=== PATIENT | male | born 1935 | race Caucasian/White ===

== ENCOUNTER 2016-06-29 19:23 | Inpatient (IN) | payer MEDICARE, OTHER ==
[~2016-06-29] VITALS: Ht 185.4 cm; Wt 67.9 kg
[~2016-06-29 19:23] MED LIST: ACYC400T2 PEG; ALBU2.5V4 IH; ALBU8.5H2 INHALATION; BUDE10.2 IH; DIAZ5TAB PEG; DILT120C55 PEG; HYDR-4003 PO; LEVO137T2 PEG; METO10TA3 PO; MIRT15TA6 PEG; ONDA-54 PEG; PANT20TA2 PO; POLY17PO2 PEG; TIOT18CA3 IH; WARF6TAB6 PO
[2016-06-29 19:32] VITALS: BP 160/102; PULSE 92; RESP 34; O2SAT 95
[2016-06-29] MEDS ORDERED: MethylprednisoLONE Sodium Succinate 62.5 mg/mL 2 mL Inj IVPUSH ONE (19:35)
[2016-06-29] MEDS ORDERED: Epinephrine Racemic 2.25% 0.5 mL Inhalation Solution NEB ONE (19:35)
[2016-06-29] MEDS ORDERED: Albuterol-Ipratropium 3 mL Inhalation Solution NEB ONE (19:35)
[2016-06-29] MEDS ORDERED: HYDR-4003 PO (19:45)
[2016-06-29] MEDS ORDERED: TAM75UDCAP PO (19:45)
[2016-06-29] MEDS ORDERED: WARF5TAB7 PEG (19:45)
[2016-06-29] MEDS ORDERED: WARF5TAB7 PO (19:45)
[2016-06-29 19:48] LABS: BASOPHILS % (AUTO) 0.6 % (0-3); EOSINOPHILS % (AUTO) 6.8 % (0-5); MONOCYTES % (AUTO) 12.3 % (4-12); Mean Corpuscular Volume 95.9 fL (81-100); NEUTROPHILS % (AUTO) 63.9 % (40-74); Platelet Count 265 bil/L (150-400)
[2016-06-29 19:55] VITALS: PULSE 99; RESP 27; O2SAT 100
--- NOTE | 2016-06-29 20:08 | DRSVH ---
PROCEDURE: X-RAY CHEST ONE VIEW ([id number]) INDICATIONS: respiratory distress TECHNIQUE: One view of the chest was acquired. COMPARISON: [facility], CR, XR CHEST 1VW (PORTABLE), 10/07/2015, 16:46. FINDINGS: Surgical changes and devices: alarm security or surveillance monitor leads are seen over the chest. Lungs and pleura: There is patchy streaky disease at the left base consistent with pneumonia. There i s indistinctness of the right hemidiaphragm and streaky disease suggesting early infiltrate at the ri ght base as well. Upper lungs and pulmonary vasculature are considered clear and normal. Mediastinum: Mediastinal contours appear normal. Heart size is normal. Bones and chest wall: No suspicious bony lesions. Overlying soft tissues appear unremarkable. IMPRESSION: Bibasilar patchy areas of pneumonia. Dictated by: Aki Reyes M.D. on 06/29/2016 at 20:06 Approved by: Aki Reyes M.D. on 06/29/2016 at 20:06
--- NOTE | 2016-06-29 20:08 | ED.REPORT ---
HPI-Dyspnea / Wheezing Date of Service Jun 29, 2016 ED Provider: Kiet Gutierres DO Pt is a 80 year old male with a hx of lung cancer and a tracheotomy on Warfarin for afib presenting to the ED via EMS complaining of intermittent SOB for a month. Associated symptoms include a bad cough for 6 weeks and increased sputum production. He has been on cephalexin 2 times a day for a month and is now on doxycycline. The pt is on precautionary Tamiflu because his 6 year old granddaughter has influenza. Has lung cancer treatment every 3 weeks. The pt's last INR was last week. Nursing Notes Stated Complaint: SOB Chief Complaint: Respiratory Distress Nursing Notes Reviewed: Yes Allergies: Coded Allergies: meperidine HCl (Verified Allergy, Severe, 'PASSED OUT PER PT', 10/07/15) PT STATES OK WITH DILAUDID AND MORPHINE AND OXYCODONE codeine (Verified Adverse Reaction, Severe, SEVERE N/V, 10/07/15) PT STATES OK WITH DILAUDID AND MORPHINE AND OXYCODONE oxycodone (Verified Adverse Reaction, Severe, Hallucinations, 10/07/15) Scheduled Acyclovir (Acyclovir) 400 Mg Tablet 400 MG PO BID Budesonide/Formoterol 80-4.5 mcg Inh (Symbicort 80-4.5 mcg Inh) 120 Puff/10.2 Gm Inhaler 2 PUFF IH BID Diltiazem ER (Taztia XT) 120 Mg Capsule.er 120 MG PO DAILY Levothyroxine (Levothyroxine) 137 Mcg Tablet 137 MCG PO DAILY Mirtazapine (Mirtazapine) 15 Mg Tablet 15 MG PO HS Oseltamivir Phosphate (Tamiflu) 75 Mg Capsule 75 MG PO DAILY Pantoprazole DR (Pantoprazole DR) 20 Mg Tablet.dr 20 MG PO DAILY Tiotropium [place] (Spiriva) 18 Mcg Cap.w.dev 1 PUFF IH DAILY Warfarin Sodium (Warfarin Sodium) 5 Mg Tablet 5 MG PO cvd-fdd-ggee-thur Warfarin Sodium (Warfarin Sodium) 5 Mg Tablet 2.5 MG PO sat-sat-dri Scheduled PRN Albuterol HFA (Proair HFA) 8.5 Gm Hfa.aer.ad 2 PUFFS INHALATION QID PRN PRN For Shortness of Breath Albuterol Neb Soln (Albuterol Neb Soln) 2.5 Mg/3 Ml Vial.neb 2.5 MG IH QID PRN PRN For Wheezing Diazepam (Valium) 5 Mg Tablet 5 MG PO HS PRN PRN For Restlessness Hydrocodone-Acetaminophen 5-325 mg (Hydrocodone-Acetaminophen 5-325 mg) 1 Each Tablet 1 TABLET PO bid PRN PRN For Pain Polyethylene Glycol 3350 (Polyethylene Glycol 3350) 17 Gm Powd.pack 17 GM PO prn PRN PRN For Constipation Miscellaneous Medications Ondansetron (Ondansetron) 8 Mg Tablet 8 MG PO crush, given through g-tube General Time Seen by MD: 19:30 Chief Complaint Shortness of breath Hx Obtained From: Spouse Arrived By: Walk-in Sudden in Onset?: No Onset Occurred: More than a week ago... (1 month) Symptom Duration: Intermittent Quality: Painful Severity: Current: Mild Severity: Maximum: Moderate Recent Healthcare: No recent hospitalization, Recent doctor visit Similar Sx Previous: Yes Risk Factors CAD Risk Stratification Hypertension Risk factors reviewed Past Medical History Past Medical History Notes: PCP: Dr. Kilpatrick Past Medical History Post-biopsy PTX on 10/18/14 (bx of right upper lung nodule) Afib on Coumadin s/p total laryngectomy and trach Feeding tube Recent aspiration PNA SCC of base of tongue Prostate cancer COPD HTN Chronic pain Past Surgical History Total laryngectomy and tracheostomy PET feeding tube insertion Radiation for tongue cancer Smoking History Former Smoker Social History Alcohol Use: Denies alcohol use Drug Use: Denies drug use Other Social History: Ambulatory Status Independent Review of Systems Unable to Obtain ROS Patient condition Constitutional: Denies: Fever Respiratory: Reports: Prod cough, clear, Shortness of breath, Wheezing Cardiovascular: Denies: Chest pain GI: Denies: Nausea, Vomiting Physical Exam Initial Vital Signs Vital Signs (First) Date Time Temp Pulse Resp B/P Pulse Ox O2 Delivery O2 Flow Rate FiO2 06/29/16 19:32 37.2 92 34 160/102 95 Room Air 06/29/16 19:55 11 100 Initial VS: Reviewed Head / Eyes: Atraumatic, Normocephalic ENT: No scleral icterus Abdomen / GI: Soft, Non-tender, No guarding, No rebound, No distention Lymphatic: No lymphadenopathy Extremities: Vascular intact, Neuro intact, No swelling Skin: Warm, Dry Neurologic: Alert, Oriented, Nonfocal Psychiatric: Mood/affect normal, Behavior normal, Normal thought content Respiratory / Chest: Atraumatic Resp Distress / Stridor: Positive: Resp distress moderate High pitched stridor. Extreme resistance to inhalation. Increased sputum production. Skin: Warm, Dry, Intact Color / Condition: Positive: Cyanosis central Tracheostomy Interpretation & Diagnostics Lab Results Interpretation Result Diagram: 06/29/16192906/29/161929 Test 06/29/16 19:30 White Blood Count 11.7th/mm3 (3.8-10.1) Red Blood Count 4.65mil/mm3 (4.40-5.80) Hemoglobin 14.9g/dL (13.8-17.2) Hematocrit 44.6% (41.0-50.0) Mean Corpuscular Volume 95.9fL (81-100) Mean Corpuscular Hemoglobin 32.0pg (27.0-35.0) Mean Corpuscular Hemoglobin Concent 33.4% (32.0-37.0) Red Cell Distribution Width 12.5% (12.3-15.4) Platelet Count 265bil/L (150-400) Neutrophils (%) (Auto) 63.9% (40-74) Lymphocytes (%) (Auto) 16.1% (14-46) Monocytes (%) (Auto) 12.3% (4-12) Eosinophils (%) (Auto) 6.8% (0-5) Basophils (%) (Auto) 0.6% (0-3) Prothrombin Time 16.8sec (8.1-12.5) Prothromb Time International Ratio 1.56ratio Sodium Level 142mEq/L (134-144) Potassium Level 4.5mEq/L (3.5-5.2) Chloride Level 103mEq/L (97-108) Carbon Dioxide Level 25mmol/L (18-29) Blood Urea Nitrogen 18mg/dL (8-27) Creatinine 0.81mg/dL (0.76-1.27) Estimat Glomerular Filtration Rate 98mL/min (>59) Glucose Level 105mg/dL (60-99) Lactic Acid Level 1.5mmol/L (0.4-2.0) Calcium Level 9.4mg/dL (8.5-10.1) Total Bilirubin 0.4mg/dL (0.0-1.2) Aspartate Amino Transf (AST/SGOT) 20U/L (0-50) Alanine Aminotransferase (ALT/SGPT) 14U/L (0-44) Alkaline Phosphatase 105U/L (25-160) Total Protein 7.5g/dL (6.4-8.4) Albumin 3.8g/dL (3.4-5.0) Hold Demarco Top Tube Received (Received) ECG Interpretation ECG Interpretation: Neuro complex tachycardia. Suspicious for atrial flutter. Rate 150. Time: 20:13 Interpreted by: ED physician X-Ray Chest Interpretation Chest Xray Interpretation: IMPRESSION: Bibasilar patchy areas of pneumonia. Dictated by: Aki Reyes M.D. on 06/29/2016 at 20:06 View: Portable, 1 view Interpretation / Wet Read by: Interpret - Radiologist Re-Eval/Medical Decision Med Decision/Clinical Course Patient presents in moderate respiratory distress. Diffuse expiratory wheeze and prolonged I to E. Thick secretions were suctioned. Chest x-ray is consistent with bibasilar pneumonia. Leukocytosis consistent with pneumonia. EKG shows narrow Tachycardia that is regular. This either sinus tachycardia or flutter with a fixed block. Mr. Rodriguez was resuscitated with broad-spectrum antibiotics for aspiration pneumonia, IV fluids, beta agonists and steroids. He received a few doses of IV Cardizem which brought his heart rate down to 112. After the above therapeutics he looked and felt much better. I consulted with Dr. Vogel. Plan for hospitalist admission and oncology consultation. Re-Evaluation/Progress : Time of Eval: 20:28 Patient Status: Condition improved Re-Evaluation/Progress Note: Discussed plan for admission. Pt understands and agrees. Consultation #1: Referral / Consult Name: Shawnee Gilbert MD Consulted With: Hospitalist Call Returned at: 20:47 Tetryl Blender Operator: Will see patient, Agrees with plan, Accepts admit Consultation #2: Referral / Consult Name: Nicolas Driver MD Call Returned at: 20:40 Tetryl Blender Operator: Agrees with plan Note: Oncology. Counseled Regarding: Diagnosis, Lab results, Need for follow-up, When/why to return to ED Discharge & Departure Shift Change Sign-Out Response to Therapy: Improved Impression: Primary Impression: Pneumonia Pneumonia type: aspiration pneumonia Aspiration pneumonia type: unspecified Laterality: bilateral Lung location: lower lobe of lung Qualified Code: J69.0 - Pneumonitis due to inhalation of food and vomit Additional Impressions: COPD with acute exacerbation Atrial fibrillation Disposition: AGAINST MEDICAL ADVICE Discharge Condition All VS Reviewed: Yes Condition: Improved Referrals: Chava Kilpatrick MD (PCP) Paulie Martinez MD Attestation Portions of this note were transcribed by Zayda Altamirano. I, Dr. Gutierres personally performed the history, physical exam and medical decision-making; I reviewed and confirmed the accuracy of the information in the transcribed note. Signed by : Eric Deluna, 06/29/2016 and 2136. copies to: Chava Kilpatrick MD; Paulie Martinez MD, Todd P DO Jun 29, 2016 20:08 ZAYDA ALTAMIRANO Jun 29, 2016 20:21
[2016-06-29 20:22] LABS: INR 1.56 ratio
[2016-06-29] MEDS ORDERED: 0.9% Sodium Chloride 1,000 ML IV SCH (20:25)
[2016-06-29] MEDS: Piperacillin-Tazo 3.375 Gm Inj 3.375 GM in Dextrose 5% Minibag Plus 50 ML IV SCH (20:40)
[2016-06-29] MEDS ORDERED: Diltiazem 5 mg/mL 5 mL Inj IVPUSH ONE (20:50)
[2016-06-29 21:05] VITALS: BP 134/58; PULSE 128; RESP 25; O2SAT 97
[2016-06-29 21:44] VITALS: BP 129/62; PULSE 115; RESP 23; O2SAT 98
[2016-06-29] MEDS ORDERED: Polyethylene Glycol (PEG) 17 Gm Powder PO PRN (22:40)
[2016-06-29] MEDS ORDERED: Alum-Mag Hydrox-Simeth 30 mL Suspension PO PRN (22:40)
[2016-06-29] MEDS ORDERED: Albuterol 2.5 mg/3 mL Inhalation Solution NEB PRN (22:40)
[2016-06-29] MEDS ORDERED: Ondansetron 2 mg/mL 2 mL Inj IVPUSH PRN (22:40)
[2016-06-29 22:45] VITALS: BP 152/88; PULSE 116; RESP 20; O2SAT 97
[2016-06-29 23:03] VITALS: BP 158/76; PULSE 116; RESP 25; O2SAT 98
--- NOTE | 2016-06-29 23:45 | PCM.HPMED ---
Subjective Date of Service Jun 29, 2016 Primary Provider: Admitting Physician: Shawnee Gilbert MD Primary Care Physician: Chava Kilpatrick MD Attending Physician: Shawnee Gilbert MD Chief Complaint: Cough, dyspnea History of Present Illness: Patient is a 80-year-old male with history of tongue squamous cell carcinoma, recurrent aspiration pneumonia, COPD, atrial fibrillation on warfarin and hypothyroidism presenting with a 6 week history of worsening cough. 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 The patient is accompanied by his , Pat, at bedside who is providing much of the history since the patient is non-verbal at baseline following laryngectomy with tracheostomy. Patient has had a cough for about 6 weeks that is more productive of yellow sputum. He has been on prophylactic antibiotics for aspiration pneumonia that is managed by his oncologist, Dr. Martinez. He was on cephalexin for 4 weeks, which was subsequently changed to clindamycin for 2 weeks due to persistent cough. He was then placed back on cephalexin and with no improvement with the cough he has been switched to doxycycline for the past 2 weeks. Patient 's noticed decreases in the patient's oxygen saturation with his cough today, which prompted her to bring him into [facility] ED for further evaluation. Patient reports weakness, fatigue, about 9lb weight loss over the past 3 weeks but otherwise denies fever, chills, chest pain, palpitations, dysuria. The patient currently gets PEG tube feedings scheduled for four times daily; however , due to sensation of fullness and nausea he has only been able to tolerate two feeds daily. He has a scheduled appointment next week to see Dr. Avelina Bingham to discuss J-tube placement in addition to esophageal stricture dilation. Over the past month he has been receiving daily IV fluids at home. The patient received DuoNeb, racemic epinephrine and albuterol nebulizer treatments in the ED with improvement in his breathing. Diltiazem 10mg IV was given due to SVT with HR 150s. Vivian-flu was also given in the ED as the patient's granddaughter has the flu. 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 He had local recurrence in September 2013, underwent left partial glossectomy with modified radical neck dissection, and subsequently underwent total laryngectomy in December 2013 for recurrent aspirations. He first developed a metastatic right upper lobe small lung nodule in February 2014, which was initially monitored and later biopsied in September 2014, demonstrating p16 positive metastatic head and neck squamous cell carcinoma. The lesion was treated with SBRT, but subsequent CT scan and PET-CT in March 2015 showed development of further metastatic lung nodules, and he started pembrolizumab ( Keytruda) infusions in May 2015. He completed cycle 18 of Keytruda on 06/14. Vitals in the ED: 37.2, HR 128, RR 36 satting 97% on oxymask 11L over trach collar, BP 135/58. Notable labs: WBC 11.7. Chest x-ray reads bibasilar patchy areas of pneumonia. Patient was started on Zosyn in the ED. Review of Systems: A comprehensive review of systems was conducted with the patient and found to be negative except as above in the History of Present Illness. Allergies Coded Allergies: meperidine HCl (Verified Allergy, Severe, 'PASSED OUT PER PT', 10/07/15) PT STATES OK WITH DILAUDID AND MORPHINE AND OXYCODONE codeine (Verified Adverse Reaction, Severe, SEVERE N/V, 10/07/15) PT STATES OK WITH DILAUDID AND MORPHINE AND OXYCODONE oxycodone (Verified Adverse Reaction, Severe, Hallucinations, 10/07/15) Home Medications Doxycycline 50mg BID Acyclovir 400mg BID Symbicort 80-4.5mcg 2 puffs BID Diltiazem ER 120mg daily Levothyroxine 137mcg daily Mirtazapine 15mg QHS Protonix 20mg daily Spiriva 1 puff daily Warfarin 5mg Sun, Sat, Tue, Sherie Warfarin 2.5mg Mon, Wed, Fri Hydrocodone 5/325mg 1 tab BID PRN PMH Complicated head and neck cancer history with a history of 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 Atrial fibrillation, on chronic anticoagulation. History of prostate cancer Recurrent aspiration pneumonia COPD Hypertension Chronic pain Dyslipidemia Hypothyroidism . Surgical History Cataracts Laryngectomy with tracheostomy PEG tube Bilateral hernia repair Family History Mother in her 80s from lung cancer Father in his 80s from [place] Social History Occupation: Retired, former med tech Hx Alcohol Use: No Hx Substance Use: No Hx Tobacco Use: No Smoking Status: Former Smoker (Quit 1989, smoked 1PPD x 35 years prior) Living Arrangement: with Family Exam Vital Signs Vital Sign - Last Date Time Temp Pulse Resp B/P Pulse Ox O2 Delivery O2 Flow Rate FiO2 06/29/16 21:44 115 23 129/62 98 06/29/16 19:55 Trach Collar 11 100 06/29/16 19:32 37.2 Exam General: Patient supine in bed. No acute distress, well-developed. Frail appearing. HEENT: Normocephalic, atraumatic. External ears without defect. Pupils equal, round, and reactive to light. Anicteric sclerae. Oropharynx with dry mucosa. Poor dentition. White plaque on posterior oropharynx. Tracheostomy present. Neck: Supple with full range of motion. No jugular venous distension. No bruits. No lymphadenopathy or thyromegaly. Cardiovascular: Tachycardic. No murmurs, rubs, or gallops appreciated Pulmonary: Rhales and rhonchi diffusely bilaterally, with occasional expiratory wheezes. Intermittent coughing on exam. Normal respiratory effort with no use of accessory muscles. Abdomen: Bowel tones present. Soft, nontender, nondistended. No hepatosplenomegaly or masses appreciated. PEG tube in place. Extremities: No clubbing, cyanosis, edema, or lymphadenopathy appreciated. Skin: Normal temperature, turgor, and texture; no rash, ulcers, or subcutaneous nodules appreciated. Neurological: Cranial nerves grossly intact. Psychiatric: Normal mood and affect. Lab and Diagnostics Result Diagram: 06/29/16192906/29/161929 X-Rays, CTs and MRIs Date of Service: 06/29/161931 PROCEDURE: X-RAY CHEST ONE VIEW ([id number]) INDICATIONS: respiratory distress TECHNIQUE: One view of the chest was acquired. COMPARISON: [facility], CR, XR CHEST 1VW (PORTABLE), 10/07/2015, 16: 46. FINDINGS: Surgical changes and devices: content assistant leads are seen over the chest. Lungs and pleura: There is patchy streaky disease at the left base consistent with pneumonia. There is indistinctness of the right hemidiaphragm and streaky disease suggesting early infiltrate at the right base as well. Upper lungs and pulmonary vasculature are considered clear and normal. Mediastinum: Mediastinal contours appear normal. Heart size is normal. Bones and chest wall: No suspicious bony lesions. Overlying soft tissues appear unremarkable. IMPRESSION: Bibasilar patchy areas of pneumonia. Dictated by: Aki Reyes M.D. on 06/29/2016 at 20:06 Approved by: Aki Reyes M.D. on 06/29/2016 at 20:06 Assessment & Plan Patient is a 80-year-old male with history of tongue squamous cell carcinoma, recurrent aspiration pneumonia, COPD, atrial fibrillation on warfarin and hypothyroidism presenting with a 6 week history of worsening cough and admitted for bibasilar pneumonia and COPD exacerbation. 1. Bibasilar pneumonia. Present on admission. Active -Suspected aspiration pneumonia -Chest x-ray shows patchy streaky disease at the left base consistent with pneumonia and indistinctness of the right hemidiaphragm and streaky disease suggesting early infiltrate at the right base -Pending studies: procalcitonin, legionella and strep pneumo urine ag, sputum culture, respiratory virus PCR -Continue Zosyn 2. Acute COPD exacerbation. Present on admission. Active -Patient with increasing shortness of breath, increasing sputum, change in color sputum -Possibly secondary to above -Patient received 125 mg Solu-Medrol in ED and will continue 40 mg prednisone daily for anticipated five day course -DuoNeb QIDWA, Albuterol Q2H PRN -Continue supplemental oxygen as needed to keep oxygen sats greater>90% 3. Paroxysmal atrial fibrillation on chronic anticoagulation with subtherapeutic INR. Present on admission. Active -Continue warfarin, dosed per pharmacy. Will continue DVT prophylaxis with heparin until INR is therapeutic -Continue home diltiazem 120mg ER daily -Telemetry 4. 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 Present on admission -Continue tube feeds through PEG tube -Dietitian order -Consider General Surgery consultation as patient has an appointment 07/02/2016 to discuss J-tube placement and esophageal stricture dilation 5. Hypothyroidism. Present on admission -Continue levothyroxine 125g daily 6. History of RLS. Present on admission -Continue diazepam 5mg PRN Patient Status: Patient is admitted under inpatient status with expected length of stay greater than 2 midnights due to severity of presenting symptoms, risk of adverse event, and complexity of treatment plan. GI Prophylaxis: Not indicated VTE Prophylaxis: Sub-Q Heparin (Unfractionated) Resuscitation Status: CPR: Attempt Resuscitation Attending Statement Pt seen and examined by myself and agree with above plan. Kyaw Mejia DO Jun 29, 2016 23:40 Shawnee Gilbert MD Jun 30, 2016 18:51
[2016-06-29] MEDS: 0.9% Sodium Chloride 1,000 ML IV SCH (23:55)
[2016-06-30] VITALS (11 sets, daily range): BP systolic 139–156; BP diastolic 84–102; PULSE 99–120; RESP 18–20; O2SAT 92–99
[2016-06-30] MEDS: Heparin 5,000 Unit/mL Inj SUBQ SCH ×3 (00:18→17:34)
[2016-06-30 05:05] LABS: INR 1.47 ratio
--- NOTE | 2016-06-30 05:20 | NUR ---
ADMIT/ O2 Admitted to room 2007 @ 2100, on 7 L O2 Per NC w Hydration, NS @ 75. Tele S-Tach A&Ox3 , using call light appropriately . minimal discomfort, dyspnea has subsided since admission, Pt Is NPO , had Pag Tube but without adapter so at present we are unable to administer medication or nutrition, will bring appropriate tubing in AM. Night Dose of Coumadin was held until it is possible to access tube
[2016-06-30 05:48] LABS: BASOPHILS % (AUTO) 0.1 % (0-3); EOSINOPHILS % (AUTO) 0.2 % (0-5); MONOCYTES % (AUTO) 0.7 % (4-12); Mean Corpuscular Hemoglobin 32.7 pg (27.0-35.0); Mean Corpuscular Volume 96.8 fL (81-100); Platelet Count 232 bil/L (150-400)
[2016-06-30] MEDS ORDERED: Influenza (Adult) Vaccine 0.5 mL Syringe IM ONE (08:30)
[2016-06-30] MEDS: Pantoprazole 20 mg ER24 Tablet PO SCH (08:30)
--- NOTE | 2016-06-30 09:18 | NUR ---
NUTRITION ASSESSMENT: Assess: 80 yo male w/ metastatic squamous cell carcinoma of the head and neck, admitted with 6 week history of worsening cough, likely aspiration pneumonia. Pt w/ gradual wt loss x 6 months and a recent hospital admission for SBO. Pt's reports that prior to admission pt was not tolerating enteral feeding, and since being discharged he has not been tolerating his boluses as well despite bowel movements. Pt's also notes that he is not taking in as much formula - down from 3 cans of Jevity 1.5 and 1 can of Osmolite per day to 2 cans daily currently, with a 9 pound weight loss x 3 weeks. Pt recently saw his PCP who suggests hanging a gravity bag of water between boluses to increase hydration. Order received to initiate PEG tube feeding once spouse brings in adapter / tubing that will work with hospital kangaroo pumps. PMHx: Depression, SBRT, a-fib, prostate ca, COPD, HTN LABS: Reviewed. Glu 108, Ca 8.3 MEDICATIONS: Reviewed. DIET: NPO HOME NUTRITION SUPPORT: Being managed by [facility]. reports the recommendation was 3 cans Jevity 1.5 + 3 cans Osmolite 1.5 per day. Provides: 2130 kcal/d, 90 g/d protein, and 1083 ml fluid. ANTHROPOMETRICS: Current Wt: 71.6 kg BMI: 20.8 kg/m2 IBW: 97.3 kg (74% IBW) Recent wt changes: 6 kg wt loss x6 months (7% = not significant) 4 kg reported weight loss x 3 weeks (5.29% x 3 weeks = severe malnutrition if reported weight loss is accurate) ESTIMATED NEEDS (Cancer): Calories: 2140 - 2432 kcal/d (22 - 25 kcal/kg/d IBW) Protein : 97 - 146 g/d (1.0-1.5 g/kg/d IBW) Fluid: Approx. 2432 ml (25 ml / kg IBW) ADDITIONAL COMMENTS: IBW used for estimated needs d/t gradual wt loss x6 months NUTRITION DIAGNOSIS: 1) Severe malnutrition / hydration related to acute on chronic illness as evidenced by wt loss and pt's inability to take in recommended enteral feeding regimen. INTERVENTION: 1) PEG tube feeding recommendation follows. Initiate Jevity 1.5 @ 25 ml/hr. Once tolerance established, recommend advance 10 ml every 4 hr. to goal rate 65 ml/hr x 23 hr. Flush dose 40 ml H2O every 4 hours, unless no IVF ordered. In that event, flush dose 54 ml / hr. 2)Discussed case w/ pt's dietitian at [facility] last admit 05/24/16. According pt's ordering log she suspects he has not been meeting his 6 cans/d for much more than 2 weeks and this is contributing to his steady and gradual wt loss. Also, discussed possibility of adding an extra can of formula to regimen once pt tolerating 6 cans/d and if his wt does not stabilize/increase. 2) Again encouraged pt's to touch base with [facility] regarding changes to enteral feeding regimen. MONITOR/EVALUATE: Enteral feeding start / advance / tolerance, wt, labs, GI/nutrition status, POC. Will continue to monitor per high nutrition risk guidelines.
[2016-06-30] MEDS: Albuterol-Ipratropium 3 mL Inhalation Solution NEB SCH ×4 (09:50→21:32)
--- NOTE | 2016-06-30 10:43 | PCM.PNMED ---
Subjective Date of Service Jun 30, 2016 Subjective Patient indicated he feels better this am. Cultures remain negative. CXR with new infiltrate. Viral pcr negative. Exam Vital Signs Eyes; cherelle, eom intact ENMT, well hydrated, trach in place CV; no significant mummer, irregular, 90 Lungs; Course, decreased sound both bases Abdo; soft, non acute benign, no sig tenderness Skin; no lesion or rash Neuro; no focal deficits noted, CN 2-12 intact Vital Sign - Last Date Time Temp Pulse Resp B/P Pulse Ox O2 Delivery O2 Flow Rate FiO2 06/30/16 09:55 109 06/30/16 09:52 18 93 Room Air 06/30/16 08:51 36.4 156/102 06/30/16 04:22 28 06/29/16 22:45 7.00 Intake and Output 06/29/16 06/29/16 06/30/16 Cumulative From/Thru 15:00 23:00 07:00 06/29/16 19:32 - 06/30/16 06:04 Intake Total 2000 ml 436 ml 2436 ml Output Total 400 ml 400 ml Balance 2000 ml 36 ml 2036 ml Intake Oral 0 ml 0 ml IV Total 2000 ml 436 ml 2436 ml Output Urine Total 400 ml 400 ml # Voids 2 2 Lab and Diagnostics Result Diagram: 06/30/16 0330 06/30/16329 X-Rays, CTs and MRIs Date of Service: 06/29/161931 PROCEDURE: X-RAY CHEST ONE VIEW ([id number]) INDICATIONS: respiratory distress TECHNIQUE: One view of the chest was acquired. COMPARISON: [facility], CR, XR CHEST 1VW (PORTABLE), 10/07/2015, 16: 46. FINDINGS: Surgical changes and devices: telemetry monitor leads are seen over the chest. Lungs and pleura: There is patchy streaky disease at the left base consistent with pneumonia. There is indistinctness of the right hemidiaphragm and streaky disease suggesting early infiltrate at the right base as well. Upper lungs and pulmonary vasculature are considered clear and normal. Mediastinum: Mediastinal contours appear normal. Heart size is normal. Bones and chest wall: No suspicious bony lesions. Overlying soft tissues appear unremarkable. IMPRESSION: Bibasilar patchy areas of pneumonia. Dictated by: Aki Reyes M.D. on 06/29/2016 at 20:06 Approved by: Aki Reyes M.D. on 06/29/2016 at 20:06 Assessment & Plan Patient is a 80-year-old male with history of tongue squamous cell carcinoma, recurrent aspiration pneumonia, COPD, atrial fibrillation on warfarin and hypothyroidism presenting with a 6 week history of worsening cough and admitted for bibasilar pneumonia and COPD exacerbation. 1. Bibasilar pneumonia. Present on admission. Active -Suspected aspiration pneumonia -Chest x-ray shows patchy streaky disease at the left base consistent with pneumonia and indistinctness of the right hemidiaphragm and streaky disease suggesting early infiltrate at the right base -Pending studies: procalcitonin, legionella and strep pneumo urine ag, sputum culture, respiratory virus PCR -Continue Zosyn -add azithromycin for atypicals 2. Acute COPD exacerbation. Present on admission. Active -Patient with increasing shortness of breath, increasing sputum, change in color sputum -Possibly secondary to above -Patient received 125 mg Solu-Medrol in ED and will continue 40 mg prednisone daily for anticipated five day course -DuoNeb QIDWA, Albuterol Q2H PRN -Continue supplemental oxygen as needed to keep oxygen sats greater>90% 3. Paroxysmal atrial fibrillation on chronic anticoagulation with subtherapeutic INR. Present on admission. Active -Continue warfarin, dosed per pharmacy. Will continue DVT prophylaxis with heparin until INR is therapeutic -Continue home diltiazem 120mg ER daily -Telemetry 4. 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 Present on admission -Continue tube feeds through PEG tube -Dietitian order -Consider General Surgery consultation as patient has an appointment 07/02/2016 to discuss J-tube placement and esophageal stricture dilation 5. Hypothyroidism. Present on admission -Continue levothyroxine 125g daily 6. History of RLS. Present on admission -Continue diazepam 5mg PRN Patient Status: Patient is admitted under inpatient status with expected length of stay greater than 2 midnights due to severity of presenting symptoms, risk of adverse event, and complexity of treatment plan. GI Prophylaxis: Not indicated VTE Prophylaxis: Sub-Q Heparin (Unfractionated) Resuscitation Status: CPR: Attempt Resuscitation Isabelle Evans MD Jun 30, 2016 10:43
[2016-06-30] MEDS: Piperacillin-Tazo 3.375 Gm Inj 3.375 GM in Dextrose 5% Minibag Plus 50 ML IV SCH ×2 (11:09→17:34)
[2016-06-30 12:01] LABS: APPEARANCE,URINE CLEAR (CLEAR,HAZY); COLOR,URINE YELLOW (YELLOW); OCCULT BLOOD,URINE NEGATIVE (NEGATIVE); PH,URINE 6.5 (5.0-8.0); UROBILINOGEN,URINE NORMAL (NORMAL)
[2016-06-30] MEDS: 0.9% Sodium Chloride 1,000 ML IV SCH (13:25)
[2016-06-30] MEDS: Acyclovir 400 mg Tablet PO SCH ×2 (15:27→20:46)
[2016-06-30] MEDS: predniSONE 20 mg Tablet PO SCH (15:59)
[2016-06-30] MEDS: Diltiazem CD 120 mg ER24 Capsule PO SCH (15:59)
--- NOTE | 2016-06-30 19:44 | NUR ---
Meds/Tube feeding Several PO medications ordered in addition to tube feedings, but correct PEG tube attachment unavailable, brought in this afternoon, attached and placement verified with auscultation. Pt given PO daily medications, BID medications withheld r/t timing. Pt's tube feeding initiated at rate of 25mL/Hr with Q4 40mL bolus set and orders to increase Q4 by 10mL/Hr, first increase to be at 2000, oncoming NOC RN made aware.
[2016-07-01] VITALS (11 sets, daily range): BP systolic 133–174; BP diastolic 82–107; PULSE 81–120; RESP 16–28; O2SAT 93–100
[2016-07-01] MEDS: Heparin 5,000 Unit/mL Inj SUBQ SCH ×3 (00:09→16:18)
[2016-07-01] MEDS: Piperacillin-Tazo 3.375 Gm Inj 3.375 GM in Dextrose 5% Minibag Plus 50 ML IV SCH ×3 (00:11→16:17)
[2016-07-01] MEDS: 0.9% Sodium Chloride 1,000 ML IV SCH ×2 (01:39→16:17)
[2016-07-01 03:22] LABS: INR 1.54 ratio
--- NOTE | 2016-07-01 06:18 | NUR ---
Confusion At approx. 0400, pt came into hallway and gestured to this RN to enter room; pt had removed IV, PEG tube feeding, tele, gown, and oxygen. Pt unable to answer what occurred, states he doesn't know. PIV restarted, NS reinitiated at 75ml/hr; unable to reinitiate tube feeding d/t PEG tube attachment piece being discarded from contamination. VSS, tele ST 110s. Bed alarm in place, pt instructed to call for assistance in future for needs.
[2016-07-01] MEDS: Albuterol-Ipratropium 3 mL Inhalation Solution NEB SCH ×3 (08:18→19:18)
[2016-07-01] MEDS: Pantoprazole 20 mg ER24 Tablet PO SCH (08:30)
[2016-07-01] MEDS: Diltiazem CD 120 mg ER24 Capsule PO SCH (11:35)
[2016-07-01] MEDS: predniSONE 20 mg Tablet PO SCH (11:35)
[2016-07-01] MEDS: Acyclovir 400 mg Tablet PO SCH ×2 (11:36→21:53)
--- NOTE | 2016-07-01 17:35 | PCM.PNMED ---
Subjective Date of Service Jul 01, 2016 Subjective Patient is a 80-year-old male with history of tongue squamous cell carcinoma, recurrent aspiration pneumonia, COPD, atrial fibrillation on warfarin and hypothyroidism presenting with a 6 week history of worsening cough. 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 Patient has had a cough for about 6 weeks that is more productive of yellow sputum. He has been on prophylactic antibiotics for aspiration pneumonia that is managed by his oncologist, Dr. Martinez. He was on cephalexin for 4 weeks, which was subsequently changed to clindamycin for 2 weeks due to persistent cough. He was then placed back on cephalexin and with no improvement with the cough he has been switched to doxycycline for the past 2 weeks. Patient's noticed decreases in the patient's oxygen saturation with his cough today, which prompted her to bring him into [facility] ED for further evaluation. Patient reports weakness, fatigue, about 9lb weight loss over the past 3 weeks but otherwise denies fever, chills, chest pain, palpitations, dysuria. The patient currently gets PEG tube feedings scheduled for four times daily; however, due to sensation of fullness and nausea he has only been able to tolerate two feeds daily. He has a scheduled appointment next week to see Dr. Avelina Bingham to discuss J-tube placement in addition to esophageal stricture dilation. Over the past month he has been receiving daily IV fluids at home. The patient received DuoNeb, racemic epinephrine and albuterol nebulizer treatments in the ED with improvement in his breathing. Diltiazem 10mg IV was given due to SVT with HR 150s. Vivian-flu was also given in the ED as the patient's granddaughter has the flu. Overnight events: No acute events noted. Today - Patient indicated he feels better this am. Cultures remain negative. CXR with new infiltrate. Viral PCR negative. Exam Vital Signs Vital Sign - Last Date Time Temp Pulse Resp B/P Pulse Ox O2 Delivery O2 Flow Rate FiO2 07/01/16 07:50 36.3 81 16 156/107 98 Trach Collar 7.00 07/01/16 04:00 28 Intake and Output 06/30/16 06/30/16 07/01/16 Cumulative From/Thru 15:00 23:00 07:00 06/29/16 19:32 - 07/01/16 06:06 Intake Total 1103 ml 1391 ml 4930 ml Output Total 400 ml 400 ml 1200 ml Balance 703 ml 991 ml 3730 ml Intake Oral 0 ml 0 ml 0 ml IV Total 943 ml 929 ml 4308 ml Tube Feeding 40 ml 342 ml 382 ml Tube Irrigant 120 ml 120 ml 240 ml Output Urine Total 400 ml 400 ml 1200 ml # Voids 2 4 Exam General: No acute distress, well-developed, well-nourished, appropriately interactive HEENT: Normocephalic, atraumatic. External ears without defect. Pupils equal, round, and reactive to light and accommodation. Anicteric sclerae, moist conjunctivae, and no lid lag. Tracheostomy in place. Oropharynx free of erythema and cobble stoning with moist mucosa. Neck: Supple with full range of motion. No jugular venous distension. No bruits. No lymphadenopathy or thyromegaly. Cardiovascular: Regular rate and rhythm with no murmurs, rubs, or gallops appreciated Pulmonary: Diffusely coarse with intermittent cough with deep inspiration, mild to moderate decrease in air movement. Normal respiratory effort with no use of accessory muscles. Abdomen: Bowel tones present. Soft, nontender, nondistended. No hepatosplenomegaly or masses appreciated. Extremities: No clubbing, cyanosis, edema, or lymphadenopathy appreciated. Skin: Normal temperature, turgor, and texture; no rash, ulcers, or subcutaneous nodules appreciated. Neurological: Cranial nerves grossly intact. Normal muscle strength, tone, and bulk. Reflexes, coordination with upper extremities mildly altered with unknown baseline possible chronic intention tremor present, and sensory function within normal limits. No known gait impairment. Psychiatric: Normal mood and affect. Alert and oriented to person, place, and time. IVs and Medications Medications Reviewed: Medications were reviewed in detail Lab and Diagnostics Result Diagram: 06/30/1632906/30/16329 X-Rays, CTs and MRIs Date of Service: 06/29/161931 PROCEDURE: X-RAY CHEST ONE VIEW ([id number]) INDICATIONS: respiratory distress TECHNIQUE: One view of the chest was acquired. COMPARISON: [facility], CR, XR CHEST 1VW (PORTABLE), 10/07/2015, 16: 46. FINDINGS: Surgical changes and devices: compliance monitor leads are seen over the chest. Lungs and pleura: There is patchy streaky disease at the left base consistent with pneumonia. There is indistinctness of the right hemidiaphragm and streaky disease suggesting early infiltrate at the right base as well. Upper lungs and pulmonary vasculature are considered clear and normal. Mediastinum: Mediastinal contours appear normal. Heart size is normal. Bones and chest wall: No suspicious bony lesions. Overlying soft tissues appear unremarkable. IMPRESSION: Bibasilar patchy areas of pneumonia. Dictated by: Aki Reyes M.D. on 06/29/2016 at 20:06 Approved by: Aki Reyes M.D. on 06/29/2016 at 20:06 Assessment & Plan Patient is a 80-year-old male with history of tongue squamous cell carcinoma, recurrent aspiration pneumonia, COPD, atrial fibrillation on warfarin and hypothyroidism presenting with a 6 week history of worsening cough and admitted for bibasilar pneumonia and COPD exacerbation. 1. Bibasilar pneumonia, unknown chronicity, Present on admission. Active - DDX: aspiration pneumonia, Herpetic pna, post obstructive pna, PE, - Chest x-ray shows patchy streaky disease at the left base consistent with pneumonia and indistinctness of the right hemidiaphragm and streaky disease suggesting early infiltrate at the right base - Procalcitonin, legionella and strep pneumo urine ag, respiratory virus PCR all negative. - Hx of MRSA pneumonia. MRSA swab pending. - Sputum culture - preliminary reading - gram neg rods, possible contamination. - Continue Zosyn (06/29/16) and azithromycin (07/02/16) for atypicals. Continue Home Acyclovir. - CT chest PE (07/02/16). 2. Acute COPD exacerbation. Present on admission. Active - Patient with increasing shortness of breath, increasing sputum, change in color sputum - Patient received 125 mg Solu-Medrol (06/29/16)in ED and will continue 40 mg prednisone (06/30/16) daily for anticipated five day course - DuoNeb QIDWA, Albuterol Q2H PRN - Continue supplemental oxygen as needed to keep oxygen sats greater>90% 3. Chronic Paroxysmal atrial fibrillation on chronic anticoagulation with subtherapeutic INR. Present on admission. Active - Continue warfarin, dosed per pharmacy. Will continue DVT prophylaxis with heparin until INR is therapeutic - INR 1.54. - Continue home diltiazem 120mg ER daily, Currently HR fluctuates in the low 100 's. - Telemetry 4. 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 Present on admission - Continue tube feeds through PEG tube - Dietitian order - Consider General Surgery consultation as patient has an appointment 07/02/2016 to discuss J-tube placement and esophageal stricture dilation - Dr. Bingham not yet aware of inpatient status. 5. Chronic Hypothyroidism. Present on admission - Continue levothyroxine 125g daily 6. History of RLS. Present on admission - Continue diazepam 5mg PRN Acetaminophen for mild pain when necessary. Bowel regimen Senna and MiraLAX scheduled and PRN. Zofran when necessary for nausea and vomiting. SubQ heparin held for now. SCDs in place. High-risk medications: Patient Status: Patient is admitted under inpatient status with expected length of stay greater than 2 midnights due to severity of presenting symptoms, risk of adverse event, and complexity of treatment plan. Pain Evaluation: Adequate Pain Control GI Prophylaxis: Not indicated VTE Prophylaxis: Sub-Q Heparin (Unfractionated) Resuscitation Status: CPR: Attempt Resuscitation Attending Statement The patient was seen and examined together with Dr. Tony on 07-01-16 and I agree with the history, exam and plan as outlined in the note above. SAGAR TONY DO Jul 01, 2016 08:08 Isabelle Evans MD Jul 02, 2016 16:06
--- NOTE | 2016-07-01 19:46 | NUR ---
PEG tube Per shift report, Pt had removed PEG access tubing during his episode of confusion. Pt's called and new access tubing brought in, Pt given am medications and tube feeding resumed at initial rate of 25mL/Hr, tube feeding increased to 35mL/Hr at ~1600 without issue.
--- NOTE | 2016-07-01 22:22 | NUR ---
Peg tube feed Pt had zero residual from Peg tube. Increased Jevity 1.5 to 45cc/hr. Pt denies nausea. Will cont to monitor
[2016-07-02] VITALS (15 sets, daily range): BP systolic 150–190; BP diastolic 84–108; PULSE 76–112; RESP 16–22; O2SAT 96–99
[2016-07-02] MEDS: Heparin 5,000 Unit/mL Inj SUBQ SCH ×3 (01:10→17:01)
[2016-07-02] MEDS: Piperacillin-Tazo 3.375 Gm Inj 3.375 GM in Dextrose 5% Minibag Plus 50 ML IV SCH ×4 (01:10→17:01)
[2016-07-02 03:31] LABS: BASOPHILS % (AUTO) 0 % (0-3); EOSINOPHILS % (AUTO) 0 % (0-5); MONOCYTES % (AUTO) 8.7 % (4-12); Mean Corpuscular Hemoglobin 32.4 pg (27.0-35.0); Mean Corpuscular Volume 97.1 fL (81-100); NEUTROPHILS % (AUTO) 82.2 % (40-74); Platelet Count 221 bil/L (150-400)
[2016-07-02 03:47] LABS: INR 1.9 ratio
[2016-07-02] MEDS: 0.9% Sodium Chloride 1,000 ML IV SCH ×2 (04:27→17:00)
--- NOTE | 2016-07-02 04:27 | NUR ---
PEG Tube Feed Residuals checked Q4hrs with no residuals found. Tube Feeding of Jevity 1.5 increased by increments of 10ml/hr at each check. Tube feed running at 65ml/hr with 40mlflush Q4hrs at tis time. Pt denies nausea.
--- NOTE | 2016-07-02 04:44 | NUR ---
VTac Per television specialist pt had 6 beats of VTac @ 0402. No abnormal S/Sx noted. Denies CP, SOB. Will continue to monitor.
[2016-07-02] MEDS: Albuterol-Ipratropium 3 mL Inhalation Solution NEB SCH ×4 (06:00→21:21)
[2016-07-02] MEDS: Pantoprazole 20 mg ER24 Tablet PO SCH (08:30)
[2016-07-02] MEDS: Acyclovir 400 mg Tablet PO SCH ×2 (08:54→19:54)
[2016-07-02] MEDS: Diltiazem CD 120 mg ER24 Capsule PO SCH (08:55)
[2016-07-02] MEDS: predniSONE 20 mg Tablet PO SCH (08:55)
--- NOTE | 2016-07-02 11:53 | DRSVH ---
PROCEDURE: CT ANGIO CHEST PULMONARY EMBOLISM ([id number]) INDICATIONS: Shortness of breath TECHNIQUE: After the administration of intravenous contrast, 2 mm thick sections acquired from the pulmonary api kaykay to the posterior costophrenic angles. 3-dimensional maximum intensity projection (MIP) coronal a nd sagittal reformats were then acquired through the thorax. For radiation dose reduction, the follo wing was used: automated exposure control, adjustment of mA and/or kV according to patient size. COMPARISON: [facility], CT, CT NECK CHEST ABD PELVIS W CON, 04/26/2016, 12:03. FINDINGS: Image quality: Degraded by motion artifact Pulmonary arteries: Pulmonary arteries are normal in size, and demonstrate no intraluminal filling d efects to suggest central pulmonary embolism. Lungs and pleura: Trace left pleural effusion. No pneumothorax. There is adjacent atelectasis. Ill-de fined nodular consolidation measuring 2.1 x 2.9 cm in the left lung base with surrounding groundglass . Additional patchy nodular and ground glass opacities are not well-seen due to motion artifact. No pneumothorax. Mediastinum: Heart size is normal, without pericardial effusion. No mediastinal or hilar terrance adeno jeana by size criteria opathy. Thoracic aorta is normal in caliber and enhancement. Esophagus is no rmal in caliber, without hiatal hernia. Bones and chest wall: No suspicious bony lesions. 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 Ribs and thoracic spine appear intact throughout. No axillary or supraclavicular adenopathy. Abdomen: Nonspecific 5 mm hypodensity in the left lobe of the liver, too small to characterize. Incid ental PEG tube noted IMPRESSION: No pulmonary embolism. Ill-defined bibasilar patchy consolidation, with new dominant nodular appearance within the left lung base. Given the surrounding groundglass opacities this could represent pneumonia/inflammatory etiolo gy, however recommend followup with noncontrast chest CT in 3 months to document resolution and exclu de metastatic pulmonary nodule. Previously seen subcentimeter nodular foci are not well evaluated giv en extensive motion artifact and recommend close attention on the recommended followup chest CT. Small left pleural effusion Motion degraded examination. Dictated by: Zhen Ryder M.D. on 07/02/2016 at 11:51 Approved by: Zhen Ryder M.D. on 07/02/2016 at 11:51
--- NOTE | 2016-07-02 12:00 | NUR ---
CT Scan He left [facility] 2007 at 1055 via a wheelchair transporter to get a CT scan to look for PEs. Composer Teaching Artist was notified. He returned to [facility] 2007 at 1106. He tolerated it well and was settled back into his room. Care continues.
--- NOTE | 2016-07-02 12:27 | CONS ---
[address] [address] CONSULTATION REPORT PATIENT: LISS MINER : 1935 MR#: [id number] ADMIT: 06/29/2016 JOB ID: [id number] DATE OF SERVICE: 07/02/2016 REQUESTING PHYSICIAN: I thank Dr. Woodard for this timely consult. REASON FOR CONSULTATION: Enterococcal bacteremia and possible pneumonia. HISTORY OF PRESENT ILLNESS: The patient is an unfortunate 80-year-old gentleman with longstanding COPD who also has head and neck cancer, as well as an esophageal stricture. The patient has had extensive surgery and currently is breathing through a trach on an outpatient basis. Additionally, the patient is unable to swallow at this point due to a stricture, therefore is fed through a PEG tube with chronic risk of aspiration. He was admitted to this facility 3 days ago on June 29 very late in the evening with progressive cough and dyspnea. The patient tells us that basically this has been going on for weeks with progressive amounts of yellow-green but nonbloody sputum. This has been associated with a general overall increasing shortness of breath, but no specific fevers, chills, or headache. He has been on a wide variety of prophylactic antibiotics over the past several weeks because of recurrent aspiration. Over the past couple months, he had four weeks of Keflex as prophylaxis for aspiration followed by a couple weeks of clindamycin and more recently was switched to doxycycline which he has continued for about two weeks. Despite this prophylactic regimen, the patient's cough was progressive, and that was what led him to the ER and evaluation and admission. Also notable when he came to the ER was the fact that his granddaughter had the flu, and so he was concerned about the possibility of acute influenza. The patient presented with tongue carcinoma, HPV positive, back in 2012, and he got treatment with radiotherapy plus chemotherapy. It recurred a year later, so he required surgery, modified radical neck dissection, and total laryngectomy. This was complicated by recurrent aspiration pneumonia. He was also found late in February 2014 to have a right upper lobe nodule which was found to be metastatic disease. He was initially treated with new chemo SBRT, but there was evidence of further metastasis, so we have switched to pembrolizumab in May 2015 and is currently in the midst of a very long course of that therapy. He has now completed his 18th cycle of that drug as of June 14. The patient was admitted here then about 2-1/2 days ago. The initial diagnosis was felt to be pneumonia based on x-rays showing perhaps some increased infiltrate at the left base and perhaps a bit on the right as well. Because of this, he was started on Zosyn and subsequently azithromycin was added just this morning. Despite this treatment, the patient reports he is really no better after two and half days and that he continues to have productive cough and shortness of breath. He still has no fevers, chills or sweats, however, nor any classical symptoms of pneumonia beyond the increased cough. It is notable that he has had no central line, supports, PICCs, or other devices and has been receiving chemo just through his arms. PAST MEDICAL HISTORY: 1. 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 2. History of prostate cancer. 3. Recurrent aspiration pneumonia for which he receives chronic antibiotic prophylaxis, most recently with Doxine. 4. COPD. 5. Hypertension. 6. Hyperlipidemia. 7. Esophageal stricture. 8. Hypothyroidism. SOCIAL HISTORY: The patient is an ex smoker. Does not drink alcohol and lives in local area with his family. FAMILY HISTORY: Positive for lung cancer and coronary disease. REVIEW OF SYSTEMS: This morning, because he has a trach he cannot speak, but he is obviously very awake and alert and able to answer by nodding. He currently denies having any headache or acute visual change. No sore throat per se. He obviously has a defect in his trachea, namely his tracheostomy, but there is no particular pain there by his report. No new issues with the neck. Patient reports he is continuing to be short of breath with intermittent heavy sputum production. No pleuritic chest pain. Minimal nausea or vomiting. No diarrhea. No urinary issues. Does not have a chronic Suarez, and no swelling of the joints or focal neurologic complaints. PHYSICAL EXAMINATION: Reveals an afebrile gentleman who has been afebrile throughout his admission, currently 36.5, pulse 96, respiratory rate 16, blood pressure 169/94, saturating well on 3 L. That is a Venturi mask over his trach. Patient is awake and alert. No temporal wasting is noted. Eyes without conjunctivitis or scleral icterus. Nose normal. Oral cavity without thrush or pharyngitis. Tracheostomy appears benign. There are no masses palpable in the neck. Lungs are notable for coarse breath sounds bilaterally. I do not hear a lot rales, but his lung exam is difficult because of the rather coarse upper airway sounds that are transmitted. Cardiac tones also difficult because of the other airway sounds, but regular rate and rhythm noted without significant murmur. Abdomen is soft and nontender without organomegaly. There is a G-tube present left upper quadrant which appears benign. Penis and scrotum looked normal. There is no Suarez catheter present. No suprapubic distention. Joints appear without synovitis. No evidence of cellulitis. The patient is neurologically intact. LABORATORIES: Include a white count 11,000 when he came in, now 8000. The diff shows 82% segs. Creatinine 0.88. LFTs normal. First procalcitonin was zero. The second procalcitonin done this morning is 0.4. Urinalysis without white cells. Serologic studies include a Fungitell which is pending. Micro studies that are notable include a sputum from admission which showed a few polys, and no organisms were seen on the Gram stain. It grew Pseudomonas, but this suggests that the Pseudomonas was present in very low quantities and may just be an "over grower" on the plates, as Pseudomonas grows are rapidly. Respiratory viral PCR panel was entirely negative. Blood cultures: 2/3 bottles have grown Enterococcus faecalis. X-rays include a radiograph of the chest which shows a streaky infiltrate at the left base consistent with pneumonia. There is also a bit of indistinctness of the right hemidiaphragm which might suggest an infiltrate there. IMPRESSION: This is an unfortunate gentleman with a confusing story. He was admitted with four weeks of increasing cough but no fever. He does not appear to be infected in a typical way, as he has no documented fevers, chills, or sweats, and his sputum is not purulent in that it has very few white cells and no organisms. The growths of Pseudomonas in his sputum may or may not be significant, but probably not, as the patient is on chronic antibiotics and Pseudomonas has a tendency to overgrow other organisms in the micro laboratory, even when present in small quantities. The big questions to be answered here: Does the patient have a pneumonia at all? His chest x-ray would suggest that he has a left lower lob process to my eye, and I think it is reasonable to treat him for a short course for what is probably an aspiration type process. Zosyn is a reasonable way to start here, and I do not see a role for azithromycin. The other major question here is what is the nature of the enterococcal bacteremia. Enterococci are her incapable of causing pneumonia. Thus, we cannot put together the new infiltrate with enterococcus in the blood. Enterococcus in the admission blood often raises possibilities about endovascular sources of infection such as endocarditis or infection of a pacer or a port. The patient does not have any indwelling hardware, and I think in this case we must be concerned about the possibility of enterococcal endocarditis. Note that this is the one kind of bacterial endocarditis which is often afebrile and can present in fairly nontoxic ways. RECOMMENDATIONS: 1. I would continue the Zosyn, as it provides the coverage for both for this Enterococcus, which is penicillin sensitive, as well as aspiration type pneumonia and the Pseudomonas in the sputum. 2. I would drop the azithromycin, and I have discontinued that. 3. Serial blood cultures are indicated, and these have been ordered. 4. Transthoracic echo is needed, and we may eventually need a transesophageal echo, though I imagine that will be impossible because of his esophageal stricture. 5. Repeat procalcitonin has been ordered. 6. Will continue to closely follow this complex patient with you.
--- NOTE | 2016-07-02 13:46 | NUR ---
NUTRITION FOLLOW UP: Assess: 80 yo male w/ metastatic squamous cell carcinoma of the head and neck, admitted for pneumonia. TF via PEG tube at goal rate of 65 ml/hr per notes. Speech eval pending. PMHx: Depression, SBRT, a-fib, prostate ca, COPD, HTN LABS: Reviewed. Glu 129, Alb 3.3 MEDICATIONS: Reviewed. Coumadin, Prednisone. DIET: NPO. HOME NUTRITION SUPPORT: Being managed by [facility]. reports the recommendation was 3 cans Jevity 1.5 + 3 cans Osmolite 1.5 per day. Provides: 2130 kcal/d, 90 g/d protein, and 1083 ml fluid. CURRENT TF: Jevity 1.5 at goal of 65 ml/hr providing 2243 kcal, 95 g protein; meeting 100% calorie, 100% protein needs. ANTHROPOMETRICS: Current Wt: 71.4 kg, BMI: 20.8 kg/m2, IBW: 97.3 kg (74% IBW). Recent wt change: 4 kg reported weight loss x 3 weeks (5.29% x 3 weeks = severe malnutrition if reported weight loss is accurate). ESTIMATED NEEDS (Cancer): Calories: 7645-0796 kcal/day (25-30 kcal/kg BW) Protein: 71-107 g/day (1.0-1.5 g/kg/d BW) Fluid: Approx. 6048-3212 ml/day (25-30 ml/kg BW) NUTRITION DIAGNOSIS: 1) Severe malnutrition/hydration related to acute on chronic illness as evidenced by wt loss and pt's inability to take in recommended enteral feeding regimen.---IMPROVING. INTERVENTION: 1) Continue current enteral feeding as ordered. MONITOR/EVALUATE: TF tolerance, ST eval, wt, labs, GI/nutrition status, POC. Follow per high nutrition risk guidelines.
--- NOTE | 2016-07-02 13:52 | PCM.PHAPRO ---
Progress Date of Service: Jul 02, 2016 Cough, dyspnea Warfarin Management per Pharmacy: Indication: Stroke prophylaxis as patient has atrial fibrillation ([id number]- Vasc = 2), with metatatic cancer diagnosis Goal INR: 2-3 Labs: Hgb/Hct: 12.4/37.2 Plt: 221 INR: 1.9 Drug-Drug Interactions: Zosyn, prednisone Additional Anticoagulants: Heparin 5000 units subQ Q8h Date -Jun 30-Jul 01-Jul 02-Jun INR 1.56 1.47 1.54 1.9 Warf Dose 2.5mg 5mg 5 MG 4 MG Recommendation: Warfarin 4 mg PO x 1 today at 1700 Pharmacy to continue to monitor for signs/symptoms of bleeding. Thank You, Heidy Santana, Pharm D. Heidy Santana Jul 02, 2016 13:51
--- NOTE | 2016-07-02 14:56 | NUR ---
pipe manufacture supervisordirectional driller note: Met with patient and his , Pat. I explained my role as lead javascript developer. No care needs identified at this time. Pat noted patient is scheduled to see Dr. Martinez on and receive his next dose of chemotherapy. I will check with Dr. Martinez when he returns to the office on Saturday to see what the plan is regarding chemotherapy. I told Pat and Man I would let them know the answer tomorrow. Will continue to follow and address any needs that may arise.
--- NOTE | 2016-07-02 15:31 | NUR ---
CHIEF WHEELAGE CLERK consult received. Modified barium swallow study was scheduled for 07/03/16 at 1330. Discussed evaluation with pt and his , who reported understanding and agreement. CHIEF WHEELAGE CLERK will follow and eval tomorrow.
--- NOTE | 2016-07-02 15:53 | NUR ---
Social Work: Initial Assessment: Data and Assessment: EMR Reviewed. See Initial Assessment. Cage Unloader met with patient and patient's at bedside to complete initial assessment. Patient was alert. Patient lives in a single level home with one step to enter. Patient's is his caregiver at home and Patient's also cares for a six year-old girl. Patient is a 80 y/o male that admitted for pneumonia, Acute Exac. of COPD and Resp. Distress. Patient re-admit scor is 09/29. Patient does not have a MPOA, but social studies department chair provided patient with DPOA information. Patient's primary care physician is Dr. Chava Kilpatrick. Patient has Medicare as primary insurance and [employer] as secondary. Patient does not have LTC insurance. Patient is a , but does not access [employer] benefits. Patient does not have any HH or SNF history. Patient has a walker, cane, suction machine and nebulizer at home. Patient will discharge home with when medically stable. SW will continue to follow. Plan: Patient is likely to discharge home with spouse when medically stable. SW will continue to follow. Sky Lees LMSW, HUMZA Addendum: 07/02/16 at 1605 by SKY LEES Amended: Links added.
--- NOTE | 2016-07-02 18:08 | PCM.PNMED ---
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 He has been on prophylactic antibiotics for aspiration pneumonia that is managed by his oncologist, Dr. Martinez. He was on cephalexin for 4 weeks, which was subsequently changed to clindamycin for 2 weeks due to persistent cough. He was then placed back on cephalexin and with no improvement with the cough he has been switched to doxycycline for the past 2 weeks. Overnight No acute events noted. Today patient alert and oriented, able to respond nonverbally to yes and no questions. Associated symptoms include weakness, fatigue, denies fever, chills, chest pain, palpitations, dysuria. History limited due to patient's inability to communicate verbally. ROS negative except as mentioned above. Exam Vital Signs Vital Sign - Last Date Time Temp Pulse Resp B/P Pulse Ox O2 Delivery O2 Flow Rate FiO2 07/02/16 13:42 109 18 164/102 97 Venturi Mask 3.00 07/02/16 12:28 28 07/02/16 08:42 36.5 Intake and Output 07/01/16 07/01/16 07/02/16 Cumulative From/Thru 15:00 23:00 07:00 06/29/16 19:32 - 07/02/16 05:43 Intake Total 1328 ml 1457 ml 7715 ml Output Total 720 ml 1000 ml 2920 ml Balance 608 ml 457 ml 4795 ml Intake Oral 0 ml 0 ml 0 ml IV Total 940 ml 862 ml 6110 ml Tube Feeding 268 ml 450 ml 1100 ml Tube Irrigant 120 ml 145 ml 505 ml Output Urine Total 720 ml 1000 ml 2920 ml # Voids 4 Exam Vital Signs (Last) Date Time Temp Pulse Resp B/P Pulse Ox O2 Delivery O2 Flow Rate FiO2 07/02/16 13:42 109 18 164/102 97 Venturi Mask 3.00 07/02/16 12:28 28 07/02/16 08:42 36.5 General: Alert, Oriented X3, Cooperative, No Acute Distress, afebrile Head: Normocephalic, atraumatic Eyes: PERRLA, EOMI. ENT: Mucous Membranes Moist/[place], Tracheostomy patent, no sign of infection, Venturi mask over his trach Chest & Lungs: Clear to auscultation bilaterally with no crackles, wheezes, or rhonchi. Cardiovascular: Regular Rate/Rhythm, Normal S1, Normal S2, No Murmurs/Rubs/ Gallops Abdomen: Non-tender, Non-distended, No masses, Normoactive bowel tones, Soft, G -tube present left upper quadrant patent Extremities: No cyanosis/clubbing/edema bilaterally Neurological: Grossly Neurologically Intact Lab and Diagnostics Result Diagram: 07/02/16 0500 07/02/16 0305 X-Rays, CTs and MRIs X-RAY CHEST ONE VIEW IMPRESSION: Bibasilar patchy areas of pneumonia. Dictated by: Aki Reyes M.D. on 06/29/2016 at 20:06 Approved by: Aki Reyes M.D. on 06/29/2016 at 20:06 CT ANGIO CHEST PULMONARY EMBOLISM MPRESSION: No pulmonary embolism. Ill-defined bibasilar patchy consolidation, with new dominant nodular appearance within the left lung base. Given the surrounding groundglass opacities this could represent pneumonia/inflammatory etiology, however recommend followup with noncontrast chest CT in 3 months to document resolution and exclude metastatic pulmonary nodule. Previously seen subcentimeter nodular foci are not well evaluated given extensive motion artifact and recommend close attention on the recommended followup chest CT. Small left pleural effusion Motion degraded examination. Dictated by: Zhen Ryder M.D. on 07/02/2016 at 11:51 Approved by: Zhen Ryder M.D. 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 Admitted for bibasilar Pneumonia. Currently under going treatment for aspiration pneumonia. Hospital Day 4 1. Bibasilar pneumonia, unknown chronicity, Present on admission. Active - DDX: aspiration pneumonia, Herpetic pna, post obstructive pna, - Chest x-ray shows patchy streaky disease at the left base consistent with pneumonia and indistinctness of the right hemidiaphragm and streaky disease suggesting early infiltrate at the right base - Procalcitonin, legionella and strep pneumo urine ag, respiratory virus PCR all negative. - Hx of MRSA pneumonia. MRSA swab pending. - Sputum culture - preliminary reading - gram neg rods, possible contamination. - Continue Zosyn (06/29/16), D/C azithromycin (07/02/16). Continue Home Acyclovir. - CT completed, negative for PE. 2. Acute COPD exacerbation. Present on admission. Active - Patient with increasing shortness of breath, increasing sputum, change in color sputum - Patient received 125 mg Solu-Medrol (06/29/16)in ED and will continue 40 mg prednisone (06/30/16) daily for anticipated five day course - DuoNeb QIDWA, Albuterol Q2H PRN - Continue supplemental oxygen as needed to keep oxygen sats goal of 88-92 % 3. Sepsis, acute, not present on admission, Active - Blood cultures grew out Enterococcus faecalis - Per ID, continue Zosyn - Echocardiogram ordered to r/o endocarditis -Infectious disease consulted,we appreciate their expertise on this case 4.Chronic Paroxysmal atrial fibrillation on chronic anticoagulation with subtherapeutic INR. Present on admission. Active - Continue warfarin, dosed per pharmacy. Will continue DVT prophylaxis with heparin until INR is therapeutic - INR 1.54. - Continue home diltiazem 120mg ER daily, Currently HR fluctuates in the low 100 's. - Continue Telemetry 5. 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 Present on admission, ongoing - Continue tube feeds through PEG tube - Dietitian order - General Surgery consulted as patient has an appointment 07/02/2016 to discuss J- tube placement and esophageal stricture dilation we appreciate their time and expertise on this case. 6. Chronic Hypothyroidism. Present on admission - Continue levothyroxine 125g daily 7. History of RLS. Present on admission - Continue diazepam 5mg PRN Acetaminophen for mild pain when necessary. Bowel regimen Senna and MiraLAX scheduled and PRN. Zofran when necessary for nausea and vomiting. SubQ heparin held for now. SCDs in place. High-risk medications: Disposition: Patient will likely stay in hospital for min two more night due to management of enterococcus faecalis, monitoring of INR to reach therapeutic level, Anticipate discharge to home with outpatient follow up. GI Prophylaxis: Not indicated VTE Prophylaxis: Sub-Q Heparin (Unfractionated) VTE Mechanical Devices: Intermittant Pneumatic CD Resuscitation Status: CPR: Attempt Resuscitation Attending Statement The patient was seen and examined together with Dr. Olivarez on 07/02/2016 and I agree with the history, exam and plan as outlined in the note above. . GIOVANNI OLIVAREZ DO Jul 02, 2016 14:58 Adam Rubio MD Jul 04, 2016 17:32 of stay greater than 2 midnights due to severity of presenting symptoms, risk of adverse event, and complexity of treatment plan. GI Prophylaxis: Not indicated VTE Prophylaxis: Sub-Q Heparin (Unfractionated) VTE Mechanical Devices: Intermittant Pneumatic CD Resuscitation Status: CPR: Attempt Resuscitation GIOVANNI OLIVAREZ DO Jul 02, 2016 14:58
--- NOTE | 2016-07-02 21:24 | CONS ---
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 Martinez; however, as he is an inpatient, his requested that I see him while he is an inpatient, so I used my clinic time to come see him in the hospital today. HISTORY OF PRESENT ILLNESS: This is a 80-year-old man who was found to have a cancer at the base of the tongue several years ago. His primary surgeon is Dr. Gregg Forrest at [facility]. He has undergone partial glossectomy and neck dissection, and was having repeated aspiration, and for that reason, underwent permanent tracheostomy and laryngectomy. He has a gastrostomy tube in place and historically has received bolus tube feeds through this. He was referred to my clinic for two reasons. The 1st is his inability to tolerate tube feeds as a bolus into his stomach. The 2nd is dysphagia, manifested as inability to tolerate p.o. intake. He was seen by Dr. Martinez back in May and his note from that time reveals that he could not even sip water. For this reason, he was referred to my clinic for consideration of potential esophageal dilation, and potential consideration of finding a way to get his tube feeds more distal, such as a feeding jejunostomy. However, he was admitted to the hospital several days ago with another aspiration event. PAST MEDICAL HISTORY: 1. 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 2. Atrial fibrillation, on chronic anticoagulation. 3. History of prostate cancer. 4. Recurrent aspiration pneumonia. 5. COPD. 6. Hypertension. 7. Chronic pain. 8. Dyslipidemia. 9. Hypothyroidism. PAST SURGICAL HISTORY: Laryngectomy and tracheostomy, PEG tube placement, glossectomy with modified radical neck dissection, cataracts, bilateral hernia repair, although I do not know what type. MEDICATIONS: 1. Acyclovir. 2. Maalox. 3. Albuterol. 4. Albuterol/ipratropium. 5. Diazepam. 6. Diltiazem. 7. Heparin 5000 units q.8 h. 8. Levothyroxine,. 9. Mirtazapine. 10. Ondansetron. 11. Pantoprazole. 12. Zosyn. 13. MiraLAX. 14. Prednisone. 15. Senna. ALLERGIES: 1. CODEINE. 2. MEPERIDINE. 3. OXYCODONE. SOCIAL HISTORY: He is a former smoker. He denies current alcohol and drug use. He is and his is present today. She is helpful in answering questions given that he has a permanent tracheostomy. EXAMINATION: Full physical examination could not be performed today as the patient urgently wanted to use the restroom in the time frame during which I was visiting. Temperature 36.8, heart rate 112 blood, pressure 150/88, respiratory rate of 18, saturation 97% on a Venturi mask. General: Awake, alert, no acute distress. He appears thin. Permanent tracheostomy is in place. Feeding tube is in place and tube feeds are infusing. LABS: White blood cell count is 7.9, hematocrit 37.2, platelets 221. Comprehensive metabolic panel is within normal limits with the exception of albumin of 3.3. INR is 1.9. IMAGING: Multiple imaging studies are reviewed in detail. CT angio chest/PE performed today is personally reviewed with the radiologist. I also reviewed the CT neck, chest, abdomen and pelvis from April 2016, and PET scan from March 2015. These reveal metastases to bilateral lungs. He does not have any mass lesions near the esophagus or at the gastroesophageal junction. He does not have a dilated stomach, and he does not have any mass lesions to suggest gastric outlet obstruction. His gastrostomy tube is intact within the lumen of the stomach. He does have opacities suggestive of pneumonia. ASSESSMENT: A 80-year-old man with recurrent metastatic squamous cell cancer of the base of the tongue with dysphagia to both solids and liquids, and poor tolerance of bolus feeds through his gastrostomy. He is malnourished and losing weight as a result of this. His primary intolerance to the bolus feeds is nausea. He is only receiving about half of the feeds that he needs to maintain his nutrition and weight. RECOMMENDATIONS: 1. I have ordered a barium speech study and a Speech Therapy consultation with regards to his oral intolerance. This may help to determine an etiology and potential therapy that could improve his ability to swallow. This would be purely for comfort, given that he does have a feeding tube in place, for the purpose of providing the calories necessary for nourishment. 2. I have asked our social workers to find a way to gain insurance approval for tube feeds to be infused at a regular constant rate, rather than in boluses. According to his , she was told that the pump would not be supplied if he does not have a jejunostomy tube in place. Although his current gastrostomy could potentially be converted to a gastrojejunostomy tube with the tip in the jejunum, this would present the risk of a procedure, with the potential for failure, which ultimately would be a potential waste of medical resources given that he has a gastrostomy tube in place that is functioning perfectly well and he is tolerating tube feeds at goal through this tube; and he does not have physical sign of gastric outlet obstruction that would necessitate a gastrojejunostomy tube. I do not recommend surgical jejunostomy given his malnourished state, as subjecting him to an operation would be simply unnecessary. 3. With regards to his poor p.o. tolerance, I would like to avoid dilation in him again for the reason being that he is malnourished and, as I can see on CT scan, may not have a lesion that would respond to dilation. Further recommendations will be based on what is seen on the barium swallow test, which was ordered today.
[2016-07-03] VITALS (15 sets, daily range): BP systolic 145–190; BP diastolic 84–115; PULSE 91–113; RESP 14–28; O2SAT 92–98
[2016-07-03] MEDS: Piperacillin-Tazo 3.375 Gm Inj 3.375 GM in Dextrose 5% Minibag Plus 50 ML IV SCH ×3 (00:07→17:45)
[2016-07-03] MEDS: Heparin 5,000 Unit/mL Inj SUBQ SCH ×3 (00:07→17:47)
[2016-07-03 04:03] LABS: BASOPHILS % (AUTO) 0 % (0-3); EOSINOPHILS % (AUTO) 0.1 % (0-5); MONOCYTES % (AUTO) 12.8 % (4-12); Mean Corpuscular Volume 97.8 fL (81-100); NEUTROPHILS % (AUTO) 76.3 % (40-74); Platelet Count 214 bil/L (150-400)
[2016-07-03] MEDS ORDERED: Labetalol 5 mg/mL 4 mL Inj IVPUSH ONE (04:15)
[2016-07-03 04:31] LABS: INR 1.82 ratio
[2016-07-03] MEDS: 0.9% Sodium Chloride 1,000 ML IV SCH ×2 (05:58→20:31)
--- NOTE | 2016-07-03 06:39 | NUR ---
Mentation / Mobility / Incontinence / HTN Pt AOx3 at beginning of shift, progressively more confused and impulsive throughout shift, attempting to climb over rails to get out of bed and not using call light; pt asked this AM "Where's my ?" when had been with him at HS; and "Why am I here? What's going on with me? With anything?". Pt reoriented to hospital situation, but still confused to assessment. Pt progressively weaker as shift progresses; unable to ambulate with 1-2PA, by AM, pt unable to stand at bedside to urinate without 2PA for stability. Pt shaky and unsteady, encouraged to use urinal in bed. At approx. 0500 this AM, pt became incontinent of bowel and bladder. At 0300 vitals, pt's BP 176/113; notified, one-time order for 10mg labetalol placed with 10mg additional dose if no improvement in 15min. BP rechecks with manual cuff were 190/115 prior to first dose and 175/100 prior to second dose. BP on reassessment after total of 20mg labetalol was 160/90. notified, no further orders placed. aware of all above events. Tele ST 100s.
[2016-07-03] MEDS: Albuterol-Ipratropium 3 mL Inhalation Solution NEB SCH ×4 (07:34→21:49)
[2016-07-03] MEDS: Lansoprazole 30 mg ODTablet PO SCH (08:30)
[2016-07-03] MEDS: Diltiazem CD 120 mg ER24 Capsule PO SCH (09:02)
[2016-07-03] MEDS: predniSONE 20 mg Tablet PO SCH (09:02)
[2016-07-03] MEDS: Acyclovir 400 mg Tablet PO SCH ×2 (09:02→20:17)
--- NOTE | 2016-07-03 11:16 | PROG NOTE ---
[address] [address] PROGRESS NOTE PATIENT: LISS MINER : 1935 MR#: [id number] ADMIT: 06/29/2016 JOB ID: [id number] DATE: 07/03/2016 INFECTIOUS DISEASE FOLLOW UP NOTE: REASON FOR FOLLOW UP: The management of aspiration pneumonia as well as unexplained enterococcal bacteremia. INTERVAL HISTORY: The patient has an unusual complaint this morning in that he reports he was delirious last night. He does not remember what led to this diagnosis but states the nurses told him that. He says to the best of his knowledge he has never had delirium before. The patient reports no increase in respiratory difficulties. No fevers. No chills. No sweats. He continues to have considerable secretions through his trach. PHYSICAL EXAMINATION: Reveals a chronically ill-appearing gentleman lying supine in his hospital bed. He breathes through a trach as before and he has a feeding tube in his left upper quadrant. He is afebrile. Temperature 36.7, pulse 95, respiratory rate 24, blood pressure 159/84, saturating well on 28% blow-by. Mental status is clear at this point. Eyes without conjunctivitis. Trach site appears benign. Lungs are occasional wheeze bilaterally but not much in the way of adventitial sounds. Cardiac tones without change. Abdomen benign except for the presence of the feeding tube. LABORATORIES: Include white count normal, now 7300. Differential normalizing to only 76% segs. Creatinine 0.81. Fungitell is pending. Initial blood cultures, 2/4 bottles grew Enterococcus faecalis, which was ampicillin susceptible. Also notable was the initial sputum which was fairly unimpressive in terms of fact there were only a few polys but it did grow Pseudomonas which is likely colonizing. We now have follow up blood cultures which are negative. A MRSA screen, however, is positive and note that many prior MRSA screens were also positive. His CT angiogram done yesterday showed ill-defined consolidation as previously discussed including some ground glass infiltrates. IMPRESSION: This is a complex case of a gentleman admitted with respiratory difficulty which may have represented at least to some degree aspiration pneumonia. Surprisingly his blood cultures in 2/4 bottles grew Enterococcus. Enterococcus is unlikely to be a contaminate here but it is also not the cause of his pneumonia as enterococci are not capable of causing pneumonia. This raises the possibility of an intravascular or intra-abdominal site of infection producing his enterococcal bacteremia. Another possible issue here is the Pseudomonas in the sputum but I think this is likely a contaminant. At this point, we are treating the patient with Zosyn which will provide coverage both for the enterococcal bacteremia, though this would not be optimal coverage, as well as for aspiration pneumonia with the Zosyn. RECOMMENDATIONS: 1. Will continue with Zosyn. 2. The patient should be placed in MRSA isolation 3. Bactroban will be added for nasal carriage of MRSA. 4. We await the follow up blood cultures. 5. We await the echo which we ordered yesterday. 6. Will continue to follow the patient's procalcitonin as well. Note that procalcitonin has been declining and is now down to 0.14. MTDD
--- NOTE | 2016-07-03 15:05 | DRSVH ---
PROCEDURE: X-RAY BARIUM SWALLOW WITH FOOD & VIDEOGRAPHY ([id number]) INDICATIONS: aspiration and dysphagia, prior tracheostomy and laryngectomy. Prior tracheostomy and laryngectomy. TECHNIQUE: Examination was conducted in conjunction with speech pathology per standard protocol. In the lateral projection, filming was performed of the patient swallowing. AP projection filming may also be performed with patient swallowing. COMPARISON: [facility], , BARIUM SWALLOW/FOOD & VIDEO, 09/15/2014, 10:50. FINDINGS: Prior tracheostomy and laryngectomy, no communication from the upper esophagus into the ai rway was observed and no anterior extension of ingested material towards the tracheostomy site was se en. IMPRESSION: Expected postsurgical change after total laryngectomy and tracheostomy. There is no comm unication between the pathway of the ingested material in the visualized airway. Dictated by: Devyn Michele M.D. on 07/03/2016 at 15:03 Approved by: Devyn Michele M.D. on 07/03/2016 at 15:03
--- NOTE | 2016-07-03 16:00 | NUR ---
MBSS completed. Called placed to Dr. Bingham with results. No fistula noted between esophagus and trachea. Tolerating thin/dysphagia mechanical through the pharyngx and passing the UES. Rec: snacks and supplements of thin/dysphagia mechanical as tolerated by patient. See MBSS report for more details.
--- NOTE | 2016-07-03 17:15 | PROG NOTE ---
[address] [address] PROGRESS NOTE PATIENT: LISS MINER : 1935 MR#: [id number] ADMIT: 06/29/2016 JOB ID: [id number] DATE: 07/03/2016 This is a 80-year-old man with dysphagia and a complex history of tongue cancer status post resection of the base of the tongue, modified radical neck dissection, and total laryngectomy with permanent tracheostomy. Maria Victoria Torres, speech therapist, performed his swallow evaluation today including fluoroscopic examination of the upper swallowing mechanism, and he tolerated thin and mechanical dysphagia foods which passed through the upper esophageal sphincter. Essentially, it looked normal for a patient who has had a total laryngectomy. Additionally, yesterday, I discussed the patient's case with Radha Waterman, certified social workers in health care, regarding the need for arrangements for a feeding tube pump for the patient to be provided so he may receive tube feeds at a constant rate once he is discharged from the hospital. She reported that she planned to pass this on to another certified social workers in health care as she will be gone for the next two days. Recommendations: Based on the normal swallow study performed by kenneth Kirkpatrick therapist, I recommend a barium esophagram to be performed, which I have ordered on a nonurgent basis. I will review the results and make recommendations based on this.
--- NOTE | 2016-07-03 18:01 | NUR ---
Barium Swallow, Mentation, Bathing Barium Swallow - Left [facility] 2007 about 1410 for a Barium swallow eval. He left via wheelchair with a transporter. He returned about 1440 and tolerated it well. This nurse was notified that the swallow went well and he could now be on a dysphagia/soft diet with thin liquids, host assist to order diet. Asked him if he wanted anything for dinner and he declined. Told him he could ask for something to eat or drink anytime he wanted. Mentation - He has been fully alert and oriented x3. Occasionally impulsive and will try to get up out of bed. Hood alarm has been placed on him. Bathing - He requested to have a bath today. He was given a bed bath and cleaned up. He appreciated it. Care continues.
--- NOTE | 2016-07-03 18:23 | DRSVH ---
[facility] [address] [place] [address] Echocardiogram Report Name: LISS MINER Yoel e: 07/03/2016 Hospital Exam Location: [facility] Gender: Male : 1935 Age: 80 yrs BP: 159/84 mmHg Reason For Study: ? ENDOCARDITIS, ? CHF History: COPD,AFIB,CANCER Ordering Physician: HOSPITALIST SVHPerformed By: Tamie Wynne Referring Physician: MORENA NORRIS Interpretation Summary This is a technically limited study with limited views 1. Normal left ventricular size, wall thickness and systolic function. 2. Grossly normal right ventricular size and systolic function. The estimated right atrial pressure is low normal. 3. The aortic valve is not well visualized. The pulmonic valve is not well visualized. 4. Limited views of the mitral valve and tricuspid valve do not show the presence of obvious vegetations. There is no significant regurgitation to suggest valvular destruction secondary to endocarditis. Given the limitations of this study, if endocarditis is still of concern, would recommend a JOSELIN. Procedure: A two-dimensional transthoracic echocardiogram with color flow and Doppler was performed. The suprasternal views were not obtained due to no visualization. The apical views were not obtained due to no visualization. Comparison is made with the echocardiogram of 01-15-11. The patient was in normal sinus rhythm during the exam. Left Ventricle: The left ventricle is normal in size. Left ventricular wall thickness is at the upper limits of normal. Left ventricular systolic function is normal. Right Ventricle: The right ventricle grossly appears normal in size with probable normal systolic function. Mitral Valve: The mitral valve leaflets appear mildly thickened, but open well. There is mild mitral annular calcification. No obvious vegetation. There is no mitral regurgitation noted. Aortic Valve: The aortic valve is not well visualized. Tricuspid Valve: The tricuspid valve is not well visualized. The tricuspid valve leaflets are thin and pliable. There is a trace or physiologic amount of tricuspid regurgitation. Pulmonic Valve: The pulmonic valve is not well visualized. Great Vessels: The ascending aorta could not be visualized. The pulmonary is not well visualized. The IVC is of normal diameter and collapses greater than 50% with a sniff. This suggests a low right atrial pressure of 3 mm Hg. Pericardium/ Pleura There is no pericardial effusion. MMode/2D Measurements & Calculations LVIDd: 4.4 cm IVC diam: 1.2 cm LVIDs: 2.6 cm FS: 41.6 % IVSd: 0.99 cm LVPWd: 1.1 cm Reading Physician:06:22 PM
--- NOTE | 2016-07-03 18:27 | PCM.PNMED ---
Subjective Date of Service Jul 03, 2016 Subjective Hospital Day 5 This is a 80-year-old male with metastatic squamous cell carcinoma of the tongue (on immunotherapy with Keytruda for squamous cell carcinoma of the tongue with metastasis to head, neck and lungs), with PMH recurrent aspiration pneumonia, COPD, atrial fibrillation on warfarin. He has been on prophylactic antibiotics for aspiration pneumonia that is managed by his oncologist, Dr. Martinez. He was on cephalexin for 4 weeks, which was subsequently changed to clindamycin for 2 weeks due to persistent cough. He was then placed back on cephalexin and with no improvement with the cough he has been switched to doxycycline for the past 2 weeks. Overnight: hypertensive treated with labetalol 20 mg IV Bp down to 160/190, fever of 101 F, confusion not consistent with patients baseline This morning patient examined awake in bed. He verbalized yes and no to questions. Patient endorsed weakness, loss of bowel and bladder control last night, productive cough. Patient denies nausea, vomiting, change in vision. When asked if he could point to what he was being treated for he pointed to his lungs. Patient is able to cough up sputum and self suction his stoma. ROS negative except as mentioned above. Exam Vital Signs Vital Sign - Last Date Time Temp Pulse Resp B/P Pulse Ox O2 Delivery O2 Flow Rate FiO2 07/03/16 05:23 160/90 07/03/16 04:11 36.8 113 24 97 Trach Collar 30 07/02/16 21:33 8.00 Intake and Output 07/02/16 07/02/16 07/03/16 Cumulative From/Thru 15:00 23:00 07:00 06/29/16 19:32 - 07/03/16 05:58 Intake Total 1830 ml 2035 ml 99296 ml Output Total 975 ml 1525 ml 5420 ml Balance 855 ml 510 ml 6160 ml Intake Oral 0 ml 0 ml 0 ml IV Total 995 ml 1054 ml 8159 ml Tube Feeding 695 ml 795 ml 2590 ml Tube Irrigant 140 ml 186 ml 831 ml Output Urine Total 975 ml 1525 ml 5420 ml # Voids 2 9 15 # Bowel Movements 1 3 4 Exam General: Alert, Oriented X3, Cooperative, No Acute Distress, afebrile Head: Normocephalic, atraumatic Eyes: PERRLA, EOMI. ENT: Mucous Membranes Moist/[place], Tracheostomy patent, no sign of infection, Venturi mask over his trach Chest & Lungs: Coarse breath sound on auscultation bilaterally, appreciation of crackles, wheezes, or rhonchi difficult to determine with breathing machinery Cardiovascular: Regular Rate/Rhythm, Normal S1, Normal S2, No Murmurs/Rubs/ Gallops Abdomen: Non-tender, Non-distended, No masses, Normoactive bowel tones, Soft, G -tube present left upper quadrant patent Extremities: No cyanosis/clubbing/edema bilaterally Neurological: Grossly Neurologically Intact, patient able to sit up in bed without difficulty nor assistance IVs and Medications Medications Reviewed: Medications were reviewed in detail Lab and Diagnostics Result Diagram: 07/03/1634407/03/16344 X-Rays, CTs and MRIs X-RAY CHEST ONE VIEW IMPRESSION: Bibasilar patchy areas of pneumonia. Dictated by: Aki Reyes M.D. on 06/29/2016 at 20:06 Approved by: Aki Reyes M.D. on 06/29/2016 at 20:06 CT ANGIO CHEST PULMONARY EMBOLISM MPRESSION: No pulmonary embolism. Ill-defined bibasilar patchy consolidation, with new dominant nodular appearance within the left lung base. Given the surrounding groundglass opacities this could represent pneumonia/inflammatory etiology, however recommend followup with noncontrast chest CT in 3 months to document resolution and exclude metastatic pulmonary nodule. Previously seen subcentimeter nodular foci are not well evaluated given extensive motion artifact and recommend close attention on the recommended followup chest CT. Small left pleural effusion Motion degraded examination. Dictated by: Zhen Ryder M.D. on 07/02/2016 at 11:51 Approved by: Zhen Ryder M.D. 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 Admitted for bibasilar Pneumonia. Currently under going treatment for aspiration pneumonia. Hospital Day 4 1. Bibasilar pneumonia, unknown chronicity, Present on admission. Active - DDX: aspiration pneumonia, Herpetic pna, post obstructive pna, - Chest x-ray shows patchy streaky disease at the left base consistent with pneumonia and indistinctness of the right hemidiaphragm and streaky disease suggesting early infiltrate at the right base - Procalcitonin trending down 0.14 07/03/16, legionella and strep pneumo urine ag , respiratory virus PCR all negative. - Hx of MRSA pneumonia. MRSA swab positive. Add Bactroban for coverage 07/03/16 - Sputum culture - pseudomonas. - Continue Zosyn (06/29/16), D/C azithromycin (07/02/16). Continue Home Acyclovir. - CT completed, negative for PE. 2. Acute COPD exacerbation. Present on admission. Active - Patient with increasing shortness of breath, increasing sputum, change in color sputum - Patient received 125 mg Solu-Medrol (06/29/16)in ED and will continue 40 mg prednisone (06/30/16) daily for anticipated five day course - DuoNeb QIDWA, Albuterol Q2H PRN - Continue supplemental oxygen as needed to keep oxygen sats goal of 88-92 % 3. Sepsis, acute, not present on admission, Active - Blood cultures grew out Enterococcus faecalis, no clear source for infection consider potential GI etiology - Per ID, continue Zosyn, Bactroban added for MRSA coverage - Echocardiogram ordered to r/o endocarditis, pending -Infectious disease consulted,we appreciate their expertise on this case 4.Chronic Paroxysmal atrial fibrillation on chronic anticoagulation with subtherapeutic INR. Present on admission. Active - Continue warfarin, dosed per pharmacy. Will continue DVT prophylaxis with heparin until INR is therapeutic - INR 1.54. - Continue home diltiazem 120mg ER daily, Currently HR fluctuates in the low 100 's. - Continue Telemetry 5. 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 Present on admission, ongoing - Continue tube feeds through PEG tube - Dietitian order - General Surgery consulted as patient has an appointment 07/02/2016 to discuss J- tube placement and esophageal stricture dilation we appreciate their time and expertise on this case. - Recommend barium swallow, Speech Therapy consultation, Surgery does not recommend surgical jejunostomy nor dilation given his malnourished state 6. Chronic Hypothyroidism. Present on admission - Continue levothyroxine 125g daily 7. History of RLS. Present on admission - Continue diazepam 5mg PRN Acetaminophen for mild pain when necessary. Bowel regimen Senna and MiraLAX scheduled and PRN. Zofran when necessary for nausea and vomiting. SubQ heparin held for now. SCDs in place. High-risk medications: Disposition: Patient will likely stay in hospital for min two more night due to management of enterococcus faecalis, monitoring of INR to reach therapeutic level, Anticipate discharge to home with outpatient follow up. GI Prophylaxis: Not indicated VTE Prophylaxis: Sub-Q Heparin (Unfractionated) VTE Mechanical Devices: Intermittant Pneumatic CD Resuscitation Status: CPR: Attempt Resuscitation Attending Statement The patient was seen and examined together with Dr. Olivarez on 07/03/2016 and I agree with the history, exam and plan as outlined in the note above. . GIOVANNI OLIVAREZ DO Jul 03, 2016 06:40 Adam Rubio MD Jul 04, 2016 17:33
[2016-07-04] VITALS (12 sets, daily range): BP systolic 157–171; BP diastolic 96–116; PULSE 81–98; RESP 14–28; O2SAT 95–99
[2016-07-04] MEDS: Heparin 5,000 Unit/mL Inj SUBQ SCH ×3 (00:18→17:13)
[2016-07-04] MEDS: Piperacillin-Tazo 3.375 Gm Inj 3.375 GM in Dextrose 5% Minibag Plus 50 ML IV SCH ×3 (00:18→17:13)
[2016-07-04] MEDS: Albuterol-Ipratropium 3 mL Inhalation Solution NEB SCH ×4 (03:19→19:32)
[2016-07-04 03:49] LABS: BASOPHILS % (AUTO) 0 % (0-3); EOSINOPHILS % (AUTO) 1.7 % (0-5); MONOCYTES % (AUTO) 12.8 % (4-12); Mean Corpuscular Hemoglobin 32.2 pg (27.0-35.0); Mean Corpuscular Volume 96.6 fL (81-100); Platelet Count 196 bil/L (150-400)
[2016-07-04 04:09] LABS: INR 1.44 ratio
--- NOTE | 2016-07-04 06:16 | NUR ---
Mobility, Oxygenation and output. Patient had a good night. He is able to move to the bedside commode with a one person assist and use his call light. Patient is still a fall risk and fall precautions are still in place. Patient had intermittent bouts of wheezing. RT was called and breathing treatment were given. Patient reports feeling much better.
[2016-07-04] MEDS: Lansoprazole 30 mg ODTablet PO SCH (08:30)
[2016-07-04] MEDS: Diltiazem CD 120 mg ER24 Capsule PO SCH (09:32)
[2016-07-04] MEDS: Acyclovir 400 mg Tablet PO SCH ×2 (09:32→21:43)
[2016-07-04] MEDS: predniSONE 20 mg Tablet PO SCH (09:33)
--- NOTE | 2016-07-04 09:37 | PROG NOTE ---
[address] [address] PROGRESS NOTE PATIENT: LISS MINER : 1935 MR#: [id number] ADMIT: 06/29/2016 JOB ID: [id number] DATE: 07/04/2016 INFECTIOUS DISEASE FOLLOWUP NOTE: REASON FOR FOLLOWUP: Aspiration pneumonia, as well as MRSA colonization and enterococcal bacteremia. INTERVAL HISTORY: The patient reports his breathing is steadily improving but still not at baseline. He has a fairly minimal cough. No fevers. No chills but remains somewhat short of breath as compared to normal. No specific GI problems and no problems with his G-tube are reported. PHYSICAL EXAMINATION: Reveals an afebrile gentleman, temperature 36.5, pulse 98, respiratory rate 14, blood pressure 165/113. Saturating 95% on his trach collar. He is awake and alert this morning. Appears in no distress. Eyes without conjunctivitis. Tracheostomy appears benign. Lungs with some scattered wheezing but without much else in the way of adventitial sounds. Cardiac tones: Regular rate and rhythm. Abdomen is notable for the G-tube. There is no inflammation around that G-tube, and there is no tenderness or other abnormality. No skin rash noted. LABORATORIES: Include a white count of 6300, platelet count 196,000. Creatinine 0.76. Followup blood cultures are negative after two of three of admission blood cultures yielded Enterococcus faecalis, which was ampicillin sensitive. Also notable in the micro department is that his sputum grew a light growth of pseudomonas on admission and that he is MRSA colonized. All followup blood cultures have been negative. A modified barium swallow was done yesterday, and this shows postsurgical changes from his laryngectomy and tracheostomy. Recall that the CT scan done two days ago of the chest showed ill-defined consolidation primarily in the left base. IMPRESSION: This is a multifaceted case of a gentleman with head and neck cancer who was admitted with what sounded like an aspiration pneumonia. The pseudomonas in his sputum likely represents colonization, and he has responded well to treatment with Zosyn with respect to his pulmonary status. Of concern is the possibility that the patient is having recurrent aspiration and this is being evaluated. From an infectious disease point of view, the finding of enterococcus in two of three blood cultures on admission is difficult to explain. The patient has no indwelling lines and came from home making a line associated or device associated enterococcal bacteremia possible. One concern here would be that he could have enterococcal endocarditis, as about 25% of people with community-acquired unexplained enterococcal bacteremia do field return repairer to have endocarditis. Yesterday, a transthoracic echo was obtained but there was very poor visualization of the valves, and I think it is reasonable to proceed with transesophageal, if possible. If we cannot do a transesophageal, we will either have to treat for six weeks for enterococcal endocarditis, which I would probably not recommend, or truncate his course of therapy at 10 days or so, stop antibiotics and observe. RECOMMENDATIONS: 1. Continue with Zosyn IV and nasal Bactroban. 2. I would ask Cardiology to come by and see whether they could do a JOSELIN. It may be because of his esophageal issues this is not possible in which case we will be forced to make a more definitive decision tomorrow.
[2016-07-04] MEDS: 0.9% Sodium Chloride 1,000 ML IV SCH ×2 (10:07→21:40)
--- NOTE | 2016-07-04 11:34 | DRSVH ---
PROCEDURE: X-RAY BARIUM STUDY OF ESOPHAGUS/PHARYNX ([id number]) INDICATIONS: dysphagia COMPARISON: None. FINDINGS: Function: Small tertiary contraction waves noted in the distal aspect the esophagus compatible with m inimal dysmotility. No elicited gastroesophageal reflux. Patient declined calibrated barium tablet.. Morphology: Single contrast views show no esophageal strictures or diverticula. External mass effect noted on the proximal thoracic and distal thoracic esophagus related to enlarged aortic arch and tort uous distal thoracic aorta. No strictures identified in the distal esophagus. Limited images of the stomach demonstrate normal appearance. IMPRESSION: 1. Minimal esophageal dysmotility. 2. Extrinsic mass effect on the proximal and distal thoracic esophagus related to aortic arch enlarge ment and tortuous distal thoracic aorta. 3. No esophageal stricture identified, however patient declined administration of calibrated barium t ablet. Dictated by: Kelsey Billingsley MD, PhD on 07/04/2016 at 11:32 Approved by: Kelsey Billingsley MD, PhD on 07/04/2016 at 11:32
--- NOTE | 2016-07-04 12:25 | PCM.PHAPRO ---
Progress Cough, dyspnea Coumadin Tx Indication: AFIB Home dose 2.5mg MWF, 5mg AOD Inpt dosing: Date Jun 30-Jul 01-Jul 02-Jul 03-Jul 04-Jul 05-Jul 06-Jun INR 1.56 1.47 1.54 1.9 1.82 1.44 Warf Dose 2.5mg 5mg 5 MG 4 MG 5 7.5 a/ Unclear why INR dropping with dose exceeding home dose. p/ Bump dose today, then hope to resume home dosing/gsf Niels Lam Pharm D Jul 04, 2016 12:25
[2016-07-04] MEDS ORDERED: Labetalol 5 mg/mL 4 mL Inj IVPUSH ONE (13:00)
[2016-07-04] MEDS ORDERED: Lactated Ringer's 1,000 ML IV ONE (13:01)
--- NOTE | 2016-07-04 13:19 | PCM.PNSURG ---
Subjective Visit Information: Reason for Visit Pneumonia, Acute Exac Copd, Resp Distress Surgery/Surgery Date Post-Op Day # Date of Admission: Jun 29, 2016 at 21:19 Hospital Day # Subjective: Stable overnight. Esophagram performed this morning. An extrinsic mass effect was found to be compressing the esophagus due to the shape and position of the thoracic aorta, but contrast flowed into the stomach. He understandably did not want to take a barium tablet. Objective Vital Sign- Last 8 Hours Date Time Temp Pulse Resp B/P Pulse Ox O2 Delivery O2 Flow Rate FiO2 07/04/16 12:39 37.1 98 20 171/116 99 Aerosol Mask 28 07/04/16 11:26 87 20 99 Trach Collar 28 07/04/16 10:25 36.8 91 22 166/113 99 Aerosol Mask 28 07/04/16 08:00 82 07/04/16 08:00 82 Intake and Output- Last 8 Hour 07/04/16 Cumulative From/Thru 07:00 06/29/16 19:32 - 07/04/16 06:34 Intake Total 1966 ml 43326 ml Output Total 946 ml 7391 ml Balance 1020 ml 8201 ml Intake Oral 0 ml 0 ml IV Total 1016 ml 23517 ml Tube Feeding 765 ml 4130 ml Tube Irrigant 185 ml 1298 ml Output Urine Total 945 ml 7390 ml Stool Total 1 ml 1 ml # Voids 15 # Bowel Movements 6 General: Alert, Cooperative Chest: Breathing easily on trach with mask over it. 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 -He tolerates tube feeds at a regular hourly rate. -MBSS was normal for a pt after laryngectomy -Esophagram shows compression on the esophagus based on shape and tortuosity of thoracic aorta Problems: Plan -Tube feeds to continue at a constant hourly rate both as inpatient and outpatient for nutrition. This may require special arrangements to have the pump approved, which I have discussed with Radha Waterman of [employer]. -I do not recommend esophageal dilation given it appears the thoracic aorta is the reason he is having some difficulty tolerating PO. -OK from my perspective to take PO as tolerated and as recommended by [employer], and at the discretion of the primary team given history of aspiration events. -I will sign off at this time. Please page with questions, [phone]. VTE Prophylaxis: Sub-Q Heparin (Unfractionated) Resuscitation Status: CPR: Attempt Resuscitation Avelina Bingham MD Jul 04, 2016 13:19
--- NOTE | 2016-07-04 15:05 | PCM.CHPMED ---
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 He has been on prophylactic antibiotics for aspiration pneumonia that is managed by his oncologist, Dr. Martinez. He was admitted to the hospital for aspiration pneumonia, and enterococcal bacteremia. Because of this, there was concern for bacterial endocarditis. A transthoracic echo was obtained but there was very poor visualization of the valves, and the decision was made to do a transesophageal echo. However, esophagram showed an external mass effect on the proximal thoracic and distal thoracic esophagus related to enlarged aortic arch and tortuous distal thoracic aorta. No strictures identified in the distal esophagus. Although the thoracic aorta was a possible cause of his dysphagia and esophageal narrowing, further workup was warranted given his history of metastatic head and neck cancer before proceeding with a transesophageal echo. As such, Gastroenterology was consulted for further evaluation via upper endoscopy. Today he reports shortness of breath and wheezing. He denies N/V/D, abdominal pain, fevers, chills, edema, chest pain, palpitations. Review of Systems: Comprehensive review of systems conducted and was negative except for the pertinent positives listed above. PMH Past Medical History 1. Head and neck cancer x3 years arising from the tongue with mets to the lung , status post total laryngectomy with permanent tracheostomy and PEG tube placement. 2. History of prostate cancer. 3. Recurrent aspiration pneumonia for which he receives chronic antibiotic prophylaxis, most recently with Doxine. 4. COPD. 5. Hypertension. 6. Hyperlipidemia. 7. Esophageal stricture. 8. Hypothyroidism. Surgical History Cataracts Laryngectomy with tracheostomy PEG tube Bilateral hernia repair Allergies: Coded Allergies: meperidine HCl (Verified Allergy, Severe, 'PASSED OUT PER PT', 10/07/15) PT STATES OK WITH DILAUDID AND MORPHINE AND OXYCODONE codeine (Verified Adverse Reaction, Severe, SEVERE N/V, 10/07/15) PT STATES OK WITH DILAUDID AND MORPHINE AND OXYCODONE oxycodone (Verified Adverse Reaction, Severe, Hallucinations, 10/07/15) Family History Family History Mother in her 80s from lung cancer Father in his 80s from [place] Social History Occupation: Retired, former med tech Hx Alcohol Use: NoHx Substance Use: NoHx Tobacco Use: No Smoking Status: Former Smoker (Quit 1989, smoked 1PPD x 35 years prior) Living Arrangement: with Family Exam Vital Signs Vital Sign - Last Date Time Temp Pulse Resp B/P Pulse Ox O2 Delivery O2 Flow Rate FiO2 07/04/16 14:17 166/114 07/04/16 12:39 37.1 98 20 99 Aerosol Mask 28 07/04/16 03:28 7.00 Intake and Output 07/03/16 07/03/16 07/04/16 Cumulative From/Thru 15:00 23:00 07:00 06/29/16 19:32 - 07/04/16 06:34 Intake Total 2046 ml 1966 ml 64552 ml Output Total 1025 ml 946 ml 7391 ml Balance 1021 ml 1020 ml 8201 ml Intake Oral 0 ml 0 ml 0 ml IV Total 989 ml 1016 ml 91433 ml Tube Feeding 775 ml 765 ml 4130 ml Tube Irrigant 282 ml 185 ml 1298 ml Output Urine Total 1025 ml 945 ml 7390 ml Stool Total 1 ml 1 ml # Voids 15 # Bowel Movements 2 6 General: Alert, Oriented X3, Cooperative, Mild Distress (mild respiratory distress, some accessory muscle use), Other (Pt has laryngectomy with tracheostomy. Unable to speak but communicative. ) Head: Normal Eyes: PERRLA, EOMI, Scleral Anicteric Mouth: Mouth Normal Chest & Lungs: Coarse breath sounds, Expiratory wheezes Cardiovascular: Regular Rate/Rhythm, Normal S1, Normal S2, No Murmurs/Rubs/ Gallops Abdomen: Non-tender, Non-distended, No masses, Soft, Other (PEG tube in place) Musculoskeletal: Unremarkable Extremities: No cyanosis/clubbing/edma bilat Neurological: Grossly Neurologically Intact Lab and Diagnostics Result Diagram: 07/04/16 0342 07/04/16 034 Assessment & Plan Assessment Patient is a 80-year-old male with history of metastatic squamous cell carcinoma of the head and neck, recurrent aspiration pneumonia, COPD, atrial fibrillation on warfarin who was admitted for bilateral pneumonia, sepsis, and possible endocarditis, with esophagram showing esophageal narrowing likely due to an enlarged thoracic aorta. 1. Dysphagia. - Patient has a history of chronic dysphagia with recurrent aspiration pneumonia. Prior to a JOSELIN to evaluate for possible endocarditis, an esophagram showed narrowing of the esophagus, likely secondary to an enlarged thoracic aorta. However, given his history of metastatic head and neck cancer, further workup is warranted to rule out metastatic disease to the esophagus. - We will perform an upper endoscopy to evaluate for other causes of esophageal narrowing and dysphagia. Problems: Pain Evaluation: Adequate Pain Control GI Prophylaxis: Not indicated VTE Prophylaxis: Sub-Q Heparin (Unfractionated) VTE Mechanical Devices: Intermittant Pneumatic CD Resuscitation Status: CPR: Attempt Resuscitation Attending Statement Pt seen and examined agree with resident physician history and physical. I was asked by the cardiology service to perform a pre JOSELIN upper endoscopy to evaluate for the possibility of luminal narrowing which would preclude JOSELIN for evaluation of endocarditis. Discussed EGD risk and benefits in detail with Mr Rodriguez. He wished to proceed with EGD. Will plan for tomorrow. Hold tube feeds overnight. Thank you for allowing me to participate in Mr Rodriguez's care. If you have any questions please dont hesitate to contact me. Pager# [phone] Bassam Queen Jul 04, 2016 14:46 Mimi Nguyen MD Jul 04, 2016 17:25
--- NOTE | 2016-07-04 15:46 | NUR ---
NUTRITION FOLLOW UP: Assess: 80 yo male w/ metastatic squamous cell carcinoma of the head and neck, admitted for pneumonia. TF via PEG tube at goal rate of 65 ml/hr per notes. MBS showed no fistula between esophagus and trachea. ST recommending dysphagia mechanical w/ thin liquids. PMHx: Depression, SBRT, a-fib, prostate ca, COPD, HTN LABS: Reviewed. Glu 134 MEDICATIONS: Reviewed. Coumadin, Prednisone. DIET: Dysphagia Mechanical, No PO recorded HOME NUTRITION SUPPORT: Being managed by [facility]. reports the recommendation was 3 cans Jevity 1.5 + 3 cans Osmolite 1.5 per day. Provides: 2130 kcal/d, 90 g/d protein, and 1083 ml fluid. CURRENT TF: Jevity 1.5 at goal of 65 ml/hr providing 2243 kcal, 95 g protein; meeting 100% calorie, 100% protein needs. ANTHROPOMETRICS: Current Wt: 69.9 kg, BMI: 20.3 kg/m2, IBW: 97.3 kg Recent wt change: 7.9 kg wt loss x6 months (10% wt loss x6 months = significant) ESTIMATED NEEDS (Cancer): Calories: 7518-6406 kcal/day (25-30 kcal/kg BW) Protein: 71-107 g/day (1.0-1.5 g/kg/d BW) Fluid: Approx. 4373-2307 ml/day (25-30 ml/kg BW) NUTRITION DIAGNOSIS: 1) Severe malnutrition/hydration related to acute on chronic illness as evidenced by wt loss and pt's inability to take in recommended enteral feeding regimen.---IMPROVING. INTERVENTION: 1) Continue current enteral feeding as ordered. 2) Will monitor PO intake and add supplements as needed MONITOR/EVALUATE: TF, PO Intake, wt, labs, GI/nutrition status, POC. Follow per high nutrition risk guidelines.
--- NOTE | 2016-07-04 18:03 | PCM.PNMED ---
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 He has been on prophylactic antibiotics for aspiration pneumonia that is managed by his oncologist, Dr. Martinez. He was on cephalexin for 4 weeks, which was subsequently changed to clindamycin for 2 weeks due to persistent cough. He was then placed back on cephalexin and with no improvement with the cough he has been switched to doxycycline for the past 2 weeks. Hospital day 5 No overnight events reported by nursing. Today patient stated he experiencing diarrhea, productive cough, sputum production has decreased, otherwise had no complaints. Denies fever, chills, nausea, vomiting. He is able ambulate with minimal assistance from bed to bathroom. ROS negative except as mentioned above. Exam Vital Signs Vital Sign - Last Date Time Temp Pulse Resp B/P Pulse Ox O2 Delivery O2 Flow Rate FiO2 07/04/16 03:28 36.5 98 14 165/113 96 Trach Collar 7.00 07/03/16 20:12 28 Intake and Output 07/03/16 07/03/16 07/04/16 Cumulative From/Thru 15:00 23:00 07:00 06/29/16 19:32 - 07/04/16 04:48 Intake Total 2046 ml 0 ml 30969 ml Output Total 1025 ml 946 ml 7391 ml Balance 1021 ml -946 ml 6235 ml Intake Oral 0 ml 0 ml 0 ml IV Total 989 ml 9148 ml Tube Feeding 775 ml 3365 ml Tube Irrigant 282 ml 1113 ml Output Urine Total 1025 ml 945 ml 7390 ml Stool Total 1 ml 1 ml # Voids 15 # Bowel Movements 2 6 Exam General: Alert, Oriented X3, Cooperative, No Acute Distress, afebrile Head: Normocephalic, atraumatic Eyes: PERRLA, EOMI. ENT: Mucous Membranes Moist/[place], Tracheostomy patent, no sign of infection, Venturi mask over his trach Chest & Lungs: minimal inspiratory wheeze bilaterally, appreciation of crackles , or rhonchi difficult to determine with breathing machinery Cardiovascular: Regular Rate/Rhythm, Normal S1, Normal S2, No Murmurs/Rubs/ Gallops Abdomen: Non-tender, Non-distended, No masses, Normoactive bowel tones, Soft, G -tube present left upper quadrant patent Extremities: No cyanosis/clubbing/edema bilaterally Neurological: Grossly Neurologically Intact Lab and Diagnostics Result Diagram: 07/04/16 0342 07/04/16 034 X-Rays, CTs and MRIs X-RAY CHEST ONE VIEW IMPRESSION: Bibasilar patchy areas of pneumonia. Dictated by: Aki Reyes M.D. on 06/29/2016 at 20:06 Approved by: Aki Reyes M.D. on 06/29/2016 at 20:06 CT ANGIO CHEST PULMONARY EMBOLISM MPRESSION: No pulmonary embolism. Ill-defined bibasilar patchy consolidation, with new dominant nodular appearance within the left lung base. Given the surrounding groundglass opacities this could represent pneumonia/inflammatory etiology, however recommend followup with noncontrast chest CT in 3 months to document resolution and exclude metastatic pulmonary nodule. Previously seen subcentimeter nodular foci are not well evaluated given extensive motion artifact and recommend close attention on the recommended followup chest CT. Small left pleural effusion Motion degraded examination. Dictated by: Zhen Ryder M.D. on 07/02/2016 at 11:51 Approved by: Zhen Ryder M.D. on 07/02/2016 at 11:51 Additional Diagnostics X-RAY BARIUM SWALLOW WITH FOOD & VIDEOGRAPHY IMPRESSION: Expected postsurgical change after total laryngectomy and tracheostomy. There is no communication between the pathway of the ingested material in the visualized airway. Dictated by: Devyn Michele M.D. on 07/03/2016 at 15:03 Approved by: Devyn Michele M.D. 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 Admitted for bibasilar Pneumonia. Currently under going treatment for aspiration pneumonia. Hospital Day 5 1. Bibasilar pneumonia, unknown chronicity, Present on admission. Improving - DDX: aspiration pneumonia, Herpetic pna, post obstructive pna, - Chest x-ray shows patchy streaky disease at the left base consistent with pneumonia and indistinctness of the right hemidiaphragm and streaky disease suggesting early infiltrate at the right base - Procalcitonin trending down 0.14 07/03/16, legionella and strep pneumo urine ag , respiratory virus PCR all negative. - Hx of MRSA pneumonia. MRSA swab positive. Add Bactroban for coverage 07/03/16 - Sputum culture - pseudomonas. - Continue Zosyn (06/29/16), D/C azithromycin (07/02/16). Continue Home Acyclovir. - CT completed, negative for PE. 2.Sepsis, acute, not present on admission, Improving - Blood cultures grew out Enterococcus faecalis, no clear source for infection consider potential GI etiology - Per ID, continue Zosyn, Bactroban added for MRSA coverage - Trans esophageal Echocardiogram ordered to r/o endocarditis, pending post EGD to r/o esophageal strictures - Infectious disease consulted,we appreciate their expertise on this case 3. 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 Present on admission, ongoing - Continue tube feeds through PEG tube - Dietitian ordered - Swallow study completed 07/03/15 no sign of communication of trachea to esophageus - General Surgery consulted as patient has an appointment 07/02/2016 to discuss J- tube placement and esophageal stricture dilation we appreciate their time and expertise on this case. - Recommend barium swallow, Speech Therapy consultation, Surgery does not recommend surgical jejunostomy nor dilation given his malnourished state and recommends continued feeds with current G-tube - Social Work consulted on acquiring feeding tube pump for home, 4. Acute COPD exacerbation. Present on admission. Active - Patient with increasing shortness of breath, increasing sputum, change in color sputum - Patient received 125 mg Solu-Medrol (06/29/16)in ED and will continue 40 mg prednisone (06/30/16) daily for anticipated five day course - DuoNeb QIDWA, Albuterol Q2H PRN - Continue supplemental oxygen as needed to keep oxygen sats goal of 88-92 % - 1-2 ml lidocaine given transtracheal tube prior to respiratory therapy for bronchospasm 5.Chronic Paroxysmal atrial fibrillation on chronic anticoagulation with subtherapeutic INR. Present on admission. Active - Continue warfarin, dosed per pharmacy. Will continue DVT prophylaxis with heparin until INR is therapeutic - INR 1.54. - Continue home diltiazem 120mg ER daily, Currently HR fluctuates in the low 100 's. - Continue Telemetry 6. Chronic Hypothyroidism. Present on admission - Continue levothyroxine 125g daily 7. History of RLS. Present on admission - Continue diazepam 5mg PRN Acetaminophen for mild pain when necessary. Bowel regimen Senna and MiraLAX scheduled and PRN. Zofran when necessary for nausea and vomiting. SubQ heparin held for now. SCDs in place. High-risk medications: Disposition: Patient will likely stay in hospital for one more night pending echocardiogram results with likely discharge to home. GI Prophylaxis: Not indicated VTE Prophylaxis: Sub-Q Heparin (Unfractionated) VTE Mechanical Devices: Intermittant Pneumatic CD Resuscitation Status: CPR: Attempt Resuscitation Attending Statement The patient was seen and examined together with Dr. Olivarez on 07/04/2012 and I agree with the history, exam and plan as outlined in the note above. . GIOVANNI OLIVAREZ DO Jul 04, 2016 06:35 Adam Rubio MD Jul 06, 2016 17:09
[2016-07-04] MEDS ORDERED: Labetalol 5 mg/mL 4 mL Inj IVPUSH PRN (19:25)
--- NOTE | 2016-07-04 19:33 | CCS NOTE ---
[facility] [address] [place] [address], [address] [address] MEDICAL ONCOLOGY OFFICE NOTE PATIENT: LISS MINER : 1935 MR#: [id number] DATE: 06/29/2016 JOB ID: [id number] DATE: 07/04/2016 DIAGNOSES: 1. Current admission for recurrent aspiration pneumonia. 2. 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 3. Hypothyroidism. 4. Chronic depression. 5. Paroxysmal atrial fibrillation, on anticoagulation therapy. 6. Permanent feeding tube dependence. HISTORY OF PRESENT ILLNESS: The patient is a 80-year-old gentleman, with metastatic head and neck squamous cell carcinoma to the lungs, undergoing immunotherapy with pembrolizumab. He is status post laryngectomy for recurrent severe aspirations, but still develops aspiration pneumonia on a frequent basis, because of inability to clear airway secretions. 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 He has a gastrostomy button in place. He gets gastrostomy feedings at home to gravity feeds. His calorie requirements call for five cans of formula per day, but he is usually only able to tolerate 3 or 3-1/2. I have been giving him prophylactic antibiotics for prevention of chronic aspiration. At 1st, this was effective but lately it has not been. He started developing more cough and copious amounts of secretions about two weeks ago. He referred to ED, but waited too long and left. The problem persisted and he referred back again last Saturday. Chest x-ray suggested bibasilar patchy areas of pneumonia. CT chest angiogram was negative for PE. It showed nodular consolidation in left lung base. He has been placed on Zosyn. He was seen by Dr. Bingham during this hospital admission. He has had a swallow evaluation by speech therapist as well as modified barium swallow study by the radiologist. There is no aspiration of food (of course, there would not be any since he has undergone laryngectomy and has a permanent tracheostomy). Esophagogram does not show stenosis but shows extrinsic compression by the adjacent aorta. Dr. Bingham recommends a trial of feeding through his current gastrostomy access by feeding pump. If the patient can handle his calorie requirements through feeding pump, and hopefully this can be arranged at home and there would not be any need for exchange of his feeding tube. Today, he does not seem to be doing very well. He has developed diarrhea. We have collected a stool sample for C. diff, but the result is pending. He does not look well. Blood pressure 166/96, heart rate 91, temperature 36.8. CURRENT LABORATORY DATA: CBC is rather normal. Basic metabolic profile is normal as well. Procalcitonin has been trending down with antibiotic therapy. IMPRESSION/RECOMMENDATIONS: 1. Chronic recurrent aspiration pneumonia. This is primarily due to inability to clear airway secretions, rather than aspirating food or oral contents. I would like to try a scopolamine patch in order to reduce respiratory secretions. I will place an order for this in computer. Continue current antibiotic therapy. 2. Enterococcus was found in the blood culture. A transesophageal echocardiogram has been requested, to rule out endocarditis. Transthoracic echocardiogram was negative but it was not a reliable study. 3. Inability to handle gastrostomy feedings. He is currently receiving his tube feedings through a feeding pump. It is difficult to assess if he is handling this well or not given that he has developed diarrhea today, but the goal is to assess his ability to receive his calorie requirements through feeding pump, and, if successful, hopefully arrange the same thing at home. 4. 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 He was due for his immunotherapy tomorrow, but it will be postponed until after discharge.
[2016-07-05] VITALS (14 sets, daily range): BP systolic 145–165; BP diastolic 85–109; PULSE 76–97; RESP 13–24; O2SAT 94–99
[2016-07-05] MEDS: Heparin 5,000 Unit/mL Inj SUBQ SCH ×3 (00:36→17:13)
[2016-07-05] MEDS: Piperacillin-Tazo 3.375 Gm Inj 3.375 GM in Dextrose 5% Minibag Plus 50 ML IV SCH ×3 (00:36→17:08)
[2016-07-05 03:37] LABS: BASOPHILS % (AUTO) 0 % (0-3); EOSINOPHILS % (AUTO) 2.3 % (0-5); MONOCYTES % (AUTO) 12.4 % (4-12); Mean Corpuscular Hemoglobin 32.1 pg (27.0-35.0); Mean Corpuscular Volume 96.5 fL (81-100); NEUTROPHILS % (AUTO) 72.7 % (40-74); Platelet Count 220 bil/L (150-400)
[2016-07-05 03:49] LABS: INR 1.27 ratio
--- NOTE | 2016-07-05 05:23 | NUR ---
Mentation Pt AOx3, impulsive and getting out of bed without using call light. Pt instructed to call for assistance, but pt continues to attempt to exit bed independently. Bed alarm in place. Tube feeding on hold at midnight for NPO status. VSS. Tele SR 80s. Ongoing tafoya loose stools, C.diff sample sent.
[2016-07-05] MEDS ORDERED: Lactated Ringer's 1,000 ML IV ONE ×2 (07:02→15:27)
--- NOTE | 2016-07-05 07:03 | PCM.HPANE ---
Patient Data Surgeon Admitting Provider:Shawnee Gilbert MD Attending Provider:Shawnee Gilbert MD Primary Care Physician:Chava Kilpatrick MD Other Provider: Reason for Visit Pneumonia, Acute Exac Copd, Resp Distress Ht/WT & BMI Height (Feet): 6 Height (Inches): 1.00 Weight (Kilograms): 69.200 Body Mass Index 20.92 Allergies Coded Allergies: meperidine HCl (Verified Allergy, Severe, 'PASSED OUT PER PT', 10/07/15) PT STATES OK WITH DILAUDID AND MORPHINE AND OXYCODONE codeine (Verified Adverse Reaction, Severe, SEVERE N/V, 10/07/15) PT STATES OK WITH DILAUDID AND MORPHINE AND OXYCODONE oxycodone (Verified Adverse Reaction, Severe, Hallucinations, 10/07/15) Past Anesthesia History Anesthesia History: Denies:: Abnormal Airway, Anesthesia Reactions, Difficult Intubation, Fam Anesthesia Reaction, Fam Malignant Hypertherm, Malignant Hyperthermia Diabetes History Hx Diabetes?: No MRSA MRSA: Yes (2013) Medications Blood Thinner: Coumadin Active Scripts Pantoprazole DR 20 Mg Tablet.dr20 Mg PO DAILY #30 TABLET Ref 0 Prov:Mario Thomas MD 03/05/16 Reported Medications Oseltamivir Phosphate (Tamiflu)75 Mg Alopyep79 Mg PO DAILY #10 CAPSULE Ref 0 06/29/16 Warfarin Sodium 5 Mg Tablet2.5 Mg PO sat-sat-dr 30 Days Ref 0 06/29/16 Warfarin Sodium 5 Mg Tablet5 Mg PO obj-zgt-bicw- 30 Days Ref 0 06/29/16 Hydrocodone-Acetaminophen 5-325 mg 1 Each Tablet1 Tablet PO bid PRN For Pain Ref 0 06/29/16 Ondansetron 8 Mg Tablet8 Mg PO crush, given through g-tube 03/22/16 Polyethylene Glycol 3350 17 Gm Powd.pack17 Gm PO prn PRN For Constipation 03/22/16 Diazepam (Valium)5 Mg Tablet5 Mg PO HS PRN For Restlessness #30 TABLET Ref 2 01/19/16 Levothyroxine 137 Mcg Ygpzeg949 Mcg PO DAILY Ref 0 12/09/15 Diltiazem ER (Taztia XT)120 Mg Capsule.er120 Mg PO DAILY 10/07/15 Albuterol HFA (Proair HFA)8.5 Gm Hfa.aer.ad2 Puffs INHALATION QID PRN For Shortness of Breath 10/07/15 Mirtazapine 15 Mg Fdwzwr65 Mg PO HS 10/07/15 Acyclovir 400 Mg Xvlnmy904 Mg PO BID 04/21/15 Albuterol Neb Soln 2.5 Mg/3 Ml Vial.neb2.5 Mg IH QID PRN For Wheezing 01/25/14 Budesonide/Formoterol 80-4.5 mcg Inh (Symbicort 80-4.5 mcg Inh)120 Puff/10.2 Gm Inhaler2 Puff IH BID 11/23/13 Tiotropium [place] (Spiriva)18 Mcg Cap.w.dev1 Puff IH DAILY 11/23/13 Discontinued Reported Medications Warfarin Sodium 6 Mg Tablet6 Mg PO DAILY 01/19/16 Metoclopramide 10 Mg Tbqytw88 Mg PO TID PRN For Nausea 10/07/15 Discontinued Scripts Hydrocodone-Acetaminophen 5-325 mg 1 Each Tablet1 Tablet PO Q6H PRN For Pain # 20 Prov:Jey Dominique MD 10/10/15 History History of ENT Problems?: Yes HEENT History: Denies:: Abnormal Airway Cataracts Difficult Intubation Dysphagia Hearing Problem Sinus Problem Other HEENT Pertinent History: Lingual cancer 2012 Hx of Heart Problems?: Yes Cardiovascular History: Positive for:: Atrial Fibrillation Hypertension Irregular Heartbeat Denies:: AICD Cardiac Surgery Chest Pain Congestive Heart Failure Edema Heart Murmur Pacemaker Thrombophlebitis Valvular Heart Disease Hx of Respiratory Problem?: Yes Respiratory History: Positive for:: COPD Dyspnea Emphysema Pneumonia Denies:: Asthma Chest Surgery Cough Hemoptysis Tuberculosis Hx Neurologic Problems?: No Neurological History: Positive for:: Dizziness Headaches Denies:: Alzheimer's Disease CVA Dementia Parkinson's Disease Seizures Hx of GI Problems?: No Gastrointestinal History: Positive for:: Gastroesphageal Reflux Hiatal Hernia (inguinal b/l) Denies:: Cirrhosis Diverticulitis Gastrointestinal Bleeding Heartburn Hepatitis Rectal Bleeding Hx of Problems?: No Genitourinary History: Denies:: HX of Hemodialysis Kidney Stones Urinary Tract Infection HX of Peritoneal Dialysis: No Male Hx: Positive for:: Prostate Problems Denies:: Scrotal Mass Testicular Surgery Other Skin Pertinent History: Keytruda S/A Hx Musculoskeletal Problems?: Yes Musculoskeletal History: Positive for:: Back Injury (Sciatica- resolved) Denies:: Joint Replacement Musculoskeletal Trauma Hx of Psycho/Social Problems?: No Psycho Social History: Positive for:: Hx Depression Denies:: Anxiety Bipolar Disorder Suicide Attempt Hx Surgeries?: Yes Hx Any Other Health Problems?: Yes Other History: Positive for:: Cancer Hospitalization Thyroid Disease (hypothyroidism ) Denies:: Endocrine Disease History Blood Transfusions: Positive for:: Accept Blood Products? Blood Transfusions Denies:: Blood Transfuse Reaction Hx Diabetes: No Occupation: Retired, former med tech Hx Alcohol Use: NoHx Substance Use: No Smoking Status: Former Smoker (Quit 1989, smoked 1PPD x 35 years prior) Have You Smoked inLast 12 mo: NoApprox How Many Cigarettes/day: 20 Stop/Bang Treated for Sleep Apnea?: No Do You Have a CPAP Machine?: No Risk Assessment Category Category 1A: Patient has history of documented sleep apnea, and HAS NOT received any narcotic, sedative or anesthesia administration during this stay. Category 1B: Patient has history of documented sleep apnea, and HAS received any narcotic , sedative or anesthesia administration during this stay Category 2: Patient has SUSPECTED Obstructive Sleep Apnea, and HAS received any narcotic , sedative or anesthesia administration during this stay. Category 3: Patient has SUSPECTED Obstructive Sleep Apnea and HAS NOT received narcotic, sedative or anesthesia administration during this stay. Category 4: Outpatient in Procedural Areas with known sleep apnea or who screen positive for High Risk via the STOP/BANG questionnaire. Exam Exam Vital Signs Vital Signs Date Time Temp Pulse Resp B/P Pulse Ox O2 Delivery O2 Flow Rate FiO2 07/05/16 05:23 86 16 96 28 07/05/16 04:39 89 07/05/16 03:39 36.6 84 18 165/106 97 Aerosol Mask 28 General Appearance: Alert, Oriented X3, Cooperative HEENT/AIRWAY: Other (this patient has a laryngectomy. WEll healed tracheotomy, with no endotracheal tube. Just open to air) Lungs: Wheezes Heart: Exam Unremarkable Meds/Labs/Diagnostics Admission Meds Current Medications Labetalol HCl (Trandate Inj) 20 mg ONCE ONCE IVPUSH Last administered on t 13:58; Start 07/04/16 at 13:00; Stop 07/04/16 at 13:09; Status DC Labs Test 06/29/16 11:31 06/29/16 19:30 07/02/16 03:05 07/02/16 03:10 Urine Color Yellow (YELLOW) Urine Appearance Clear (CLEAR,HAZY) Urine pH 6.5 (5.0-8.0) Urine Specific [place] 1.020 (1.003-1.035) Urine Protein Negativemg/dL (NEG,TRACE) Urine Glucose (UA) Negativemg/dL (NEGATIVE) Urine Ketones Negativemg/dL (NEGATIVE) Urine Occult Blood Negative (NEGATIVE) Urine Nitrite Negative (NEGATIVE) Urine Bilirubin Negative (NEGATIVE) Urine Urobilinogen Normalmg/dL (NORMAL) Urine Leukocyte Esterase Negative (NEGATIVE) Urine RBC 0-2/hpf (0-2) Urine WBC 0-5/hpf (0-5) Urine Epithelial Cells None/hpf (NONE-MOD) Urine Crystals None seen (NONE SEEN) Urine Bacteria None/hpf (NONE-FEW) Urine Hyaline Casts None/lpf (NONE) Urine Granular Casts None seen (NONE SEEN) Urine Waxy Casts None seen (NONE SEEN) Urine Red Blood Cell Casts None seen (NONE SEEN) Urine White Blood Cell Casts None seen (NONE SEEN) Urine Mucus None seen (None Seen) Urine Trichomonas None seen (NONE SEEN) Urine Yeast None (NONE SEEN) Urinalysis Comment None Urine Culture Reflexed Not indicated Thyroid Stimulating Hormone (TSH) 2.450uIU/mL (0.450-4.500) Hold Demarco Top Tube Received (Received) Total Bilirubin 0.3mg/dL (0.0-1.2) Aspartate Amino Transf (AST/SGOT) 25U/L (0-50) Alanine Aminotransferase (ALT/SGPT) 14U/L (0-44) Alkaline Phosphatase 68U/L (25-160) Total Protein 6.4g/dL (6.4-8.4) Fungal Antibodies 36pg/mL (.) Test 07/03/16 07:10 07/05/16 03:17 Albumin 3.4g/dL (3.4-5.0) White Blood Count 6.4th/mm3 (3.8-10.1) Red Blood Count 4.05mil/mm3 (4.40-5.80) Hemoglobin 13.0g/dL (13.8-17.2) Hematocrit 39.1% (41.0-50.0) Mean Corpuscular Volume 96.5fL (81-100) Mean Corpuscular Hemoglobin 32.1pg (27.0-35.0) Mean Corpuscular Hemoglobin Concent 33.2% (32.0-37.0) Red Cell Distribution Width 12.1% (12.3-15.4) Platelet Count 220bil/L (150-400) Neutrophils (%) (Auto) 72.7% (40-74) Lymphocytes (%) (Auto) 12.3% (14-46) Monocytes (%) (Auto) 12.4% (4-12) Eosinophils (%) (Auto) 2.3% (0-5) Basophils (%) (Auto) 0% (0-3) Prothrombin Time 13.7sec (8.1-12.5) Prothromb Time International Ratio 1.27ratio Sodium Level 142mEq/L (134-144) Potassium Level 4.4mEq/L (3.5-5.2) Chloride Level 103mEq/L (97-108) Carbon Dioxide Level 32mmol/L (18-29) Blood Urea Nitrogen 14mg/dL (8-27) Creatinine 0.76mg/dL (0.76-1.27) Estimat Glomerular Filtration Rate 105mL/min (>59) Glucose Level 98mg/dL (60-99) Lactic Acid Level 0.7mmol/L (0.4-2.0) Calcium Level 8.7mg/dL (8.5-10.1) Plan Impression Patient chart reviewed, patient interviewed and anesthestic plan with risks, benefits, and alternatives discussed, and informed consent obtained. ASA Physical Status: ASA3 Severe Disease Anesthetic Plan: MAC Bene/Risks/Altern/Consents: Yes HP Complete Prior to Induction: Yes Neto Oliveira MD Jul 05, 2016 07:03
[2016-07-05] MEDS: Albuterol-Ipratropium 3 mL Inhalation Solution NEB SCH ×4 (08:08→21:00)
[2016-07-05] MEDS: Lansoprazole 30 mg ODTablet PO SCH ×2 (08:30→17:09)
[2016-07-05] MEDS: Acyclovir 400 mg Tablet PO SCH ×2 (08:30→20:55)
--- NOTE | 2016-07-05 10:34 | PROG NOTE ---
[address] [address] PROGRESS NOTE PATIENT: LISS MINER : 1935 MR#: [id number] ADMIT: 06/29/2016 JOB ID: [id number] DATE: 07/05/2016 INFECTIOUS DISEASE FOLLOWUP NOTE: REASON FOR FOLLOWUP: Enterococcal bacteremia in a patient with underlying pneumonia, as well as head and neck cancer. INTERVAL HISTORY: Overnight, the patient has felt relatively well. The nurses have noted he tends to get up and go to the bathroom without sounding the call light or making proper plans, and we observed him to do this during morning rounds when the patient abruptly got up and tried to walk to the bathroom without unplugging his IV pole or extracting his peripheral IV from an entangled TV cord. Aside from this, though, the patient seems to be doing well and denies any new or focal complaints. He has no fevers, chills, or sweats. No significant respiratory complaint at this point. PHYSICAL EXAMINATION: Reveals an afebrile gentleman. Note that he has been afebrile during his one week hospital stay. Pulse 86, respiratory rate 24, blood pressure 164/108, saturating well on the trach collar. Examination of the oral cavity: No change. Trach appears benign. Lungs: Clear but without great respiratory effort at least while he is lying in bed. Abdomen: Benign. LABORATORIES: Include white count stable at 6400. Basically normal diff. Creatinine 0.76. Procalcitonin 0 today, yesterday and basically throughout his hospital stay, he has had a nonsignificant procalcitonin. Urinalysis without white cells. A Fungitell came back, and I am not certain why it was ordered but it is negative in any event. Recall that the patient's trach site grew pseudomonas when he came in. Blood cultures grew enterococcus in two of three blood cultures at the time of admission. This was Enterococcus faecalis. MRSA screen was positive. All followup blood cultures have been negative, and his C. difficile is pending, as he had some loose stools last night. IMAGING: The latest barium study of the esophagus shows minimal esophageal dysmotility with an extrinsic mass effect of the proximal and distal thoracic aorta likely related to aortic arch enlargement and a tortuous distal aorta. No esophageal stricture was seen. IMPRESSION: This is a patient who was admitted with what sounds like an aspiration pneumonia in the setting of head and neck cancer. He was treated with Zosyn and seemed to rapidly improve. He is colonized with methicillin-resistant Staphylococcus aureus but I doubt that there is methicillin-resistant Staphylococcus aureus pneumonia going on here, as he has improved with Zosyn alone. One issue which has developed here is that he came in with enterococcal bacteremia, which was community acquired and can be associated with endocarditis in about 1/4 of patients. Because of these concerns, I got a transthoracic echo, which was not able to visualize his valves very well. We need a transesophageal echocardiography to rule out endocarditis and decide on a final length of therapy. I have discussed this case in person with Dr. Crockett of cardiology, and he agrees to do a transesophageal echo if an esophagogastroduodenoscopy can be done beforehand to clear the patient's possible esophageal pathology beforehand. RECOMMENDATIONS: 1. Will continue with IV Zosyn and nasal Bactroban. 2. The patient is scheduled for an EGD this afternoon. If that is normal, Dr. Crockett tells us he will proceed directly to [facility] later this afternoon, and we should have a final answer. 3. If there is no evidence of endocarditis, then I think we can probably wrap up his IV antibiotic therapy in the very near future.
[2016-07-05] MEDS ORDERED: fentaNYL-PF 50 mCg/mL 2 mL Inj ONE (11:12)
--- NOTE | 2016-07-05 11:16 | NUR ---
Social Work: Continued Discharge Planning D: Pt discussed in morning rounds. Pt is not yet medically stable for discharge at this time. Pt to likely require a [place] Pump at time of discharge. Pt is currently open for services with [facility] for tube feeds. t/c to Mckenzie Leslie with [facility] to notify of likely need for [place] Pump. SUBSCRIPTION AGENT provided access; she will review existing documentation and have her payroll processor review. She will call SUBSCRIPTION AGENT back if there are additional documentation requirements. EMR reviewed; Pt is I at baseline and worked with PT on 07/04. Current recommendation is for home pending safe demonstration of stairs. A: Pt who is [place]. P: Anticipate pt to discharge home with ; SUBSCRIPTION AGENT to follow up with [facility] regarding pt's Kangaroo Pump. KASHMIR Browne
[2016-07-05] MEDS ORDERED: Propofol 10,000 mCg/mL 20 mL Inj ONE (11:18)
[2016-07-05] MEDS: 0.9% Sodium Chloride 1,000 ML IV SCH (12:05)
--- NOTE | 2016-07-05 15:10 | NUR ---
Endo Patient npo since midnight, po meds held this a.m. Patient oob indep to void at bedside, steady gait. Patient denies pain, nausea or sob. Using aerosol mask over trach area. Patient down to Endo at 1510.
--- NOTE | 2016-07-05 15:34 | NUR ---
CALLED TO PT. ROOM IN ENDO 5. ALBUTEROL MED NEB STARTED.
[2016-07-05] MEDS ORDERED: Lactated Ringer's 1,000 ML IV SCH ×2 (16:34→16:54)
[2016-07-05] MEDS ORDERED: MetoCLOpramide 5 mg/mL 2 mL Inj IVPUSH PRN (16:35)
--- NOTE | 2016-07-05 16:48 | PCM.ANEP1 ---
Post Anesthesia Phase 1 PACU Phase 1 Assessment Date of Service: Jul 04, 2016 Vital Signs Vital Signs Date Time Temp Pulse Resp B/P Pulse Ox O2 Delivery O2 Flow Rate FiO2 07/05/16 16:41 93 13 153/85 97 OxyMask 2 07/05/16 12:37 36.6 76 20 164/104 98 Aeresol Mask 7.00 07/05/16 12:00 83 20 99 Trach Collar 28 Anesthetic Administered: MAC Level of Alertness: Sleepy, easy to arouse SAL's with Equal Strength: Yes Pain: No Nausea or Vomiting: No Oxygen Delivery: OxyMask Lungs: Clear to Auscultation, Wheezes Dermatome Level: Full Sensation Luis Brennan MD Jul 05, 2016 16:48
--- NOTE | 2016-07-05 16:53 | PCM.ANEP2 ---
Post Anesthesia Evaluation ASA/CMS Post Anesthesia VS in Patient's Normal Range?: Yes Resp Stable; Airway Patent?: Yes CV Function & Hydration Stable: Yes Mental Status Recovered?: Yes Pain control Satisfactory?: Yes N/V Control Satisfactory?: Yes Luis Brennan MD Jul 05, 2016 16:53
[2016-07-05] MEDS: predniSONE 20 mg Tablet PO SCH (17:09)
[2016-07-05] MEDS: Diltiazem CD 120 mg ER24 Capsule PO SCH (17:10)
--- NOTE | 2016-07-05 18:41 | PCM.PNMED ---
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 Admitted for treatment of aspiration pneumonia, sepsis, Hospital day 6 No overnight events reported by nursing. Today patient stated he is breathing easier, productive cough, sputum production has decreased, otherwise had no complaints. Denies fever, chills, nausea, vomiting. He is able ambulate with minimal assistance from bed to bathroom. Exam Vital Signs Vital Sign - Last Date Time Temp Pulse Resp B/P Pulse Ox O2 Delivery O2 Flow Rate FiO2 07/05/16 12:37 36.6 76 20 164/104 98 Aeresol Mask 7.00 07/05/16 12:00 28 Intake and Output 07/04/16 07/04/16 07/05/16 Cumulative From/Thru 15:00 23:00 07:00 06/29/16 19:32 - 07/05/16 06:05 Intake Total 1522 ml 942 ml 57370 ml Output Total 1450 ml 550 ml 9391 ml Balance 72 ml 392 ml 8665 ml Intake Oral 0 ml 0 ml 0 ml IV Total 902 ml 942 ml 51390 ml Tube Feeding 455 ml 4585 ml Tube Irrigant 165 ml 1463 ml Output Urine Total 1450 ml 550 ml 9390 ml Stool Total 1 ml # Voids 15 # Bowel Movements 7 2 15 Exam General: Alert, Oriented X3, Cooperative, No Acute Distress, afebrile Head: Normocephalic, atraumatic Eyes: PERRLA, EOMI. ENT: Mucous Membranes Moist/Colver, Tracheostomy patent, no sign of infection, Venturi mask over his trach Chest & Lungs: minimal inspiratory wheeze bilaterally, appreciation of crackles , or rhonchi difficult to determine with breathing machinery Cardiovascular: Regular Rate/Rhythm, Normal S1, Normal S2, No Murmurs/Rubs/ Gallops Abdomen: Non-tender, Non-distended, No masses, Normoactive bowel tones, Soft, G -tube present left upper quadrant patent Extremities: No cyanosis/clubbing/edema bilaterally Neurological: Grossly Neurologically Intact IVs and Medications Medications Reviewed: Medications were reviewed in detail Lab and Diagnostics Laboratory Tests Test 07/05/16 03:17 White Blood Count 6.4th/mm3 (3.8-10.1) Red Blood Count 4.05mil/mm3 (4.40-5.80) Hemoglobin 13.0g/dL (13.8-17.2) Hematocrit 39.1% (41.0-50.0) Mean Corpuscular Volume 96.5fL (81-100) Mean Corpuscular Hemoglobin 32.1pg (27.0-35.0) Mean Corpuscular Hemoglobin Concent 33.2% (32.0-37.0) Red Cell Distribution Width 12.1% (12.3-15.4) Platelet Count 220bil/L (150-400) Neutrophils (%) (Auto) 72.7% (40-74) Lymphocytes (%) (Auto) 12.3% (14-46) Monocytes (%) (Auto) 12.4% (4-12) Eosinophils (%) (Auto) 2.3% (0-5) Basophils (%) (Auto) 0% (0-3) Prothrombin Time 13.7sec (8.1-12.5) Prothromb Time International Ratio 1.27ratio Sodium Level 142mEq/L (134-144) Potassium Level 4.4mEq/L (3.5-5.2) Chloride Level 103mEq/L (97-108) Carbon Dioxide Level 32mmol/L (18-29) Blood Urea Nitrogen 14mg/dL (8-27) Creatinine 0.76mg/dL (0.76-1.27) Estimat Glomerular Filtration Rate 105mL/min (>59) Glucose Level 98mg/dL (60-99) Lactic Acid Level 0.7mmol/L (0.4-2.0) Calcium Level 8.7mg/dL (8.5-10.1) Procalcitonin 0.06ng/mL (See Comment) Microbiology 07/03/16 Blood Culture - Preliminary, Resulted No growth at 2 days; culture examined... 07/04/16 C. difficile DNA Amplification - Final, Complete 07/02/16 MRSA Screen - Final, Complete Screen Positive For Mrsa 06/30/16 Streptococcus pneumoniae Ag Screen - Final, Complete 06/29/16 Sputum Quality Screen - Final, Complete 1/6/17 Sputum Culture - Final, Complete Pseudomonas Aeruginosa Result Diagram: 07/05/1631607/05/16316 X-Rays, CTs and MRIs X-RAY CHEST ONE VIEW IMPRESSION: Bibasilar patchy areas of pneumonia. Dictated by: Aki Reyes M.D. on 06/29/2016 at 20:06 Approved by: Aki Reyes M.D. on 06/29/2016 at 20:06 CT ANGIO CHEST PULMONARY EMBOLISM MPRESSION: No pulmonary embolism. Ill-defined bibasilar patchy consolidation, with new dominant nodular appearance within the left lung base. Given the surrounding groundglass opacities this could represent pneumonia/inflammatory etiology, however recommend followup with noncontrast chest CT in 3 months to document resolution and exclude metastatic pulmonary nodule. Previously seen subcentimeter nodular foci are not well evaluated given extensive motion artifact and recommend close attention on the recommended followup chest CT. Small left pleural effusion Motion degraded examination. Dictated by: Zhen Ryder M.D. on 07/02/2016 at 11:51 Approved by: Zhen Ryder M.D. on 07/02/2016 at 11:51 Additional Diagnostics X-RAY BARIUM SWALLOW WITH FOOD & VIDEOGRAPHY IMPRESSION: Expected postsurgical change after total laryngectomy and tracheostomy. There is no communication between the pathway of the ingested material in the visualized airway. Dictated by: Devyn Michele M.D. on 07/03/2016 at 15:03 Approved by: Devyn Michele M.D. 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 Admitted for bibasilar Pneumonia. Currently under going treatment for aspiration pneumonia. Hospital Day 5 1. Bibasilar pneumonia, unknown chronicity, Present on admission. Improving - DDX: aspiration pneumonia, Herpetic pna, post obstructive pna, - Chest x-ray shows patchy streaky disease at the left base consistent with pneumonia and indistinctness of the right hemidiaphragm and streaky disease suggesting early infiltrate at the right base - Procalcitonin trending down 0.14 07/03/16, legionella and strep pneumo urine ag , respiratory virus PCR all negative. - Hx of MRSA pneumonia. MRSA swab positive. Add Bactroban for coverage 07/03/16 - Sputum culture - pseudomonas. - Continue Zosyn (06/29/16), D/C azithromycin (07/02/16). Continue Home Acyclovir. - CT completed, negative for PE. 2.Sepsis, acute, not present on admission, Improving - Blood cultures grew out Enterococcus faecalis, no clear source for infection consider potential GI etiology - Per ID, continue Zosyn, Bactroban added for MRSA coverage - Trans esophageal Echocardiogram ordered to r/o endocarditis, pending post EGD to r/o esophageal strictures - Infectious disease consulted,we appreciate their expertise on this case 3. 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 Present on admission, ongoing - Continue tube feeds through PEG tube - Dietitian ordered - Swallow study completed 07/03/15 no sign of communication of trachea to esophageus - General Surgery consulted as patient has an appointment 07/02/2016 to discuss J- tube placement and esophageal stricture dilation we appreciate their time and expertise on this case. - Recommend barium swallow, Speech Therapy consultation, Surgery does not recommend surgical jejunostomy nor dilation given his malnourished state and recommends continued feeds with current G-tube - Social Work consulted on acquiring feeding tube pump for home, this can be accomplished as outpatient if necessary 4. Acute COPD exacerbation. Present on admission. Improving - Patient with increasing shortness of breath, increasing sputum, change in color sputum - Patient received 125 mg Solu-Medrol (06/29/16)in ED and will continue 40 mg prednisone (06/30/16) daily for anticipated five day course - DuoNeb QIDWA, Albuterol Q2H PRN - Continue supplemental oxygen as needed to keep oxygen sats goal of 88-92 % - 1-2 ml lidocaine given transtracheal tube prior to respiratory therapy for bronchospasm 5.Chronic Paroxysmal atrial fibrillation on chronic anticoagulation with subtherapeutic INR. Present on admission. Active - Continue warfarin, dosed per pharmacy. Will continue DVT prophylaxis with heparin until INR is therapeutic - INR 1.54. - Continue home diltiazem 120mg ER daily, Currently HR fluctuates in the low 100 's. - Continue Telemetry 6. Chronic Hypothyroidism. Present on admission, stable - Continue levothyroxine 125g daily 7. History of RLS. Present on admission, stable - Continue diazepam 5mg PRN Acetaminophen for mild pain when necessary. Bowel regimen Senna and MiraLAX scheduled and PRN. Zofran when necessary for nausea and vomiting. SubQ heparin held for now. SCDs in place. High-risk medications: Disposition: Patient will likely stay in hospital for one more night pending echocardiogram results with likely discharge to home. Pain Evaluation: Adequate Pain Control GI Prophylaxis: Not indicated VTE Prophylaxis: Sub-Q Heparin (Unfractionated) VTE Mechanical Devices: Intermittant Pneumatic CD Resuscitation Status: CPR: Attempt Resuscitation Attending Statement The patient was seen and examined together with Dr. Olivarez on 07/05/2016 and I agree with the history, exam and plan as outlined in the note above. . GIOVANNI OLIVAREZ DO Jul 05, 2016 16:22 Adam Rubio MD Jul 06, 2016 17:10
--- NOTE | 2016-07-05 19:05 | PROG NOTE ---
[address] [address] PROGRESS NOTE PATIENT: LISS MINER : 1935 MR#: [id number] ADMIT: 06/29/2016 JOB ID: [id number] DATE: 07/05/2016 DIAGNOSES: 1. Current admission for recurrent aspiration pneumonia, improved. 2. 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 3. Permanent feeding tube dependence. SUBJECTIVE: Today, he feels quite better. Respiratory secretions have much lessened since yesterday. He has been tolerating continuous tube feedings through a pump very well and has been able to receive full calorie and fluid requirements without nausea or abdominal pain, although he has been receiving it 24 hours a day. We have now tested to see if he can handle to receive the same amount of formula and fluid over 18 hours or less. OBJECTIVE: Resting very comfortably in bed. Appears sharper and healthier than yesterday. Awake, alert, oriented x3. Blood pressure 161/90, heart rate 97, temperature afebrile. LABORATORY DATA: CBC is normal. Basic metabolic profile is normal. RECOMMENDATIONS: 1. The patient needs kangaroo pump at home in order to receive his tube feedings through the pump. He was not able to tolerate them through gravity feeds. I believe social and political studies professor has already contacted [facility] to get insurance coverage for this, but I do not know if it has succeeded or not. We also need to discuss with the cardiac rehabilitation specialist to give this patient his total daily formula and fluid requirements over maximum 18 hours, so that he could be off the pump at home for at least 6 hours a day. This needs to be tested in hospital before discharge. 2. Recurrent aspiration pneumonia, improved. 3. Enterococcal bacteremia. He was not able to undergo JOSELIN given his trismus and very small mouth opening. 4. 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 I will have to reschedule his pembrolizumab infusion that was due today to next week or the following. 5. I would like this patient to be discharged on scopolamine patch, which seems to have been helping his copious respiratory secretions.
--- NOTE | 2016-07-05 19:06 | NUR ---
Post procedure Patient returned to room at 1700, awake, a/o x 3, denies pain, nausea or sob. Procedure cancelled per MD (see MD note). Patient oob indep at bedside to void. BM x 1 this shift. Tube feedings restarted. Lungs clear bilat, patient using aerosol mask for trach. VSS, tele SR. Will cont poc.
[2016-07-06] VITALS (11 sets, daily range): BP systolic 146–160; BP diastolic 80–99; PULSE 74–95; RESP 16–24; O2SAT 95–100
[2016-07-06] MEDS: Piperacillin-Tazo 3.375 Gm Inj 3.375 GM in Dextrose 5% Minibag Plus 50 ML IV SCH ×2 (01:26→07:49)
[2016-07-06] MEDS: Heparin 5,000 Unit/mL Inj SUBQ SCH ×2 (01:26→07:49)
[2016-07-06] MEDS: 0.9% Sodium Chloride 1,000 ML IV SCH (01:27)
[2016-07-06 03:56] LABS: BASOPHILS % (AUTO) 0 % (0-3); EOSINOPHILS % (AUTO) 0 % (0-5); MONOCYTES % (AUTO) 3.4 % (4-12); Mean Corpuscular Hemoglobin 31.8 pg (27.0-35.0); Mean Corpuscular Volume 95.5 fL (81-100); NEUTROPHILS % (AUTO) 84.7 % (40-74); Platelet Count 213 bil/L (150-400)
[2016-07-06] MEDS ORDERED: Mupirocin 2% 22 Gm Ointment NASAL SCH (06:00)
[2016-07-06] MEDS ORDERED: Mupirocin 2% 22 Gm Ointment TOPICAL SCH (06:00)
--- NOTE | 2016-07-06 06:01 | NUR ---
Mentation/GI/Med Order Pt had a moment this evening when he pulled out one of the IVs and dropped into the floor and disconnected the tube feed from the G-Tube and dropped it onto the floor as well. Pt then removed the tele box and undressed and dropped the tele box and the pt's clothing into a pile on the floor in the pt's room. Pt still has a left AC PIV that is patent and currently running the NS at 75ml/hr and piggyback ABX. Pt's tube feed has been increased to 55ml/hr at 0430. Pt is to reach the goal of 65ml/hr at 0830 and then prior to DC pt needs to stay at goal feed rate for 18H and then have 6H off the feed pump. Pt is MRSA positive in the nares and Nasal Bactroban has been ordered and faxed to the pharmacy.
[2016-07-06] MEDS: Albuterol-Ipratropium 3 mL Inhalation Solution NEB SCH ×3 (07:24→15:40)
[2016-07-06] MEDS: Acyclovir 400 mg Tablet PO SCH (07:48)
[2016-07-06] MEDS: Lansoprazole 30 mg ODTablet PO SCH (07:48)
[2016-07-06] MEDS: Diltiazem CD 120 mg ER24 Capsule PO SCH (07:49)
[2016-07-06] MEDS: predniSONE 20 mg Tablet PO SCH (07:49)
--- NOTE | 2016-07-06 09:42 | NUR ---
[facility] Signed 915 AM
--- NOTE | 2016-07-06 10:00 | ST BAR ---
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 VISITS FROM START OF CARE: One. FURTHER THERAPY: Further therapy was not recommended at this time secondary to current enteral tube feeder. Patient noted to have normal swallowing function for a total laryngectomized patient. CURRENT RELEVANT HISTORY: This is a very pleasant 80-year-old year old male with a metastatic head and neck squamous cell carcinoma of the left tongue base. He is status post partial glossectomy, modified radical neck dissection and total laryngectomy with permanent tracheostomy and a PEG tube placement. PAST MEDICAL HISTORY: The patient also has a past medical history of Afib, prostate cancer, recurrent aspiration pneumonia, COPD, hypertension, chronic pain, dyslipidemia and hypothyroidism. PAST SURGICAL HISTORY: Laryngectomy and tracheostomy, PEG tube placement, partial glossectomy and modified radical neck dissection, cataract surgery, bilateral hernia repair. The patient's primary surgeon is Dr. Gregg Forrest at [facility], who completed his partial glossectomy and neck dissection and he underwent the tracheostomy and laryngectomy for repeated aspirations. However, he returns to [facility] for this admission with continued concerns of aspiration pneumonia. Patient was seen yesterday by Dr. Avelina Bingham, consulting in regard to his poor toleration of bolus feeding through his gastrostomy tube and his dysphagia with both solids and liquids. She ordered a modified barium swallow study which is being completed today. MEDICAL NECESSITY: Aspiration risk. PRIOR LEVEL OF FUNCTION: The patient has been a primary PEG tube feeder for an extended period of time. PREVIOUS THERAPY: The patient has been seen by skilled speech therapy with inpatient admission. FUNCTIONAL LIMITATIONS: The patient is complaining of difficulty swallowing sips of water and recurrent aspiration with a question of tracheal esophageal fistula. BASELINE TESTS AND MEASURES: The patient was seated and viewed laterally for this modified barium swallow study done in conjunction with radiology today. Patient was presented with the following textures: Thin, nectar, pureed and dysphagia mechanical. Oral phase: Patient's labial seal was noted to be complete. Thin liquid noted to pool in the anterior and lateral sulci with some liquid loss through the lips. Fast movement from anterior to posterior with thin liquid; however, increased difficulties with bolus prep formation and anterior to posterior transit noted with pureed and dysphagia mechanical trials. Pharyngeal phase: Premature spillage noted over the base of the tongue to the level of above the vallecula with all consistencies. All consistencies were noted to slowly move through the pharynx on the anterior wall and passed through the upper esophageal sphincter with minimal difficulty. The patient was not at risk for aspiration, penetration secondary to laryngectomy. Due to the diagnosis of recurrent aspiration pneumonia, this clinician is concerned about tracheal esophageal fistula. None seen today on modified barium swallow; however, limited study done with only lateral view given patient's inability to stand for an AP view. It is recommended that this patient follow up with further visualization studies to ensure no fistula between the tracheal and esophageal wall. EVALUATION RESULTS: This is a very pleasant 80-year-old male who is seen for an inpatient modified barium swallow study secondary to complaints of difficulty swallowing liquids and solids. The patient was not noted to have any aspiration penetration during this study secondary to laryngectomy and also looked for a potential fistula between the trachea and the esophagus, which would increase risk of aspiration pneumonia as the patient is diagnosed with currently; however, none seen on this study today. I spoke with Dr. Avelina Bingham, referring physician, for this study in regard to concern about tracheal esophageal fistula and potential of food or liquid going to the lung through that route. The physician was is in agreement with further studies, looking to visualize any difficulty in this area. It was recommended that if completing a barium swallow to increase the viscosity of barium in order to highlight any tracheoesophageal fistulas, it is recommended that this patient begin snacks and supplements of thin dysphagia mechanical as tolerated by patient. The patient should continue to receive the majority of nutrition through enteral feeding. Defer to Dr. Bingham and other attending physicians at this hospital for further recommendations regarding GI function. Thank you, Dr. Bingham, for this referral today. Please reconsult with any new or worsening condition in relationship to speech or swallowing. cc: MD PATIRCIA Amezquita
--- NOTE | 2016-07-06 10:58 | NUR ---
Social Work: Continued Discharge Data & Assessment: EMR Reviewed. Patient is currently on his seventh day of hospitalization. Patient was discussed in daily rounds and will possibly discharge home today. BENEDICTO called [facility] [phone] to confirm that patient's pump and formula would be delivered today and they requested a prescription for the patient's formula. BENEDICTO faxed patient's prescription to [facility] at [phone]. SW attempted to call patient's but there was no answer. SW left a message with her name and number requesting a call back. SW also went to patient's room because to patient's is usually at bedside, but she was not there. SW will continue to try and contact patient's . Plan: Patient will discharge home with his via POV. Patient's pump and formula is likely to be provided by [facility]. BENEDICTO will continue to follow. Radha Waterman LMSW, TOMASA
--- NOTE | 2016-07-06 11:29 | PCM.DIMED ---
GIOVANNI OLIVAREZ DO 07/05/16 0641: Discharge Instructions Date of Service Jul 05, 2016 Dates of Hospitalization Jun 29, 2016 at 21:19 Discharge Diagnosis Discharge Diagnosis 1. Bibasilar pneumonia 2.Sepsis, acute, 3. 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 Acute COPD exacerbation. , 5.Chronic Paroxysmal atrial fibrillation on chronic anticoagulation with subtherapeutic INR. 6. Chronic Hypothyroidism. 7. History of RLS. Test Results Laboratory Tests 72 Hours Test 07/04/16 03:42 07/05/16 03:17 07/06/16 03:37 White Blood Count 6.3th/mm3 (3.8-10.1) 6.4th/mm3 (3.8-10.1) 5.3th/mm3 (3.8-10.1) Red Blood Count 4.07mil/mm3 (4.40-5.80) 4.05mil/mm3 (4.40-5.80) 3.96mil/mm3 (4.40-5.80) Hemoglobin 13.1g/dL (13.8-17.2) 13.0g/dL (13.8-17.2) 12.6g/dL (13.8-17.2) Hematocrit 39.3% (41.0-50.0) 39.1% (41.0-50.0) 37.8% (41.0-50.0) Mean Corpuscular Volume 96.6fL (81-100) 96.5fL (81-100) 95.5fL (81-100) Mean Corpuscular Hemoglobin 32.2pg (27.0-35.0) 32.1pg (27.0-35.0) 31.8pg (27.0-35.0) Mean Corpuscular Hemoglobin Concent 33.3% (32.0-37.0) 33.2% (32.0-37.0) 33.3% (32.0-37.0) Red Cell Distribution Width 12.1% (12.3-15.4) 12.1% (12.3-15.4) 12.0% (12.3-15.4) Platelet Count 196bil/L (150-400) 220bil/L (150-400) 213bil/L (150-400) Neutrophils (%) (Auto) 69.0% (40-74) 72.7% (40-74) 84.7% (40-74) Lymphocytes (%) (Auto) 16.0% (14-46) 12.3% (14-46) 11.7% (14-46) Monocytes (%) (Auto) 12.8% (4-12) 12.4% (4-12) 3.4% (4-12) Eosinophils (%) (Auto) 1.7% (0-5) 2.3% (0-5) 0% (0-5) Basophils (%) (Auto) 0% (0-3) 0% (0-3) 0% (0-3) Prothrombin Time 15.5sec (8.1-12.5) 13.7sec (8.1-12.5) Prothromb Time International Ratio 1.44ratio 1.27ratio Sodium Level 141mEq/L (134-144) 142mEq/L (134-144) 140mEq/L (134-144) Potassium Level 3.8mEq/L (3.5-5.2) 4.4mEq/L (3.5-5.2) 4.4mEq/L (3.5-5.2) Chloride Level 103mEq/L (97-108) 103mEq/L (97-108) 102mEq/L (97-108) Carbon Dioxide Level 27mmol/L (18-29) 32mmol/L (18-29) 27mmol/L (18-29) Blood Urea Nitrogen 14mg/dL (8-27) 14mg/dL (8-27) 14mg/dL (8-27) Creatinine 0.76mg/dL (0.76-1.27) 0.76mg/dL (0.76-1.27) 0.83mg/dL (0.76-1.27) Estimat Glomerular Filtration Rate 105mL/min (>59) 105mL/min (>59) 95mL/min (>59) Glucose Level 134mg/dL (60-99) 98mg/dL (60-99) 136mg/dL (60-99) Calcium Level 8.8mg/dL (8.5-10.1) 8.7mg/dL (8.5-10.1) 8.7mg/dL (8.5-10.1) Procalcitonin 0.06ng/mL (See Comment) 0.06ng/mL (See Comment) Lactic Acid Level 0.7mmol/L (0.4-2.0) Diet Heart Healthy Activity Limited until seen by PCP Call your provider Fever or Chills, Shortness of breath, Bleeding, Excessive diarrhea, Weakness ( unilateral) Patient Instructions 1. Bibasilar pneumonia, - Continue Home Acyclovir. - Continue home medications for COPD - Prescription for albuterol inhaler given 2.Sepsis, Enterococcus faecalis, -no clear source for infection consider potential GI etiology - Patient completed 7 days of antibiotic therapy -Follow up with PCP/Oncology Recommend follow up blood cultures x 2 3. 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 Present on admission, ongoing -Follow up with Oncology as outpatient as scheduled 4. Acute COPD exacerbation. Present on admission. Improving -Continue home medications 5.Chronic Paroxysmal atrial fibrillation on chronic anticoagulation with subtherapeutic INR. Present on admission. Active - Continue warfarin home dose - Continue home diltiazem 120mg ER daily, 6. Chronic Hypothyroidism. Present on admission, stable - Continue levothyroxine 125g daily 7. History of RLS. Present on admission, stable - Continue diazepam 5mg PRN 8. Dysphagia - Continue home tube feeding through G tube - Home Feeding tube pump prescription given Follow-up plan Follow up with PCP in two weeks Follow-up with PCP in: 1 week Adam Rubio MD 07/06/16 1710: Discharge Instructions Attending's Statement The patient was seen and examined together with Dr. Olivarez on 07/06/2016 and I agree with the history, exam and plan as outlined in the note above. . GIOVANNI OLIVAREZ DO Jul 05, 2016 06:41 Adam Rubio MD Jul 06, 2016 17:10
[2016-07-06] MEDS ORDERED: IPRA4AER IH (11:30)
[2016-07-06] MEDS ORDERED: IPRA3AMP NEB (13:15)
[2016-07-06] MEDS ORDERED: SCOP1PAT TD (13:18)
[2016-07-06 13:26] LABS: INR 1.18 ratio
--- NOTE | 2016-07-06 13:28 | PROG NOTE ---
[address] [address] PROGRESS NOTE PATIENT: LISS MINER : 1935 MR#: [id number] ADMIT: 06/29/2016 JOB ID: [id number] DATE: 07/06/2016 INFECTIOUS DISEASE FOLLOW UP NOTE: REASON FOR FOLLOWUP: Aspiration pneumonia with enterococcal bacteremia in a patient with head and neck cancer. INTERVAL HISTORY: Today, the patient states he feels back to his normal state of health. He denies fevers, chills or sweats. He states he is having no respiratory difficulty and is anxious to be discharged home. No GI symptoms. PHYSICAL EXAMINATION: Reveals an afebrile gentleman, 36.8 temperature, pulse 92, respiratory rate 16, blood pressure 155/80, saturating 98% on 7 L. Mental status is completely clear. Oral cavity without change. Trach site is benign. Lungs with crackles at the bases. No real change. Abdomen also benign. LABORATORIES: Include a white count of 5300, platelet count 213,000, creatinine 0.83. Micro studies include a C. difficile which is negative. Our follow up blood cultures which are negative after an initial 2/3 bottles yielded Enterococcus. Sputum culture grew a moderate growth of Pseudomonas aeruginosa. IMPRESSION: This is a somewhat confusing case of a gentleman who was admitted with aspiration pneumonia in the setting of head and neck cancer. He was treated with Zosyn with rapid improvement. He is colonized with MRSA but we doubted MRSA pneumonia based on his rapid clinical response to Zosyn alone. There was also colonized with Pseudomonas and I think the same caveats apply to that isolation as well. The confusing part was that 2/3 blood cultures on admission grew Enterococcus which is an organism not associated with pulmonary infections. This raised the question of a possible underlying neural coccal endocarditis. Follow up blood cultures were rapidly negative which is a positive sign. The transthoracic echo was a limited study but did not show obvious evidence of endocarditis. Yesterday we attempted to get a JOSELIN but it could not be done because the EGD that was ordered to proceed the JOSELIN to make sure there were no esophageal lesions was not feasible because they were unable to pass the scope through his abnormal esophagus. Because we cannot get a transesophageal echo, we are going to have to decide whether or not to treat his enterococcal bacteremia for one week or a potential six week course for the possibility of endocarditis. After reviewing the case in detail, I think that it would be inappropriate to subject the patient to six weeks of antibiotics. The enterococci only grew from one set of blood cultures out of two that were drawn on admission and all followups have been negative. The patient's cardiac examination does not reveal any new murmurs and he has no peripheral stigmata of endocarditis. The echo, though limited, did not show evidence of endocarditis and I think our best bet at this point is to simply wrap up his antibiotics, add a week of Zosyn and allow the patient to be discharged. RECOMMENDATIONS: 1. I would go ahead and discharge the patient at any time. 2. He should be kept on Zosyn until he is ready to go, presumably later today and then it can be discontinued. 3. I would complete the nasal Bactroban that we had initiated and give at least 10-14 days of the nasal Bactroban. 4. It would be reasonable for the patient to have follow up blood cultures after he recovers and perhaps this can be done by Dr. Martinez in the Hem/Onc setting, but I am not certain that is essential but if such cultures were drawn in a week or two and they were negative, that would serve as even more evidence he does not have endocarditis. 5. The patient is ready for discharge from my point of view and ID will sign off at this time.
--- NOTE | 2016-07-06 15:23 | NUR ---
HOME NUTRITION Spoke with [facility] regarding TF regimen requested per Dr. Martinez. Pt will be on TFs for 18 hrs and 6 hrs off w/ those 6 hrs being during the day time. [facility] states they will transition patient in the next few days.
--- NOTE | 2016-07-06 17:44 | NUR ---
Discharge Patient tolerating tube feed at goal rate of 65/hr. VSS. Discharge instructions and paper rx printed and reviewed verbally with patient and . IV DC'd intact. Tube feed stopped, flushed and J tube secured. Patient left unit via WC, accompanied by and transported home via personal vehicle.
--- NOTE | 2016-07-06 18:19 | PCM.DC.MED ---
Discharge Summary Date of Service Jul 06, 2016 Dates of Hospitalization Date of Hospital Admission Jun 29, 2016 at 21:19 Date of Discharge: Jul 06, 2016 Providers: Admitting Physician: Shawnee Gilbert MD Primary Care Physician: Chava Kilpatrick MD Attending Physician: Shawnee Gilbert MD Diagnosis at Time of Discharge Diagnosis at Time of Discharge 1. Bibasilar pneumonia 2.Sepsis, acute, 3. 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 Acute COPD exacerbation. , 5.Chronic Paroxysmal atrial fibrillation on chronic anticoagulation with subtherapeutic INR. 6. Chronic Hypothyroidism. 7. History of RLS. Procedures XRay, CTs & MRIs X-RAY CHEST ONE VIEW IMPRESSION: Bibasilar patchy areas of pneumonia. Dictated by: Aki Reyes M.D. on 06/29/2016 at 20:06 Approved by: Aki Reyes M.D. on 06/29/2016 at 20:06 CT ANGIO CHEST PULMONARY EMBOLISM MPRESSION: No pulmonary embolism. Ill-defined bibasilar patchy consolidation, with new dominant nodular appearance within the left lung base. Given the surrounding groundglass opacities this could represent pneumonia/inflammatory etiology, however recommend followup with noncontrast chest CT in 3 months to document resolution and exclude metastatic pulmonary nodule. Previously seen subcentimeter nodular foci are not well evaluated given extensive motion artifact and recommend close attention on the recommended followup chest CT. Small left pleural effusion Motion degraded examination. Dictated by: Zhen Ryder M.D. on 07/02/2016 at 11:51 Approved by: Zhen Ryder M.D. 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 There is no communication between the pathway of the ingested material in the visualized airway. Dictated by: Devyn Michele M.D. on 07/03/2016 at 15:03 Approved by: Devyn Michele M.D. 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 He has been on prophylactic antibiotics for aspiration pneumonia that is managed by his oncologist, Dr. Martinez. He was admitted to the hospital for aspiration pneumonia, and enterococcal bacteremia. Because of this, there was concern for bacterial endocarditis. A transthoracic echo was obtained but there was very poor visualization of the valves, and the decision was made to do a transesophageal echo. However, esophagram showed an external mass effect on the proximal thoracic and distal thoracic esophagus related to enlarged aortic arch and tortuous distal thoracic aorta. No strictures identified in the distal esophagus. Although the thoracic aorta was a possible cause of his dysphagia and esophageal narrowing, further workup was warranted given his history of metastatic head and neck cancer before proceeding with a transesophageal echo. As such, Gastroenterology was consulted for further evaluation via upper endoscopy. . 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 Admitted for bibasilar Pneumonia. Currently under going treatment for aspiration pneumonia. Discharged on Hospital Day 6 1. Bibasilar pneumonia - Chest x-ray showed patchy streaky disease at the left base consistent with pneumonia and indistinctness of the right hemidiaphragm and streaky disease suggesting early infiltrate at the right base - Procalcitonin trended down 0.14 07/03/16, legionella and strep pneumo urine ag , respiratory virus PCR all negative. - Hx of MRSA pneumonia. MRSA swab positive. Add Bactroban for coverage 07/03/16, competed 07/06/16 - Sputum culture showed pseudomonas. Completed antibiotic therapy - Continue Zosyn (06/29/16), D/C azithromycin (07/02/16). Continue Home Acyclovir. - CT completed, negative for PE. 2.Sepsis, acute - Blood cultures grew out Enterococcus faecalis, no clear source for infection consider potential GI etiology, Recommend Follow up blood cultures x 2 as outpatient - Per ID, Completed Zosyn, Bactroban added for MRSA coverage 07/06/16 3. 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 Present on admission, ongoing - Continue tube feeds through PEG tube at Home, Rx for pump given - Swallow study completed 07/03/15 no sign of communication of trachea to esophageus - General Surgery consulted as patient has an appointment 07/02/2016 to discuss J- tube placement and esophageal stricture dilation. 4. Acute COPD exacerbation. Present on admission. Improving - Patient received 125 mg Solu-Medrol (06/29/16)in ED and will continue 40 mg prednisone (06/30/16) daily for anticipated five day course. Completed 07/05/16 - DuoNeb QIDWA, Albuterol Q2H PRN, Rx given to continue at Home PRN. - Continue Home supplemental oxygen as needed to keep oxygen sats goal of 88-92 % 5.Chronic Paroxysmal atrial fibrillation on chronic anticoagulation with subtherapeutic - As outpatient Continue warfarin -As outpatient Continue home diltiazem 120mg ER daily 6. Chronic Hypothyroidism. Present on admission, stable - As outpatient Continue levothyroxine 125g daily 7. History of RLS. Present on admission, stable - As outpatient Continue diazepam 5mg PRN Exam Vital Signs (Last) Date Time Temp Pulse Resp B/P Pulse Ox O2 Delivery O2 Flow Rate FiO2 07/06/16 15:39 90 20 10.00 28 07/06/16 15:39 100 Trach Collar 07/06/16 12:00 36.8 155/80 Exam General: Alert, Oriented X3, Cooperative, No Acute Distress, afebrile Head: Normocephalic, atraumatic Eyes: PERRLA, EOMI. ENT: Mucous Membranes Moist/[place], Tracheostomy patent, no sign of infection, Venturi mask over his trach Chest & Lungs: minimal inspiratory wheeze bilaterally, appreciation of crackles , or rhonchi difficult to determine with breathing machinery Cardiovascular: Regular Rate/Rhythm, Normal S1, Normal S2, No Murmurs/Rubs/ Gallops Abdomen: Non-tender, Non-distended, No masses, Normoactive bowel tones, Soft, G -tube present left upper quadrant patent Extremities: No cyanosis/clubbing/edema bilaterally Neurological: Grossly Neurologically Intact Test 06/29/16 11:31 06/29/16 19:30 07/02/16 03:05 07/02/16 03:10 Urine Color Yellow (YELLOW) Urine Appearance Clear (CLEAR,HAZY) Urine pH 6.5 (5.0-8.0) Urine Specific [place] 1.020 (1.003-1.035) Urine Protein Negativemg/dL (NEG,TRACE) Urine Glucose (UA) Negativemg/dL (NEGATIVE) Urine Ketones Negativemg/dL (NEGATIVE) Urine Occult Blood Negative (NEGATIVE) Urine Nitrite Negative (NEGATIVE) Urine Bilirubin Negative (NEGATIVE) Urine Urobilinogen Normalmg/dL (NORMAL) Urine Leukocyte Esterase Negative (NEGATIVE) Urine RBC 0-2/hpf (0-2) Urine WBC 0-5/hpf (0-5) Urine Epithelial Cells None/hpf (NONE-MOD) Urine Crystals None seen (NONE SEEN) Urine Bacteria None/hpf (NONE-FEW) Urine Hyaline Casts None/lpf (NONE) Urine Granular Casts None seen (NONE SEEN) Urine Waxy Casts None seen (NONE SEEN) Urine Red Blood Cell Casts None seen (NONE SEEN) Urine White Blood Cell Casts None seen (NONE SEEN) Urine Mucus None seen (None Seen) Urine Trichomonas None seen (NONE SEEN) Urine Yeast None (NONE SEEN) Urinalysis Comment None Urine Culture Reflexed Not indicated Thyroid Stimulating Hormone (TSH) 2.450uIU/mL (0.450-4.500) Hold Demarco Top Tube Received (Received) Total Bilirubin 0.3mg/dL (0.0-1.2) Aspartate Amino Transf (AST/SGOT) 25U/L (0-50) Alanine Aminotransferase (ALT/SGPT) 14U/L (0-44) Alkaline Phosphatase 68U/L (25-160) Total Protein 6.4g/dL (6.4-8.4) Fungal Antibodies 36pg/mL (.) Test 07/03/16 07:10 07/05/16 03:17 07/06/16 03:37 07/06/16 13:00 Albumin 3.4g/dL (3.4-5.0) Lactic Acid Level 0.7mmol/L (0.4-2.0) Procalcitonin 0.06ng/mL (See Comment) White Blood Count 5.3th/mm3 (3.8-10.1) Red Blood Count 3.96mil/mm3 (4.40-5.80) Hemoglobin 12.6g/dL (13.8-17.2) Hematocrit 37.8% (41.0-50.0) Mean Corpuscular Volume 95.5fL (81-100) Mean Corpuscular Hemoglobin 31.8pg (27.0-35.0) Mean Corpuscular Hemoglobin Concent 33.3% (32.0-37.0) Red Cell Distribution Width 12.0% (12.3-15.4) Platelet Count 213bil/L (150-400) Neutrophils (%) (Auto) 84.7% (40-74) Lymphocytes (%) (Auto) 11.7% (14-46) Monocytes (%) (Auto) 3.4% (4-12) Eosinophils (%) (Auto) 0% (0-5) Basophils (%) (Auto) 0% (0-3) Sodium Level 140mEq/L (134-144) Potassium Level 4.4mEq/L (3.5-5.2) Chloride Level 102mEq/L (97-108) Carbon Dioxide Level 27mmol/L (18-29) Blood Urea Nitrogen 14mg/dL (8-27) Creatinine 0.83mg/dL (0.76-1.27) Estimat Glomerular Filtration Rate 95mL/min (>59) Glucose Level 136mg/dL (60-99) Calcium Level 8.7mg/dL (8.5-10.1) Prothrombin Time 12.7sec (8.1-12.5) Prothromb Time International Ratio 1.18ratio Discharge Medications Discharge Medications Acyclovir (Acyclovir) 400 Mg Tablet 400 MG PO BID (Reported) Albuterol/Ipratropium (Combivent Respimat Inhal [place]) 120 Spr/4 Gm Inhaler 1 PUFF IH QID Prescribed by: GIOVANNI HARLEY DO Budesonide/Formoterol 80-4.5 mcg Inh (Symbicort 80-4.5 mcg Inh) 120 Puff/10.2 Gm Inhaler 2 PUFF IH BID (Reported) Diltiazem ER (Taztia XT) 120 Mg Capsule.er 120 MG PO DAILY (Reported) Ipratropium/Albuterol Sulfate (Iprat-Albut 0.5-3(2.5) mg/3 mL Inhalant Soln) 3 Ml Ampul.neb 3 ML NEB QIDWA Prescribed by: GIOVANNI HARLEY DO Levothyroxine (Levothyroxine) 137 Mcg Tablet 137 MCG PO DAILY (Reported) Mirtazapine (Mirtazapine) 15 Mg Tablet 15 MG PO HS (Reported) Oseltamivir Phosphate (Tamiflu) 75 Mg Capsule 75 MG PO DAILY (Reported) Pantoprazole DR (Pantoprazole DR) 20 Mg Tablet.dr 20 MG PO DAILY Prescribed by: ALEJANDRO LOYD MD Scopolamine (Transderm-Scop) 1 Each Patch.td72 1 EACH TD Q3day Prescribed by: GIOVANNI HARLEY DO Tiotropium [place] (Spiriva) 18 Mcg Cap.w.dev 1 PUFF IH DAILY (Reported) Warfarin Sodium (Warfarin Sodium) 5 Mg Tablet 5 MG PO xth-cur-exnd- ( Reported) Warfarin Sodium (Warfarin Sodium) 5 Mg Tablet 2.5 MG PO sat-sat-dri (Reported) As needed Albuterol HFA (Proair HFA) 8.5 Gm Hfa.aer.ad 2 PUFFS INHALATION QID PRN PRN For Shortness of Breath (Reported) Albuterol Neb Soln (Albuterol Neb Soln) 2.5 Mg/3 Ml Vial.neb 2.5 MG IH QID PRN PRN For Wheezing (Reported) Diazepam (Valium) 5 Mg Tablet 5 MG PO HS PRN PRN For Restlessness (Reported) Hydrocodone-Acetaminophen 5-325 mg (Hydrocodone-Acetaminophen 5-325 mg) 1 Each Tablet 1 TABLET PO bid PRN PRN For Pain (Reported) Polyethylene Glycol 3350 (Polyethylene Glycol 3350) 17 Gm Powd.pack 17 GM PO prn PRN PRN For Constipation (Reported) Miscellaneous Medications Ondansetron (Ondansetron) 8 Mg Tablet 8 MG PO (Reported) crush, given through g-tube Followup Plan Disposition: Discharge to home Follow-up plan Follow up with PCP in two weeks Discharge Diet: Heart Healthy Discharge Activity: Limited until seen by PCP Patient Instructions 1. Bibasilar pneumonia, - Continue Home Acyclovir. - Continue home medications for COPD - Prescription for albuterol inhaler given 2.Sepsis, Enterococcus faecalis, -no clear source for infection consider potential GI etiology - Patient completed 7 days of antibiotic therapy -Follow up with PCP/Oncology Recommend follow up blood cultures x 2 3. 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 Present on admission, ongoing -Follow up with Oncology as outpatient as scheduled 4. Acute COPD exacerbation. Present on admission. Improving -Continue home medications 5.Chronic Paroxysmal atrial fibrillation on chronic anticoagulation with subtherapeutic INR. Present on admission. Active - Continue warfarin home dose - Continue home diltiazem 120mg ER daily, 6. Chronic Hypothyroidism. Present on admission, stable - Continue levothyroxine 125g daily 7. History of RLS. Present on admission, stable - Continue diazepam 5mg PRN 8. Dysphagia - Continue home tube feeding through G tube - Home Feeding tube pump prescription given Follow-up with PCP in: 1 week Time spent Greater than 30 minutes was spent in preparation of discharge with greater than 50% of that time dedicated to patient counseling and coordination of care. . Attending Statement The patient was seen and examined together with Dr. Harley on 07/06/2016 and I agree with the history, exam and plan as outlined in the note above. . copies to: Chava Kilpatrick MD, AARON J DO Jul 06, 2016 18:19 Adam Rubio MD Jul 07, 2016 08:08
== END 2016-07-06 16:56 | disposition home or self-care (01) | DRG 178 ==
LOC: SED 19:23 → PCC 21:19
PROVIDERS: ADMIT Specialist; ATTEND Specialist
PROC: 3E0234Z Introduction of Serum, Toxoid and Vaccine into Muscle, Percutaneous Approach (ICD-10-PCS; principal; 2016-06-30)
PROC: BD15YZZ Fluoroscopy of Upper GI using Other Contrast (ICD-10-PCS; 2016-07-03)
DX: J69.0 Pneumonitis due to inhalation of food and vomit (principal); C78.01 Secondary malignant neoplasm of right lung; J44.1 Chronic obstructive pulmonary disease with (acute) exacerbation; C77.0 Secondary and unspecified malignant neoplasm of lymph nodes of head, face and neck; R78.81 Bacteremia; I10 Essential (primary) hypertension; I48.0 Paroxysmal atrial fibrillation; Z79.01 Long term (current) use of anticoagulants; Z87.891 Personal history of nicotine dependence; E03.9 Hypothyroidism, unspecified; G25.81 Restless legs syndrome; Z93.0 Tracheostomy status; Z93.1 Gastrostomy status; B95.2 Enterococcus as the cause of diseases classified elsewhere; F32.9 Major depressive disorder, single episode, unspecified; C01 Malignant neoplasm of base of tongue; R13.10 Dysphagia, unspecified; Z23 Encounter for immunization

== ENCOUNTER 2016-07-09 18:10 | Emergency (ER) | payer MEDICARE, OTHER ==
[~2016-07-09] VITALS: Ht 185.4 cm; Wt 75.0 kg
[~2016-07-09 18:10] MED LIST changes: +IPRA3AMP NEB; +IPRA4AER IH; -METO10TA3 PO; +SCOP1PAT TD; +TAM75UDCAP PO; +WARF5TAB7 PEG; +WARF5TAB7 PO; -WARF6TAB6 PO
--- NOTE | 2016-07-09 18:19 | ED.REPORT ---
HPI-General Illness Date of Service Jul 09, 2016 ED Provider: Ajay Kidd MD 80 year old male with a hx of laryngectomy, lung cancer, metastatic squamous cell cancer of tongue, trach dependent, G tube dependent, on Coumadin for Afib and COPD, who presents to the ED due to increased weakness and fatigue. Pt was recently diagnosed and hospitalized for sepsis and pneumonia. He was discharged 3 days ago after completing abx. This morning the patient slid out of bed due to generalized weakness, but denies any head trauma or LOC. Pt denies fever, CP , unilateral weakness/numbness, chills, nausea, dysuria, and CP. Later in his workup the patient's arrives and reports that he has been given meclizine patches and that she thinks too many may have been applied. She states that she removed them all this morning but of note he still has a meclizine patch stuck to his lower back. Nursing Notes Stated Complaint: SOB,WEAKNESS Nursing Notes Reviewed: Yes Allergies: Coded Allergies: meperidine HCl (Verified Allergy, Severe, 'PASSED OUT PER PT', 10/07/15) PT STATES OK WITH DILAUDID AND MORPHINE AND OXYCODONE codeine (Verified Adverse Reaction, Severe, SEVERE N/V, 10/07/15) PT STATES OK WITH DILAUDID AND MORPHINE AND OXYCODONE oxycodone (Verified Adverse Reaction, Severe, Hallucinations, 10/07/15) Scheduled Acyclovir (Acyclovir) 400 Mg Tablet 400 MG PO BID Albuterol/Ipratropium (Combivent Respimat Inhal [place]) 120 Spr/4 Gm Inhaler 1 PUFF IH QID Budesonide/Formoterol 80-4.5 mcg Inh (Symbicort 80-4.5 mcg Inh) 120 Puff/10.2 Gm Inhaler 2 PUFF IH BID Diltiazem ER (Taztia XT) 120 Mg Capsule.er 120 MG PO DAILY Ipratropium/Albuterol Sulfate (Iprat-Albut 0.5-3(2.5) mg/3 mL Inhalant Soln) 3 Ml Ampul.neb 3 ML NEB QIDWA Levothyroxine (Levothyroxine) 137 Mcg Tablet 137 MCG PO DAILY Mirtazapine (Mirtazapine) 15 Mg Tablet 15 MG PO HS Oseltamivir Phosphate (Tamiflu) 75 Mg Capsule 75 MG PO DAILY Pantoprazole DR (Pantoprazole DR) 20 Mg Tablet.dr 20 MG PO DAILY Scopolamine (Transderm-Scop) 1 Each Patch.td72 1 EACH TD Q3day Tiotropium [place] (Spiriva) 18 Mcg Cap.w.dev 1 PUFF IH DAILY Warfarin Sodium (Warfarin Sodium) 5 Mg Tablet 5 MG PO [id number]- Warfarin Sodium (Warfarin Sodium) 5 Mg Tablet 2.5 MG PO sat-sat-dri Scheduled PRN Albuterol HFA (Proair HFA) 8.5 Gm Hfa.aer.ad 2 PUFFS INHALATION QID PRN PRN For Shortness of Breath Albuterol Neb Soln (Albuterol Neb Soln) 2.5 Mg/3 Ml Vial.neb 2.5 MG IH QID PRN PRN For Wheezing Diazepam (Valium) 5 Mg Tablet 5 MG PO HS PRN PRN For Restlessness Hydrocodone-Acetaminophen 5-325 mg (Hydrocodone-Acetaminophen 5-325 mg) 1 Each Tablet 1 TABLET PO bid PRN PRN For Pain Polyethylene Glycol 3350 (Polyethylene Glycol 3350) 17 Gm Powd.pack 17 GM PO prn PRN PRN For Constipation Miscellaneous Medications Ondansetron (Ondansetron) 8 Mg Tablet 8 MG PO crush, given through g-tube General Time Seen by MD: 18:10 Chief Complaint Weakness Hx Obtained From: Patient, EMS Arrived By: Ambulance Onset Occurred: 3 days ago Symptom Duration: Since onset Severity: Current: No pain currently Associated with: Denies: Chest pain, Shortness of breath Pertinent Negative: Relieved by nothing Recent Healthcare: Recent hospitalization Past Medical History Past Medical History Notes: PCP: Dr. Kilpatrick Past Medical History Post-biopsy PTX on 10/18/14 (bx of right upper lung nodule) Afib on Coumadin s/p total laryngectomy and trach Feeding tube Recent aspiration PNA SCC of base of tongue Prostate cancer COPD HTN Chronic pain Past Surgical History Total laryngectomy and tracheostomy PET feeding tube insertion Radiation for tongue cancer Smoking History Former Smoker Social History Alcohol Use: Denies alcohol use Drug Use: Denies drug use Other Social History: Ambulatory Status Independent Review of Systems Full Review of Systems Constitutional: Reports: Fatigue, Weakness - generalized, Denies: Chills, Fever Respiratory: Denies: Non-productive cough, Shortness of breath Cardiovascular: Denies: Chest pain, Edema Male: Denies Dysuria Complete sys rev & neg: except as marked. Physical Exam Vital Signs Vital Signs Date Time Temp Pulse Resp B/P Pulse Ox O2 Delivery O2 Flow Rate FiO2 07/09/16 21:02 37.1 92 18 134/69 98 Venturi Mask 10 07/09/16 19:51 36.8 77 18 143/80 96 Room Air 07/09/16 19:50 86 20 96 Room Air 07/09/16 18:21 36.7 75 23 140/70 97 Room Air Initial VS: Reviewed Extremities: Vascular intact, Neuro intact, No swelling (At calves), No tenderness (at calves) General/Constitutional: Awake, Alert Head / Eyes: Atraumatic, Normocephalic, PERRL Mouth: Positive: Mucous membranes dry (slightly) Post surgical changes about tongue. Tracheostomy secured. No surrounding erythema or discharge. Well secured. Respiratory/chest: Coarse breathsounds throughout. Diminshed breath sounds throughout, worse at bases. Prolonged expiratory phase with expiratory wheezing. Cardiovascular: Regular rhythm, Heart sounds NL, No murmurs, Cap refill not delayed, Peripheral circulation NL Heart Rate / Rhythm: Positive: Irreg irregular rhythm Abdomen: Soft, Non-tender G tube in L abd, no surrounding redness, warmth or signs of infection. Neurologic: No motor deficits, CN II - XII intact No pronator drift. 5/5 strength in all extremitites. No lateralized neuro deficits. CN intact. No facial droop. Interpretation & Diagnostics Lab Results Interpretation Result Diagram: 07/09/16182507/09/161825 Test 07/09/16 18:26 07/09/16 20:29 White Blood Count 8.5th/mm3 (3.8-10.1) Red Blood Count 4.49mil/mm3 (4.40-5.80) Hemoglobin 14.5g/dL (13.8-17.2) Hematocrit 43.9% (41.0-50.0) Mean Corpuscular Volume 97.8fL (81-100) Mean Corpuscular Hemoglobin 32.3pg (27.0-35.0) Mean Corpuscular Hemoglobin Concent 33.0% (32.0-37.0) Red Cell Distribution Width 12.8% (12.3-15.4) Platelet Count 167bil/L (150-400) Neutrophils (%) (Auto) 70.2% (40-74) Lymphocytes (%) (Auto) 10.7% (14-46) Monocytes (%) (Auto) 12.8% (4-12) Eosinophils (%) (Auto) 5.8% (0-5) Basophils (%) (Auto) 0.4% (0-3) Hold Purple Top Tube Received (Received) Prothrombin Time 11.7sec (8.1-12.5) Prothromb Time International Ratio 1.09ratio Hold Blue Top Tube Received (Received) Sodium Level 139mEq/L (134-144) Potassium Level 3.9mEq/L (3.5-5.2) Chloride Level 101mEq/L (97-108) Carbon Dioxide Level 27mmol/L (18-29) Blood Urea Nitrogen 20mg/dL (8-27) Creatinine 0.91mg/dL (0.76-1.27) Estimat Glomerular Filtration Rate 86mL/min (>59) Glucose Level 93mg/dL (60-99) Calcium Level 9.3mg/dL (8.5-10.1) Total Bilirubin 0.8mg/dL (0.0-1.2) Aspartate Amino Transf (AST/SGOT) 26U/L (0-50) Alanine Aminotransferase (ALT/SGPT) 29U/L (0-44) Alkaline Phosphatase 81U/L (25-160) Total Protein 7.1g/dL (6.4-8.4) Albumin 3.7g/dL (3.4-5.0) Hold Red Top Tube Received (Received) Hold [place] Top Tube Received (Received) Urine Color Yellow (YELLOW) Urine Appearance Hazy (CLEAR,HAZY) Urine pH 7.5 (5.0-8.0) Urine Specific [place] 1.015 (1.003-1.035) Urine Protein Negativemg/dL (NEG,TRACE) Urine Glucose (UA) Negativemg/dL (NEGATIVE) Urine Ketones Negativemg/dL (NEGATIVE) Urine Occult Blood Negative (NEGATIVE) Urine Nitrite Negative (NEGATIVE) Urine Bilirubin Negative (NEGATIVE) Urine Urobilinogen 1.0mg/dL (NORMAL) Urine Leukocyte Esterase Negative (NEGATIVE) Urine RBC 0-2/hpf (0-2) Urine WBC 0-5/hpf (0-5) Urine Epithelial Cells None/hpf (NONE-MOD) Urine Crystals Amorphous urates (NONE Urine Bacteria Few/hpf (NONE-FEW) Urine Hyaline Casts None/lpf (NONE) Urine Granular Casts None seen (NONE SEEN) Urine Waxy Casts None seen (NONE SEEN) Urine Red Blood Cell Casts None seen (NONE SEEN) Urine White Blood Cell Casts None seen (NONE SEEN) Urine Mucus None seen (None Seen) Urine Trichomonas None seen (NONE SEEN) Urine Yeast None (NONE SEEN) Urinalysis Comment None Urine Culture Reflexed Not indicated General Lab Results Interp 1: Labs reviewed ECG Interpretation ECG Interpretation: NSR with a rate of 72, occasional PAC's, Nonspecific T wave abnormalities in leads V1, V2. When compared to ECG 06/29/16, the patient is no longer in SVT and T wave abnormalities in V1, V2 now present. Time: 20:04 Interpreted by: ED physician X-Ray Chest Interpretation Chest Xray Interpretation: IMPRESSION: 1. Decreased patchy left basilar opacities compatible with resolving consolidation. 2. Findings consistent with COPD redemonstrated. Dictated by: Jose Wilkinson M.D. on 07/09/2016 at 20:12 View: Portable, 1 view Interpretation / Wet Read by: Interpret - Radiologist CT Head Interpretation IMPRESSION: 1. No acute intracranial abnormality. 2. Chronic white matter small vessel ischemic changes and cerebral volume loss. Dictated by: Jose Wilkinson M.D. on 07/09/2016 at 19:38 Study: Head CT no contrast Interpretation / Wet Read by: Interpret - Radiologist Re-Eval/Medical Decision Med Decision/Clinical Course 80 year old male with a hx of laryngectomy, lung cancer, metastatic squamous cell cancer of tongue, trach dependent, G tube dependent, on Coumadin for Afib and COPD, who presents to the ED due to increased weakness and fatigue. Pt was recently diagnosed and hospitalized for sepsis and pneumonia. He was discharged 3 days ago after completing abx. This morning the patient slid out of bed due to generalized weakness, but denies any head trauma or LOC. Pt denies fever, CP , unilateral weakness/numbness, chills, nausea, dysuria, and CP. Later in his workup the patient's arrives and reports that he has been given meclizine patches and that she thinks too many may have been applied. She states that she removed them all this morning but of note he still has a meclizine patch stuck to his lower back. Upon arrival the patient is afebrile stable vital signs distress. Initial history is quite limited due to the patient's inability to speak. He did have scattered wheezing. Laboratory studies notable as below: CBC unremarkable CMP unremarkable Coag studies normal Udip negative Tx IV fluids, duoneb ECG NSR with a rate of 72, occasional PAC's, Nonspecific T wave abnormalities in leads V1, V2. When compared to ECG 06/29/16, the patient is no longer in SVT and T wave abnormalities in V1, V2 now present. Chest x-ray: 1. Decreased patchy left basilar opacities compatible with resolving consolidation. 2. Findings consistent with COPD redemonstrated. CT Head: 1. No acute intracranial abnormality. 2. Chronic white matter small vessel ischemic changes and cerebral volume loss. Multiple meclizine patches were removed from the patient. He was observed here in the emergency department and remained hemodynamically stable and afebrile. He reported feeling much better. Serial neurologic examinations revealed no lateralizing symptoms. His presentation was not strokelike in nature. His presentation is not suggestive of acute coronary syndrome or pulmonary embolism. I see no evidence of worsening or ongoing infectious process. There are no findings of significant electrolyte abnormality, intracranial hemorrhage or other immediately concerning cause of the patient's generalized weakness. I suspect that this is likely multifactorial related to his underlying COPD, application of multiple simultaneous meclizine patches and deconditioning in the setting of recent hospitalization. The patient does not desire admission nor do I see any objective criteria for admission at this time. The patient was discharged with his in stable condition. Follow-up and return precautions were reviewed in detail. Time of Eval: 20:31 Re-Evaluation/Progress Note: now in room. Pt feels improved. Elevated BP over the weekend. Pt's reports that he was discharged with scopolamine patch, but took this off this morning. However, during exam, he still had one present. Possible extra patch placed. Pt has been on prednisone previously, and wished to not take this. Discussed plan for d/c and f/u. All questions addressed. Counseled Regarding: Diagnosis, Lab results, Need for follow-up, When/why to return to ED Discharge & Departure Primary Impression: COPD with acute exacerbation Additional Impressions: Generalized weakness Anticholinergic syndrome Encounter type: initial encounter Injury intent: accidental or unintentional Qualified Code: T44.3X1A - Poisoning by other parasympatholytics [anticholinergics and antimuscarinics] and spasmolytics, accidental (unintentional), initial encounter Physical deconditioning Gastrostomy tube dependent Tracheostomy dependent History of tongue cancer Disposition: Home Discharge Condition All VS Reviewed: Yes Condition: Improved Patient Instructions: Chronic Obstructive Pulmonary Disease (ED) Additional Instructions: Thank you for seeking care at [facility] emergency room. It is difficult for us to make definitive diagnoses in the ED but we believe that you are experiencing a COPD exacerbation. Our primary goal today in the ED was to evaluate you for any life-threatening conditions. Your evaluation was reassuring. You can use home nebulizers at home for symptoms control. You should follow-up with your primary doctor in the next week. You should return to the ED immediately if you develop fevers, vomiting, cough , shortness of breath, chest pain, lightheadedness, weakness or any other concerning signs or symptoms. Thank you for letting us partake in your care today. Referrals: Chava Kilpatrick MD (PCP) Scribe Attestation Portions of this note were transcribed by Herlinda Thompson. I, (Dr. Kidd) personally performed the history, physical exam and medical decision-making; I reviewed and confirmed the accuracy of the information in the transcribed note. Signed by: Herlinda Thompson. 07/09/2016, 2044 copies to: Chava Kilpatrick MD, Beck O MD Jul 09, 2016 18:18 Herlinda Thompson Jul 09, 2016 18:28
[2016-07-09 18:21] VITALS: BP 140/70; PULSE 75; RESP 23; O2SAT 97
[2016-07-09] MEDS ORDERED: 0.9% Sodium Chloride 1,000 ML IV ONE (18:39)
[2016-07-09] MEDS ORDERED: Albuterol-Ipratropium 3 mL Inhalation Solution NEB ONE (18:40)
[2016-07-09 18:49] LABS: BASOPHILS % (AUTO) 0.4 % (0-3); EOSINOPHILS % (AUTO) 5.8 % (0-5); MONOCYTES % (AUTO) 12.8 % (4-12); Mean Corpuscular Hemoglobin 32.3 pg (27.0-35.0); Mean Corpuscular Volume 97.8 fL (81-100); NEUTROPHILS % (AUTO) 70.2 % (40-74); Platelet Count 167 bil/L (150-400)
[2016-07-09 19:14] LABS: INR 1.09 ratio
--- NOTE | 2016-07-09 19:39 | DRSVH ---
PROCEDURE: CT BRAIN WITHOUT CONTRAST ([id number]) INDICATIONS: fall, coumadin TECHNIQUE: Noncontrast 4.5 mm thick angled axial sections acquired from the foramen magnum to the vertex, with c oronal reformats. COMPARISON: [facility], CT, BRAIN W/O CONTRAST, 02/24/2010, 11:46. FINDINGS: Image quality: Excellent. CSF spaces: Basal cisterns are patent. No extra-axial fluid collections. The ventricles are symmet theron in size and shape. There is moderate cerebral volume loss, with resultant ventricular and sulcal prominence. Brain: No intracranial hemorrhage, mass, or mass effect. There are subcortical, periventricular and deep white matter hypodensities consistent with mild to moderate chronic small vessel ischemic vasquez es. There is intracranial internal carotid artery atherosclerosis. Skull and face: Calvarium and visualized facial bones appear intact, without suspicious lesions. Sinuses: Visualized sinuses and mastoids are clear. IMPRESSION: 1. No acute intracranial abnormality. 2. Chronic white matter small vessel ischemic changes and cerebral volume loss. Dictated by: Jose Wilkinson M.D. on 07/09/2016 at 19:38 Approved by: Jose Wilkinson M.D. on 07/09/2016 at 19:38
[2016-07-09 19:50] VITALS: PULSE 86; RESP 20; O2SAT 96
[2016-07-09 19:51] VITALS: BP 143/80; PULSE 77; RESP 18; O2SAT 96
--- NOTE | 2016-07-09 20:14 | DRSVH ---
PROCEDURE: X-RAY CHEST ONE VIEW, PORTABLE ([id number]) INDICATIONS: cough TECHNIQUE: One view of the chest was acquired. COMPARISON: [facility], CT, CT ANGIO CHEST PE, 07/02/2016, 10:35. [facility] , CR, XR CHEST 1VW, 06/29/2016, 19:33. FINDINGS: Surgical changes and devices: None. Lungs and pleura: No pleural effusions or pneumothorax. There is hyperinflation of the lungs with f lattening of the hemidiaphragms compatible with COPD. There are decreased patchy indistinct opacitie s in the left lung base. Linear areas of scarring are redemonstrated in the right lung base. Mediastinum: Mediastinal contours appear unchanged. Heart size is normal. Bones and chest wall: No suspicious bony lesions. Overlying soft tissues appear unremarkable. IMPRESSION: 1. Decreased patchy left basilar opacities compatible with resolving consolidation. 2. Findings consistent with COPD redemonstrated. Dictated by: Jose Wilkinson M.D. on 07/09/2016 at 20:12 Approved by: Jose Wilkinson M.D. on 07/09/2016 at 20:12
[2016-07-09 21:02] VITALS: BP 134/69; PULSE 92; RESP 18; O2SAT 98
[2016-07-09 21:12] LABS: APPEARANCE,URINE HAZY (CLEAR,HAZY); COLOR,URINE YELLOW (YELLOW); OCCULT BLOOD,URINE NEGATIVE (NEGATIVE); PH,URINE 7.5 (5.0-8.0)
== END 2016-07-09 21:04 | disposition home or self-care (01) ==
LOC: SED 18:10
DX: T44.3X1A Poisoning by other parasympatholytics [anticholinergics and antimuscarinics] and spasmolytics, accidental (unintentional), initial encounter (principal); J44.1 Chronic obstructive pulmonary disease with (acute) exacerbation; R53.81 Other malaise; X58.XXXA Exposure to other specified factors, initial encounter; Y93.89 Activity, other specified; Y99.8 Other external cause status; Y92.019 Unspecified place in single-family (private) house as the place of occurrence of the external cause; I48.91 Unspecified atrial fibrillation; I10 Essential (primary) hypertension; Z90.02 Acquired absence of larynx; Z93.1 Gastrostomy status; Z93.0 Tracheostomy status; Z85.810 Personal history of malignant neoplasm of tongue; Z85.46 Personal history of malignant neoplasm of prostate; Z87.891 Personal history of nicotine dependence; Z79.01 Long term (current) use of anticoagulants; Z79.51 Long term (current) use of inhaled steroids; Z88.5 Allergy status to narcotic agent; Z88.8 Allergy status to other drugs, medicaments and biological substances
CPT/HCPCS: 36415; 70450; 71010; 80053; 81000; 85025; 85610; 87070; 87077; 87186; 87205; 93005; 94640; 94799; 96360; 99285; J7030; J7620

== ENCOUNTER 2016-07-25 18:24 | Inpatient (IN) | payer MEDICARE, OTHER ==
[~2016-07-25] VITALS: Ht 185.4 cm; Wt 66.7 kg
[2016-07-25 18:34] VITALS: BP 135/81; PULSE 0; RESP 31; O2SAT 95
[2016-07-25] MEDS ORDERED: Albuterol 2.5 mg/3 mL Inhalation Solution NEB ONE ×2 (18:35)
[2016-07-25] MEDS ORDERED: MethylprednisoLONE Sodium Succinate 62.5 mg/mL 2 mL Inj IVPUSH ONE (18:35)
[2016-07-25] MEDS ORDERED: Albuterol-Ipratropium 3 mL Inhalation Solution NEB ONE (18:35)
[2016-07-25] MEDS ORDERED: 0.9% Sodium Chloride 1,000 ML IV ONE (18:35)
--- NOTE | 2016-07-25 18:36 | ED.REPORT ---
HPI-Dyspnea / Wheezing Date of Service Jul 25, 2016 ED Provider: Dr. Kiet Gutierres D.O. 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 Associated symptoms include cough, wheeze, and shortness of breath. The patient is currently taking IV and oral antibiotics for pneumonia. He was hospitalized for one week on with bibasilar pneumonia and was seen in the ED on 07/09/16 with an acute COPD exacerbation. Nursing Notes Stated Complaint: DIFFICULTY BREATHING Chief Complaint: Respiratory Distress Nursing Notes Reviewed: Yes Allergies: Coded Allergies: meperidine HCl (Verified Allergy, Severe, 'PASSED OUT PER PT', 07/25/16) PT STATES OK WITH DILAUDID AND MORPHINE AND OXYCODONE codeine (Verified Adverse Reaction, Severe, SEVERE N/V, 07/25/16) PT STATES OK WITH DILAUDID AND MORPHINE AND OXYCODONE oxycodone (Verified Adverse Reaction, Severe, Hallucinations, 07/25/16) Scheduled Acyclovir (Acyclovir) 400 Mg Tablet 400 MG PO BID Albuterol/Ipratropium (Combivent Respimat Inhal [place]) 120 Spr/4 Gm Inhaler 1 PUFF IH QID Budesonide/Formoterol 80-4.5 mcg Inh (Symbicort 80-4.5 mcg Inh) 120 Puff/10.2 Gm Inhaler 2 PUFF IH BID Diltiazem ER (Taztia XT) 120 Mg Capsule.er 120 MG PO DAILY Ipratropium/Albuterol Sulfate (Iprat-Albut 0.5-3(2.5) mg/3 mL Inhalant Soln) 3 Ml Ampul.neb 3 ML NEB QIDWA Levothyroxine (Levothyroxine) 137 Mcg Tablet 137 MCG PO DAILY Mirtazapine (Mirtazapine) 15 Mg Tablet 15 MG PO HS Oseltamivir Phosphate (Tamiflu) 75 Mg Capsule 75 MG PO DAILY Pantoprazole DR (Pantoprazole DR) 20 Mg Tablet.dr 20 MG PO DAILY Scopolamine (Transderm-Scop) 1 Each Patch.td72 1 EACH TD Q3day Tiotropium [place] (Spiriva) 18 Mcg Cap.w.dev 1 PUFF IH DAILY Warfarin Sodium (Warfarin Sodium) 5 Mg Tablet 5 MG PO [id number] Warfarin Sodium (Warfarin Sodium) 5 Mg Tablet 2.5 MG PO sat-sat- Scheduled PRN Albuterol HFA (Proair HFA) 8.5 Gm Hfa.aer.ad 2 PUFFS INHALATION QID PRN PRN For Shortness of Breath Albuterol Neb Soln (Albuterol Neb Soln) 2.5 Mg/3 Ml Vial.neb 2.5 MG IH QID PRN PRN For Wheezing Diazepam (Valium) 5 Mg Tablet 5 MG PO HS PRN PRN For Restlessness Hydrocodone-Acetaminophen 5-325 mg (Hydrocodone-Acetaminophen 5-325 mg) 1 Each Tablet 1 TABLET PO bid PRN PRN For Pain Polyethylene Glycol 3350 (Polyethylene Glycol 3350) 17 Gm Powd.pack 17 GM PO prn PRN PRN For Constipation Miscellaneous Medications Ondansetron (Ondansetron) 8 Mg Tablet 8 MG PO crush, given through g-tube General Time Seen by MD: 18:35 Chief Complaint Shortness of breath, Wheezing Hx Obtained From: Patient, Spouse Arrived By: Walk-in Sudden in Onset?: No Onset Occurred: Just prior to arrival Symptom Duration: Since onset Location: : None Severity: Current: No pain currently Severity: Maximum: No pain Associated with: Denies: Fever Pertinent Negative: Relieved by nothing Context Related History: Reports: COPD, Pneumonia Recent Healthcare: Recent doctor visit, Recent hospitalization Similar Sx Previous: Yes Past Medical History Past Medical History Notes: PCP: Dr. 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 GI: Denies: Vomiting Physical Exam Initial Vital Signs Vital Signs (First) Date Time Temp Pulse Resp B/P Pulse Ox O2 Delivery O2 Flow Rate FiO2 2/1/17 18:34 37 0 31 135/81 95 Room Air 07/25/16 19:31 8 Initial VS: Reviewed Head / Eyes: Atraumatic, Normocephalic Extremities: Vascular intact, Neuro intact, No swelling Skin: Warm, Dry Neurologic: Alert, Oriented, Nonfocal Psychiatric: Mood/affect normal, Behavior normal, Normal thought content General/Constitutional: Awake, Alert Distress / Hydration: Positive: Distress moderate Thin Neck: Supple, Full range of motion Trach tube in place Respiratory / Chest: Atraumatic Resp Distress / Stridor: Positive: Resp distress moderate Pursed lip breathing Breathing through nose Poor air entry Tight chest Cardiovascular: Regular rhythm, Heart sounds NL Heart Rate / Rhythm: Positive: Tachycardia Interpretation & Diagnostics Interpretation & Diagnostics: Positive for Influenza A Lab Results Interpretation Result Diagram: 07/25/16190007/25/161900 Test 07/25/16 19:01 White Blood Count 7.7th/mm3 (3.8-10.1) Red Blood Count 4.46mil/mm3 (4.40-5.80) Hemoglobin 14.4g/dL (13.8-17.2) Hematocrit 43.8% (41.0-50.0) Mean Corpuscular Volume 98.2fL (81-100) Mean Corpuscular Hemoglobin 32.3pg (27.0-35.0) Mean Corpuscular Hemoglobin Concent 32.9% (32.0-37.0) Red Cell Distribution Width 13.1% (12.3-15.4) Platelet Count 206bil/L (150-400) Neutrophils (%) (Auto) 66.7% (40-74) Lymphocytes (%) (Auto) 12.0% (14-46) Monocytes (%) (Auto) 12.9% (4-12) Eosinophils (%) (Auto) 7.5% (0-5) Basophils (%) (Auto) 0.8% (0-3) Sodium Level 139mEq/L (134-144) Potassium Level 4.5mEq/L (3.5-5.2) Chloride Level 100mEq/L (97-108) Carbon Dioxide Level 27mmol/L (18-29) Blood Urea Nitrogen 27mg/dL (8-27) Creatinine 0.85mg/dL (0.76-1.27) Estimat Glomerular Filtration Rate 93mL/min (>59) Glucose Level 118mg/dL (60-99) Lactic Acid Level 1.7mmol/L (0.4-2.0) Calcium Level 9.4mg/dL (8.5-10.1) Total Bilirubin 0.3mg/dL (0.0-1.2) Aspartate Amino Transf (AST/SGOT) 26U/L (0-50) Alanine Aminotransferase (ALT/SGPT) 22U/L (0-44) Alkaline Phosphatase 102U/L (25-160) Troponin T 0.039ug/L (0.0-0.011) Pro-B-Type Natriuretic Peptide 424.8pg/mL (0-486) Total Protein 7.2g/dL (6.4-8.4) Albumin 3.7g/dL (3.4-5.0) Procalcitonin 0.09ng/mL (0.00-0.08) Pulse Oximetry Interpretation Pulse Oximetry: Pulse Ox low ECG Interpretation ECG Interpretation: Sinus tachycardia rate 105 Anterior infarct, old Nonspecific T abnormalities, lateral leads Time: 19:03 Interpreted by: ED physician Rhythm Strip Interpretation : Rhythm Strip Interpretation: Sinus tachycardia X-Ray Chest Interpretation Chest Xray Interpretation: IMPRESSION: Opacity in the left lung base decreased in size, but not completely resolved. Recommend continued plain film radiograph followup imaging to resolution a finding to exclude underlying neoplastic process. Dictated by: Kelsey Billingsley MD, PhD on 07/25/2016 at 20:19 View: Portable, 1 view Interpretation / Wet Read by: Interpret - Radiologist Re-Eval/Medical Decision Med Decision/Clinical Course Patient presents in moderate to severe distress. He had poor air entry, tachypnea and we are able to suction out thick tracheal secretions. He was treated with multiple rounds of nebs, IV steroids. Diagnostics were reviewed. He is flu A+. This certainly matches the clinical picture. Chest x-ray shows resolving pneumonia and he is on IV cefepime so further antibiotics were not ordered. Overall he improved significantly, he went from severe distress to moderate exacerbation. He was now stable for PCU admission. Case discussed with our hospitalist and Man was accepted for admission. Of note his troponin is elevated and this has been the case on several occasions. He has never had any chest pain. There certainly could be a component of demand ischemia here. This will probably get worse before it gets better due to the fact that he is tachycardic from his respiratory distress and the beta agonist. I will defer further evaluation and treatment of this to the hospitalist service. His EKG did not show any evidence of an ST elevation SC. Source of Hx: Old records Re-Evaluation/Progress #1: Time of Eval: 19:20 Patient Status: Condition improved Re-Evaluation/Progress Note: Patient's breathing has improved. Re-Evaluation/Progress #2: Time of Eval: 20:30 Patient Status: Condition improved Re-Evaluation/Progress Note: Breathing continues to improve. Re-Evaluation/Progress #3: Time of Eval: 20:41 Patient Status: Condition improved Re-Evaluation/Progress Note: Discussed with patient and his x-ray and lab results, diagnosis, and plan for admit. Patient agrees with plan for care and all questions were addressed. Consultation : Referral / Consult Name: Connor De Jesus MD Consulted With: Hospitalist Call Returned at: 20:37 Authorization Coordinator: Agrees with eval, Agrees with plan, Accepts admit Counseled Regarding: Diagnosis, Lab results, Need for admission Discharge & Departure Impression: Primary Impression: COPD with acute exacerbation Additional Impression: Respiratory distress Disposition: ADMITTED TO HOSPITAL Discharge Condition All VS Reviewed: Yes Condition: Improved Referrals: Chava Kilpatrick MD (PCP) Crit Care Except Billable Proc Time Spent: 30-74 minutes Services Performed: Patient management by me, Time spent at bedside, Reviewing test results, Reviewing imaging, Discussing patient care, Documentation in record, Time with fam/surrogate Scribe Attestation Portions of this note were transcribed by Montse De Dios. I, Dr. Gutierres, personally performed the history, physical exam, and medical decision-making; I reviewed and confirmed the accuracy of the information in the transcribed note. Signed by: Eric Fallon, 07/25/2016, 21:09 copies to: Chava Kilpatrick MD, Todd P DO Jul 25, 2016 18:35 MONTSE DE DIOS Jul 25, 2016 19:55
[2016-07-25 19:11] LABS: BASOPHILS % (AUTO) 0.8 % (0-3); EOSINOPHILS % (AUTO) 7.5 % (0-5); MONOCYTES % (AUTO) 12.9 % (4-12); Mean Corpuscular Hemoglobin 32.3 pg (27.0-35.0); Mean Corpuscular Volume 98.2 fL (81-100); NEUTROPHILS % (AUTO) 66.7 % (40-74); Platelet Count 206 bil/L (150-400)
[2016-07-25 19:31] VITALS: BP 98/66; PULSE 140; RESP 32; O2SAT 100
[2016-07-25 20:01] LABS: TROPONIN T 0.039 ug/L (0.0-0.011)
[2016-07-25 20:08] VITALS: BP 122/60; PULSE 142; RESP 20; O2SAT 94
--- NOTE | 2016-07-25 20:22 | DRSVH ---
PROCEDURE: X-RAY CHEST ONE VIEW, PORTABLE ([id number]) INDICATIONS: dyspnea TECHNIQUE: One view of the chest was acquired. COMPARISON: [facility], CR, XR CHEST 1VW (PORTABLE), 07/09/2016, 19:08. FINDINGS: Surgical changes and devices: Multiple surgical clips project over the neck base. Lungs and pleura: No pleural effusions or pneumothorax. Severely left lung base has decreased in siz e, but not completely resolved. Mediastinum: Mediastinal contours appear normal. Heart size is normal. Bones and chest wall: No suspicious bony lesions. Overlying soft tissues appear unremarkable. IMPRESSION: Opacity in the left lung base decreased in size, but not completely resolved. Recommend continued plain film radiograph followup imaging to resolution a finding to exclude underlying neopl astic process. Dictated by: Kelsey Billingsley MD, PhD on 07/25/2016 at 20:19 Approved by: Kelsey Billingsley MD, PhD on 07/25/2016 at 20:21
[2016-07-25] MEDS ORDERED: Polyethylene Glycol (PEG) 17 Gm Powder PO PRN (20:50)
[2016-07-25] MEDS ORDERED: Albuterol 2.5 mg/3 mL Inhalation Solution NEB PRN (20:50)
[2016-07-25] MEDS ORDERED: Alum-Mag Hydrox-Simeth 30 mL Suspension PO PRN (20:50)
[2016-07-25 21:04] VITALS: BP 109/66; PULSE 129; RESP 22; O2SAT 94
[2016-07-25] MEDS: 0.9% Sodium Chloride 1,000 ML IV SCH (22:13)
[2016-07-25 22:19] VITALS: BP 122/66; PULSE 142; RESP 18; O2SAT 95
[2016-07-25] MEDS ORDERED: CIPR-198 PEG (22:35)
[2016-07-25] MEDS ORDERED: CEFE2PIG IV (22:35)
--- NOTE | 2016-07-25 22:50 | PCM.HPMED ---
Subjective Date of Service Jul 25, 2016 Primary Provider: Admitting Physician: Primary Care Physician: Chava Kilpatrick MD Attending Physician: Chief Complaint: Respiratory distress and generalized weakness History of Present Illness: Patient is a 80-year-old male with history of tongue squamous cell carcinoma, recurrent aspiration pneumonia, COPD, atrial fibrillation on warfarin and hypothyroidism presenting with worsening shortness of breath with ongoing sputum production since recent hospitalization for pneumonia in early June. Patient is accompanied by his , Pat, at bedside who is providing much of the history since the patient is non-verbal at baseline following laryngectomy with tracheostomy, but is able to sign with gestures and participate in the interview. His reports he has had chronic shortness of breath, which is usually improved by DuoNeb treatments, but since yesterday, patient would go into respiratory distress about an hour after treatment requesting for more. Respiratory distress and generalized weakness worsened enough to the point to bring patient into [facility] ED for further evaluation and treatment. Associated symptoms of wheezing, yellow sputum production, and unable to tolerate his normal caloric intake through his feeding tube for the past 2-3 days. Denies CP , palpitations, fevers, chills, dysuria, constipation or diarrhea. Patient was hospitalized for one week on 06/29/16 with bibasilar pneumonia and was seen in the ED on 07/09/16 with an acute COPD exacerbation. The patient is currently undergoing immunotherapy with Keytruda for squamous cell carcinoma of the tongue with metastasis to head, neck and lungs, receiving injection every 3 weeks. He had been on prophylactic antibiotics for aspiration pneumonia that is managed by his oncologist, Dr. Martinez. He was on cephalexin for 4 weeks, which was subsequently changed to clindamycin for 2 weeks due to persistent cough. He was then placed back on cephalexin and with no improvement with the cough he has been switched to doxycycline for the next 2 weeks, upon which time patient was hospitalized and placed on Zosyn to cover for his pneumonia and pseudomonas positive sputum. Patient has continued on oral ciprofloxacin and IV Cefepime twice daily since being discharged and this is his 7th day of being on Cefepime. During that time, their great grand-daughter tested positive for Influenza A, so Dr. Nicolas started him on a prophylactic dosing of Tamiflu, which patient has been taking. Patient also received the flu shot on 1/16/17 at his ED visit. 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 He had local recurrence in September 2013, underwent left partial glossectomy with modified radical neck dissection, and subsequently underwent total laryngectomy in December 2013 for recurrent aspirations. He first developed a metastatic right upper lobe small lung nodule in February 2014, which was initially monitored and later biopsied in September 2014, demonstrating p16 positive metastatic head and neck squamous cell carcinoma. The lesion was treated with SBRT, but subsequent CT scan and PET-CT in March 2015 showed development of further metastatic lung nodules, and he started pembrolizumab ( Keytruda) infusions in May 2015. He completed cycle 18 of Keytruda on 06/14. Patient missed his last dose of Keytruda injection for being hospitalized with pneumonia. Scheduled injection the following week was postponed another week for patient continuing to be ill. Received his injection last week, next one planned for 08/08/16. Vitals in the ED: 37, HR 140, RR 13 satting 95% with trach collar, BP 135/81. Notable labs: Chest x-ray reads Opacity in the left lung base decreased in size , but not completely resolved. Patient admitted for further treatment and management. Review of Systems: All ROS reviewed and negative otherwise noted on HPI. Allergies Coded Allergies: meperidine HCl (Verified Allergy, Severe, 'PASSED OUT PER PT', 07/25/16) PT STATES OK WITH DILAUDID AND MORPHINE AND OXYCODONE codeine (Verified Adverse Reaction, Severe, SEVERE N/V, 07/25/16) PT STATES OK WITH DILAUDID AND MORPHINE AND OXYCODONE oxycodone (Verified Adverse Reaction, Severe, Hallucinations, 07/25/16) Home Medications Scheduled Acyclovir (Acyclovir) 400 Mg Tablet 400 MG PO BID Albuterol/Ipratropium (Combivent Respimat Inhal [place]) 120 Spr/4 Gm Inhaler 1 PUFF IH QID Budesonide/Formoterol 80-4.5 mcg Inh (Symbicort 80-4.5 mcg Inh) 120 Puff/10.2 Gm Inhaler 2 PUFF IH BID Diltiazem ER (Taztia XT) 120 Mg Capsule.er 120 MG PO DAILY Ipratropium/Albuterol Sulfate (Iprat-Albut 0.5-3(2.5) mg/3 mL Inhalant Soln) 3 Ml Ampul.neb 3 ML NEB QIDWA Levothyroxine (Levothyroxine) 137 Mcg Tablet 137 MCG PO DAILY Mirtazapine (Mirtazapine) 15 Mg Tablet 15 MG PO HS Oseltamivir Phosphate (Tamiflu) 75 Mg Capsule 75 MG PO DAILY Pantoprazole DR (Pantoprazole DR) 20 Mg Tablet.dr 20 MG PO DAILY Scopolamine (Transderm-Scop) 1 Each Patch.td72 1 EACH TD Q3day Tiotropium [place] (Spiriva) 18 Mcg Cap.w.dev 1 PUFF IH DAILY Warfarin Sodium (Warfarin Sodium) 5 Mg Tablet 5 MG PO [id number]- Warfarin Sodium (Warfarin Sodium) 5 Mg Tablet 2.5 MG PO sat-sat-dri Scheduled PRN Albuterol HFA (Proair HFA) 8.5 Gm Hfa.aer.ad 2 PUFFS INHALATION QID PRN PRN For Shortness of Breath Albuterol Neb Soln (Albuterol Neb Soln) 2.5 Mg/3 Ml Vial.neb 2.5 MG IH QID PRN PRN For Wheezing Diazepam (Valium) 5 Mg Tablet 5 MG PO HS PRN PRN For Restlessness Hydrocodone-Acetaminophen 5-325 mg (Hydrocodone-Acetaminophen 5-325 mg) 1 Each Tablet 1 TABLET PO bid PRN PRN For Pain Polyethylene Glycol 3350 (Polyethylene Glycol 3350) 17 Gm Powd.pack 17 GM PO prn PRN PRN For Constipation Miscellaneous Medications Ondansetron (Ondansetron) 8 Mg Tablet 8 MG PO crush, given through g-tube PMH 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 Afib on Coumadin Feeding tube Aspiration PNA Prostate cancer COPD HTN Chronic pain Hypothyroidism Shingles Surgical History Total laryngectomy and tracheostomy PET feeding tube insertion Radiation for tongue cancer Family History Father with MA in 70s Grand mother with DM2 Social History Hx Alcohol Use: No Hx Substance Use: No Hx Tobacco Use: Yes (30 ppd) Smoking Status: Former Smoker Living Arrangement: with Family Exam Vital Signs Vital Sign - Last Date Time Temp Pulse Resp B/P Pulse Ox O2 Delivery O2 Flow Rate FiO2 07/25/16 20:08 142 20 122/60 94 Room Air 07/25/16 19:31 8 07/25/16 18:34 37 Exam GEN: Cachectic, frail gentleman in NAD. Alert and oriented, occasionally appears to be choking from sputum, using suction appropriately HEENT: NC/AT, PERRL, EOMI, sclera anicteric, tracheostomy tube in place, thrush on tongue, dry mucous membranes Neck: Supple, no lymphadenopathy CV: Difficult to auscultate due to respiratory sounds, appears to be tachycardic , regular rhythm, normal peripheral pulses Lungs': Inspiratory and expiratory wheezes with diffused rhonchi, and breath sounds, poor inspiratory effort with shallow tight breath, in moderate respiratory distress Neuro: AAOx3 Skin: poor skin turgor, warm, dry, and intact Ext: no edema, or cyanosis Psych: normal mood and affect Lab and Diagnostics Result Diagram: 07/25/16190007/25/161900 X-Rays, CTs and MRIs Date of Service: 07/25/16 1835 PROCEDURE: X-RAY CHEST ONE VIEW, PORTABLE ([id number]) INDICATIONS: dyspnea IMPRESSION: Opacity in the left lung base decreased in size, but not completely resolved. Recommend continued plain film radiograph followup imaging to resolution a finding to exclude underlying neoplastic process. Dictated by: Kelsey Billingsley MD, PhD on 07/25/2016 at 20:19 12-lead ECG ECG Interpretation: Sinus tachycardia rate 105 Anterior infarct, old Nonspecific T abnormalities, lateral leads Time: 19:03 Interpreted by: ED physician Rhythm Strip Interpretation : Rhythm Strip Interpretation: Sinus tachycardia Assessment & Plan Patient is a 80-year-old male with history of tongue squamous cell carcinoma, recurrent aspiration pneumonia, COPD, atrial fibrillation on warfarin and hypothyroidism, with recent hospitalization for pneumonia, presenting with a2-3 days of worsening dyspnea and generalized weakness. Acute on chronic hypoxic respiratory failure, present on admission. - Most likely due to new onset influenza with Flu swab positive for Influenza A , cannot rule out COPD exacerbation and/or aspiration pneumonia - CXR showed: Opacity in the left lung base decreased in size, but not completely resolved. Appears pneumonia improving. - BCx pending - Swallow study pending Influenza A, present on admission. Active - Patient was on prophylactic dosing, started on treatment dosing Possible ongoing pneumonia - Procalcitonin 0.09, will trend every other day - Pending studies: legionella and strep pneumo urine ag, sputum culture, respiratory virus PCR - Continuing home treatment IV Cefepime to cover for pseudomonas - ID consult in am Acute COPD exacerbation, present on admission. Active - Patient with increasing shortness of breath, increasing sputum - Possibly secondary flu A - Patient received 125 mg Solu-Medrol in ED and will continue 40 mg prednisone daily for anticipated five day course - DuoNeb QIDWA, Albuterol Q2H PRN - Continue supplemental oxygen as needed to keep oxygen sats greater>88% Elevated Troponin, present on admission. Active - Patient denies CP, will trend Chronic issues: Paroxysmal atrial fibrillation on chronic anticoagulation -Continue warfarin, dosed per pharmacy. 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 -Continue tube feeds through PEG tube -Dietitian order Hypothyroidism. Present on admission -Continue levothyroxine 125g daily History of RLS. -Continue diazepam 5mg PRN History of shingles -Continue acyclovir 400mg BID Depression -Continue mirtazapine 15mg HS PRNs - Acetaminophen as needed for mild pain/fever/headache - Bowel regimen as needed - Antiemetic as needed Patient admitted under inpatient status with expected length of stay greater than 2 midnights due to severity of presenting symptoms, risk of adverse event, and complexity of treatment plan. GI Prophylaxis: On home dose PPI VTE Prophylaxis: Enoxaparin Resuscitation Status: CPR: Attempt Resuscitation Pain Evaluation: Adequate Pain Control GI Prophylaxis: Proton Pump Inhibitor VTE Prophylaxis: Other (will start SubQ hep depending on INR results) Resuscitation Status: CPR: Attempt Resuscitation Attending Statement The patient was seen and examined together with Dr. Forde on 07/25 and I agree with the history, exam and plan as outlined in the note above. Ronnie Forde DO Jul 25, 2016 20:56 Connor De Jesus MD Jul 26, 2016 00:28
[2016-07-25 22:55] LABS: INR 1.61 ratio
[2016-07-25] MEDS ORDERED: Ondansetron 2 mg/mL 2 mL Inj IVPUSH PRN (23:00)
[2016-07-26] VITALS (15 sets, daily range): BP systolic 120–141; BP diastolic 63–98; PULSE 102–143; RESP 16–22; O2SAT 92–96
[2016-07-26] MEDS: Albuterol-Ipratropium 3 mL Inhalation Solution NEB SCH ×6 (00:30→21:25)
[2016-07-26] MEDS ORDERED: Piperacillin-Tazo 3.375 Gm Inj 3.375 GM in Dextrose 5% Minibag Plus 50 ML IV SCH (00:30)
--- NOTE | 2016-07-26 01:53 | NUR ---
Admit Pt arrived on unit at 2144 on [facility]. Pt able to scoot to bed with SBA. VSS, denies pain. Pt has pre-existing trach, receiving humidified air, sats 94%. Tele applied. IVF started. Pt non verbal, using hand signals to communicate and nodding head. at bedside, relays health history and med rec. See flowsheet for full assessment.
--- NOTE | 2016-07-26 03:35 | PCM.CONPHA ---
Assessment/Plan Assessment/Plan ANTICOAGULATION MANAGEMENT BY PHARMACY -INDICATION: AFIB -HOME DOSE: 5 MG SUN,SAT,TUE,THUR 2.5 MG MON,WED,SAT -CONCURRENT ANTICOAGULATION: NONE -CRCL: 68.89 ML/MIN -COAG TRENDS: Date -Jul INR 1.61 -[id number] SCORE: 1 PLAN: Unknown if patient received a home dose tonight or not but since INR came back subtherapeutic will administer a OT dose of 5 mg tonight (GIVEN 07/26/16 @ 0141) and continue to watch trends. Pharmacy appreciates consult and will continue to monitor. THANKS! Ade Ramirez PharmD Jul 26, 2016 03:35
[2016-07-26 04:09] LABS: INR 1.66 ratio
--- NOTE | 2016-07-26 07:25 | NUR ---
Tachy Pt has sustained ST in 140's post Albuterol. Pt feels shaky, but denies chest pain. paged and made aware. Orders received for EKG.
[2016-07-26] MEDS ORDERED: Cefepime Inj 2,000 MG in Dextrose 5% 50 ML IV SCH (08:30)
[2016-07-26] MEDS: Fluticasone-Salmeterol 100-50 Inhaler INHALATION SCH ×2 (08:51→19:49)
[2016-07-26] MEDS: predniSONE 20 mg Tablet PO SCH (08:51)
[2016-07-26] MEDS: Diltiazem CD 120 mg ER24 Capsule PO SCH (08:51)
[2016-07-26] MEDS: Tiotropium 18mcg/Cap 5 Capsule Inhaler Kit INHALATION SCH (08:51)
[2016-07-26] MEDS: Pantoprazole 20 mg ER24 Tablet PO SCH (08:51)
[2016-07-26] MEDS: Acyclovir 400 mg Tablet PO SCH ×2 (08:51→20:09)
[2016-07-26] MEDS: 0.9% Sodium Chloride 1,000 ML IV SCH ×2 (08:57→20:10)
[2016-07-26] MEDS ORDERED: HYDR-3740 PO (09:11)
[2016-07-26 09:50] LABS: Mean Corpuscular Hemoglobin 32.1 pg (27.0-35.0)
--- NOTE | 2016-07-26 11:35 | NUR ---
NUTRITION ASSESSMENT Assess: 80 yo M w/ acute on chronic respiratory failure, positive for the flu, and w/ possible pneumonia. Pt is PEG tube dependent for his nutrition d/t head and neck cancer. Pt does take some PO but it is minimal. ST recommending dysphagia diet with thin liquids as tolerated. Per discussion with pts , pt is not taking any food PO d/t severe burning sensation related to thrush. She also notes that d/t nausea and occasional confusion pt regularly does not get 100% of his nutrition. His states that he at most only gets ~5 cans/day of his Isosource 1.5. The addition of a kangaroo pump has alleviated some of his nausea that was previously a major limitation to him getting 100% of his nutrition but it has not completely resolved. Typically pt takes Zofran when he feels nauseous and then turns off his feedings. Pt's attributes the nighttime confusion to the Valium he takes for restless leg syndrome and as a sleep aid. 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 LABS: Reviewed. BUN 28, Glu 130 MEDICATIONS: Reviewed. Tamiflu, Protonix, Prednisone DIET: NPO/Dysphagia mechanical. NUTRITION SUPPORT: Isosource 1.5 @ 83 ml x18 hrs w/ 6 hours off during the day + 250 ml H2O flush QID to provide 2241 kcal/d, 101 g/d protein, and 2162 ml/d H2O. Feedings run from 2097-3780 at home. NUTRITION FOCUSED PHYSICAL ASSESSMENT: GI symptoms/stool: No BM recorded, pt has one BM every 3 days. Skin integrity: No issues noted; Marlo: 16 Overall Appearance: Very thin man w/ tracheostomy in place - loss of LBM notes in arms, squaring in shoulders, prominent orbitals, clavicles protruding. ANTHROPOMETRICS: Current Wt: 68 kg BMI: 19.8 kg/p7Jsyly Wt: 68 kg IBW: 83.6 kgRecent wt changes: 8.8 kg wt loss x6 months (11% wt loss x6 months = significant) ESTIMATED NEEDS: COPD Calories: 5626-4543 kcal/d (30-35 kcal/kg/d) Protein: 80-105 g/d (1.2-1.5 g/kg/d) Fluids: 6634-3276 ml/d (30-35 ml/kg/d) ADDITIONAL COMMENTS: Isosource 1.5 no on hospital formulary, Jevity 1.5 will be used instead. NUTRITION DIAGNOSIS: 1) Inability to meet nutrition needs by mouth related to squamous cell carcinoma of base of tongue as evidenced by laryngectomy, need for texture altered diet, pain during eating/swallowing, and need for enteral nutrition to meet pts needs. INTERVENTION: 1) TFs to run from 3721-5417 (18 hrs/day - overnight, 6 hrs off during the morning) 2) Recommend starting Jevity 1.5 @ 40 ml/hr. Once pt tolerating, advance 10 ml q 4 hrs to goal rate of 87 ml/hr x18 hrs + 250 ml q 4 hrs while pump on, to provide 2350 kcal/d, 100 g/d protein, and 2190 ml/d H2O, meeting 100% of est needs. 3) Recommend scheduled Zofran to prevent nausea 4) Discussed importance of keeping TF running so that pt meets 100% of his nutritional needs and prevents further wt loss. MONITOR/EVALUATE: TF heath, PO intake, Wt, GI, POC, Nutrition status. Will follow per high nutrition risk guidelines.
[2016-07-26] MEDS ORDERED: Ondansetron 8 mg ODT Tablet PO PRN (13:20)
--- NOTE | 2016-07-26 14:09 | PCM.PHAPRO ---
Progress Respiratory distress and generalized weakness Warfarin Dosing Indication: AFib Home dose 2.5mg MWF, 5mg other days Recent dosing: Date 1-Jul 2-Jul 3-Jul 28-Jul 5-Jul 6-Jul 7-Jul 8-Jul 9-Jul INR 1.61 1.66 INR change 0.05 Warf Dose 5MG 5MG p/ Continue home dose and trend INR Niels Lam Pharm D Jul 26, 2016 14:09
--- NOTE | 2016-07-26 14:10 | NUR ---
Tube Feed Jevity 1.5 started at 1330 with an initial rate of 40ml/hr with a 250ml flush q4 hours. Will titrate up every 4 hour until goal rate of 87ml/hr is reached.
--- NOTE | 2016-07-26 14:11 | PCM.PNMED ---
Subjective Date of Service Jul 26, 2016 Subjective He is doing well. He has to write to communicate. No pain. He denies dyspnea. He is having a productive cough. He has flu A+. No diarrhea. Exam Vital Signs Vital Sign - Last Date Time Temp Pulse Resp B/P Pulse Ox O2 Delivery O2 Flow Rate FiO2 07/26/16 12:24 Tracheostomy 07/26/16 11:30 120 20 96 13.00 21 07/26/16 08:45 36.7 138/90 Intake and Output 07/25/16 07/25/16 07/26/16 Cumulative From/Thru 15:00 23:00 07:00 07/25/16 18:34 - 07/26/16 06:16 Intake Total 1060 ml 1060 ml Output Total 275 ml 275 ml Balance 1060 ml -275 ml 785 ml Intake Oral 60 ml 60 ml IV Total 1000 ml 1000 ml Output Urine Total 275 ml 275 ml Exam Alert oriented, no distress. Anicteric sclera. Neck is supple he has deformities consistent with previous trach Lungs are normal for 2/4 breath sounds with expiratory wheezing. No rales or rhonchi Heart is regular without murmur Abdomen is soft nontender. Extremities are free of edema with good pedal pulses IVs and Medications Medications Reviewed: Medications were reviewed in detail Lab and Diagnostics Result Diagram: 07/26/16 0220 07/26/16 0923 X-Rays, CTs and MRIs Date of Service: 07/25/16 1835 PROCEDURE: X-RAY CHEST ONE VIEW, PORTABLE ([id number]) INDICATIONS: dyspnea IMPRESSION: Opacity in the left lung base decreased in size, but not completely resolved. Recommend continued plain film radiograph followup imaging to resolution a finding to exclude underlying neoplastic process. Dictated by: Kelsey Billingsley MD, PhD on 07/25/2016 at 20:19 12-lead ECG ECG Interpretation: Sinus tachycardia rate 105 Anterior infarct, old Nonspecific T abnormalities, lateral leads Time: 19:03 Interpreted by: ED physician Rhythm Strip Interpretation : Rhythm Strip Interpretation: Sinus tachycardia Assessment & Plan Patient is a 80-year-old male with history of tongue squamous cell carcinoma, recurrent aspiration pneumonia, COPD, atrial fibrillation on warfarin and hypothyroidism, with recent hospitalization for pneumonia, presenting with a2-3 days of worsening dyspnea and generalized weakness. 1. Acute on chronic hypoxic respiratory failure, present on admission. This is secondary to flu a and COPD exacerbation. 2. Influenza A, present on admission. Active - Started on treatment dosing 3. Possible ongoing pneumonia - Procalcitonin 0.09, will trend every other day We will follow clinically and repeat chest x-ray tomorrow. We will think about stopping antibiotics as of tomorrow pending clinical progress. 4. Acute COPD exacerbation, present on admission. Active - Patient with increasing shortness of breath, increasing sputum - Possibly secondary flu A - Patient received 125 mg Solu-Medrol in ED and will continue 40 mg prednisone daily for anticipated five day course - DuoNeb QIDWA, Albuterol Q2H PRN - Continue supplemental oxygen as needed to keep oxygen sats greater>88% Elevated Troponin, present on admission. Active - Patient denies CP, will trend, plan no further workup other than treating primary pulmonary issues. Chronic issues: Paroxysmal atrial fibrillation on chronic anticoagulation -Continue warfarin, dosed per pharmacy. 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 -Continue tube feeds through PEG tube -Dietitian order Hypothyroidism. Present on admission -Continue levothyroxine 125g daily History of RLS. -Continue diazepam 5mg PRN History of shingles -Continue acyclovir 400mg BID Depression -Continue mirtazapine 15mg HS Patient admitted under inpatient status with expected length of stay greater than 2 midnights due to severity of presenting symptoms, risk of adverse event, and complexity of treatment plan. GI Prophylaxis: On home dose PPI VTE Prophylaxis: Enoxaparin Resuscitation Status: CPR: Attempt Resuscitation Pain Evaluation: Adequate Pain Control GI Prophylaxis: Proton Pump Inhibitor VTE Prophylaxis: Other (will start SubQ hep depending on INR results) Resuscitation Status: CPR: Attempt Resuscitation Time spent 25 minutes Manjinder Alexis MD Jul 26, 2016 14:11
--- NOTE | 2016-07-26 15:35 | NUR ---
Social Work: Initial Assessment D: Per EMR review, pt is a 80 year old male admitted for acute exacerbation of COPD. Pt is Medicare with [employer]; pt has no LTC insurance or VA benefits. PCP Is Chava Kilpatrick MD. NOK Is Pat Rodriguez, , . Advanced directives not completed- information provided by LARRIM[facility] HELPER. Readmit score is moderate, 5/8. LARRIMAN HELPER met with pt at bedside. Sw role explained. See initial assessment. Pt is non-verbal but communicates well with Yes/no questions. Pt Confirms he continues to live at home with his who is his primary caregiver. Pt is I with ambulation and owns a walker and cane. Pt continues to have tube feeds through [facility] and would like to continue with this company at time of discharge. Pt depends on for transportation. Pt provided consent for [facility]IM[facility] HELPER to speak with to confirm. t/c to pt's to confirm information; no answer. Left message requesting return phone call LARRIMAN HELPER spoke with [facility]Francesco, who confirms pt is still open with them; access provided. They intend to resume care at time of discharge. A: Pt who is I at baseline. P: Anticipate pt to discharge home via POV with resumed [facility] for Tube Feeds; LARRIM[facility] HELPER to follow pt's clinical course and assess discharge needs KASHMIR Browne Addendum: 07/26/16 at 1541 by JONI SZYMANSKI SS Amended: Links added.
--- NOTE | 2016-07-26 18:12 | PROG NOTE ---
[address] [address] PROGRESS NOTE PATIENT: LISS MINER : 1935 MR#: [id number] ADMIT: 07/25/2016 JOB ID: [id number] DATE: 07/26/2016 INPATIENT MEDICAL ONCOLOGY PROGRESS NOTE: DIAGNOSES: 1. Current admission for influenza A. 2. 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 3. Hypothyroidism. 4. Feeding tube dependence. 5. Chronic aspiration. 6. Anticoagulation therapy. 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 He has a permanent tracheostomy and a permanent feeding tube in place. His major issue is chronic aspiration from retained tracheal secretions. He was recently admitted to hospital and a tracheal aspirate culture grew Pseudomonas aeruginosa. After discharge from hospital he had an ER visit and had a repeat cultures from tracheal aspirate again was positive for Pseudomonas. I placed him on ciprofloxacin through the gastrostomy tube but when I last saw him in clinic he still had have plenty of yellowish tracheal secretions and was not feeling any better. I discussed with Dr. Stockton and placed him on cefepime 2 g IV q.12 h. He has been receiving that for the last week. His contacted us yesterday and reported that he was not doing well, and was quite weak and unsteady, and short of breath. He was told to refer to ER. Influenza screen is positive for influenza A. His cefepime is being continued, but the ciprofloxacin has been stopped. He is afebrile but tachycardic. He is normotensive. OBJECTIVE: I saw him at noontime, without his . He is unable to provide a clear history. He is nonverbal. He appears slightly confused and restless. He has scattered wheezes and is somewhat tachypneic. LABORATORY DATA: Chemistry and CBC are normal. Lactic acid is normal. Procalcitonin is borderline elevated. IMPRESSION AND PLAN: This patient is being treated for influenza A by Tamiflu 75 mg b.i.d. IV cefepime is being continued for his pseudomonal infection versus contamination. It is unclear whether he truly has a lower respiratory tract pseudomonal infection or not, but nonetheless given persistent cultures and his ongoing respiratory symptoms, we need to continue IV cefepime and perhaps resume oral ciprofloxacin. Followup evaluation by Dr. Stockton would be highly appreciated. I will follow up with him tomorrow and will try to see him when his is present.
[2016-07-26] MEDS: Cefepime Inj 2,000 MG in Dextrose 5% Minibag Plus 50 ML IV SCH (20:08)
[2016-07-27] VITALS (13 sets, daily range): BP systolic 134–160; BP diastolic 74–110; PULSE 100–124; RESP 18–26; O2SAT 93–100
[2016-07-27] MEDS: Albuterol-Ipratropium 3 mL Inhalation Solution NEB SCH ×6 (00:27→20:35)
[2016-07-27] MEDS: 0.9% Sodium Chloride 1,000 ML IV SCH ×2 (02:51→17:30)
--- NOTE | 2016-07-27 03:06 | NUR ---
Orientation Pt wakes up confused and disoriented at 0040. Pt reoriented to place, time and situation. Pt states understanding and is agreeable to getting settled back in bed, bed alarm on. Pt awakens again at 0130, again confused. Pt communicates confusion/question with pen and paper. Pt begins writing, "I am tired of the lying. You are lying" when nurse attempts to reorient. Pt tries to stand, and becomes combative when nurse reaches out, swiping with pen and swinging fists. Pt reoriented multiple times, agrees to get back in bed, bed alarm on. Refuses Valium that is offered. Pt also refusing humidified trach collar at this time. Pt again confused and OOB at 0245. Pt refused assistance, again swinging hands at nurse when attempting to assist pt with urinal. Back to bed, bedalarm on.
--- NOTE | 2016-07-27 04:47 | NUR ---
HR Pt ST in 110's, had 5 seconds of PSVT in 150's at 0420. made aware, no new orders at this time.
[2016-07-27 05:43] LABS: APPEARANCE,URINE CLEAR (CLEAR,HAZY); COLOR,URINE YELLOW (YELLOW); OCCULT BLOOD,URINE TRACE (NEGATIVE); UROBILINOGEN,URINE NORMAL (NORMAL)
[2016-07-27 07:28] LABS: BASOPHILS % (AUTO) 0.1 % (0-3); EOSINOPHILS % (AUTO) 0.3 % (0-5); MONOCYTES % (AUTO) 12.1 % (4-12); Mean Corpuscular Hemoglobin 32.3 pg (27.0-35.0); Mean Corpuscular Volume 98.2 fL (81-100); Platelet Count 201 bil/L (150-400)
[2016-07-27] MEDS: Cefepime Inj 2,000 MG in Dextrose 5% Minibag Plus 50 ML IV SCH ×2 (07:45→20:46)
[2016-07-27 07:46] LABS: INR 2.23 ratio
[2016-07-27] MEDS: Fluticasone-Salmeterol 100-50 Inhaler INHALATION SCH ×2 (07:46→20:30)
[2016-07-27] MEDS: Tiotropium 18mcg/Cap 5 Capsule Inhaler Kit INHALATION SCH (07:46)
[2016-07-27] MEDS: Pantoprazole 20 mg ER24 Tablet PO SCH (07:47)
[2016-07-27] MEDS: Diltiazem CD 120 mg ER24 Capsule PO SCH (07:47)
[2016-07-27] MEDS: Acyclovir 400 mg Tablet PO SCH ×2 (07:48→20:46)
[2016-07-27] MEDS: predniSONE 20 mg Tablet PO SCH (07:48)
--- NOTE | 2016-07-27 13:45 | PCM.PNMED ---
Subjective Date of Service Jul 27, 2016 Subjective He feels he is doing better. He denies a cough. He does have a sore mouth there is a concern of thrush. No chest pain or palpitations. No abdominal pain. No diarrhea. Exam Vital Signs Vital Sign - Last Date Time Temp Pulse Resp B/P Pulse Ox O2 Delivery O2 Flow Rate FiO2 07/27/16 11:36 36.5 103 26 148/99 100 Room Air 07/27/16 11:24 12.00 21 Intake and Output 07/26/16 07/26/16 07/27/16 Cumulative From/Thru 15:00 23:00 07:00 07/25/16 18:34 - 07/27/16 05:04 Intake Total 2053 ml 0 ml 3113 ml Output Total 800 ml 325 ml 1400 ml Balance 1253 ml -325 ml 1713 ml Intake Oral 0 ml 60 ml IV Total 1563 ml 2563 ml Tube Feeding 195 ml 195 ml Tube Irrigant 295 ml 295 ml Output Urine Total 800 ml 325 ml 1400 ml # Bowel Movements 1 1 Exam Alert oriented in no acute distress. Flat affect. Lungs with expiratory wheezing. Heart is regular without murmur. Abdomen is soft nontender Extremities are free of edema. IVs and Medications Medications Reviewed: Medications were reviewed in detail Lab and Diagnostics Result Diagram: 07/27/16 0659 07/27/16 0659 Assessment & Plan Patient is a 80-year-old male with history of tongue squamous cell carcinoma, recurrent aspiration pneumonia, COPD, atrial fibrillation on warfarin and hypothyroidism, with recent hospitalization for pneumonia, presenting with a2-3 days of worsening dyspnea and generalized weakness. 1. Acute on chronic hypoxic respiratory failure, present on admission. This is secondary to flu a and COPD exacerbation. He is slowly improving. We will use supplemental oxygen as needed. 2. Influenza A, present on admission. Active - Started on treatment dosing, continue Tamiflu. 3. Possible ongoing pneumonia - Procalcitonin 0.09, will trend every other day Believe his primary processes influenza A, we will stop antibiotics today. 4. Acute COPD exacerbation, present on admission. Active - Patient with increasing shortness of breath, increasing sputum - Possibly secondary flu A - Patient received 125 mg Solu-Medrol in ED and will continue 40 mg prednisone daily for anticipated five day course - DuoNeb QIDWA, Albuterol Q2H PRN - Continue supplemental oxygen as needed to keep oxygen sats greater>88% Elevated Troponin, present on admission. Active - Patient denies CP, will trend, plan no further workup other than treating primary pulmonary issues. Possible thrush. POA. We will use fluconazole 100 daily through the PEG tube. Chronic issues: Paroxysmal atrial fibrillation on chronic anticoagulation -Continue warfarin, dosed per pharmacy. 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 -Continue tube feeds through PEG tube -Dietitian order Hypothyroidism. Present on admission -Continue levothyroxine 125g daily History of RLS. -Continue diazepam 5mg PRN History of shingles -Continue acyclovir 400mg BID Depression -Continue mirtazapine 15mg HS Patient admitted under inpatient status with expected length of stay greater than 2 midnights due to severity of presenting symptoms, risk of adverse event, and complexity of treatment plan. GI Prophylaxis: On home dose PPI VTE Prophylaxis: Enoxaparin Resuscitation Status: CPR: Attempt Resuscitation Pain Evaluation: Adequate Pain Control GI Prophylaxis: Proton Pump Inhibitor VTE Prophylaxis: Other (will start SubQ hep depending on INR results) Resuscitation Status: CPR: Attempt Resuscitation Time spent 25 minutes Manjinder Alexis MD Jul 27, 2016 13:45
--- NOTE | 2016-07-27 14:27 | PCM.PHAPRO ---
Progress Respiratory distress and generalized weakness Warfarin for AFib Home dose 2.5mg MWF, 5mg others Recent dosing: Date 1-Jul 2-b 3-Jul 4-Jul 5-b 6-b 7-b 8-Feb INR 1.61 1.66 2.23 INR change 0.05 0.57 Warf Dose 5MG 5MG 1MG a/ Abrupt INR jump p/ Dial back dose today - 1mg and follow. Niels Lam Pharm D Jul 27, 2016 14:27
--- NOTE | 2016-07-27 15:04 | NUR ---
NUTRITION FOLLOW-UP: Assess: 80 yo M w/ acute on chronic respiratory failure, positive for the flu, and w/ possible pneumonia. Pt is PEG tube dependent for his nutrition d/t head and neck cancer. Pt does take some PO but it is minimal. ST recommending dysphagia diet with thin liquids as tolerated however, pt not taking any food PO. Pt is tolerating TF well, reaching 70 ml/hr before the TF was turned off this morning. Pt will reach goal rate this afternoon. 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 LABS: Reviewed. BUN 31, Glu 105 MEDICATIONS: Reviewed. Tamiflu, Protonix, Prednisone DIET: NPO/Dysphagia mechanical. NUTRITION SUPPORT: Isosource 1.5 @ 83 ml x18 hrs w/ 6 hours off during the day + 250 ml H2O flush QID to provide 2241 kcal/d, 101 g/d protein, and 2162 ml/d H2O. Feedings run from 8966-2188 at home. NUTRITION FOCUSED PHYSICAL ASSESSMENT: GI symptoms/stool: BM x1 2/3 Skin integrity: No issues noted; Marlo: 17 Overall Appearance: Very thin man w/ tracheostomy in place - loss of LBM notes in arms, squaring in shoulders, prominent orbitals, clavicles protruding. ANTHROPOMETRICS: Current Wt: 70.7 kg BMI: 20.6 kg/m2 Admit Wt: 68 kg IBW: 83.6 kg Recent wt changes: 8.8 kg wt loss x6 months (11% wt loss x6 months = significant) ESTIMATED NEEDS: COPD Calories: 6789-4495 kcal/d (30-35 kcal/kg/d) Protein: 80-105 g/d (1.2-1.5 g/kg/d) Fluids: 1049-0519 ml/d (30-35 ml/kg/d) ADDITIONAL COMMENTS: Isosource 1.5 not on hospital formulary, Jevity 1.5 will be used instead. NUTRITION DIAGNOSIS: 1) Inability to meet nutrition needs by mouth related to squamous cell carcinoma of base of tongue as evidenced by laryngectomy, need for texture altered diet, pain during eating/swallowing, and need for enteral nutrition to meet pts needs.---PERSISTS INTERVENTION: 1) TFs to run from 9856-7790 (18 hrs/day - overnight, 6 hrs off during the morning) 2) When TF started again at 1200, recommend continuing to advance Jevity 1.5 10 ml q 4 hrs to goal rate of 87 ml/hr x18 hrs + 250 ml q 4 hrs while pump on, to provide 2350 kcal/d, 100 g/d protein, and 2190 ml/d H2O, meeting 100% of est needs. MONITOR/EVALUATE: TF heath, PO intake, Wt, GI, POC, Nutrition status. Will follow per high nutrition risk guidelines.
--- NOTE | 2016-07-27 17:41 | NUR ---
Shift Note Uneventful shift. Patient was pleasant and cooperative with all treatment/interventions and medications. Pt unsteady on his feet, strongly recommend 1-person assist when patient needs to use urinal. Continue to remind Pt and request he calls before attempting to stand on his own. Respond to call light quickly to build his confidence in staff, as he has attempted to stand without help twice during past 12 hours.
--- NOTE | 2016-07-27 17:51 | NUR ---
Thoracentesis Patient had thoracentesis done in room with 1850ml fluid drained. Patient tolerated procedure well and has immediate relief from dyspnea. No c/o chest pain this shift. Patient off Bi-PAP and on 4L nasal cannula, SpO2 100%. States he feels "much better" Addendum: 07/27/16 at 1924 by ADRIENNE WATT RN Entered in Error.
--- NOTE | 2016-07-27 18:06 | PROG NOTE ---
[address] [address] PROGRESS NOTE PATIENT: LISS MINER : 1935 MR#: [id number] ADMIT: 07/25/2016 JOB ID: [id number] DATE: 07/27/2016 INPATIENT MEDICAL ONCOLOGY PROGRESS REPORT: SUBJECTIVE: He feels much better today than yesterday, is much more interactive and alert. Does not appear short of breath. Does not appear to have plenty of secretions in tracheostomy right now. OBJECTIVE: Awake, alert, oriented x3. Does not appear septic at all. Blood pressure 150/102, heart rate 105, temperature afebrile. HEENT: No evidence of oral candidiasis. His mouth opening is small. The left side of tongue is completely paralyzed. No mucosal lesions noted. Lungs: Clear to auscultation bilaterally. LABORATORY DATA: CBC is normal other than relative lymphopenia. Procalcitonin remains borderline positive. IMPRESSION AND PLAN: The patient has had a very noticeable improvement since yesterday. He remains on IV cefepime and Tamiflu. I think in a day or two we can just stop his prednisone without taper. I would keep him over the weekend and on Saturday would arrange for discharge home if his condition continues to improve. Upon discharge he will still have a few days left of his 14-day IV cefepime course at home and he will need to continue the course of Tamiflu.
[2016-07-28] VITALS (15 sets, daily range): BP systolic 153–170; BP diastolic 102–114; PULSE 89–113; RESP 18–32; O2SAT 93–96
[2016-07-28] MEDS: Albuterol-Ipratropium 3 mL Inhalation Solution NEB SCH ×6 (00:30→19:48)
[2016-07-28 03:52] LABS: INR 2.13 ratio
--- NOTE | 2016-07-28 05:26 | NUR ---
Respiratory, mentation, nutrition Vs as noted. Sats on room air mid 90s without desats. Becomes short of breath with activity. Self suctioning trach for thick tafoya secretions. Sputum sample sent per RT. Humidifier trach collar in place. Tube feeds increased to goal 87/h with h20 flush [id number]. Found up to bathroom three times. Reports feeling confused. Called Pat, his , who came in to sit with him. Remained pleasant and cooperative at all times.
--- NOTE | 2016-07-28 08:33 | PCM.PHAPRO ---
Progress Date of Service: Jul 28, 2016 Warfarin dosing Respiratory distress and generalized weakness Warfarin for AFib Home dose 2.5mg MWF, 5mg others Recent dosing: Date 1-Jul 2-Jul 27-Jul 28-Jul 29-Jul 30-Jul 31-Aug 01-Jul INR 1.61 1.66 2.23 2.13 INR change 0.05 0.57 -0.1 Warf Dose 5MG 5MG 1MG 3MG a/ INR in range, but slight fall p/ 3mg today and follow. Adam Gaxiola Jul 28, 2016 08:33
[2016-07-28] MEDS: 0.9% Sodium Chloride 1,000 ML IV SCH ×3 (09:24→18:50)
[2016-07-28] MEDS: Cefepime Inj 2,000 MG in Dextrose 5% Minibag Plus 50 ML IV SCH ×2 (09:24→20:19)
[2016-07-28] MEDS: Fluticasone-Salmeterol 100-50 Inhaler INHALATION SCH ×2 (09:26→20:18)
[2016-07-28] MEDS: Tiotropium 18mcg/Cap 5 Capsule Inhaler Kit INHALATION SCH (09:26)
[2016-07-28] MEDS: Diltiazem CD 120 mg ER24 Capsule PO SCH (09:27)
[2016-07-28] MEDS: predniSONE 20 mg Tablet PO SCH (09:27)
[2016-07-28] MEDS: Acyclovir 400 mg Tablet PO SCH ×2 (09:27→20:19)
[2016-07-28] MEDS: Pantoprazole 20 mg ER24 Tablet PO SCH (09:27)
--- NOTE | 2016-07-28 12:47 | PCM.PNMED ---
Subjective Date of Service Jul 28, 2016 Subjective He is more short of breath and anxious morning. Deep suctioning revealed a lot of thick purulent material. He is more wheezy as well. Exam Vital Signs Vital Sign - Last Date Time Temp Pulse Resp B/P Pulse Ox O2 Delivery O2 Flow Rate FiO2 07/28/16 12:11 36.6 95 30 153/102 95 Trach Collar 07/28/16 10:33 12.00 21 Intake and Output 07/27/16 07/27/16 07/28/16 Cumulative From/Thru 15:00 23:00 07:00 07/25/16 18:34 - 07/28/16 05:51 Intake Total 3881 ml 2302 ml 9296 ml Output Total 1225 ml 1150 ml 3775 ml Balance 2656 ml 1152 ml 5521 ml Intake Oral 0 ml 60 ml IV Total 1744 ml 1094 ml 5401 ml Tube Feeding 1072 ml 808 ml 2075 ml Tube Irrigant 1065 ml 400 ml 1760 ml Output Urine Total 1225 ml 1150 ml 3775 ml # Voids 10 10 # Bowel Movements 1 2 Exam Nonverbal, tracheostomy site. Flat affect. Somewhat anxious in appearance. Anicteric sclerae. Neck supple. Lungs revealed diminished breath sounds throughout with very prominent expiratory wheezing and a very prolonged expiratory phase. Heart is regular Abdomen soft nontender. Extremities no edema. The pedal pulses are normal. Skin is free of rash or lesions IVs and Medications Medications Reviewed: Medications were reviewed in detail Lab and Diagnostics Result Diagram: 07/27/16 0659 07/27/16 0659 Assessment & Plan Patient is a 80-year-old male with history of tongue squamous cell carcinoma, recurrent aspiration pneumonia, COPD, atrial fibrillation on warfarin and hypothyroidism, with recent hospitalization for pneumonia, presenting with a2-3 days of worsening dyspnea and generalized weakness. 1. Acute on chronic hypoxic respiratory failure, present on admission. This is secondary to flu a and COPD exacerbation. He is slowly improving. We will use supplemental oxygen as needed. The patient is very slowly improving and in fact may be slightly worse today. 2. Influenza A, present on admission. Active - Started on treatment dosing, continue Tamiflu. 3. Possible ongoing pneumonia - Procalcitonin 0.09, will trend every other day Believe his primary processes influenza A, we will stop antibiotics today. We will resume empiric antibiotics for possible secondary infection. Note sputum culture is unrevealing. 4. Acute COPD exacerbation, present on admission. Active - Patient with increasing shortness of breath, increasing sputum - Possibly secondary flu A - Patient received 125 mg Solu-Medrol in ED and will continue 40 mg prednisone daily for anticipated five day course - DuoNeb QIDWA, Albuterol Q2H PRN - Continue supplemental oxygen as needed to keep oxygen sats greater>88% Elevated Troponin, present on admission. Active - Patient denies CP, will trend, plan no further workup other than treating primary pulmonary issues. Possible thrush. POA. We will use fluconazole 100 daily through the PEG tube. Chronic issues: Paroxysmal atrial fibrillation on chronic anticoagulation -Continue warfarin, dosed per pharmacy. 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 -Continue tube feeds through PEG tube -Dietitian order Hypothyroidism. Present on admission -Continue levothyroxine 125g daily History of RLS. -Continue diazepam 5mg PRN History of shingles -Continue acyclovir 400mg BID Depression -Continue mirtazapine 15mg HS Patient admitted under inpatient status with expected length of stay greater than 2 midnights due to severity of presenting symptoms, risk of adverse event, and complexity of treatment plan. GI Prophylaxis: On home dose PPI VTE Prophylaxis: Enoxaparin Resuscitation Status: CPR: Attempt Resuscitation GI Prophylaxis: Proton Pump Inhibitor VTE Prophylaxis: Other (will start SubQ hep depending on INR results) Resuscitation Status: CPR: Attempt Resuscitation Time spent 25 minutes Manjinder Alexis MD Jul 28, 2016 12:47
--- NOTE | 2016-07-28 14:08 | NUR ---
Social Work Note - Continued D/C plan PATIENT CARE DIRECTOR spoke with pt's Pat [phone]. PATIENT CARE DIRECTOR identified that pt is close to being medically ready for d/c. She states she is nervous about taking him home - wants to ensure that all of her questions are answered. She states that she has nutrition/hydration questions and wants to know what kind of antibiotics pt will need for home. She is also interested in Home Health - PATIENT CARE DIRECTOR provided list of agencies - Pt states she has no preference. PATIENT CARE DIRECTOR consulted [facility] and called [facility] - provided access. Asked for RN PT PATIENT CARE DIRECTOR and HUA. Pat states that she will take pt home when medically stable. Plan; home with in POV and [facility] RN PT PATIENT CARE DIRECTOR ARTIST RELATIONSHIP MANAGER. SELINA Erickson
[2016-07-28] MEDS ORDERED: CEFTAZIDIME IV SCH (16:30)
[2016-07-28] MEDS: Piperacillin-Tazo 3.375 Gm Inj 3.375 GM in Dextrose 5% Minibag Plus 50 ML IV SCH (16:30)
--- NOTE | 2016-07-28 18:14 | NUR ---
Shift Note Pt denies CP. Tele: SR 90-120. Pt has elevated BP 150-170/100s, notified. 02 mid 90s on RA. Pt gets up to the bathroom, Bed alarm on. 1PA to bathroom and BSC. Suction is at bedside, pt uses independently. Suctioned out medium size plug of mucus from tracheostomy at assessment this morning. Tolerating tube feed, Jevity 1.5 running at 87ml/hr, 250 water flush Q4H. 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 Pt is pleasant, uses call like appropriately, resting comfortably with in room
--- NOTE | 2016-07-28 18:35 | NUR ---
Confusion/HTN Cardiac: Pt denies CP. Tele: SR 90-120. Pt has elevated BP 170/100s, Dr notified Resp: O2 mid 90s on RA. Suction is at bedside and pt uses independently. Pt suctioned out medium size plug of mucus from tracheostomy at assessment this morning. GI/: Tolerating tube feed. Jevity 1.5 running at 87ml/hr, 250 water flush Q4H. meds via peg tube. 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 Pt confused this afternoon A&Ox1 to self only. Pt was able to reorient, but remains impulsive and wants to void in the toilet. Stanton alarm placed on bed.
--- NOTE | 2016-07-28 22:09 | NUR ---
IMPULSIVITY Pt A&Ox3, non-verbal with trach, but able to make needs known with hand gestures and voice box. vitals stable, no pain. Pt ST in 100's. Pt has a Letcher alarm due to impulsivity. Pt up every 5 minutes or so to use urinal, pt prefers to stand at the bedside rather than use urinal in bed. Pt is cooperative with care with no confusion noted at this time.
[2016-07-29] VITALS (11 sets, daily range): BP systolic 138–187; BP diastolic 52–122; PULSE 87–104; RESP 16–36; O2SAT 93–96
[2016-07-29] MEDS: Albuterol-Ipratropium 3 mL Inhalation Solution NEB SCH ×6 (00:30→20:16)
[2016-07-29] MEDS: Piperacillin-Tazo 3.375 Gm Inj 3.375 GM in Dextrose 5% Minibag Plus 50 ML IV SCH ×3 (00:41→16:30)
--- NOTE | 2016-07-29 03:56 | NUR ---
BP Pt has had increasing blood pressure throughout the night, last BP 182/122, HR 93, 36.8 temp, 94% on RA. Guerda SHAHID, no new orderers @ this time. Addendum: 07/29/16 at 0554 by MARIAN THOMPSON RN BP SHAHID ordered 5mg IV push Labetalol for BP of 182/122, BP down a little @ 145/111. No second push ordered @ this time. No c/o of pain or discomfort, no other issues noted at this time.
[2016-07-29 03:58] LABS: INR 1.73 ratio
[2016-07-29] MEDS ORDERED: Labetalol 5 mg/mL 4 mL Inj IVPUSH ONE (04:20)
[2016-07-29] MEDS: 0.9% Sodium Chloride 1,000 ML IV SCH (05:41)
[2016-07-29] MEDS ORDERED: Labetalol 5 mg/mL 4 mL Inj IVPUSH PRN (07:50)
[2016-07-29] MEDS ORDERED: Diltiazem CD 240 mg ER24 Capsule PO SCH (08:30)
[2016-07-29 08:55] LABS: Mean Corpuscular Hemoglobin 31.9 pg (27.0-35.0); Mean Corpuscular Volume 97.7 fL (81-100)
--- NOTE | 2016-07-29 09:26 | DRSVH ---
PROCEDURE: X-RAY CHEST ONE VIEW, PORTABLE ([id number]) INDICATIONS: 80 year-old male with dyspnea. TECHNIQUE: One view of the chest was acquired. COMPARISON: [facility], CR, XR CHEST 1VW (PORTABLE), 07[facility]2016, 19:05[facility]), 07/09/2016, 19:08. [facility], CR, XR CHEST 1VW, 11/2016, 19:33. FINDINGS: Surgical changes and devices: Multiple thoracic outlet surgical clips are again noted. Lungs and pleura: No pleural effusions or pneumothorax. Lungs are clear. Mediastinum: Mediastinal contours appear normal. Heart size is normal. There is aortic atheroscler osis. Bones and chest wall: No suspicious bony lesions. Overlying soft tissues appear unremarkable. IMPRESSION: No acute cardiopulmonary disease. Dictated by: Carlo Landis M.D. on 07/29/2016 at 9:23 Approved by: Carlo Landis M.D. on 07/29/2016 at 9:24
[2016-07-29] MEDS: Cefepime Inj 2,000 MG in Dextrose 5% Minibag Plus 50 ML IV SCH ×2 (09:53→20:53)
[2016-07-29] MEDS: predniSONE 20 mg Tablet PO SCH (09:54)
[2016-07-29] MEDS: Acyclovir 400 mg Tablet PO SCH ×2 (09:54→20:54)
[2016-07-29] MEDS: Fluticasone-Salmeterol 100-50 Inhaler INHALATION SCH ×2 (09:55→20:53)
[2016-07-29] MEDS: Tiotropium 18mcg/Cap 5 Capsule Inhaler Kit INHALATION SCH (09:55)
[2016-07-29] MEDS: Pantoprazole 20 mg ER24 Tablet PO SCH (09:55)
--- NOTE | 2016-07-29 13:45 | PCM.PNMED ---
Subjective Date of Service Jul 29, 2016 Subjective He is coughing up a lot of phlegm. No chest pain. No nausea, diarrhea, or abdomen pain. Exam Vital Signs Vital Sign - Last Date Time Temp Pulse Resp B/P Pulse Ox O2 Delivery O2 Flow Rate FiO2 07/29/16 12:57 36.6 102 22 169/52 95 Room Air 07/29/16 07:40 11.00 21 Intake and Output 07/28/16 07/28/16 07/29/16 Cumulative From/Thru 15:00 23:00 07:00 07/25/16 18:34 - 07/29/16 05:12 Intake Total 1366 ml 1750 ml 14572 ml Output Total 1150 ml 840 ml 5765 ml Balance 216 ml 910 ml 6647 ml Intake Oral 0 ml 0 ml 60 ml IV Total 1366 ml 300 ml 7067 ml Tube Feeding 950 ml 3025 ml Tube Irrigant 500 ml 2260 ml Output Urine Total 1150 ml 840 ml 5765 ml # Voids 2 12 # Bowel Movements 1 0 3 Exam No distress, awake. Anicteric sclera Lungs with expiratory wheezes. Some rhonchi CV RRR, no murmur Abdomen soft, NT No edema. No rash IVs and Medications Medications Reviewed: Medications were reviewed in detail Lab and Diagnostics Result Diagram: 07/29/1684107/29/16841 Assessment & Plan Patient is a 80-year-old male with history of tongue squamous cell carcinoma, recurrent aspiration pneumonia, COPD, atrial fibrillation on warfarin and hypothyroidism, with recent hospitalization for pneumonia, presenting with a2-3 days of worsening dyspnea and generalized weakness. 1. Acute on chronic hypoxic respiratory failure, present on admission. This is secondary to flu a and COPD exacerbation. He is slowly improving. We will use supplemental oxygen as needed. No changes for today. 2. Influenza A, present on admission. Active - Started on treatment dosing, continue Tamiflu. 3. Possible ongoing pneumonia - Procalcitonin 0.09, will trend every other day Believe his primary processes influenza A, we will stop antibiotics today. We will resume empiric antibiotics for possible secondary infection. Note sputum culture is unrevealing. 4. Acute COPD exacerbation, present on admission. Active Continue duoneb, and steroids. Elevated Troponin, present on admission. Active - Patient denies CP, will trend, plan no further workup other than treating primary pulmonary issues. Possible thrush. POA. We will use fluconazole 100 daily through the PEG tube. Chronic issues: Paroxysmal atrial fibrillation on chronic anticoagulation -Continue warfarin, dosed per pharmacy. 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 -Continue tube feeds through PEG tube -Dietitian order Hypothyroidism. Present on admission -Continue levothyroxine 125g daily History of RLS. -Continue diazepam 5mg PRN History of shingles -Continue acyclovir 400mg BID Depression -Continue mirtazapine 15mg HS Patient admitted under inpatient status with expected length of stay greater than 2 midnights due to severity of presenting symptoms, risk of adverse event, and complexity of treatment plan. GI Prophylaxis: On home dose PPI VTE Prophylaxis: Enoxaparin Resuscitation Status: CPR: Attempt Resuscitation Pain Evaluation: Adequate Pain Control GI Prophylaxis: Proton Pump Inhibitor VTE Prophylaxis: Other (will start SubQ hep depending on INR results) Resuscitation Status: CPR: Attempt Resuscitation Time spent 30 minutes Manjinder Alexis MD Jul 29, 2016 13:45
--- NOTE | 2016-07-29 14:06 | PCM.PHAPRO ---
Progress Warfarin dosing WARFARIN MANAGEMENT PER PHARMACY (day) Sat SAT SUN [facility] GSF GSF RWP DFF Date -Jul 26-Jul 27-Jul 28-Jul 29-Jul INR 1.61 1.66 2.23 2.13 1.73 INR change 0.05 0.57 -0.1 -0.4 Warf Dose 5MG 5MG 1MG 3MG 5 MG Will increase dose this evening to 5 mg given downtrend of INR. Pharmacy to monitor. Rufino Bangura, PharmD Rufino Bangura Jul 29, 2016 14:06
--- NOTE | 2016-07-29 17:50 | NUR ---
HTN/Tube Feed Cardiac: Pt denies CP. Tele: ST 100's. Tele DC'd this AM. Pt is hypertensive for some of this shift as well. AM Cardizem increased which seemed to help. PRN Labetalol also ordered. Resp: O2 mid 90s on RA. Suction is at bedside and pt uses independently. Pt reported some SOB this AM, PRN neb given and SOB relieved. GI/: Jevity 1.5 running at 87ml/hr, 250 water flush Q4H from [id number], pt denies N/V/D. Diltiazem tends to clog peg tube pigtail at the 90 degree turn. Pharmacy called to get input on crushing Dilt. 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 A&Ox3, DORON. Pt is impulsive with getting up to urinate without standby assistance. david alarm on. Addendum: 07/29/16 at 1814 by ELYSSA BRO RN Diltiazem caps changed to tabs which can be crushed.
[2016-07-30] VITALS (7 sets, daily range): BP systolic 150–155; BP diastolic 82–87; PULSE 94–101; RESP 20–30; O2SAT 95–99
--- NOTE | 2016-07-30 00:01 | NUR ---
TRANSFER Pt transferred to 3029, report given to Wayne Mcneil RN. Pt transferred with all belongings, vitals stable.
[2016-07-30] MEDS: Albuterol-Ipratropium 3 mL Inhalation Solution NEB SCH ×3 (00:30→12:35)
[2016-07-30] MEDS: Piperacillin-Tazo 3.375 Gm Inj 3.375 GM in Dextrose 5% Minibag Plus 50 ML IV SCH ×2 (00:47→10:07)
--- NOTE | 2016-07-30 04:13 | NUR ---
TF Jevity 1.5 running thru tube feed. had 1019 of feeding and 1030 of flush around 0345. New Tubings in placed and new TF running still at 87, no grv noted. Will continue to monitor.
[2016-07-30 08:11] LABS: INR 1.85 ratio
[2016-07-30] MEDS: Tiotropium 18mcg/Cap 5 Capsule Inhaler Kit INHALATION SCH (10:07)
[2016-07-30] MEDS: Fluticasone-Salmeterol 100-50 Inhaler INHALATION SCH (10:10)
[2016-07-30] MEDS: predniSONE 20 mg Tablet PO SCH (10:10)
[2016-07-30] MEDS: Acyclovir 400 mg Tablet PO SCH (10:10)
[2016-07-30] MEDS: Pantoprazole 20 mg ER24 Tablet PO SCH (10:11)
[2016-07-30] MEDS ORDERED: 0.9% Sodium Chloride 250 ML ONE (10:29)
[2016-07-30] MEDS: Cefepime Inj 2,000 MG in Dextrose 5% Minibag Plus 50 ML IV SCH (10:34)
[2016-07-30] MEDS ORDERED: DIF100A PEG (12:21)
--- NOTE | 2016-07-30 12:33 | PCM.DIMED ---
Discharge Instructions Date of Service Jul 30, 2016 Dates of Hospitalization Jul 25, 2016 at 21:22 Discharge Diagnosis Discharge Diagnosis 1. Acute on chronic hypoxic respiratory failure, present on admission. Improved 2. Influenza A, present on admission. - Post treatment with Tamiflu. 3. Possible ongoing pneumonia vs colonization, present on admission. 4. Acute COPD exacerbation, present on admission. Improved. 5. Mildly elevated Troponin, without any reported chest pain. Present on admission. Likely acute demand ischemia from presenting acute hypoxic respiratory failure. 6. Possible acute thrush. present on admission. 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 - On tube feeds through PEG tube # Hypothyroidism. Present on admission. stable. # History of Restless Leg Syndrome. # History of shingles # Depression Medication Instructions Continue with Cefepime 2gram IV every 12 hours for two more days (stop on 08/02/16 ) Diet Other (continue with tube feed) Activity Other (as tolerated) Call your provider Fever or Chills, Shortness of breath, Chest pain, Vomitting, Excessive diarrhea Patient Instructions Seek immediate medical attention if any new or worsening signs or symptoms occur. Follow-up plan 1. Followup with oncology (Dr. Martinez) as previously scheduled. 2. Followup with primary care provider in 7-10 days as needed. Follow-up Provider: Chava Kilpatrick MD Provider: Paulie Martinez MD, Masoud Jul 30, 2016 12:33
--- NOTE | 2016-07-30 13:36 | NUR ---
Social Work-discharge: Data:EMR Reviewed. Pt is on day 5 of hospitalization for N stemi per H&P. Pt is medically stable to discharge home today. BENEDICTO spoke with pt's Pat at bedside regarding discharge planning, SW role explained. Pt has been set up with [facility] for RN,PT,MATERIAL MIXER, and WAREHOUSE INSULATION WORKER. BENEDICTO informed Emmanuel Warner Koenig [phone] of discharge and he collected orders and F2F. BENEDICTO also spoke with Francesco Medina through [facility] who confirms that they are open with pt for tube feeds and IV abx. informed SW that pt will only need 2 more days of IV abx. SW provided resume tube feed orders and IV abx orders to Francesco from [facility]. Francesco to speak with and coordinate IV abx. SW confirmed plan with and she is agreeable. Pt's to provide transport home today. All updated and agreeable to plan. Assessment:Pt who would benefit from HH and [facility]. Plan:Pt to discharge home today via POV. F2F and orders given to [facility] For RN,PT, WAREHOUSE INSULATION WORKER, and MATERIAL MIXER. Resume Tube feed orders and IV abx orders given to Francesco from [facility] and he will speak with . All updated and agreeable to plan. Sheela Correia,MATERIAL MIXER
--- NOTE | 2016-07-30 14:59 | PCM.PHAPRO ---
Progress Date of Service: Jul 30, 2016 Warfarin dosing INR 1.61 1.66 2.23 2.13 1.73 1.85 INR change 0.05 0.57 -0.1 -0.4 0.12 Warf Dose 5MG 5MG 1MG 3MG 5 MG 5 MG A/ INR is subtherapeutic today. P/ Give 5mg of warfarin again today and follow. Adam Gaxiola Jul 30, 2016 14:59
--- NOTE | 2016-07-30 16:08 | NUR ---
Discharge: Patient discharged to home @ approx 1600. order for IV access to remain in place for continuation of IV antibiotics at home. Personal belongs sent with patient. Reviewed new prescription, d/c instructions, home medication list, and follow up appointments. Verbalized understanding. Patient escorted to main entrance via wheelchair accompanied by RECREATION THERAPY AIDE.
--- NOTE | 2016-07-30 18:07 | PCM.DC.MED ---
Discharge Summary Date of Service Jul 30, 2016 Dates of Hospitalization Date of Hospital Admission Jul 25, 2016 at 21:22 Date of Discharge: Jul 30, 2016 Providers: Admitting Physician: Connor De Jesus MD Primary Care Physician: Chava Kilpatrick MD Attending Physician: Connor De Jesus MD Diagnosis at Time of Discharge Diagnosis at Time of Discharge 1. Acute on chronic hypoxic respiratory failure, present on admission. Improved 2. Influenza A, present on admission. - Post treatment with Tamiflu. 3. Possible ongoing pneumonia vs colonization, present on admission. 4. Acute COPD exacerbation, present on admission. Improved. 5. Mildly elevated Troponin, without any reported chest pain. Present on admission. Likely acute demand ischemia from presenting acute hypoxic respiratory failure. 6. Possible acute thrush. present on admission. 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 - On tube feeds through PEG tube # Hypothyroidism. Present on admission. stable. # History of Restless Leg Syndrome. # History of shingles # Depression Consultations 1. Oncology (Dr. Martinez) Procedures XRay, CTs & MRIs Date of Service: 07/25/16 1835 PROCEDURE: X-RAY CHEST ONE VIEW, PORTABLE ([id number]) IMPRESSION: Opacity in the left lung base decreased in size, but not completely resolved. Recommend continued plain film radiograph followup imaging to resolution a finding to exclude underlying neoplastic process. Dictated by: Kelsey Billingsley MD, PhD on 07/25/2016 at 20:19 Approved by: Kelsey Billingsley MD, PhD on 07/25/2016 at 20:21 Date of Service: 07/29/16 0813 PROCEDURE: X-RAY CHEST ONE VIEW, PORTABLE ([id number]) IMPRESSION: No acute cardiopulmonary disease. Dictated by: Carlo Landis M.D. on 07/29/2016 at 9:23 Approved by: Carlo Landis M.D. on 07/29/2016 at 9:24 Brief History As noted in H&P by Dr. Forde: Patient is a 80-year-old male with history of tongue squamous cell carcinoma, recurrent aspiration pneumonia, COPD, atrial fibrillation on warfarin and hypothyroidism presenting with worsening shortness of breath with ongoing sputum production since recent hospitalization for pneumonia in early June. Patient is accompanied by his , Pat, at bedside who is providing much of the history since the patient is non-verbal at baseline following laryngectomy with tracheostomy, but is able to sign with gestures and participate in the interview. His reports he has had chronic shortness of breath, which is usually improved by DuoNeb treatments, but since yesterday, patient would go into respiratory distress about an hour after treatment requesting for more. Respiratory distress and generalized weakness worsened enough to the point to bring patient into [facility] ED for further evaluation and treatment. Associated symptoms of wheezing, yellow sputum production, and unable to tolerate his normal caloric intake through his feeding tube for the past 2-3 days. Denies CP , palpitations, fevers, chills, dysuria, constipation or diarrhea. Patient was hospitalized for one week on 06/29/16 with bibasilar pneumonia and was seen in the ED on 07/09/16 with an acute COPD exacerbation. Hospital Course 1. Acute on chronic hypoxic respiratory failure, present on admission. Improved This is likely secondary to flu a and COPD exacerbation. 2. Influenza A, present on admission. Active - Finished full course of Tamiflu during this hospital 3. Possible ongoing pneumonia - Procalcitonin 0.09 - Believe his primary processes influenza A - discussed with Dr. Martinez on day of discharge. Per Dr. Martinez's recommendation will d/c patient home with resume empiric Cipro for possible secondary infection and to finish course of IV Cefepime (2 more days left) 4. Acute COPD exacerbation, present on admission. Improved 5. Elevated Troponin, present on admission. - Patient denies CP - plan no further workup other than treating primary pulmonary issues for now 7. Possible thrush. POA. - started fluconazole 100 daily x 10 days during this hospital (through the PEG tube) Chronic issues: Paroxysmal atrial fibrillation on chronic anticoagulation -Continue warfarin, dosed per pharmacy. 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 -Continue tube feeds through PEG tube Hypothyroidism. Present on admission -Continue levothyroxine 125g daily History of RLS. -Continue diazepam 5mg PRN History of shingles -Continue acyclovir 400mg BID Depression -Continue mirtazapine 15mg HS by day of d/c lungs notable for mild coarse breath sounds bilat. patient awake and alert. denies any pain or discomfort and indicates ready to go home. discussed with his as well who feels patient is at baseline and ready to go home. Exam Vital Signs (Last) Date Time Temp Pulse Resp B/P Pulse Ox O2 Delivery O2 Flow Rate FiO2 07/30/16 15:31 97 22 99 28 07/30/16 11:35 36.4 150/87 Room Air 07/29/16 07:40 11.00 Test 07/25/16 19:01 07/26/16 03:50 07/26/16 09:23 07/26/16 10:34 Pro-B-Type Natriuretic Peptide 424.8pg/mL (0-486) Hold Demarco Top Tube Received (Received) Total Bilirubin 0.3mg/dL (0.0-1.2) Aspartate Amino Transf (AST/SGOT) 19U/L (0-50) Alanine Aminotransferase (ALT/SGPT) 18U/L (0-44) Alkaline Phosphatase 87U/L (25-160) Troponin T 0.034ug/L (0.0-0.011) Total Protein 6.0g/dL (6.4-8.4) Albumin 3.5g/dL (3.4-5.0) Lactic Acid Level 1.7mmol/L (0.4-2.0) Test 07/27/16 05:29 07/27/16 06:59 07/29/16 08:42 07/30/16 07:06 Urine Color Yellow (YELLOW) Urine Appearance Clear (CLEAR,HAZY) Urine pH 6.0 (5.0-8.0) Urine Specific [place] 1.020 (1.003-1.035) Urine Protein Negativemg/dL (NEG,TRACE) Urine Glucose (UA) Negativemg/dL (NEGATIVE) Urine Ketones Negativemg/dL (NEGATIVE) Urine Occult Blood Trace (NEGATIVE) Urine Nitrite Negative (NEGATIVE) Urine Bilirubin Negative (NEGATIVE) Urine Urobilinogen Normalmg/dL (NORMAL) Urine Leukocyte Esterase Negative (NEGATIVE) Urine RBC 0-2/hpf (0-2) Urine WBC 0-5/hpf (0-5) Urine Epithelial Cells Occasional/hpf (NONE-MOD) Urine Crystals None seen (NONE SEEN) Urine Bacteria None/hpf (NONE-FEW) Urine Hyaline Casts None/lpf (NONE) Urine Granular Casts None seen (NONE SEEN) Urine Waxy Casts None seen (NONE SEEN) Urine Red Blood Cell Casts None seen (NONE SEEN) Urine White Blood Cell Casts None seen (NONE SEEN) Urine Mucus Present (None Seen) Urine Trichomonas None seen (NONE SEEN) Urine Yeast None (NONE SEEN) Urine Culture Reflexed Not indicated Urine Legionella pneumophilia Ag Negative (Negative) Neutrophils (%) (Auto) 78.0% (40-74) Lymphocytes (%) (Auto) 9.3% (14-46) Monocytes (%) (Auto) 12.1% (4-12) Eosinophils (%) (Auto) 0.3% (0-5) Basophils (%) (Auto) 0.1% (0-3) White Blood Count 8.3th/mm3 (3.8-10.1) Red Blood Count 4.32mil/mm3 (4.40-5.80) Hemoglobin 13.8g/dL (13.8-17.2) Hematocrit 42.2% (41.0-50.0) Mean Corpuscular Volume 97.7fL (81-100) Mean Corpuscular Hemoglobin 31.9pg (27.0-35.0) Mean Corpuscular Hemoglobin Concent 32.7% (32.0-37.0) Red Cell Distribution Width 13.0% (12.3-15.4) Platelet Count 186bil/L (150-400) Sodium Level 142mEq/L (134-144) Potassium Level 4.4mEq/L (3.5-5.2) Chloride Level 101mEq/L (97-108) Carbon Dioxide Level 28mmol/L (18-29) Blood Urea Nitrogen 17mg/dL (8-27) Creatinine 0.78mg/dL (0.76-1.27) Estimat Glomerular Filtration Rate 102mL/min (>59) Glucose Level 89mg/dL (60-99) Calcium Level 8.6mg/dL (8.5-10.1) Procalcitonin 0.10ng/mL (0.00-0.08) Prothrombin Time 20.1sec (8.1-12.5) Prothromb Time International Ratio 1.85ratio Discharge Medications Discharge Medications Acyclovir (Acyclovir) 400 Mg Tablet 400 MG PO BID (Reported) Albuterol/Ipratropium (Combivent Respimat Inhal [place]) 120 Spr/4 Gm Inhaler 1 PUFF IH QID Prescribed by: GIOVANNI OLIVAREZ DO Budesonide/Formoterol 80-4.5 mcg Inh (Symbicort 80-4.5 mcg Inh) 120 Puff/10.2 Gm Inhaler 2 PUFF IH BID (Reported) Cefepime HCl/D5w (Cefepime-Dextrose 2 gm/50 ml) 2 Gm/50 Ml Piggyback 2 GM IV BID (Reported) Ciprofloxacin (Ciprofloxacin) 500 Mg Tablet 500 MG PO BID (Reported) Diltiazem ER (Taztia XT) 120 Mg Capsule.er 120 MG PO DAILY (Reported) Fluconazole (Diflucan) 100 Mg Tab 100 MG PEG DAILY Prescribed by: GRACIA GAN MD Levothyroxine (Levothyroxine) 137 Mcg Tablet 137 MCG PO DAILY (Reported) Mirtazapine (Mirtazapine) 15 Mg Tablet 15 MG PO HS (Reported) Pantoprazole DR (Pantoprazole DR) 20 Mg Tablet.dr 20 MG PO DAILY Prescribed by: ALEJANDRO LYOD MD Tiotropium [place] (Spiriva) 18 Mcg Cap.w.dev 1 PUFF IH DAILY (Reported) Warfarin Sodium (Warfarin Sodium) 5 Mg Tablet 5 MG PO DAILY (Reported) As needed Albuterol Neb Soln (Albuterol Neb Soln) 2.5 Mg/3 Ml Vial.neb 2.5 MG IH QID PRN PRN For Wheezing (Reported) Diazepam (Valium) 5 Mg Tablet 5 MG PO HS PRN PRN For Restlessness (Reported) Polyethylene Glycol 3350 (Polyethylene Glycol 3350) 17 Gm Powd.pack 17 GM PO prn PRN PRN For Constipation (Reported) Miscellaneous Medications Ondansetron (Ondansetron) 8 Mg Tablet 8 MG PO (Reported) crush, given through g-tube Additional med instructions Continue with Cefepime 2gram IV every 12 hours for two more days (stop on 08/02/16 ) Followup Plan Disposition: Home with Follow-up plan 1. Followup with oncology (Dr. Martinez) as previously scheduled. 2. Followup with primary care provider in 7-10 days as needed. Discharge Diet: Other (continue with tube feed) Discharge Activity: Other (as tolerated) Patient Instructions Seek immediate medical attention if any new or worsening signs or symptoms occur. Follow-up Provider: Chava Kilpatrick MD Provider: Paulie Martinez MD Time spent 35 min copies to: Chava Kilpatrick MD; Paulie Martinez MD, Masoud Jul 30, 2016 18:07
== END 2016-07-30 15:55 | disposition home health service (06) | DRG 189 ==
LOC: SED 18:24 → PCC 21:22 → MPC 07-30 00:57
PROVIDERS: ADMIT Hospitalist; ATTEND Hospitalist
PROC: 3E0G76Z Introduction of Nutritional Substance into Upper GI, Via Natural or Artificial Opening (ICD-10-PCS; principal; 2016-07-26)
DX: J96.21 Acute and chronic respiratory failure with hypoxia (principal); J44.0 Chronic obstructive pulmonary disease with (acute) lower respiratory infection; C78.00 Secondary malignant neoplasm of unspecified lung; C79.89 Secondary malignant neoplasm of other specified sites; B37.0 Candidal stomatitis; C01 Malignant neoplasm of base of tongue; I48.0 Paroxysmal atrial fibrillation; J10.1 Influenza due to other identified influenza virus with other respiratory manifestations; I10 Essential (primary) hypertension; G89.29 Other chronic pain; E03.9 Hypothyroidism, unspecified; G25.81 Restless legs syndrome; F32.9 Major depressive disorder, single episode, unspecified; B02.9 Zoster without complications; Z79.51 Long term (current) use of inhaled steroids; Z87.891 Personal history of nicotine dependence; Z79.01 Long term (current) use of anticoagulants; Z93.1 Gastrostomy status; Z93.0 Tracheostomy status

== ENCOUNTER 2016-08-02 11:33 | Inpatient (IN) | payer MEDICARE, OTHER ==
[2016-08-02] VITALS (10 sets, daily range): BP systolic 124–160; BP diastolic 54–93; PULSE 77–94; RESP 12–25; O2SAT 95–100
[~2016-08-02] VITALS: Ht 185.4 cm; Wt 63.9 kg
[~2016-08-02 11:33] MED LIST changes: -ALBU8.5H2 INHALATION; +CEFE2PIG IV; +CIPR-198 PEG; +DIF100A PEG; -HYDR-4003 PO; -IPRA3AMP NEB; -SCOP1PAT TD; -TAM75UDCAP PO; -WARF5TAB7 PO
--- NOTE | 2016-08-02 11:52 | ED.REPORT ---
HPI-Dyspnea / Wheezing Date of Service Aug 02, 2016 ED Provider: Tavon Kaiser MD Patient is a 80-year-old male with history of tongue squamous cell carcinoma, recurrent aspiration pneumonia, COPD, atrial fibrillation on warfarin and hypothyroidism presenting via EMS with worsening shortness of breath with ongoing sputum production (yellow and brown) since recent hospitalization for pneumonia in early June and influenza A July 25. Patient is accompanied by his , Pat, at bedside who is providing much of the history since the patient is non-verbal at baseline following laryngectomy with tracheostomy, but is able to sign with gestures and participate in the interview. Pt states "it feels like the sputum is choking me and it is making me panic." Pt denies vomiting, CP or fevers. Nursing Notes Stated Complaint: SOB Chief Complaint: Respiratory Distress Nursing Notes Reviewed: Yes Allergies: Coded Allergies: meperidine HCl (Verified Allergy, Severe, 'PASSED OUT PER PT', 07/25/16) PT STATES OK WITH DILAUDID AND MORPHINE AND OXYCODONE codeine (Verified Adverse Reaction, Severe, SEVERE N/V, 07/25/16) PT STATES OK WITH DILAUDID AND MORPHINE AND OXYCODONE oxycodone (Verified Adverse Reaction, Severe, Hallucinations, 07/25/16) Scheduled Acyclovir (Acyclovir) 400 Mg Tablet 400 MG PO BID Albuterol/Ipratropium (Combivent Respimat Inhal [place]) 120 Spr/4 Gm Inhaler 1 PUFF IH QID Budesonide/Formoterol 80-4.5 mcg Inh (Symbicort 80-4.5 mcg Inh) 120 Puff/10.2 Gm Inhaler 2 PUFF IH BID Cefepime HCl/D5w (Cefepime-Dextrose 2 gm/50 ml) 2 Gm/50 Ml Piggyback 2 GM IV BID Ciprofloxacin (Ciprofloxacin) 500 Mg Tablet 500 MG PO BID Diltiazem ER (Taztia XT) 120 Mg Capsule.er 120 MG PO DAILY Fluconazole (Diflucan) 100 Mg Tab 100 MG PEG DAILY Levothyroxine (Levothyroxine) 137 Mcg Tablet 137 MCG PO DAILY Mirtazapine (Mirtazapine) 15 Mg Tablet 15 MG PO HS Pantoprazole DR (Pantoprazole DR) 20 Mg Tablet.dr 20 MG PO DAILY Tiotropium [place] (Spiriva) 18 Mcg Cap.w.dev 1 PUFF IH DAILY Warfarin Sodium (Warfarin Sodium) 5 Mg Tablet 5 MG PO DAILY Scheduled PRN Albuterol Neb Soln (Albuterol Neb Soln) 2.5 Mg/3 Ml Vial.neb 2.5 MG IH QID PRN PRN For Wheezing Diazepam (Valium) 5 Mg Tablet 5 MG PO HS PRN PRN For Restlessness Polyethylene Glycol 3350 (Polyethylene Glycol 3350) 17 Gm Powd.pack 17 GM PO prn PRN PRN For Constipation Miscellaneous Medications Ondansetron (Ondansetron) 8 Mg Tablet 8 MG PO crush, given through g-tube General Time Seen by MD: 11:46 Chief Complaint Shortness of breath Hx Obtained From: Patient, Spouse, EMS Arrived By: Ambulance Sudden in Onset?: No Onset Occurred: 3 days ago Symptom Duration: Since onset Location: : None Severity: Current: No pain currently Associated with: Denies: Fever, Vomiting Pertinent Negative: Relieved by nothing Recent Healthcare: Recent doctor visit, Recent hospitalization Similar Sx Previous: Yes Past Medical History Past Medical History Notes: PCP: Dr. 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 Afib on Coumadin PEG tube Aspiration PNA Prostate cancer COPD HTN Chronic pain Hypothyroidism Past Surgical History Total laryngectomy and tracheostomy PEG feeding tube insertion Radiation for tongue cancer Smoking History Former Smoker Social History Alcohol Use: Denies alcohol use Drug Use: Denies drug use Other Social History: Good social support, Ambulatory Status Independent Review of Systems Basic Review of Systems Eyes: Vision NL, No discharge GI: No abdominal pain, No anorexia, No nausea, No vomiting Neurologic: NL mental status Psychiatric: Normal thought content Constitutional: Denies: Chills, Fever Respiratory: Reports: Prod cough, brown, Prod cough, green, Prod cough, yellow , Shortness of breath Cardiovascular: Denies: Chest pain Musculoskeletal: Denies: Neck pain Complete sys rev & neg: except as marked. Physical Exam Initial Vital Signs Vital Signs (First) Date Time Temp Pulse Resp B/P Pulse Ox O2 Delivery O2 Flow Rate FiO2 08/02/16 11:47 36.6 82 25 134/69 95 Room Air 08/02/16 12:13 10 21 Initial VS: Reviewed Head / Eyes: Atraumatic, Normocephalic ENT: Conjunctiva normal, No scleral icterus Abdomen / GI: Soft, Non-tender Extremities: Vascular intact, Neuro intact Skin: Warm, Dry Neurologic: Alert, Oriented Psychiatric: Behavior normal, Normal thought content General/Constitutional: Awake, Alert Stoma in place Wheezing / Retractions: Positive: Accessory muscle use mod Moderately tachypneic Wheezing throughout Cardiovascular: Heart rate NL, Regular rhythm, Heart sounds NL, Peripheral circulation NL Interpretation & Diagnostics Lab Results Interpretation Result Diagram: 08/02/16 1215 08/02/16 1215 Test 08/02/16 12:15 08/02/16 12:33 White Blood Count 10.1th/mm3 (3.8-10.1) Red Blood Count 4.63mil/mm3 (4.40-5.80) Hemoglobin 14.9g/dL (13.8-17.2) Hematocrit 45.5% (41.0-50.0) Mean Corpuscular Volume 98.3fL (81-100) Mean Corpuscular Hemoglobin 32.2pg (27.0-35.0) Mean Corpuscular Hemoglobin Concent 32.7% (32.0-37.0) Red Cell Distribution Width 13.3% (12.3-15.4) Platelet Count 168bil/L (150-400) Neutrophils (%) (Auto) 75.8% (40-74) Lymphocytes (%) (Auto) 8.5% (14-46) Monocytes (%) (Auto) 9.9% (4-12) Eosinophils (%) (Auto) 5.3% (0-5) Basophils (%) (Auto) 0.4% (0-3) Sodium Level 141mEq/L (134-144) Potassium Level 4.3mEq/L (3.5-5.2) Chloride Level 100mEq/L (97-108) Carbon Dioxide Level 28mmol/L (18-29) Blood Urea Nitrogen 23mg/dL (8-27) Creatinine 0.88mg/dL (0.76-1.27) Estimat Glomerular Filtration Rate 89mL/min (>59) Glucose Level 128mg/dL (60-99) Calcium Level 8.9mg/dL (8.5-10.1) Total Bilirubin 0.4mg/dL (0.0-1.2) Aspartate Amino Transf (AST/SGOT) 31U/L (0-50) Alanine Aminotransferase (ALT/SGPT) 27U/L (0-44) Alkaline Phosphatase 85U/L (25-160) Troponin T 0.040ug/L (0.0-0.011) Pro-B-Type Natriuretic Peptide 691.4pg/mL (0-486) Total Protein 6.8g/dL (6.4-8.4) Albumin 3.7g/dL (3.4-5.0) Lactic Acid Level 1.0mmol/L (0.4-2.0) ECG Interpretation ECG Interpretation: NSR at a rate of 79 Atrial premature complex Anterior infarct, old Time: 13:10 Interpreted by: ED physician X-Ray Chest Interpretation Chest Xray Interpretation: IMPRESSION: No acute cardiopulmonary disease. Dictated by: Davey Willams [facility] Interpreted: Devyn Michele MD on 08/02/2016 at 13:05 Transcribed by: SUDHIR on 08/02/2016 at 13:05 Re-Eval/Medical Decision Re-Evaluation/Progress : Time of Eval: 13:42 Re-Evaluation/Progress Note: Discussed lab results and need for admission. Pt and family member present in the room agree with plan. Consultation #1: Referral / Consult Name: Theron Stockton MD Call Returned at: 13:42 Employee Relations Representative: Agrees with eval, Agrees with plan Note: Infectious disease Consultation #2: Referral / Consult Name: Amber Ramírez MD Consulted With: Hospitalist Call Returned at: 13:51 Employee Relations Representative: Accepts admit Counseled Regarding: Diagnosis, Lab results, Need for follow-up, Need for admission Discharge & Departure Impression: Primary Impression: Tracheobronchitis Additional Impression: MRSA (methicillin resistant Staphylococcus aureus) infection Disposition: ADMITTED TO HOSPITAL Discharge Condition All VS Reviewed: Yes Condition: Stable Referrals: Chava Kilpatrick MD (PCP) Lakishaibmansi Attestation Portions of this note were transcribed by Herlinda Thompson. I, Dr. Kaiser personally performed the history, physical exam and medical decision-making; I reviewed and confirmed the accuracy of the information in the transcribed note. Signed by: Eirc Higuera, 08/02/2016 [Time] copies to: Chava Kilpatrick MD, Kirk H MD Aug 02, 2016 11:52 Herlinda Thompson Aug 02, 2016 12:15 NONI RIVERA Aug 02, 2016 13:11
[2016-08-02 12:33] LABS: BASOPHILS % (AUTO) 0.4 % (0-3); EOSINOPHILS % (AUTO) 5.3 % (0-5); MONOCYTES % (AUTO) 9.9 % (4-12); Mean Corpuscular Hemoglobin 32.2 pg (27.0-35.0); Mean Corpuscular Volume 98.3 fL (81-100); NEUTROPHILS % (AUTO) 75.8 % (40-74); Platelet Count 168 bil/L (150-400)
[2016-08-02 13:02] LABS: TROPONIN T 0.04 ug/L (0.0-0.011)
--- NOTE | 2016-08-02 13:05 | DRSVH ---
PROCEDURE: X-RAY CHEST ONE VIEW, PORTABLE ([id number]) INDICATIONS: dyspnea TECHNIQUE: One view of the chest was acquired. COMPARISON: [facility], CR, XR CHEST 1VW (PORTABLE), 07/29/2016, 8:55. FINDINGS: Surgical changes and devices: None. Lungs and pleura: No pleural effusions or pneumothorax. Lungs are clear. Mediastinum: Mediastinal contours appear normal. Heart size is normal. Bones and chest wall: No suspicious bony lesions. Overlying soft tissues appear unremarkable. IMPRESSION: No acute cardiopulmonary disease. Dictated by: Davey Willams [facility] Interpreted: Devyn Michele MD on 08/02/2016 at 13:05 Transcribed by: SUDHIR on 08/02/2016 at 13:05 Approved by: Devyn Michele M.D. on 08/03/2016 at 13:25
[2016-08-02] MEDS ORDERED: guaiFENesin 20 mg/mL 10 mL Syrup PO PRN (14:00)
[2016-08-02] MEDS ORDERED: PANT20TA2 PEG (14:49)
--- NOTE | 2016-08-02 14:51 | NUR ---
Med rec Pt. just finished IV cefipime last night.
[2016-08-02 15:07] LABS: APPEARANCE,URINE HAZY (CLEAR,HAZY); COLOR,URINE YELLOW (YELLOW); PH,URINE 6.5 (5.0-8.0)
[2016-08-02 15:08] LABS: OCCULT BLOOD,URINE NEGATIVE (NEGATIVE); UROBILINOGEN,URINE NORMAL (NORMAL)
--- NOTE | 2016-08-02 15:11 | PCM.HPMED ---
Subjective Date of Service Aug 02, 2016 Primary Provider: Admitting Physician: Primary Care Physician: Chava Kilpatrick MD Attending Physician: Chief Complaint: Increasing respiratory secretions, dyspnea History of Present Illness: Patient is a 80-year-old male with history of tongue squamous cell carcinoma, recurrent aspiration pneumonia, COPD, atrial fibrillation on warfarin and hypothyroidism presenting with worsening SOB, increasing resp secretion. Of note pt was hospitalized with pneumonia in early June, another hospitalization with dx below in 07/25-07/30(3days ago) 1. Acute on chronic hypoxic respiratory failure, present on admission. Improved 2. Influenza A, present on admission. - Post treatment with Tamiflu. 3. Possible ongoing pneumonia vs colonization, present on admission. 4. Acute COPD exacerbation, present on admission. Improved. 5. Mildly elevated Troponin, without any reported chest pain. Present on admission. Likely acute demand ischemia from presenting acute hypoxic respiratory failure. 6. Possible acute thrush. present on admission. improving Since patient was discharged 3 days ago from the hospital, since then, amount of secretion was increased, rather thin, white but dried up in trach so made him hard to breath, required suction every 1 hour, pt could not cough up secretions at baseline. pt finished cefepime last dose yesterday, continued cipro via PEG. pt also tolerated PEG feeding at goal 87cc/hr, had loose stools on 07/30,07/31 but no BM for 2days. Pt denied fever, chills, abdominal pain, nausea, vomiting, has baseline frequent urination-didn't notice smelly, cloudy urine. In ED, VSS [id number], 82, tachypneic to 25, afebrile, 95% on RA, noticed MRSA+ on trach aspirate culture on 07/27, ED provider consulted , recommended IV linezolid. 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 Review of Systems: Pertinent positives as noted in history of present illness. All other systems were reviewed and are negative Allergies Coded Allergies: meperidine HCl (Verified Allergy, Severe, 'PASSED OUT PER PT', 07/25/16) PT STATES OK WITH DILAUDID AND MORPHINE AND OXYCODONE codeine (Verified Adverse Reaction, Severe, SEVERE N/V, 07/25/16) PT STATES OK WITH DILAUDID AND MORPHINE AND OXYCODONE oxycodone (Verified Adverse Reaction, Severe, Hallucinations, 07/25/16) scopolamine (Verified Adverse Reaction, Intermediate, confusion, unsteady gait, 08/02/16) Home Medications Scheduled Acyclovir (Acyclovir) 400 Mg Tablet 400 MG PO BID Albuterol/Ipratropium (Combivent Respimat Inhal [place]) 120 Spr/4 Gm Inhaler 1 PUFF IH QID Budesonide/Formoterol 80-4.5 mcg Inh (Symbicort 80-4.5 mcg Inh) 120 Puff/10.2 Gm Inhaler 2 PUFF IH BID Cefepime HCl/D5w (Cefepime-Dextrose 2 gm/50 ml) 2 Gm/50 Ml Piggyback 2 GM IV BID Ciprofloxacin (Ciprofloxacin) 500 Mg Tablet 500 MG PO BID Diltiazem ER (Taztia XT) 120 Mg Capsule.er 120 MG PO DAILY Fluconazole (Diflucan) 100 Mg Tab 100 MG PEG DAILY Levothyroxine (Levothyroxine) 137 Mcg Tablet 137 MCG PO DAILY Mirtazapine (Mirtazapine) 15 Mg Tablet 15 MG PO HS Pantoprazole DR (Pantoprazole DR) 20 Mg Tablet.dr 20 MG PO DAILY Tiotropium [place] (Spiriva) 18 Mcg Cap.w.dev 1 PUFF IH DAILY Warfarin Sodium (Warfarin Sodium) 5 Mg Tablet 5 MG PO DAILY Scheduled PRN Albuterol Neb Soln (Albuterol Neb Soln) 2.5 Mg/3 Ml Vial.neb 2.5 MG IH QID PRN PRN For Wheezing Diazepam (Valium) 5 Mg Tablet 5 MG PO HS PRN PRN For Restlessness Polyethylene Glycol 3350 (Polyethylene Glycol 3350) 17 Gm Powd.pack 17 GM PO prn PRN PRN For Constipation Miscellaneous Medications Ondansetron (Ondansetron) 8 Mg Tablet 8 MG PO crush, given through g-tube PMH 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 Afib on Coumadin Feeding tube Aspiration PNA Prostate cancer COPD HTN Chronic pain Hypothyroidism Shingles Surgical History Total laryngectomy and tracheostomy PET feeding tube insertion Radiation for tongue cancer Family History Father with [place] in 70s Grand mother with DM2 Social History Hx Alcohol Use: No Hx Substance Use: No Hx Tobacco Use: Yes (30 ppd) Smoking Status: Former Smoker Living Arrangement: with Family Social History Hx Alcohol Use: No Hx Substance Use: No Hx Tobacco Use: Yes (30 ppd) Smoking Status: Former Smoker Exam Vital Signs Vital Sign - Last Date Time Temp Pulse Resp B/P Pulse Ox O2 Delivery O2 Flow Rate FiO2 08/02/16 12:13 98 10 21 08/02/16 11:47 36.6 82 25 134/69 Room Air Exam Cachectic male, comfortable-looking no JVD, MMM, no LAD s/p tracheostomy RRR, nl s1, s2 no mrg CTAB, no w,c S,ND,NT,normoactive BS+, s/p PEG warm, no edema, pulses 2/2 Lab and Diagnostics Result Diagram: 08/02/16 1215 08/02/16 1215 X-Rays, CTs and MRIs PROCEDURE: X-RAY CHEST ONE VIEW, PORTABLE ([id number]) INDICATIONS: dyspnea TECHNIQUE: One view of the chest was acquired. COMPARISON: [facility], CR, XR CHEST 1VW (PORTABLE), 07/29/2016, 8: 55. FINDINGS: Surgical changes and devices: None. Lungs and pleura: No pleural effusions or pneumothorax. Lungs are clear. Mediastinum: Mediastinal contours appear normal. Heart size is normal. Bones and chest wall: No suspicious bony lesions. Overlying soft tissues appear unremarkable. IMPRESSION: No acute cardiopulmonary disease. Dictated by: [facility] Interpreted: Devyn Michele MD on 08/02/2016 at 13: 05 Transcribed by: SUDHIR on 08/02/2016 at 13:05 Assessment & Plan Patient is a 80-year-old male with history of tongue squamous cell carcinoma, recurrent aspiration pneumonia, COPD, atrial fibrillation on warfarin and hypothyroidism presenting with worsening SOB, increasing resp secretion. Of note pt was hospitalized with pneumonia in early June, another hospitalization with dx in 07/25-07/30(3days ago) with acute on chronic respiratory failure due to influenza A infection, pneumonia possibly pseudomonas, treated with cefepime, COPD exacerbation on steroid, acute, active Acute on chronic respiratory failure, POA, no SIRS, pt just finished cefepime yesterday, unlikely flu/new HCAP. however, given MRSA+ on trach aspirate culture on 07/27, could contribute to sx, CXR-unremarkable. -will start Linezolid q12h iv for now, appreciate ID input. -O2 supplement target>95% -duonebs q4h, -suction q1-2h -Robitussin q6 prn for secretion -given unimpressive presentation, recent tx for pseudomonas PNA, flu, would hold off on other abx, steroid for now Chronic issues: Paroxysmal atrial fibrillation on chronic anticoagulation -Continue warfarin, dosed per pharmacy. 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 -Continue tube feeds through PEG tube Hypothyroidism. Present on admission -Continue levothyroxine 125g daily History of RLS. -Continue diazepam 5mg PRN History of shingles -Continue acyclovir 400mg BID Depression -Continue mirtazapine 15mg HS dispo:Patient will be admitted with inpatient status with expectation of inpatient therapy for more than 2 midnights diet:PEG feeding dvt ppx:LMWH DNR/DNI, confirmed with patient and , this is the new code status previously full code. pt/ were willing to palliative care. pt can greatly be benefited from further discussion about GOC, Adv directives, possible hospice discussion given recurrent hospitalization, ordered palliative consult under Time spent 65min Amber Ramírez MD Aug 02, 2016 14:41
[2016-08-02] MEDS ORDERED: Polyethylene Glycol (PEG) 17 Gm Powder PEG PRN (15:15)
--- NOTE | 2016-08-02 15:30 | PCM.CONPHA ---
Subjective Date of Service: Aug 02, 2016 Increasing respiratory secretions, dyspnea Reason for Pharmacy Consult: Anticoagulation Management Objective Vital Signs Date Time Temp Pulse Resp B/P Pulse Ox O2 Delivery O2 Flow Rate FiO2 08/02/16 15:16 79 08/02/16 15:12 77 08/02/16 15:07 36.3 77 20 160/93 100 Trach Collar 8.00 08/02/16 14:46 87 12 124/54 100 Room Air 08/02/16 12:13 98 10 21 08/02/16 11:47 36.6 82 25 134/69 95 Room Air Weight (Kilograms): 63.86 Height (Feet): 6 Height (Inches): 1 Test 08/02/16 12:15 08/02/16 12:33 08/02/16 14:58 White Blood Count 10.1th/mm3 (3.8-10.1) Red Blood Count 4.63mil/mm3 (4.40-5.80) Hemoglobin 14.9g/dL (13.8-17.2) Hematocrit 45.5% (41.0-50.0) Mean Corpuscular Volume 98.3fL (81-100) Mean Corpuscular Hemoglobin 32.2pg (27.0-35.0) Mean Corpuscular Hemoglobin Concent 32.7% (32.0-37.0) Red Cell Distribution Width 13.3% (12.3-15.4) Platelet Count 168bil/L (150-400) Neutrophils (%) (Auto) 75.8% (40-74) Lymphocytes (%) (Auto) 8.5% (14-46) Monocytes (%) (Auto) 9.9% (4-12) Eosinophils (%) (Auto) 5.3% (0-5) Basophils (%) (Auto) 0.4% (0-3) Sodium Level 141mEq/L (134-144) Potassium Level 4.3mEq/L (3.5-5.2) Chloride Level 100mEq/L (97-108) Carbon Dioxide Level 28mmol/L (18-29) Blood Urea Nitrogen 23mg/dL (8-27) Creatinine 0.88mg/dL (0.76-1.27) Estimat Glomerular Filtration Rate 89mL/min (>59) Glucose Level 128mg/dL (60-99) Calcium Level 8.9mg/dL (8.5-10.1) Total Bilirubin 0.4mg/dL (0.0-1.2) Aspartate Amino Transf (AST/SGOT) 31U/L (0-50) Alanine Aminotransferase (ALT/SGPT) 27U/L (0-44) Alkaline Phosphatase 85U/L (25-160) Troponin T 0.040ug/L (0.0-0.011) Pro-B-Type Natriuretic Peptide 691.4pg/mL (0-486) Total Protein 6.8g/dL (6.4-8.4) Albumin 3.7g/dL (3.4-5.0) Procalcitonin 0.08ng/mL (0.00-0.08) Lactic Acid Level 1.0mmol/L (0.4-2.0) Urine Color Yellow (YELLOW) Urine Appearance Hazy (CLEAR,HAZY) Urine pH 6.5 (5.0-8.0) Urine Specific [place] 1.030 (1.003-1.035) Urine Protein 100mg/dL (NEG,TRACE) Urine Glucose (UA) Negativemg/dL (NEGATIVE) Urine Ketones Negativemg/dL (NEGATIVE) Urine Occult Blood Negative (NEGATIVE) Urine Nitrite Negative (NEGATIVE) Urine Bilirubin Negative (NEGATIVE) Urine Urobilinogen Normalmg/dL (NORMAL) Urine Leukocyte Esterase Negative (NEGATIVE) Urine RBC 0-2/hpf (0-2) Urine WBC 0-5/hpf (0-5) Urine Epithelial Cells Moderate/hpf (NONE-MOD) Urine Crystals None seen (NONE SEEN) Urine Bacteria None/hpf (NONE-FEW) Urine Hyaline Casts 5/20/lpf (NONE) Urine Granular Casts Occasional (NONE SEEN) Urine Waxy Casts None seen (NONE SEEN) Urine Red Blood Cell Casts None seen (NONE SEEN) Urine White Blood Cell Casts None seen (NONE SEEN) Urine Mucus Present (None Seen) Urine Trichomonas None seen (NONE SEEN) Urine Yeast None (NONE SEEN) Urinalysis Comment None Urine Culture Reflexed Not indicated Assessment/Plan Assessment/Plan Warfarin per Rx Indication: A-Fib; Home dose 5mg daily INR Goal: 2 - 3; INR @ 12;15 is 1.95 -> consider therapeutic @ 0500 Will continue home dose of 5mg tonight & D/C enoxaparin for DVT prophylactic Kaushal Martinez PharmD Aug 02, 2016 15:30
--- NOTE | 2016-08-02 15:30 | NUR ---
Admit Patient received to the floor from ED. Patient ambulated from bed with minimal assistance. Patient denies any pain, nausea, or SOB at this time. PEG tube in abdomen., will notify doctor about diet. Oriented patient to room. His stated that he had a fall about 2 weeks ago and that he is high fall risk. Yellow socks on and Jhon alarm placed. Instructed patient to use call light when he needs to get up. Bed in low position. Call light in reach. Alarm in place. Addendum: 08/02/16 at 1826 by RAGHU TORRES RN ADMIT Admit done with Jagruti Lei
[2016-08-02 15:59] LABS: INR 1.95 ratio
[2016-08-02] MEDS ORDERED: guaiFENesin 20 mg/mL 10 mL Syrup PEG PRN (16:21)
[2016-08-02] MEDS: Albuterol-Ipratropium 3 mL Inhalation Solution NEB SCH ×2 (17:15→19:16)
--- NOTE | 2016-08-02 18:19 | NUR ---
Case Management: IMM explained to patient at 1810, signed original in chart, copy given to patient. Merissa Murillo RN
--- NOTE | 2016-08-02 19:47 | CONS ---
[address] [address] CONSULTATION REPORT PATIENT: LISS MINER : 1935 MR#: [id number] ADMIT: 08/02/2016 JOB ID: [id number] DATE OF SERVICE: 08/02/[address] Ramírez for this timely consult. REASON FOR CONSULTATION: MRSA colonization and possible pulmonary infection in a patient with head and neck cancer, recurrent aspiration pneumonia and COPD. HISTORY OF PRESENT ILLNESS: The patient is an unfortunate patient with head and neck cancer who breathes through a tracheostomy. He also has underlying COPD and is dependent on tube feedings for his nutrition. He is not able to swallow or speak though he is completely lucid. In any event, he was here in June with what we felt was an aspiration pneumonia. We treated this with Zosyn and he seemed to improve but, surprisingly, his blood cultures grew Enterococcus. Enterococcus is never an organism that causes respiratory tract infection so we worked him up for possible endocarditis and found no evidence of that. In the end, he received a short course of Zosyn that was both aimed at his enterococcal bacteremia as well as aspiration pneumonia. He did fairly well and was discharged at the conclusion of that mid June hospital stay. It was also noted during that hospital stay that he was colonized with MRSA and Pseudomonas, though we thought neither one of these was playing much of a pathogenic role. The patient was subsequently readmitted at the end of June for a second admission for what was determined to be influenza. I was not involved in that admission which went from July 25 to July 30 and in fact the patient just went home some three days ago with the influenza A. At that time, he was discharged to complete a course of Tamiflu and was also sent out on cefepime to complete a course of cefepime on August 02. Unfortunately, the patient did not do well and presented back to the hospital today with increasing shortness of breath and what he describes as a great deal of upper respiratory secretions making it difficult for him to breathe. He notes that these secretions were initially thin, but they dry up in the trach and upper airway so they have to constantly suction. He notes that he finished his cefepime yesterday on August 01 and that he has been taking Cipro via PEG and that was also prescribed at the time of his discharge. The patient is able to communicate only by shaking his head and by using his lips to express words, but he cannot actually phonate or speak in any way. He is nonetheless extremely lucid and interactive and though it is a bit tricky to get a history, he states specifically that he has had no fevers, chills, or sweats lately and that his main problem is just his upper airway secretions. He states he has had no diarrhea, absolutely no urinary symptoms and no chest pain. He does note he has been losing weight. PAST MEDICAL HISTORY: 1. Head and neck cancer for three years arising from the tongue with mets to the lung status post total laryngectomy and permanent tracheostomy and PEG placement. 2. History of prostate cancer. 3. Recurrent aspiration pneumonia for which he receives chronic antibiotic prophylaxis. 4. COPD. 5. Hypertension. 6. Hyperlipidemia. 7. Esophageal stricture. 8. Hypothyroidism. 9. Influenza diagnosed about 10 days ago which has been treated. 10. History of enterococcal bacteremia in June which was not felt to indicate endocarditis. SOCIAL HISTORY: The patient is an ex-smoker. He does not drink alcohol and does not eat anything, as he is fed completely through his PEG tube at this point. He lives in the local area with his and family. FAMILY HISTORY: Family history is positive for lung cancer and coronary artery disease in first-degree relatives. REVIEW OF SYSTEMS: The patient cannot speak so it makes it a bit difficult, but he says he has no headache, no visual change and no sores in his mouth. He states he has had these increasing secretions which makes breathing very difficult. He denies any real cough from lower in his chest, however, and has no pleuritic chest pain. He has had no fevers, chills, or sweats. He denies significant abdominal pain and has no problem with the PEG. Says he is urinating normally. No urgency, frequency, or dysuria. No diarrhea. No pain in the joints. No trouble with ambulation except he gets short of breath when he walks. Remainder of the review of systems is negative. PHYSICAL EXAMINATION: Reveals a cachectic, chronically ill gentleman. He is afebrile today. Temp 36.3, pulse in the 80s, respiratory rate 20, and fairly unlabored, blood pressure 160/93. He is saturating well on a trach collar at 35%. The patient is smiling and appears in no distress whatsoever. His eyes without conjunctivitis. He does have temporal wasting which is quite noticeable at this point. He can only open his mouth a little bit, but what I can see in the oropharynx looks okay except for some poor dentition and dry mucous membranes. His trach site is benign appearing and widely patent. His neck is without notable adenopathy. His lungs are notable for diffuse wheezes and scattered crackles throughout both lung fraga. Cardiac tones: Regular rate and rhythm. The abdomen is soft, thin and without mass. A PEG tube is present in the left upper quadrant. The patient's extremities are essentially benign. I see no evidence for synovitis, cellulitis or significant edema. There is no skin breakdown or decubitus formation. Patient is neurologically intact, can move everything and appears to be completely lucid and surprisingly good spirits considering his horrible situation. LABORATORIES: Include a white count of 10,000 which is really unchanged when he went home three days ago. There are 76% segs otherwise normal diff. Creatinine is 0.88. His LFTs basically normal. Procalcitonin was 0.2 and 0.1 when he was here at the end of last week. It is now 0.08. Urinalysis negative. Serologic studies include urine Legionella that was done last week and that was negative. Other micro studies include a sputum culture which grew MRSA last week and that was a standard MRSA resistant to clindamycin susceptible to all other standard agents. Also during the admission last week, he had a negative urine pneumococcal antigen and negative blood cultures. The flu screen was positive though back on the and we also have a sputum from June when I saw him during his June admission and it grew Pseudomonas aeruginosa. IMAGING: Today includes a chest x-ray which is read as clear, shockingly. The chest x-rays done during his last admission were also read as clear. IMPRESSION: At this point, I think the patient has the head and neck cancer with associated chronic obstructive pulmonary disease and terrible problems clearing secretions in and around his trach. I doubt that he has any infection as we have a clear chest x-ray, negative procalcitonins and an uninspiring white blood count. There is also no history of fevers, chills or sweats or any purulent sputum but rather just thin sputum which tends to harden into concrete-like secretions he must work with. It is possible the patient has a MRSA tracheobronchitis, I suppose, though that is a questionable diagnosis as it lacks any sort of good diagnostic criteria. RECOMMENDATIONS: 1. Will continue with his current antibiotics at least overnight. 2. A repeat procalcitonin will be ordered in the morning. 3. If the patient is doing well in the morning, I would be inclined to stop his antibiotics but I will come by and have a look at him. 4. I note that there are discussions in the chart about involving hospice, and I think that may be pretty relevant in this patient who has been admitted now 3 times in one month because of respiratory difficulties.
[2016-08-02] MEDS ORDERED: 0.9% Sodium Chloride 250 ML ONE (20:39)
[2016-08-02] MEDS: Fluticasone-Salmeterol 100-50 Inhaler INHALATION SCH (20:52)
[2016-08-02] MEDS: Acyclovir 400 mg Tablet PO SCH (20:53)
[2016-08-02] MEDS: Linezolid Inj 600 MG in IV Premix 1 EACH IV SCH (20:53)
[2016-08-03] VITALS (13 sets, daily range): BP systolic 127–167; BP diastolic 73–95; PULSE 77–136; RESP 20–30; O2SAT 89–100
[2016-08-03] MEDS: Albuterol-Ipratropium 3 mL Inhalation Solution NEB SCH ×6 (00:49→19:50)
--- NOTE | 2016-08-03 00:53 | NUR ---
DEEP SUCTIONED PT USING STERILE PROCEDURE. MODERATE AMOUNT OF [employer]NA[employer]OUS SECRETIONS WITH A FOUL ODOR.
--- NOTE | 2016-08-03 04:43 | NUR ---
Respiratory / communication Aerosol O2 per trach, pt manages placement. Nebs and deep suction as needed by RT; reports thick, tenacious secretion which smell "like psuedamonas." Pt able to communicate needs, appreciates pen and paper at bedside. Denies pain. Unstable on feet, david alarm on for safety. Hourly rounding ongoing. Addendum: 08/03/16 at 0512 by JOANIE CARSON RN Tolerating PEG tube feed.
--- NOTE | 2016-08-03 04:45 | NUR ---
Respiratory In prep for suctioning, staff moved humidified oxygen tubing and small amount of accumulated sterile water entered stoma. RT was at beside and able to immediately provide sterile deep suction. No immediate adverse effect, will continue to follow for fevers and aspiration.
[2016-08-03 05:59] LABS: BASOPHILS % (AUTO) 0.4 % (0-3); EOSINOPHILS % (AUTO) 5.1 % (0-5); MONOCYTES % (AUTO) 11.9 % (4-12); Mean Corpuscular Volume 98.8 fL (81-100); NEUTROPHILS % (AUTO) 72.1 % (40-74); Platelet Count 143 bil/L (150-400)
[2016-08-03] MEDS: Lansoprazole 30 mg ODTablet PEG SCH (06:02)
[2016-08-03 06:07] LABS: INR 2.23 ratio
[2016-08-03 06:09] LABS: Magnesium 2.3 mg/dL (1.6-2.6); Phosphorus 2.7 mg/dL (2.5-4.9)
[2016-08-03] MEDS: Fluticasone-Salmeterol 100-50 Inhaler INHALATION SCH (08:30)
--- NOTE | 2016-08-03 08:56 | PCM.PHAPRO ---
Progress Increasing respiratory secretions, dyspnea Date -Aug 03-Jul INR 1.95 2.23 INR change 0.28 Warf Dose 5 5 Rigo Louie Aug 03, 2016 08:56
[2016-08-03] MEDS: Linezolid Inj 600 MG in IV Premix 1 EACH IV SCH (09:02)
[2016-08-03] MEDS: Acyclovir 400 mg Tablet PO SCH ×2 (09:05→21:52)
--- NOTE | 2016-08-03 09:26 | PCM.PNMED ---
Subjective Date of Service Aug 03, 2016 Subjective Deep suctioned by respiratory therapist performed, reported thick, tenacious secretion which smell "like psuedamonas." Patient subjectively feels worse, more difficulty breathing, using abdominal muscles for breathing, wheezy this morning She was seen by ID Exam Vital Signs Vital Sign - Last Date Time Temp Pulse Resp B/P Pulse Ox O2 Delivery O2 Flow Rate FiO2 08/03/16 07:56 91 08/03/16 07:28 22 99 Trach Collar 10.00 35 08/03/16 06:00 36.8 167/92 Intake and Output 08/02/16 08/02/16 08/03/16 Cumulative From/Thru 15:00 23:00 07:00 08/02/16 11:47 - 08/03/16 06:04 Intake Total 1350 ml 1350 ml Output Total 127 ml 445 ml 572 ml Balance -127 ml 905 ml 778 ml Intake Oral 0 ml 0 ml IV Total 330 ml 330 ml Tube Feeding 940 ml 940 ml Tube Irrigant 80 ml 80 ml Output Urine Total 125 ml 445 ml 570 ml Gastric Drainage Total 2 ml 0 ml 2 ml # Bowel Movements 0 0 Exam Cachectic male, distressed due to breathing, mild use of accessory muscle able to communicate yes or no, no JVD, MMM, no LAD s/p tracheostomy stoma, RRR, nl s1, s2 no mrg CTAB, no w,c S,ND,NT,normoactive BS+, s/p PEG feeding infusion in place 87cc/hr warm, no edema, pulses 2/2 IVs and Medications Medications Reviewed: Medications were reviewed in detail Lab and Diagnostics Result Diagram: 08/03/1652308/03/16523 X-Rays, CTs and MRIs PROCEDURE: X-RAY CHEST ONE VIEW, PORTABLE ([id number]) INDICATIONS: dyspnea TECHNIQUE: One view of the chest was acquired. COMPARISON: [facility], CR, XR CHEST 1VW (PORTABLE), 07/29/2016, 8: 55. FINDINGS: Surgical changes and devices: None. Lungs and pleura: No pleural effusions or pneumothorax. Lungs are clear. Mediastinum: Mediastinal contours appear normal. Heart size is normal. Bones and chest wall: No suspicious bony lesions. Overlying soft tissues appear unremarkable. IMPRESSION: No acute cardiopulmonary disease. Dictated by: Davey Choffel RRA Interpreted: Devyn Michele MD on 08/02/2016 at 13: 05 Transcribed by: SUDHIR on 08/02/2016 at 13:05 Assessment & Plan Patient is a 80-year-old male with history of tongue squamous cell carcinoma, recurrent aspiration pneumonia, COPD, atrial fibrillation on warfarin and hypothyroidism presenting with worsening SOB, increasing resp secretion. Of note pt was hospitalized with pneumonia in early June, another hospitalization with dx in 07/25-07/30(3days ago) with acute on chronic respiratory failure due to influenza A infection, pneumonia possibly pseudomonas, treated with cefepime, COPD exacerbation on steroid, acute, active Acute on chronic respiratory failure, POA, no SIRS, pt just finished cefepime 1PTA, unlikely flu/new HCAP. however, given MRSA+ on trach aspirate culture on , could contribute to sx, CXR-unremarkable. -started Linezolid q12h iv on admission, appreciate ID input, agreed on possibly non-infectious condition, although symptomatically pt is worse today, remained afebrile, good oxygenation, HD stable, no wbc/procalcitonin. -O2 supplement target>95% -duonebs q4h, alb prn q2h -deep suction q1-2h per RT -Robitussin q6 prn for secretion -given unimpressive presentation, recent tx for pseudomonas PNA, flu, would hold off on other abx, steroid for now -continue home inhalers -will send sputum culture again Chronic issues: Paroxysmal atrial fibrillation on chronic anticoagulation -Continue warfarin, dosed per pharmacy. 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 -Continue tube feeds through PEG tube Hypothyroidism. Present on admission -Continue levothyroxine 125g daily History of RLS. -Continue diazepam 5mg PRN History of shingles -Continue acyclovir 400mg BID Depression -Continue mirtazapine 15mg HS dispo:will monitor 1-2more days given persistent sx wit thick sputum, diet:PEG feeding dvt ppx:LMWH DNR/DNI, confirmed with patient and , this is the new code status previously full code. pt/ were willing to palliative care. pt can greatly be benefited from further discussion about GOC, Adv directives, possible hospice discussion given recurrent hospitalization, ordered palliative consult under [employer]: Intermittant Pneumatic CD Time spent 35 minutes Amber Ramírez MD Aug 03, 2016 09:22
--- NOTE | 2016-08-03 10:04 | NUR ---
NUTRITION ASSESSMENT: Assess: 80 yo M w/ acute on chronic respiratory failure, MRSA positive and possible pulmonary infection Pt is PEG tube dependent for his nutrition d/t head and neck cancer. He is currently NPO and per RN there is some concern for aspiration pneumonia. Pt's wt has decreased 7kg since last admit. He has had ~15kg wt loss in the last 6-8months (19% wt loss=significant). TF are currently running at goal. Fluid flushes have been increased to home regimen of 250ml Q4 hrs and TF are to run for 18hrs per home regimen from noon to 6am. RN is aware. 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 LABS: Reviewed. Glu 140 MEDICATIONS: Reviewed. Coumadin, synthroid DIET: NPO HOME NUTRITION SUPPORT: Isosource 1.5 @ 83 ml x18 hrs w/ 6 hours off during the day + 250 ml H2O flush Q 4 hrs to provide 2241 kcal/d, 101 g/d protein, and 2162 ml/d H2O. Feedings run from 8385-4903 at home. NUTRITION FOCUSED PHYSICAL ASSESSMENT: GI symptoms/stool: 0 BM recorded Skin integrity: No issues noted; Marlo: 16 Overall Appearance: Very thin man w/ tracheostomy in place - visible loss of LBM in arms, squaring in shoulders, prominent orbitals, temporal wasting, clavicles protruding. ANTHROPOMETRICS: Current Wt: 63.8kg, BMI 18.6kg/m2 IBW: 83.6 kg Recent wt changes: 15 kg wt loss x8 months (19% wt loss x6 months = significant) ESTIMATED NEEDS: COPD/wt gain Calories: 2324-0601 kcal/d (30-40 kcal/kg/d) Protein: 80-100 g/d (1.2-1.5 g/kg/d) Fluids: 1314-7147 ml/d (30-40 ml/kg/d) ADDITIONAL COMMENTS: Isosource 1.5 not on hospital formulary, Jevity 1.5 will be used instead. NUTRITION DIAGNOSIS: 1) Inability to meet nutrition needs by mouth related to squamous cell carcinoma of base of tongue as evidenced by laryngectomy, need for texture altered diet, pain during eating/swallowing, and need for enteral nutrition to meet pts needs. INTERVENTION: 1) TF's to run from 6728-8301 (18 hrs/day - overnight, 6 hrs off during the morning) 2) Recommend Jevity 1.5, continue at goal rate of 87 ml/hr x18 hrs + 250 ml q 4 hrs while pump on, to provide 2350 kcal/d, 100 g/d protein, and 2190 ml/d H2O, meeting 100% of est needs. MONITOR/EVALUATE: TF heath, Wt, GI, labs, POC, Nutrition status. Will follow per high nutrition risk guidelines.
[2016-08-03] MEDS: Fluticasone 100 mCg Inhaler INHALATION SCH ×2 (10:36→21:52)
[2016-08-03] MEDS ORDERED: Albuterol 2.5 mg/3 mL Inhalation Solution NEB ONE ×2 (11:00)
--- NOTE | 2016-08-03 11:09 | DRSVH ---
PROCEDURE: X-RAY CHEST ONE VIEW, PORTABLE ([id number]) INDICATIONS: PNA TECHNIQUE: One view of the chest was acquired. COMPARISON: [facility], CT, CT CHEST W CON, 05/25/2015, 12:19. [facility], CT, CT ANGIO CHEST PE, 07/02/2016, 10:35. [facility], CR, XR CHEST 1VW (PORTABLE), 017, 12:12. [facility], CR, XR CHEST 1VW (PORTABLE), 07/29/2016, 8:55. FINDINGS: Surgical changes and devices: None. Lungs and pleura: No pleural effusions or pneumothorax. Lungs are abnormal with pulmonary hyperexpa nsion previously present likely reflecting COPD and chronic smoking. At the left lung base there is a irregular radiodensity also seen by prior CT scan 07/02/16 potentially a malignancy or slowly resolvi ng pneumonia. This measures up to approximately 2.7 cm in maximal dimension. Mediastinum: Mediastinal contours appear normal. Heart size is normal. Bones and chest wall: No suspicious bony lesions. Overlying soft tissues appear unremarkable. IMPRESSION: COPD, presumed severe smoking history. Therefore, the area of irregular focal radiodensi ty at the left lung base has a significant potential to represent underlying malignancy. This was al so seen by CT scanning last month. Therefore, followup is definitely recommended and if the abnormal ity persists followup evaluation by nuclear medicine PET CT scanning would be recommended. This migh t, however, simply represent a low-grade persistent pneumonia at this time. Dictated by: Devyn Michele M.D. on 08/03/2016 at 11:03 Approved by: Devyn Michele M.D. on 08/03/2016 at 11:07
--- NOTE | 2016-08-03 12:25 | PROG NOTE ---
[address] [address] PROGRESS NOTE PATIENT: LISS MINER : 1935 MR#: [id number] ADMIT: 08/02/2016 JOB ID: [id number] DATE: 08/03/2016 INFECTIOUS DISEASE FOLLOWUP NOTE: REASON FOR FOLLOWUP: Head and neck cancer, respiratory failure and chronic tracheostomy. INTERVAL HISTORY: Recall that yesterday I saw the patient, with question regarding how much infection may or may not be contributing to his recent respiratory difficulties and readmission. I was not persuaded yesterday there was any evidence of pneumonia but was wondering if he could have some tracheobronchitis. Overnight, the patient's breathing has worsened, and both he and the nurse confirmed this. He is now more short of breath and having more secretions, which are making it harder and harder for him to breathe. He has no headache, no fevers, no chills, no sweats and is really producing little or nothing in the way of sputum. He denies abdominal pain. No nausea, vomiting, or diarrhea. PHYSICAL EXAMINATION: Reveals an afebrile gentleman. He continues to be afebrile, temp 36.3. Pulse 90, respiratory rate 24 to 28. He is working pretty hard to breathe, however. Blood pressure 160/95. He is on a 10 L trach collar, saturating well. The trach stoma appears benign. The lungs are notable for poor air flow and some coarse rales bilaterally. Rhonchi are also heard bilaterally. The abdomen is thin, soft and nontender with a PEG tube present. The extremities are wasted but without any acute edema or cellulitis. LABORATORIES: Include a white count of 8100. The diff is pretty normal except 5% eos. Creatinine stable at 0.84. LFT normal. Procalcitonin is an identical 0.08 on two consecutive measurements on two consecutive days. Blood cultures are negative. A sputum Gram stain and culture is pending. Recall that last week he was colonized with MRSA and also pseudomonas, and I have no reason to think that his airway is not still colonized with both of these organisms. Chest x-ray initially showed no infiltrate. A followup shows a possible small radiodensity at the left lung base which the radiologists wonder about. They state that it could be an early malignancy or some sort of localized pulmonary infection. IMPRESSION: Based on his absence of fever, normal white count, normal procalcitonin, and reassuring chest x-rays, I do not think that the patient has any underlying pneumonia. Whether or not he may have a tracheobronchitis which could, in part, be caused by pseudomonas or methicillin-resistant Staphylococcus aureus is unknown but I tend to doubt it. A short course of antibiotics would not be unreasonable, as he seems to be in real, and worsening, respiratory difficulty, which is very difficult to correct and we want to use every tool available, but I worry about an overly long course of antibiotics causing multi-drug resistance. RECOMMENDATIONS: 1. Will switch the patient off linezolid to ceftaroline for MRSA coverage, as he is on an SSRI and a combination of linezolid and the SSRI could be dangerous. 2. Will continue with the Cipro. 3. I would continue the ceftaroline and Cipro for about five days until about the 08 of August. Then, if there is not a great deal of improvement, I would simply stop both of these agents. 4. If the patient were to be transitioned to some kind a hospice care, I would stop all of his antibiotics, as I am not sanguine about any possible contribution from these and, rather, I am just trying to advance the most aggressive possible care for this very ill and very pleasant gentleman. 5. This case discussed in detail with the nurses, as well as Dr. Putnam of palliative care.
--- NOTE | 2016-08-03 12:46 | NUR ---
Palliative Care Palliative Care received order from Dr Janice Ramírez 08/02/16 (late in day) to assist with goals of care. Patient is a 80 year old man with hx of head and neck cancer, recurrent aspiration pneumonia and COPD. He's had several admissions recently for similar issues. Most recent admission was 07/25/16-07/30/16. He was readmitted 08/02/16 for care of MRSA colonization and possible pulmonary infection. Patient lives at home with his . Pat malachi () [phone], Palliative Care to follow. Анна Fall
[2016-08-03] MEDS: Ceftaroline Inj 600 MG in Dextrose 5% 250 ML IV SCH ×2 (14:11→20:34)
--- NOTE | 2016-08-03 14:22 | NUR ---
Social Work: Attempted Assessment D: Per EMR review, pt is a 80 year old male admitted for MRSA. Pt is Medicare with [employer]. PCP is Chava Kilpatrick MD. NOK is Pat Rodriguez, , . Advanced directives not on chart- PRESS ASSISTANT to follow up with pt's spouse. Pt has had three admissions over the last 5 weeks and was discharged home on 07/30/16 with his and [facility] along with resumed [facility]. Readmit score is high, 5/8. PRESS ASSISTANT attempted to meet with pt at bedside. Pt is non-verbal due to laryngectomy although is able to communicate with yes/no responses. Pt indicated to PRESS ASSISTANT that he would like PRESS ASSISTANT to complete assessment with his . not present at bedside. PRESS ASSISTANT left message for to return phone call. Per EMR review, pt is open with [facility] for Tube Feeds. Pt also discharged home on 07/30 with new [facility]. PRESS ASSISTANT spoke with Emmanuel at [facility] and provided access. PRESS ASSISTANT left message for Francesco Medina to notify of pt's admission. Access provided. Per MD at rounds, palliative care consult ordered to review goals of care. A: Pt who is I with ambulation. P: PRESS ASSISTANT to continue to attempt assessment with pt's and continue to follow for discharge planning. KASHMIR Browne
[2016-08-03] MEDS: Albuterol 2.5 mg/3 mL Inhalation Solution NEB PRN (14:27)
[2016-08-03] MEDS: Ondansetron 8 mg ODT Tablet PEG PRN ×2 (14:36→18:46)
--- NOTE | 2016-08-03 14:51 | PCM.CONPAL ---
Date of Service Aug 03, 2016 Date of Hospital Admission: Aug 02, 2016 at 15:10 Date of Palliative Consult: Aug 03, 2016 Requesting Provider: Amber Ramírez MD Comment: Oncologist Dr. Martinez Reason Palliative Care Consult: Goals of Care Discussion Hospital Unit @time of consult: Orthopedic/Surgical Care Palliative Care Recommendation Summary of palliative recommendations: -Symptom management (Pain/other) Dyspnea-chronic but getting worse. He does not follow with pulm. He knows he has metastatic nodules in lungs. Has dx of at least moderate COPD. consider trial of prednisone but Dr. Martinez would like to postpone this decision pending CT scan Reviewed with Dr. Martinez who raised concern of possible interstitial lung disease from his immunotherapy. He may also be developing progressive lung disease with time as well as with recurrent aspiration. Dr. Martinez requested CT scan with contrast of chest to evaluate above. Nausea-some chronic component. Details are unclear. Would need more discussion with his . Definite concern with progressive weight loss despite ongoing feeding. Some reassurance with normal CT chest abdomen and pelvis in April. Consider use of Olanzapine 2.5-5 mg in PM for nausea and may help sleep. GOC-he would like most of this discussion to go through his . He is quite definite at not wanting CPR/ intubation etc. He continues to follow with Dr. Martinez will need to decide regarding his immunotherapy. -DPOA/Advanced Directives/POLST--DNR/DNI--will need to complete POLST before discharge. Will attempt to do this with his present if possible -Family/emotional support--primary caregiver is his . -Spiritual support Patient Goals: 1. He wants to be told the truth about his/her illness, even if it is unpleasant. 2. He would like to be told prognosis when it can be predicted, to better guide treatment decisions. 3. Patient would choose quality of life over quantity of life, and defines quality as being at home and not a NH. Problems: End of Life Preferences DNR/DNI- Disposition TBD Resuscitation Status Resuscitation Status: DNR/DNI:Do Not Resuscitate/Intubate POLST Updates/Changes Artificially Admin Nutrition: Long-Term Nutrition by Tube Feeding . Pain: Mild Symptom management: Nausea, Dyspnea Pt History History of Present Illness Patient is a 80-year-old male with history of tongue squamous cell carcinoma, recurrent aspiration pneumonia, COPD, atrial fibrillation on warfarin and hypothyroidism presenting with worsening SOB, increasing resp secretion. Of note pt was hospitalized with pneumonia in early June, another hospitalization with dx below in 07/25-07/30(3days ago) 1. Acute on chronic hypoxic respiratory failure, present on admission. Improved 2. Influenza A, present on admission. - Post treatment with Tamiflu. 3. Possible ongoing pneumonia vs colonization, present on admission. 4. Acute COPD exacerbation, present on admission. Improved. 5. Mildly elevated Troponin, without any reported chest pain. Present on admission. Likely acute demand ischemia from presenting acute hypoxic respiratory failure. 6. Possible acute thrush. present on admission. improving Since patient was discharged 3 days ago from the hospital, since then, amount of secretion was increased, rather thin, white but dried up in trach so made him hard to breath, required suction every 1 hour, pt could not cough up secretions at baseline. pt finished cefepime last dose yesterday, continued cipro via PEG. pt also tolerated PEG feeding at goal 87cc/hr, had loose stools on 07/30,07/31 but no BM for 2days. Pt denied fever, chills, abdominal pain, nausea, vomiting, has baseline frequent urination-didn't notice smelly, cloudy urine. In ED, VSS [id number], 82, tachypneic to 25, afebrile, 95% on RA, noticed MRSA+ on trach aspirate culture on 07/27, ED provider consulted , recommended IV linezolid. 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 PALLIATIVE CARE NOTE: Hx taken from records, Dr. Martinez and patient. His had to return to work. 80 yo patient followed by Dr. Martinez with [facility] of his tongue with known metastatic ds to his lungs who had surgical excision and has been on immunotx since 2014. He has known COPD with last PFT's noting moderate ds in 2010. He has hx of recurrent aspiration, tracheostomy with PEG tube for nutrition and hydration and takes no food or fluids by mouth. His last imaging of his chest 07/02/16 noted decrease in size of his pulm nodules but also a new nodule was noted. CXR yesterday and today- no mello infiltrate but today ? mass. He has had multiple hospitalizations including pneumonia in early Jun and then 07/25- for respiratory distress, influenza A and + MRSA. 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 He has been treated recently with cipro with no change in his sx at [address] Martinez has tried OP antibiotics- keflex, and doxy for purulent sputum initially seeming to help-- then not. Patient admits to ongoing weight loss despite ongoing tube feeding. He denies pain. Is weak but can ambulate around room without assistance. 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 1st pulm met noted feb 2014 Afib on Coumadin PEG Aspiration PNA Prostate cancer COPD-last PFT 2010- moderate ds HTN Hypothyroidism Shingles-he is unsure about this RLS esophageal stenosis with dilation Surgical History Total laryngectomy and tracheostomy PET feeding tube insertion Radiation for tongue cancer hernia repairs Family History Father with MN in 80s Grand mother with DM2 Mother of lung CA in 's Social History Hx Alcohol Use: No Hx Substance Use: No Hx Tobacco Use: Yes (35+ ppd) Smoking Status: Former Smoker Living Arrangement: with Family Social History Occupation: retired bodaplanes Living Situation: lives with his Pat Responsive Patient Symptoms Pain (current): Mild Tiredness/Fatigue: Moderate Nausea: Moderate Anorexia: Moderate Shortness of Breath: Moderate Palliative Performance Scale PPS Ambulation: Reduced, Mainly Sit/Lie PPS Activity: Unable to do any work, Unable to do most activity PPS Self-Care: Occasional assistance necessary, Considerable assistance required PPS Intake: Normal or reduced PPS Conscious Level: Full or confusion Performance Scale: 50% Allergy Allergies Reviewed: Yes Medications Current Medications: Current Medications Enoxaparin Sodium 40 mg DAILY SUBQ; Start 08/03/16 at 08:30; Status UNV Albuterol/ Ipratropium 3 ml Q4 NEB Last administered on 08/03/16t 07:28; Admin Dose 3 ML; Start 08/02/16 at 16:30 Guaifenesin 200 mg 200 mg Q6H PRN PO; Start 08/02/16 at 14:00; Stop 08/02/16 at 16:21; Status DC Linezolid/Premix 300 ml @ 300 mls/hr Q12 IV Last administered on 08/03/16 09: 02; Admin Dose 300 MLS/HR; Start 08/02/16 at 20:30; Stop 08/03/16 at 11:51; Status DC Acyclovir 400 mg BID PO Last administered on 08/03/16 09:05; Admin Dose 400 MG ; Start 08/02/16 at 20:30 Salmeterol Xinafoate/ Fluticasone 1 puff BID INHALATION Last administered on 08/02 20:52; Admin Dose 1 PUFF; Start 08/02/16 at 20:30; Stop 08/03/16 at 09:25; Status DC Ciprofloxacin 500 mg BID PEG Last administered on 08/03/16 09:05; Admin Dose 500 MG; Start 08/02/16 at 20:30 Diazepam 5 mg HS PRN PEG; Start 08/02/16 at 15:15 Fluconazole 100 mg DAILY PEG Last administered on 08/03/16 09:05; Admin Dose 100 MG; Start 08/03/16 at 08:30 Levothyroxine Sodium 137 mcg 0630 PO Last administered on 08/03/16 06:02; Admin Dose 137 MCG; Start 08/03/16 at 06:30 Mirtazapine 15 mg HS PEG Last administered on 08/02/16 20:53; Admin Dose 15 MG; Start 08/02/16 at 21:00 Lansoprazole 30 mg 0630 PEG Last administered on 08/03/16 06:02; Admin Dose 30 MG; Start 08/03/16 at 06:30 Polyethylene Glycol 17 gm prn PRN PEG; Start 08/02/16 at 15:15 Diltiazem HCl 30 mg QID PEG Last administered on 08/03/16 14:11; Admin Dose 30 MG; Start 08/02/16 at 16:30 Ondansetron HCl 8 mg BID PRN PEG Last administered on 08/03/16 14:36; Admin Dose 8 MG; Start 08/02/16 at 15:50 Pharmacy Consult 1 ea DAILY@17 XX; Start 08/02/16 at 17:00 Warfarin Sodium 5 mg DAILY@17 PO Last administered on 08/02/16 18:12; Admin Dose 5 MG; Start 08/02/16 at 17:00; Stop 08/02/16 at 17:01; Status DC Guaifenesin 200 mg Q6H PRN PEG Last administered on 08/02/16 20:53; Admin Dose 200 MG; Start 08/02/16 at 16:21 Albuterol 2.5 mg Q2 PRN NEB Last administered on 08/03/16 14:27; Admin Dose 2.5 MG; Start 08/03/16 at 08:10 Fluticasone Propionate 1 puff 1 puff BID INHALATION; Start 08/03/16 at 10:36 Ceftaroline Fosamil/Dextrose/ Water 250 ml @ 250 mls/hr Q12 IV Last administered on 08/03/16 14:11; Admin Dose 250 MLS/HR; Start 08/03/16 at 11:50 ; Stop 08/08/16 at 11:51 Scheduled Acyclovir (Acyclovir) 400 Mg Tablet 400 MG PEG BID Budesonide/Formoterol 80-4.5 mcg Inh (Symbicort 80-4.5 mcg Inh) 120 Puff/10.2 Gm Inhaler 2 PUFF IH BID Ciprofloxacin (Ciprofloxacin) 500 Mg Tablet 500 MG PEG BID Diltiazem ER (Taztia XT) 120 Mg Capsule.er 120 MG PEG DAILY Fluconazole (Diflucan) 100 Mg Tab 100 MG PEG DAILY Levothyroxine (Levothyroxine) 137 Mcg Tablet 137 MCG PEG DAILY Mirtazapine (Mirtazapine) 15 Mg Tablet 15 MG PEG HS Pantoprazole DR (Pantoprazole DR) 20 Mg Tablet. 20 MG PEG DAILY Tiotropium [place] (Spiriva) 18 Mcg Cap.w.dev 1 PUFF IH DAILY Warfarin Sodium (Warfarin Sodium) 5 Mg Tablet 5 MG PEG HS Scheduled PRN Albuterol Neb Soln (Albuterol Neb Soln) 2.5 Mg/3 Ml Vial.neb 2.5 MG IH QID PRN PRN For Wheezing Diazepam (Valium) 5 Mg Tablet 5 MG PEG HS PRN PRN For Restlessness Ondansetron (Ondansetron) 8 Mg Tablet 8 MG PEG BID PRN PRN For Nausea crush, given through g-tube Polyethylene Glycol 3350 (Polyethylene Glycol 3350) 17 Gm Powd.pack 17 GM PEG prn PRN PRN For Constipation Objective Findings Exam Vital Sign - Last Date Time Temp Pulse Resp B/P Pulse Ox O2 Delivery O2 Flow Rate FiO2 08/03/16 14:28 136 22 89 Room Air 08/03/16 10:45 10.00 35 08/03/16 09:56 36.3 160/95 Intake and Output 08/02/16 08/02/16 08/03/16 Cumulative From/Thru 15:00 23:00 07:00 08/02/16 11:47 - 08/03/16 06:04 Intake Total 1350 ml 1350 ml Output Total 127 ml 445 ml 572 ml Balance -127 ml 905 ml 778 ml Intake Oral 0 ml 0 ml IV Total 330 ml 330 ml Tube Feeding 940 ml 940 ml Tube Irrigant 80 ml 80 ml Output Urine Total 125 ml 445 ml 570 ml Gastric Drainage Total 2 ml 0 ml 2 ml # Bowel Movements 0 0 Objective Moderate respiratory effort with some wheezing General: Alert/Oriented x3 HEENT: Other (trach port. uses phonic augmentor with talking but mosting mouths words-fair at communication) Lungs: Wheezes Abdomen: Soft Neuro: Follows Commands, Other (was up side of bed.) Extremities: No Edema Lab/Diagnostics Lab and Imaging results reviewed in detail in EMR. NL CBC and CMP with proBNP [id number] CXR neg-- see above Patient/Family Conference Members Present Family Members Present pt Medical Team Members Present? Terrance SHAHID PC and Magnus Moreno MS4 Discussion/Goals of Care Discussion FAMILY UNDERSTANDING OF DISEASE: He understands his challenges with sx of SOB and ongoing weight loss He asked yesterday to be DNR/DNI. He then told Dr. Stockton he hadn't thought of this. He confirms to be DNR/DNI-he is not interested in intubation. He recognizes general decline and weakening. He does not engage in much ongoing discussion--asking if we would go over it with his . Left msg with his on phone DISEASE PROGRESSION/EVIDENCE OF DECLINE: SYMPTOM BURDEN: weight loss-unable to quantify but states "a lot". , respiratory distress and by hx some confusion. GOALS: He only wants to go home Time spent Total time [ ] minutes; >50% face to face with patient and/or family, providing counselling regarding plans and recommendations, and in care coordination with his/her medical teams. I also spent an additional [ ] minutes counseling for advanced care planning with the patient/the patients family/the surrogate decision maker. Trini Putnam MD Aug 03, 2016 14:51
--- NOTE | 2016-08-03 16:19 | NUR ---
Respiratory Patient with respiratory distress at times, increased secretions causing increased shortness of breath and very wet gurgling sounds from trachea. Pt with open tracheotomy so deep suctioning performed by respiratory therapist fairly frequently . Pt with nausea and small amount emesis noted . 02-10 liters via trach mask . states patient has declined since admission. Dr did speak with regarding plan of care.
--- NOTE | 2016-08-03 20:28 | NUR ---
respiratory / nausea patient cont to be nauseous. zofran given just prior to 1900. reports nausea has been a chronic issue. patient with dry heaves at times. peg tube without residual. no bm since 07/31 per report. plan to give miralax. increased work of breathing. rr 28-30/ 97% on 35% fi02. 10 liters trach collar. RT to bedside. given albuterol neb. patient's breath sounds are coarse but dry. encouraged patient to keep the trach collar next to the tracheotomy Addendum: 08/03/16 at 2031 by JAQUAN MELO RN notified Dr Woodward of above. no orders received at this time. care ongoing.
[2016-08-04] VITALS (13 sets, daily range): BP systolic 149–181; BP diastolic 86–102; PULSE 87–116; RESP 18–32; O2SAT 95–98
[2016-08-04] MEDS: Albuterol-Ipratropium 3 mL Inhalation Solution NEB SCH ×6 (00:03→19:51)
--- NOTE | 2016-08-04 02:34 | NUR ---
respiratory patient resting comfortably. rr even and regular. no distresss. occasional coughing, no need for deep suctioning at this time. care ongoing.
--- NOTE | 2016-08-04 02:57 | NUR ---
non compliance - fall risk patient found edging to side of bed trying to stand up. both bed alarms on, but not alarming. patient 2 person assist to stand. unable to void in urinal incontinent of urine. changed pants and pullups. changed linen. small stool. placed back in bed. hob at 40 degrees. patient's eyes are closed. bed alarms on, shade up. door open. charting outside of room.
[2016-08-04 05:34] LABS: BASOPHILS % (AUTO) 0.2 % (0-3); EOSINOPHILS % (AUTO) 4.9 % (0-5); MONOCYTES % (AUTO) 14.7 % (4-12); Mean Corpuscular Hemoglobin 31.9 pg (27.0-35.0); Mean Corpuscular Volume 99.5 fL (81-100); NEUTROPHILS % (AUTO) 68.9 % (40-74); Platelet Count 131 bil/L (150-400)
[2016-08-04 05:42] LABS: INR 2.87 ratio
[2016-08-04 05:48] LABS: Magnesium 2.3 mg/dL (1.6-2.6); Phosphorus 2.8 mg/dL (2.5-4.9)
[2016-08-04] MEDS: Lansoprazole 30 mg ODTablet PEG SCH (06:46)
--- NOTE | 2016-08-04 07:30 | PCM.PHAPRO ---
Progress Increasing respiratory secretions, dyspnea RPh TST RTM RTM Date Aug 03-Aug 04-Jul INR 1.95 2.23 2.87 INR change 0.28 0.64 Warf Dose 5 5 2 Rigo Louie Aug 04, 2016 07:30
[2016-08-04] MEDS: Fluticasone 100 mCg Inhaler INHALATION SCH ×2 (09:29→22:12)
[2016-08-04] MEDS: Acyclovir 400 mg Tablet PO SCH ×2 (09:31→22:13)
[2016-08-04] MEDS: Ceftaroline Inj 600 MG in Dextrose 5% 250 ML IV SCH ×2 (09:31→22:14)
--- NOTE | 2016-08-04 12:44 | PCM.PNMED ---
Subjective Date of Service Aug 04, 2016 Subjective pt looked still weak, but less tachypneic, reported large amount of expectoration made him breath better still on 12liters on Trach collar, standing neb tx. getting chest/neck CT today family/pt agreed on hospice per Exam Vital Signs Vital Sign - Last Date Time Temp Pulse Resp B/P Pulse Ox O2 Delivery O2 Flow Rate FiO2 08/04/16 12:31 102 32 96 Room Air 08/04/16 08:44 10.00 35 08/04/16 05:02 179/102 08/04/16 02:23 36.8 Intake and Output 08/03/16 08/03/16 08/04/16 Cumulative From/Thru 15:00 23:00 07:00 08/02/16 11:47 - 08/04/16 05:47 Intake Total 0 ml 1255 ml 2605 ml Output Total 450 ml 75 ml 1097 ml Balance -450 ml 1180 ml 1508 ml Intake Oral 0 ml 0 ml 0 ml IV Total 250 ml 580 ml Tube Feeding 770 ml 1710 ml Tube Irrigant 235 ml 315 ml Output Urine Total 450 ml 75 ml 1095 ml Gastric Drainage Total 2 ml # Voids 3 2 5 # Bowel Movements 0 Exam Cachectic male, comfortable-looking able to communicate yes or no, no JVD, MMM, no LAD s/p tracheostomy stoma, RRR, nl s1, s2 no mrg coarse BS, mildly crackles bilaterally S,ND,NT,normoactive BS+, s/p PEG feeding infusion in place 87cc/hr warm, no edema, pulses 2/2 IVs and Medications Medications Reviewed: Medications were reviewed in detail Lab and Diagnostics Result Diagram: 08/04/16 0456 08/04/16 0456 X-Rays, CTs and MRIs PROCEDURE: X-RAY CHEST ONE VIEW, PORTABLE ([id number]) INDICATIONS: dyspnea TECHNIQUE: One view of the chest was acquired. COMPARISON: [facility], CR, XR CHEST 1VW (PORTABLE), 07/29/2016, 8: 55. FINDINGS: Surgical changes and devices: None. Lungs and pleura: No pleural effusions or pneumothorax. Lungs are clear. Mediastinum: Mediastinal contours appear normal. Heart size is normal. Bones and chest wall: No suspicious bony lesions. Overlying soft tissues appear unremarkable. IMPRESSION: No acute cardiopulmonary disease. Dictated by: Davey Willams RRA Interpreted: Devyn Michele MD on 08/02/2016 at 13: 05 Transcribed by: SUDHIR on 08/02/2016 at 13:05 Assessment & Plan Patient is a 80-year-old male with history of tongue squamous cell carcinoma, recurrent aspiration pneumonia, COPD, atrial fibrillation on warfarin and hypothyroidism presenting with worsening SOB, increasing resp secretion. Of note pt was hospitalized with pneumonia in early June, another hospitalization with dx in 07/25-07/30(3days ago) with acute on chronic respiratory failure due to influenza A infection, pneumonia possibly pseudomonas, treated with cefepime, COPD exacerbation on steroid, acute, active Acute on chronic respiratory failure, POA, no SIRS, pt just finished cefepime 1PTA, unlikely flu/new HCAP. however, given MRSA+ on trach aspirate culture on , could contribute to sx, CXR-unremarkable. -started Linezolid q12h iv on admission, changed to Ceftaroline per ID, appreciate ID input, -O2 supplement target>95% -duonebs q4h, alb prn q2h -deep suction q1-2h per RT -Robitussin q6 prn for secretion -given unimpressive presentation, recent tx for pseudomonas PNA, flu, would hold off on other abx, steroid for now -continue home inhalers -will send sputum culture again #History of metastatic squamous cell cancer of the tongue, currently on immuno tx per -plan is to get neck/chest CT with contrast to determine extent of disease, possibility of further treatment option, -appreciate , input, pt currently agreed on hospice Chronic issues: Paroxysmal atrial fibrillation on chronic anticoagulation -Continue warfarin, dosed per pharmacy. -Continue home diltiazem 120mg ER daily Hypothyroidism. Present on admission -Continue levothyroxine 125g daily History of RLS. -Continue diazepam 5mg PRN History of shingles -Continue acyclovir 400mg BID Depression -Continue mirtazapine 15mg HS dispo:likely hospice early next week, diet:PEG feeding dvt ppx:LMWH DNR/DNI, appreciate Palliative input VTE Mechanical Devices: Intermittant Pneumatic CD Resuscitation Status: DNR/DNI:Do Not Resuscitate/Intubate Time spent 35min Amber Ramírez MD Aug 04, 2016 12:44
--- NOTE | 2016-08-04 13:37 | PCM.PALLBR ---
Palliative Care Recommendation Summary of palliative recommendations: 08/04/16 in discussion with patient and his decision is to proceed with chest CT. We will give trial of olanzapine 2.5 mg at HS for sleep and nausea. Hopefully they can have time with Dr. aMrtinez next week to review the discontinuation of the immunotherapy which at this point Dr. Martinez and patient / agree on. His believes she is too weak to proceed with any consideration for chemotherapy. She is interested in engaging hospice if Dr. Martinez agrees with the goals of care at that point comfort only. She is well versed in role of hospice. -Symptom management (Pain/other) Dyspnea-chronic but getting worse. He does not follow with pulm. He knows he has metastatic nodules in lungs. Has dx of at least moderate COPD. consider trial of prednisone but Dr. Martinez would like to postpone this decision pending CT scan Reviewed with Dr. Martinez who raised concern of possible interstitial lung disease from his immunotherapy. He may also be developing progressive lung disease with time as well as with recurrent aspiration. Dr. Martinez requested CT scan with contrast of chest to evaluate above. Nausea-some chronic component. Details are unclear. Would need more discussion with his . Definite concern with progressive weight loss despite ongoing feeding. Some reassurance with normal CT chest abdomen and pelvis in April. Consider use of Olanzapine 2.5-5 mg in PM for nausea and may help sleep. GOC-he would like most of this discussion to go through his . He is quite definite at not wanting CPR/ intubation etc. He continues to follow with Dr. Martinez will need to decide regarding his immunotherapy. -DPOA/Advanced Directives/POLST--DNR/DNI--will need to complete POLST before discharge. Will attempt to do this with his present if possible -Family/emotional support--primary caregiver is his . -Spiritual support-- raised Episcopalian but not involved in any mosque more oriented to andreafski holistic spiritual approach. Some challenges with Pat's sister who is in [employer] in finding common ground Problems: End of Life Preferences DNR/DNI- Goals of Care Considering hospice at discharge Disposition Home at discharge Resuscitation Status Resuscitation Status: DNR/DNI:Do Not Resuscitate/Intubate POLST Updates/Changes Artificially Admin Nutrition: Long-Term Nutrition by Tube Feeding POLST Discussed with: Patient, Spouse/Other . Pain: None Symptom management: Nausea, Dyspnea, Delirium Total time 50 minutes; >50% face to face with patient and/or family, providing counselling regarding plans and recommendations, and in care coordination with his/her medical teams. Almost complete session in discussion with and establishing goals of care as well as review of treatment plan I also spent an additional [ ] minutes counseling for advanced care planning with the patient/the patients family/the surrogate decision maker. copies to: Chava Kilpatrick MD; Paulie Martinez MD Palliative Brief Note Date of Service Aug 04, 2016 . 80-year-old patient followed by Dr. Kilpatrick and Juan with known metastatic squamous cell CA of the tongue. Patient was seen earlier now seen with his for more complete discussion. His Pat has a lot of medical expertise having been MA [employer] and information technology security analyst and having cared for her father as he with esophageal CA dying June 2012. Her was diagnosed with his tongue CA in September 2012 and her mother finally succumbed to complications of CVA in April 2013. His history is reviewed with his . He has had 2 bouts of full goal radiation therapy to isolated lung lesions. He has known COPD. It seemed that some of his pulmonary function worsened with she is radiation therapies but also that he has significant increase in symptoms following his dosing of immunotherapy. He had a complete laryngectomy due to 3 bouts of aspiration pneumonia between October and December 2013 with a goal of preventing further aspiration. He had a breakdown of his original surgical area 2 weeks later which required grafting and hyperbaric treatments She also functions as a caregiver for her 6-year-old granddaughter which she and her have adopted. Further discussion regarding course of illness-- Pat relates that they have been discussing their goals of care. They both are aware of progression of debility continued weight loss intolerance of increase in PEG tube feeding chronic nausea increasing weakness as well as progressive nocturnal confusion. The confusion was intermittent over the past 6 months but since June has been almost nightly. He has been independent enough to get up and go to the bathroom but now at night forgets to disconnect his feeding tube, gets confused as to where to urinate etc. her sleep is becoming more and more disrupted. She has some assistance from her sister who comes down from [place] to help. She is trying to keep her flower shop business going. Her main concern is seeing his progression and knowing that they are losing the anaya. At times he can accept this and other times seems surprised. Progressive weight loss at onset of cancer weight was approximately 190 went down to 146 with surgery and radiation but improved after PEG tube placed and time up to the 160s. He is now at 140.5 and she states continuing to lose. He is now on continuous pump feed for 18 hours a day. Has been having more problems with constipation. Ongoing nausea. Trini Putnam MD Aug 04, 2016 13:37
--- NOTE | 2016-08-04 15:21 | DRSVH ---
PROCEDURE: CT NECK/CHEST W CONTRAST ([id number]) INDICATIONS: r/o metastasis TECHNIQUE: After the administration of intravenous contrast, 3 mm thick sections acquired from the skull base to the thoracic inlet, with additional 3 mm thick oblique sections through the pharynx and 3 mm thick c oronal reformats. 5 mm thick axial sections acquired from the pulmonary apices to the posterior cost ophrenic angles, with 7 mm thick coronal and sagittal MIP reformats. For radiation dose reduction, t he following was used: automated exposure control, adjustment of mA and/or kV according to patient s ize. COMPARISON: [facility], CT, NECK/CHEST W CONTRAST(PNL), 09/08/2014, 14:59. [facility], CR, XR CHEST 1VW (PORTABLE), 08/03/2016, 10:22. [facility], CR, XR CHEST 1VW ( PORTABLE), 07/25/2016, 19:05. [facility], CT, CT NECK CHEST W CON, 01/12/2016, 10:59. [facility], CT, CT NECK CHEST ABD PELVIS W CON, 04/26/2016, 12:03. FINDINGS: Image quality: Excellent. NECK: Lymph nodes: No enlarged nodes seen throughout the neck. Vessels: Visualized vasculature appears patent. Neck spaces: Extensive neck dissection including laryngectomy and tracheostomy is redemonstrated. Enh ancing soft tissue fullness is redemonstrated along the right aspect of the oropharynx (series 8, douglas ge 23). Soft tissue fullness along the inferior margin of the right mandible is unchanged as well. Ot her findings to suggest tumor recurrence. Glands: The parotid and submandibular salivary glands are normal in size and enhancement. Thyroid g land is not visualized and may be surgically absent. Miscellaneous: Visualized inferior brain enhances normally. Orbits appear normal. Superficial soft tissues appear normal. Visualized sinuses and mastoids are clear. CHEST: Motion artifact somewhat limits evaluation of the chest. Lungs and pleura: Radiation scarring is redemonstrated at the medial right apex. There is moderate to severe centrilobular emphysema with an apical predominance. Submillimeter patchy nodular radiopaciti es are present within the lateral aspect of the right upper lobe and the superior segment of the righ t lower lobe. These are new when compared with the study dated 04/26/16 and have an appearance suspic ious for aspiration or infection. The nodular airspace opacities within the medial basal segment of t he right lower lobe are decreased in conspicuity suggesting resolving infection or aspiration. There is a new spiculated 2.0 x 2.3 cm mass within the lateral aspect of the left lower lobe suspicious for pulmonary metastasis. The spiculated mass within the anterior aspect of the left lower lobe is redem onstrated but somewhat difficult to visualize given motion artifact. This measures approximately 8 mm in length on the current study and measured 12 mm on the study dated 04/26/16. Mediastinum: Heart size is normal. No pericardial effusion. No mediastinal or hilar adenopathy by size criteria. Thoracic aorta and central pulmonary arteries are normal in size. Dense atheromatous calcifications are present throughout the thoracic aorta. Esophagus is normal in caliber. No hiatal hernia. Chest wall: No axillary or supraclavicular adenopathy by CT size criteria. Bones: No suspicious bony lesions. Abdomen: Visualized upper abdominal solid organs and bowel loops appear unchanged from prior studies . IMPRESSION: 1. Probable stable enhancing soft tissue within the right oropharynx which is slightly better visuali zed on the current study as described above. 2. No findings within the head and neck to suggest tumor recurrence. 3. New left lower lobe pulmonary mass suspicious for pulmonary metastasis as described above. Differe ntial considerations include infection. 4. Slight decrease in the size of the anterior left lower lobe spiculated nodule when compared with t he prior study. 5. Patchy pulmonary opacities within the right upper and lower lobes suspicious for aspiration or inf ection. Multifocal pulmonary metastasis could also be considered. 6. Extensive aortic atherosclerosis. Dictated by: Missy Mendiola M.D. on 08/04/2016 at 14:56 Approved by: Missy Mendiola M.D. on 08/04/2016 at 15:19
[2016-08-04] MEDS: Ondansetron 8 mg ODT Tablet PEG PRN ×2 (15:34→23:19)
--- NOTE | 2016-08-04 17:35 | NUR ---
Nausea Patient has reported mild nausea this afternoon, 8mg Zofran via PEG tube was effective in controlling. tube feed showed no residual at time of reported nausea. Denies pain or discomfort. patient able to make needs known. continue to monitor.
[2016-08-04] MEDS: OLANZapine Zydis ODT 5 mg Tablet PO SCH (22:13)
[2016-08-04] MEDS: Albuterol 2.5 mg/3 mL Inhalation Solution NEB PRN (22:20)
[2016-08-05] VITALS (17 sets, daily range): BP systolic 132–178; BP diastolic 67–95; PULSE 88–105; RESP 16–26; O2SAT 91–99
[2016-08-05] MEDS: Albuterol-Ipratropium 3 mL Inhalation Solution NEB SCH ×7 (00:57→23:54)
--- NOTE | 2016-08-05 06:30 | NUR ---
Nausea and Zofran Patient reported nausea. Order for Zofran (orally disintegrating) available. Asked if the Zofran was given via PEG tube or under tongue (patient is NPO). stated that he has received it both ways. Since he does not have any difficulty taking the Zofran under the tongue I suggested that the medication would be more effective taken sublingually than via PEG tube. Also advised that we could request the route be changed to IV Push if taking the Zofran under the tongue becomes problematic.
[2016-08-05] MEDS: Lansoprazole 30 mg ODTablet PEG SCH (07:08)
[2016-08-05 07:53] LABS: BASOPHILS % (AUTO) 0.2 % (0-3); EOSINOPHILS % (AUTO) 3.3 % (0-5); MONOCYTES % (AUTO) 9.6 % (4-12); Mean Corpuscular Hemoglobin 32.1 pg (27.0-35.0); NEUTROPHILS % (AUTO) 81.2 % (40-74); Platelet Count 144 bil/L (150-400)
[2016-08-05 07:56] LABS: INR 3.39 ratio
[2016-08-05 08:08] LABS: Magnesium 2.3 mg/dL (1.6-2.6); Phosphorus 2.8 mg/dL (2.5-4.9)
[2016-08-05] MEDS: Ceftaroline Inj 600 MG in Dextrose 5% 250 ML IV SCH ×2 (08:53→20:23)
[2016-08-05] MEDS: Acyclovir 400 mg Tablet PO SCH ×2 (09:00→20:24)
[2016-08-05] MEDS: Fluticasone 100 mCg Inhaler INHALATION SCH ×2 (09:00→20:23)
--- NOTE | 2016-08-05 09:07 | PCM.PHAPRO ---
Progress Date of Service: Aug 05, 2016 ANTICOAGULATION MANAGEMENT BY PHARMACY -INDICATION: AFIB -HOME DOSE: 5 MG -CONCURRENT ANTICOAGULATION: NONE -COAG TRENDS: -Aug 04-Aug 05-Jul 2.23 2.87 3.39 0.28 0.64 0.52 5 2 HOLD PLAN: INR SUPRATHERAPEUTIC, WILL HOLD DOSE TONIGHT TO GET INR BACK IN RANGE Pharmacy will continue to monitor INR/CBC/signs and symptoms of bleeding Pharmacy appreciates consult and will continue to monitor. THANKS! Ade Ramirez PharmD Aug 05, 2016 09:06
--- NOTE | 2016-08-05 12:40 | PCM.PNMED ---
Subjective Date of Service Aug 05, 2016 Subjective no overnight event, still on high o2 requirement HD stable, feels similar to yesterday, denied cough, sputum seemed less distressed and less tachypneic this AM obtained chest/neck CT yesterday Exam Vital Signs Vital Sign - Last Date Time Temp Pulse Resp B/P Pulse Ox O2 Delivery O2 Flow Rate FiO2 08/05/16 12:34 98 20 95 Trach Collar 10.00 30 08/05/16 10:24 36.6 163/93 Intake and Output 08/04/16 08/04/16 08/05/16 Cumulative From/Thru 15:00 23:00 07:00 08/02/16 11:47 - 08/05/16 06:11 Intake Total 861 ml 1185 ml 4651 ml Output Total 400 ml 300 ml 1797 ml Balance 461 ml 885 ml 2854 ml Intake Oral 0 ml 0 ml 0 ml IV Total 580 ml Tube Feeding 231 ml 910 ml 2851 ml Tube Irrigant 630 ml 275 ml 1220 ml Output Urine Total 400 ml 300 ml 1795 ml Gastric Drainage Total 2 ml # Voids 5 # Bowel Movements 1 2 3 Exam Cachectic male, comfortable-looking able to communicate yes or no, no JVD, MMM, no LAD s/p tracheostomy stoma, RRR, nl s1, s2 no mrg coarse BS, mildly crackles bilaterally S,ND,NT,normoactive BS+, s/p PEG feeding infusion in place 87cc/hr warm, no edema, pulses 2/2 IVs and Medications Medications Reviewed: Medications were reviewed in detail Lab and Diagnostics Result Diagram: 08/05/16 0653 08/04/16 0456 X-Rays, CTs and MRIs PROCEDURE: X-RAY CHEST ONE VIEW, PORTABLE ([id number]) INDICATIONS: dyspnea TECHNIQUE: One view of the chest was acquired. COMPARISON: [facility], CR, XR CHEST 1VW (PORTABLE), 07/29/2016, 8: 55. FINDINGS: Surgical changes and devices: None. Lungs and pleura: No pleural effusions or pneumothorax. Lungs are clear. Mediastinum: Mediastinal contours appear normal. Heart size is normal. Bones and chest wall: No suspicious bony lesions. Overlying soft tissues appear unremarkable. IMPRESSION: No acute cardiopulmonary disease. Dictated by: Davey Willams RRA Interpreted: Devyn Michele MD on 08/02/2016 at 13: 05 Transcribed by: SUDHIR on 08/02/2016 at 13:05 Assessment & Plan Patient is a 80-year-old male with history of tongue squamous cell carcinoma, recurrent aspiration pneumonia, COPD, atrial fibrillation on warfarin and hypothyroidism presenting with worsening SOB, increasing resp secretion. Of note pt was hospitalized with pneumonia in early June, another hospitalization with dx in 07/25-07/30(3days ago) with acute on chronic respiratory failure due to influenza A infection, pneumonia possibly pseudomonas, treated with cefepime, COPD exacerbation on steroid, acute, active Acute on chronic respiratory failure, POA, no SIRS, pt just finished cefepime 1PTA, unlikely flu/new HCAP. however, given MRSA+ on trach aspirate culture on , could contribute to sx, CXR-unremarkable. 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 -Continue home diltiazem 120mg ER daily Hypothyroidism. Present on admission -Continue levothyroxine 125g daily History of RLS. -Continue diazepam 5mg PRN History of shingles -Continue acyclovir 400mg BID Depression -Continue mirtazapine 15mg HS dispo:likely home with hospice once pt is more clinically stable, monitor O2 requirement, thinks she will be ready not until Saturday. diet:PEG feeding dvt ppx:LMWH DNR/DNI, appreciate Palliative input VTE Mechanical Devices: Intermittant Pneumatic CD Resuscitation Status: DNR/DNI:Do Not Resuscitate/Intubate Time spent 35min Amber Ramírez MD Aug 05, 2016 12:40
--- NOTE | 2016-08-05 14:10 | NUR ---
CARA signed with via Phone. KASHMIR Hanna
--- NOTE | 2016-08-05 15:03 | NUR ---
Social Work-initial assessment: Data& assessment:See initial assessment. Pt is a 80 y/o male who was admitted on 08/02/16 for MRSA per H&P. Pt's insurance is [facility] [place] and PCP is Chava Kilpatrick MD.EMR reviewed. Pt's readmission score is 5-high risk. Pt is non-verbal at baseline due to laryngectomy, but is able to answer yes or no questions.PT would like SW to complete assessment with Pat. SW placed a call to pt's Pat [phone] or cell [phone] to discuss discharge planning, SW role explained. Pt has been residing at home with where he remains independent with basic ADls. Pt uses a fww or cane at baseline and does not drive. [facility], FINE ARTS MODEL, and ICE PULLER, Emmanuel Ruiz at [place] has been notified of pt's admission. Pt is also open with [facility] for Tube feeds, Francesco Medina notified of admission. Pt has no SNF history. SW discussed DPOA/ advanced directive, states the have the information, but have no completed the forms, SW encouraged to have these completed. Pt has no chcf care or VA benefits. Pt's states she had long conversation yesterday with Palliative care and has decided that pt will come home with Hospice services. states she will be speaking with Dr. Martinez, oncology. states pt is not normally on O2 at home, and has been requiring between 10-12 liters here. SW placed a call to Eloisa at Hospice and provided her with information. SW explained that SW will follow up with her tomorrow regarding referral. Eloisa at Hospice confirms the highly O2 they can do at home is 10 liters. is not sure if she will need an informational visit or not. SW will continue to follow. Plan:Pt to discharge home with support of when medically stable. SW to follow up with Hospice again tomorrow, after further discussion from , and coordinate with . SW will continue to follow. KASHMIR Hanna Addendum: 08/05/16 at 1527 by LATANYA HILLMAN SS Amended: Links added.
[2016-08-05] MEDS ORDERED: 0.9% Sodium Chloride 250 ML ONE (18:09)
--- NOTE | 2016-08-05 18:52 | NUR ---
Activity Pt continuing to have lots of secretions and RT was called multiple times during shift to do deep suction on pt. Trach mask in place with 8L O2. Pt has no c/o pain or nausea during shift. Used call light appropriately when needed help. [place] alarm in place. Pt having increased confusion right before shift change, pulling on lines, taking gown off. Pt is easily re-directable and agreeable. Paged , but have not heard back. mini shifter RN gave in report that pt was confused last night as well.
[2016-08-05] MEDS: OLANZapine Zydis ODT 5 mg Tablet PO SCH (20:25)
[2016-08-06 01:45] VITALS: BP 165/81; PULSE 89; RESP 22; O2SAT 95
--- NOTE | 2016-08-06 04:01 | NUR ---
Respiratory On assessment, patient was holding on to oxymask. He seemed confused about placement. The strap was put over his head and around neck area and mask was put into place. Patient had large amount of secretions coming up from trach opening. Secretions were suctioned out. Respiratory called. VSS . Per gis mapping technician , patient in SR 90's. Call light within reach and reiterated with patient to use call light if RN is needed. Patient nodded. Care continues.
[2016-08-06] MEDS: Albuterol-Ipratropium 3 mL Inhalation Solution NEB SCH ×5 (04:28→20:30)
[2016-08-06 04:29] VITALS: PULSE 91; RESP 20; O2SAT 95
--- NOTE | 2016-08-06 06:09 | NUR ---
Activity Patient appears to have a glassy eye look. Will not give a thumbs up or down when asked about pain. Did not respond to questions about being cold. Patient did however nod when asked if he wanted his to come back to the hospital. called. She is en route to the hospital.
[2016-08-06 06:10] VITALS: BP 163/91; PULSE 94; RESP 24; O2SAT 90
[2016-08-06 06:31] LABS: INR 2.56 ratio
[2016-08-06 06:41] LABS: BASOPHILS % (AUTO) 0.2 % (0-3); EOSINOPHILS % (AUTO) 1.1 % (0-5); MONOCYTES % (AUTO) 8.9 % (4-12); Mean Corpuscular Hemoglobin 31.9 pg (27.0-35.0); NEUTROPHILS % (AUTO) 81.7 % (40-74); Platelet Count 138 bil/L (150-400)
[2016-08-06 06:52] LABS: Magnesium 2.2 mg/dL (1.6-2.6); Phosphorus 3.4 mg/dL (2.5-4.9)
[2016-08-06] MEDS: Fluticasone 100 mCg Inhaler INHALATION SCH ×2 (08:30→20:30)
[2016-08-06 09:05] VITALS: PULSE 80; RESP 18
--- NOTE | 2016-08-06 09:15 | PCM.PALLBR ---
Palliative Care Recommendation Summary of palliative recommendations: 08/06/16 Discussion with - goal for comfort. OK withdrawal of active treatment of antibiotics etc. MS prn discomfort or SOB--MS shabbir ordered. It appears that he will in hospital and likely to be soon. Will notify hospice. Will notify Dr. Martinez. Offered support for his . She seems well prepared. 08/04/16 in discussion with patient and his decision is to proceed with chest CT. We will give trial of olanzapine 2.5 mg at HS for sleep and nausea. Hopefully they can have time with Dr. Martinez next week to review the discontinuation of the immunotherapy which at this point Dr. Martinez and patient / agree on. His believes she is too weak to proceed with any consideration for chemotherapy. She is interested in engaging hospice if Dr. Martinez agrees with the goals of care at that point comfort only. She is well versed in role of hospice. -Symptom management (Pain/other) Dyspnea-chronic but getting worse. He does not follow with pulm. He knows he has metastatic nodules in lungs. Has dx of at least moderate COPD. consider trial of prednisone but Dr. Martinez would like to postpone this decision pending CT scan Reviewed with Dr. Martinez who raised concern of possible interstitial lung disease from his immunotherapy. He may also be developing progressive lung disease with time as well as with recurrent aspiration. Dr. Martinez requested CT scan with contrast of chest to evaluate above. Nausea-some chronic component. Details are unclear. Would need more discussion with his . Definite concern with progressive weight loss despite ongoing feeding. Some reassurance with normal CT chest abdomen and pelvis in April. Consider use of Olanzapine 2.5-5 mg in PM for nausea and may help sleep. GOC-he would like most of this discussion to go through his . He is quite definite at not wanting CPR/ intubation etc. He continues to follow with Dr. Martinez will need to decide regarding his immunotherapy. -DPOA/Advanced Directives/POLST--DNR/DNI--will need to complete POLST before discharge. Will attempt to do this with his present if possible -Family/emotional support--primary caregiver is his . -Spiritual support-- raised Muslim but not involved in any mu-ism more oriented to [place] holistic spiritual approach. Some challenges with Pat's sister who is in Religious [employer] in finding common ground Problems: End of Life Preferences DNR/DNI- Goals of Care comfort Disposition COMFORT CARE- LIKELY TO IN HOSPITAL Resuscitation Status Resuscitation Status: DNR/DNI:Do Not Resuscitate/Intubate POLST Updates/Changes Artificially Admin Nutrition: Long-Term Nutrition by Tube Feeding POLST Discussed with: Patient, Spouse/Other . Advanced Care Planning Address: Comfort care Total time 20 minutes; >50% face to face with patient and/or family, providing counselling regarding plans and recommendations, and in care coordination with his/her medical teams. I also spent an additional [ ] minutes counseling for advanced care planning with the patient/the patients family/the surrogate decision maker. copies to: Paulie Martinez MD Palliative Brief Note Date of Service Aug 06, 2016 . 80 yo with metastatic SQCCA tongue with progressive weight loss and failure to thrive with acute deterioration in mental status this AM. at bedside and children on way in. Last PM was more fatigued then less responsive this AM early. O: obtunded. occ partial opening of eyes and will purposely close his mouth but other [place] no response. his states he occ partial squeeze of her hand RR 30+, shallow appears fairly comfortable. Neck/chest CT with tumor recurrence in neck and new 2 cm pulm met Trini Putnam MD Aug 06, 2016 09:15
[2016-08-06] MEDS: NS IV SCH (09:29)
[2016-08-06] MEDS: MORPHINE IV SCH (09:29)
[2016-08-06 09:32] VITALS: PULSE 90
--- NOTE | 2016-08-06 10:39 | NUR ---
Social Work-continued d/c planning: Data:EMR reviewed. Pt is on day 4 of hospitalization for MRSA per H&P. SW updated in morning rounds that pt is now full comfort care, morphine drip to start. anticipates pt to pass at [facility]. SW spoke with Hospice and Palliative care MEDICAL CLINIC MANAGER regarding case. Palliative care MEDICAL CLINIC MANAGER to cancel Hospice informational visit. SW updated [facility]. SW will continue to follow. Assessment:Pt who is on comfort care. Plan:Pt is on comfort care anticipated to pass at [facility]. SW will continue to follow. KASHMIR Hanna
--- NOTE | 2016-08-06 14:40 | PCM.PNMED ---
Subjective Date of Service Aug 06, 2016 Subjective patient had worsening of dyspnea overnight. He is also very lethargic. at bedside and tearful. Discussed goals of care with . She states, patient has been through a lot and had clearly stated that he would not want all these measures.She states we should provide comfort measures only.agreed to stop checking labs ,Iv fluids and antibiotics.started on morphine drip Exam Vital Signs Vital Sign - Last Date Time Temp Pulse Resp B/P Pulse Ox O2 Delivery O2 Flow Rate FiO2 08/06/16 09:32 90 08/06/16 09:05 18 Trach Collar 10.00 30 08/06/16 06:10 36.3 163/91 90 Intake and Output 08/05/16 08/05/16 08/06/16 Cumulative From/Thru 15:00 23:00 07:00 08/02/16 11:47 - 08/06/16 06:36 Intake Total 0 ml 2505 ml 7156 ml Output Total 500 ml 2297 ml Balance -500 ml 2505 ml 4859 ml Intake Oral 0 ml 0 ml IV Total 250 ml 830 ml Tube Feeding 1480 ml 4331 ml Tube Irrigant 775 ml 1995 ml Output Urine Total 500 ml 2295 ml Gastric Drainage Total 2 ml # Voids 5 # Bowel Movements 2 5 Exam Cachectic male, in moderate respiratory distress. Lethargic, responds to pain no JVD, MMM, no LAD s/p tracheostomy stoma, RRR, nl s1, s2 no mrg coarse BS, mildly crackles bilaterally S,ND,NT,normoactive BS+, PEG tube in place warm, no edema, pulses 2/2 Lethargic IVs and Medications Medications Reviewed: Medications were reviewed in detail Lab and Diagnostics Result Diagram: 08/06/1645 08/06/1645 X-Rays, CTs and MRIs PROCEDURE: X-RAY CHEST ONE VIEW, PORTABLE ([id number]) INDICATIONS: dyspnea TECHNIQUE: One view of the chest was acquired. COMPARISON: [facility], CR, XR CHEST 1VW (PORTABLE), 07/29/2016, 8: 55. FINDINGS: Surgical changes and devices: None. Lungs and pleura: No pleural effusions or pneumothorax. Lungs are clear. Mediastinum: Mediastinal contours appear normal. Heart size is normal. Bones and chest wall: No suspicious bony lesions. Overlying soft tissues appear unremarkable. IMPRESSION: No acute cardiopulmonary disease. Dictated by: Davey Willams RRA Interpreted: Devyn Michele MD on 08/02/2016 at 13: 05 Transcribed by: SUDHIR on 08/02/2016 at 13:05 Assessment & Plan Patient is a 80-year-old male with history of tongue squamous cell carcinoma, recurrent aspiration pneumonia, COPD, atrial fibrillation on warfarin and hypothyroidism presenting with worsening SOB, increasing resp secretion. Of note pt was hospitalized with pneumonia in early June, another hospitalization with dx in 07/25-07/30(3days ago) with acute on chronic respiratory failure due to influenza A infection, pneumonia possibly pseudomonas, treated with cefepime, COPD exacerbation on steroid, acute, active Acute on chronic respiratory failure, POA, no SIRS, pt just finished cefepime 1PTA, unlikely flu/new HCAP. however, given MRSA+ on trach aspirate culture on , could contribute to sx, CXR-unremarkable. 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 Present on admission -discontinue levothyroxine 125g daily History of RLS. -discontinue diazepam 5mg PRN History of shingles -discontinue acyclovir 400mg BID Depression -discontinue mirtazapine 15mg HS dispo:on full comfort care.anticipate he may in the next 24-48 hrs diet:dc PEG feeding dvt ppx:dc LMWH DNR/DNI, appreciate Palliative input emotional support to offered VTE Mechanical Devices: Intermittant Pneumatic CD Resuscitation Status: DNR/DNI:Do Not Resuscitate/Intubate Paul Solano MD Aug 06, 2016 14:40
--- NOTE | 2016-08-06 18:22 | NUR ---
Comfort care P: Pt found to be nonresponsive, both verbally and physically, this morning. I: MD notified, palliative care consulted and decision made with family to put pt on comfort measures. Morphine gtt started at 0900 at 1mls/hr. At 1030, gtt increased to 2mls/hr d/t continued RR in upper 20s and labored breathing with accessory muscle use. Per family request, rate increased to 2.5mls/hr at 1400 - at this time breathing was again labored. E: Pt has shown no restlessness this afternoon, family believe pt to be comfortable, RR regular and minimal accessory muscle use observed. Will continue to suction tracheostomy PRN and turn for comfort.
[2016-08-07] MEDS: Albuterol-Ipratropium 3 mL Inhalation Solution NEB SCH ×6 (00:30→20:30)
--- NOTE | 2016-08-07 06:05 | NUR ---
Comfort care Morphine drip continues at 2.5 mg/h, respirations are gradually slowing and pt occasionally twitches or flinches arm or face, but no response to verbal suggestions. O2 provided to trach, L upper lung some crackles present, IVT present and provides suction PRN. at bedside, guests leave by approximately 3am. Care continues
[2016-08-07] MEDS: Fluticasone 100 mCg Inhaler INHALATION SCH ×2 (08:27→20:30)
[2016-08-07] MEDS ORDERED: Acetaminophen IV 1,000 MG in IV Premix 1 EACH IV ONE (08:40)
[2016-08-07] MEDS: MORPHINE IV SCH (10:17)
[2016-08-07] MEDS: NS IV SCH (10:17)
--- NOTE | 2016-08-07 13:48 | NUR ---
comfort care respiratory rate 5-9. Rt deep suctioned trach per family request. Continuous morphine drip.
--- NOTE | 2016-08-07 16:35 | PCM.PALLBR ---
Palliative Care Recommendation Summary of palliative recommendations: 08/06/16 Discussion with - goal for comfort. OK withdrawal of active treatment of antibiotics etc. MS prn discomfort or SOB--MS shabbir ordered. It appears that he will in hospital and likely to be soon. Will notify hospice. Will notify Dr. Martinez. Offered support for his . She seems well prepared. 08/04/16 in discussion with patient and his decision is to proceed with chest CT. We will give trial of olanzapine 2.5 mg at HS for sleep and nausea. Hopefully they can have time with Dr. Martinez next week to review the discontinuation of the immunotherapy which at this point Dr. Martinez and patient / agree on. His believes she is too weak to proceed with any consideration for chemotherapy. She is interested in engaging hospice if Dr. Martinez agrees with the goals of care at that point comfort only. She is well versed in role of hospice. -Symptom management (Pain/other) Dyspnea-chronic but getting worse. He does not follow with pulm. He knows he has metastatic nodules in lungs. Has dx of at least moderate COPD. consider trial of prednisone but Dr. Martinez would like to postpone this decision pending CT scan Reviewed with Dr. Martinez who raised concern of possible interstitial lung disease from his immunotherapy. He may also be developing progressive lung disease with time as well as with recurrent aspiration. Dr. Martinez requested CT scan with contrast of chest to evaluate above. Nausea-some chronic component. Details are unclear. Would need more discussion with his . Definite concern with progressive weight loss despite ongoing feeding. Some reassurance with normal CT chest abdomen and pelvis in April. Consider use of Olanzapine 2.5-5 mg in PM for nausea and may help sleep. GOC-he would like most of this discussion to go through his . He is quite definite at not wanting CPR/ intubation etc. He continues to follow with Dr. Martinez will need to decide regarding his immunotherapy. -DPOA/Advanced Directives/POLST--DNR/DNI--will need to complete POLST before discharge. Will attempt to do this with his present if possible -Family/emotional support--primary caregiver is his . -Spiritual support-- raised Jew but not involved in any jewish more oriented to [place] holistic spiritual approach. Some challenges with Pat's sister who is in [employer] in finding common ground Problems: End of Life Preferences DNR/DNI- Goals of Care comfort Disposition COMFORT CARE- LIKELY TO IN HOSPITAL Resuscitation Status Resuscitation Status: DNR/DNI:Do Not Resuscitate/Intubate POLST Updates/Changes Artificially Admin Nutrition: Long-Term Nutrition by Tube Feeding POLST Discussed with: Patient, Spouse/Other Total time 15 minutes; >50% face to face with patient and/or family, providing counselling regarding plans and recommendations, and in care coordination with his/her medical teams. I also spent an additional [ ] minutes counseling for advanced care planning with the patient/the patients family/the surrogate decision maker. Palliative Brief Note Date of Service Aug 07, 2016 . -Pat and her sister, brother and bro in law with her. Patient is very comfortable/obtunded with RR 6-8 on morphine drip. No urine output, minimal IV fluids for meds Family is comfortable with his course. He is expected to in hospital. Trini Putnam MD Aug 07, 2016 16:35
--- NOTE | 2016-08-07 17:01 | PCM.PNMED ---
Subjective Date of Service Aug 07, 2016 Subjective Patient on comfort care on morphine drip. Looks comfortable, not responsive Exam Vital Signs Vital Sign - Last Date Time Temp Pulse Resp B/P Pulse Ox O2 Delivery O2 Flow Rate FiO2 08/07/16 08:23 38.1 08/06/16 09:32 90 08/06/16 09:05 18 Trach Collar 10.00 30 08/06/16 06:10 163/91 90 Intake and Output 08/06/16 08/06/16 08/07/16 Cumulative From/Thru 15:00 23:00 07:00 08/02/16 11:47 - 08/07/16 06:10 Intake Total 0 ml 0 ml 0 ml 7156 ml Output Total 0 ml 2297 ml Balance 0 ml 0 ml 0 ml 4859 ml Intake Oral 0 ml 0 ml 0 ml 0 ml IV Total 830 ml Tube Feeding 4331 ml Tube Irrigant 1995 ml Output Urine Total 0 ml 2295 ml Gastric Drainage Total 2 ml # Voids 3 1 9 # Bowel Movements 1 6 Exam Cachectic male, in moderate respiratory distress. Lethargic, responds to pain no JVD, MMM, no LAD s/p tracheostomy stoma, RRR, nl s1, s2 no mrg coarse BS, mildly crackles bilaterally S,ND,NT,normoactive BS+, PEG tube in place warm, no edema, pulses 2/2 Lethargic IVs and Medications Medications Reviewed: Medications were reviewed in detail Lab and Diagnostics Result Diagram: 08/06/1645 08/06/16 0545 X-Rays, CTs and MRIs PROCEDURE: X-RAY CHEST ONE VIEW, PORTABLE ([id number]) INDICATIONS: dyspnea TECHNIQUE: One view of the chest was acquired. COMPARISON: [facility], CR, XR CHEST 1VW (PORTABLE), 07/29/2016, 8: 55. FINDINGS: Surgical changes and devices: None. Lungs and pleura: No pleural effusions or pneumothorax. Lungs are clear. Mediastinum: Mediastinal contours appear normal. Heart size is normal. Bones and chest wall: No suspicious bony lesions. Overlying soft tissues appear unremarkable. IMPRESSION: No acute cardiopulmonary disease. Dictated by: Davey CORTES Interpreted: Devyn Michele MD on 08/02/2016 at 13: 05 Transcribed by: SUDHIR on 08/02/2016 at 13:05 Assessment & Plan Patient is a 80-year-old male with history of tongue squamous cell carcinoma, recurrent aspiration pneumonia, COPD, atrial fibrillation on warfarin and hypothyroidism presenting with worsening SOB, increasing resp secretion. Of note pt was hospitalized with pneumonia in early June, another hospitalization with dx in 07/25-07/30(3days ago) with acute on chronic respiratory failure due to influenza A infection, pneumonia possibly pseudomonas, treated with cefepime, COPD exacerbation on steroid, acute, active Acute on chronic respiratory failure, POA, no SIRS, pt just finished cefepime 1PTA, unlikely flu/new HCAP. however, given MRSA+ on trach aspirate culture on , could contribute to sx, CXR-unremarkable. 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 Present on admission -discontinue levothyroxine 125g daily History of RLS. -discontinue diazepam 5mg PRN History of shingles -discontinue acyclovir 400mg BID Depression -discontinue mirtazapine 15mg HS dispo:on full comfort care.anticipate he may in the next 24-48 hrs diet:dc PEG feeding dvt ppx:dc LMWH DNR/DNI, appreciate Palliative input emotional support to offered VTE Mechanical Devices: Intermittant Pneumatic CD Resuscitation Status: DNR/DNI:Do Not Resuscitate/Intubate Paul Solano MD Aug 07, 2016 17:00
--- NOTE | 2016-08-07 19:26 | PROG NOTE ---
[address] [address] PROGRESS NOTE PATIENT: LISS MINER : 1935 MR#: [id number] ADMIT: 08/02/2016 JOB ID: [id number] DATE: 08/07/2016 DIAGNOSIS: Terminally ill patient with metastatic head and neck squamous cell carcinoma and chronic aspiration pneumonia. HISTORY OF PRESENT ILLNESS: The patient was readmitted to hospital on August 02, shortly after previous discharge for influenza. After discharge, his respiratory secretions increased again, and he was not able to clear them. At the emergency department, he was tachypneic. Previous tracheal aspirate culture on July 27 grew scant amount of MRSA. Two previous tracheal aspirates had grown moderate to heavy Pseudomonas. He never had fever during the last admission or this admission, although this morning he had first time fever with temperature 38. He was initially given empiric antibiotics, but as of yesterday morning, our efforts have been changed to comfort measures only. He was still responsive and somewhat communicative as of last Saturday evening, but overnight about 36 hours ago, his condition deteriorated and he has been unresponsive for the last 36 hours. He was agitated, and has been placed on morphine drip. His is currently at the bedside, somewhat tearful, but very comfortable with the current plan. CT scan of neck and chest with contrast was obtained three days ago. It showed a new mass lesion in the left lower lobe, suspicious for pulmonary metastasis, as well as patchy pulmonary opacities within the right upper and lower lobes, suspicious for aspiration or infection. Multifocal pulmonary metastases could also be considered. SUBJECTIVE: Currently, the patient is unresponsive, on high-flow O2 via trach, and had one episode of fever this morning. IMPRESSION AND RECOMMENDATIONS: I fully agree with comfort care measures. This patient will probably pass away in hospital in the next few days. He has been struggling with respiratory failure due to a combination of factors including pulmonary metastatic disease, chronic aspiration, and possible interstitial lung disease from immune checkpoint inhibitor therapy. I had a chance to see his navin, too, and thanked her for the best possible care that this patient could have received. Oncology will sign off at this point. [facility]
--- NOTE | 2016-08-07 19:54 | NUR ---
Comfort care No pain noted with Morphine drip, breaths 5-9/min, pt not arrousable, family at bedside, turning PRN for comfort. Respiratory Therapy suctioning for comfort. care continued.
[2016-08-07 20:48] VITALS: BP 134/73; PULSE 107; RESP 7; O2SAT 77
[2016-08-08] MEDS: Albuterol-Ipratropium 3 mL Inhalation Solution NEB SCH ×3 (00:02→08:30)
[2016-08-08 04:29] VITALS: BP 115/68; PULSE 108; RESP 20; O2SAT 84
--- NOTE | 2016-08-08 06:31 | NUR ---
Comfort Pain managed w morphine @ 2.5/hr, limited interventions. shallow agonal breaths , family in room standing beaver assisting w care.
[2016-08-08] MEDS ORDERED: Haloperidol 5 mg/mL Inj IVPUSH PRN (10:00)
[2016-08-08] MEDS ORDERED: Morphine 100 mg/100 mL NS 100 MG in IV Premix 1 EACH IV SCH (10:00)
[2016-08-08] MEDS ORDERED: LORazepam 100 mg/100 mL NS 100 MG in IV Premix 1 EACH IV PRN (10:00)
[2016-08-08] MEDS ORDERED: Atropine 1% 5 mL Ophthalmic Solution PO PRN (10:00)
[2016-08-08] MEDS ORDERED: Artificial Tears 15 mL Ophthalmic Solution AFFECT_EYE PRN (10:00)
[2016-08-08] MEDS: NS IV SCH (10:18)
[2016-08-08] MEDS: MORPHINE IV SCH (10:18)
--- NOTE | 2016-08-08 12:44 | PCM.PALLBR ---
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 Transitioned to comfort care over the last 36 hours. -Symptom management (Pain/other)- patient resting comfortably now on morphine drip at 2.5 mg per hour. This will be continued with additional titration as needed. I have activated the remainder of the end-of-life care order set with additional medications for his comfort as needed. Reviewed these with his nursing team. Discontinue oxygen but continue to provide pressurized air with humidification through his tracheostomy collar for his comfort at the request of his family. Without supplemental oxygen I suspect that he will within 24 hours. -DPOA/Advanced Directives/POLST--DNR/DNI--will need to complete POLST before discharge if it appears he will survive that long. My expectation, however, is that he will pass away later today or this evening. -Family/emotional support--primary caregiver is his . Spoke at length with her, her brother and other family members on several occasions through the day, offering support. -Spiritual support-- raised Rastafari but not involved in any amish more oriented to [place] holistic spiritual approach. Some challenges with Pat's sister who is in [employer] in finding common ground Problems: End of Life Preferences DO NOT RESUSCITATE/DO NOT INTUBATE/comfort Goals of Care comfort Disposition COMFORT CARE- LIKELY TO IN HOSPITAL Resuscitation Status Resuscitation Status: DNR/DNI:Do Not Resuscitate/Intubate . Advanced Care Planning Address: Comfort care Pain: None Symptom management: Drowsiness/sleepiness Total time 50 minutes; >50% face to face with patient and family, providing counselling regarding plans and recommendations, and in care coordination with his medical teams. Of the above total time, 35 minutes counseling for advanced care planning with the patient's family copies to: Chava Kilpatrick MD Palliative Brief Note Date of Service Aug 08, 2016 . Returned to reevaluate patient. Prior to visiting, reviewed his updated records in the EMR in detail, spoke with his bedside nurse, reviewed his case with other palliative caregivers. On my arrival, multiple family members were at bedside. I spoke with them at length. They were pleased that the patient appears to be comfortable and in no distress. They feel strongly that they want his collar and humidified air continued for comfort, but were very open to the idea of discontinuing oxygen ( which they recognize is only prolonging his dying process). After speaking with him, hypertalkative with respiratory therapy and they are working on getting a pressurized air system to provide the humidified air for comfort without oxygen supplementation. On brief exam, patient is somnolent and in no distress. Vital signs noted. Skin warm and dry. Heart and lung exams stable. No new labs or imaging studies. Ronn Ellis MD Aug 08, 2016 12:44
--- NOTE | 2016-08-08 13:35 | NUR ---
patient on comfort care measures including humidified air to stoma to prevent drying out. Patient currently connected to oxygen wall outlet as there is not an air outlet in [facility] rooms. To avoid moving patient to another room/floor the [employer] agreed to bring in the patient a loaner compressor for bedside use inpatient to continue humidifying the stoma without oxygen.
--- NOTE | 2016-08-08 15:05 | NUR ---
spiritual care: palliative request Visited with pt and his family this afternoon. Pt is on comfort care measures and unresponsive. Pt's family shared about his journey to this place and who he is as a person. Gathered with family around bedside and shared a prayer and blessing. Spiritual care will continue to follow as needed.
--- NOTE | 2016-08-08 15:18 | PCM.PNMED ---
Subjective Date of Service Aug 08, 2016 Subjective On comfort care. Morphine drip at 2.5mg. Looks comfortable. Exam Vital Signs Vital Sign - Last Date Time Temp Pulse Resp B/P Pulse Ox O2 Delivery O2 Flow Rate FiO2 08/08/16 04:29 37.1 108 20 115/68 84 Trach Collar 8.00 08/06/16 09:05 30 Intake and Output 08/07/16 08/07/16 08/08/16 Cumulative From/Thru 15:00 23:00 07:00 08/02/16 11:47 - 08/08/16 06:18 Intake Total 120 ml 550 ml 7826 ml Output Total 2297 ml Balance 120 ml 550 ml 5529 ml Intake Oral 0 ml IV Total 120 ml 550 ml 1500 ml Tube Feeding 4331 ml Tube Irrigant 1995 ml Output Urine Total 2295 ml Gastric Drainage Total 2 ml # Voids 9 # Bowel Movements 6 Exam Cachectic male, in moderate respiratory distress. Lethargic, responds to pain no JVD, MMM, no LAD s/p tracheostomy stoma, RRR, nl s1, s2 no mrg coarse BS, mildly crackles bilaterally S,ND,NT,normoactive BS+, PEG tube in place warm, no edema, pulses 2/2 Lethargic IVs and Medications Medications Reviewed: Medications were reviewed in detail Lab and Diagnostics Result Diagram: 08/06/1654408/06/16544 X-Rays, CTs and MRIs PROCEDURE: X-RAY CHEST ONE VIEW, PORTABLE ([id number]) INDICATIONS: dyspnea TECHNIQUE: One view of the chest was acquired. COMPARISON: [facility], CR, XR CHEST 1VW (PORTABLE), 07/29/2016, 8: 55. FINDINGS: Surgical changes and devices: None. Lungs and pleura: No pleural effusions or pneumothorax. Lungs are clear. Mediastinum: Mediastinal contours appear normal. Heart size is normal. Bones and chest wall: No suspicious bony lesions. Overlying soft tissues appear unremarkable. IMPRESSION: No acute cardiopulmonary disease. Dictated by: Davey CORTES Interpreted: Devyn Michele MD on 08/02/2016 at 13: 05 Transcribed by: SUDHIR on 08/02/2016 at 13:05 Assessment & Plan Patient is a 80-year-old male with history of tongue squamous cell carcinoma, recurrent aspiration pneumonia, COPD, atrial fibrillation on warfarin and hypothyroidism presenting with worsening SOB, increasing resp secretion. 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 Present on admission -discontinue levothyroxine 1 History of RLS. -discontinue diazepam History of shingles -discontinue acyclovir Depression -discontinue mirtazapine 15mg HS dispo:on full comfort care.anticipate he may in the next 24-48 hrs diet:dc PEG feeding DNR/DNI, appreciate Palliative input emotional support to offered VTE Mechanical Devices: Intermittant Pneumatic CD Resuscitation Status: DNR/DNI:Do Not Resuscitate/Intubate Paul Solano MD Aug 08, 2016 15:18
[2016-08-08 15:44] VITALS: BP 81/49; PULSE 109; RESP 6; O2SAT 41
--- NOTE | 2016-08-08 15:54 | NUR ---
Social Work-readiness for discharge: Data:EMR reviewed. Pt is on day 6 of hospitalization for MRSA per H&P. Pt remains on morphine drip and comfort care. anticipates pt to pass at [facility]. SW updated [facility]. SW will continue to follow. Assessment:Pt who is on comfort care. Plan:Pt is on comfort care anticipated to pass at [facility]. SW will continue to follow. KASHMIR Hanna
--- NOTE | 2016-08-08 17:08 | NUR ---
Comfort Care Pt appears to be comfortable entire shift. Morphine drip at 2.5mls/hr Respirations at 6 per min, appears to be with accessory muscle use. Oxygen turned off, but family wishes to remain w/ humidification. RT set up pt w/ the above. Continue hourly rounding. Family at bedside
--- NOTE | 2016-08-08 22:59 | NUR ---
Pt. at 2240. Family in room and comforted during this time.
--- NOTE | 2016-08-09 21:23 | PCM.DC.MEX ---
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 History of RLS. History of shingles Depression Consultations ID Dr [place] palliative Dr Wu oncology Dr Martinez Procedures XRay, CTs & MRIs PROCEDURE: X-RAY CHEST ONE VIEW, PORTABLE ([id number]) INDICATIONS: dyspnea TECHNIQUE: One view of the chest was acquired. COMPARISON: [facility], CR, XR CHEST 1VW (PORTABLE), 07/29/2016, 8: 55. FINDINGS: Surgical changes and devices: None. Lungs and pleura: No pleural effusions or pneumothorax. Lungs are clear. Mediastinum: Mediastinal contours appear normal. Heart size is normal. Bones and chest wall: No suspicious bony lesions. Overlying soft tissues appear unremarkable. IMPRESSION: No acute cardiopulmonary disease. Dictated by: Davey Willams RR Interpreted: Devyn Michele MD on 08/02/2016 at 13: 05 Transcribed by: SUDHIR on 08/02/2016 at 13:05 PROCEDURE: CT NECK/CHEST W CONTRAST ([id number]) INDICATIONS: r/o metastasis TECHNIQUE: After the administration of intravenous contrast, 3 mm thick sections acquired from the skull base to the thoracic inlet, with additional 3 mm thick oblique sections through the pharynx and 3 mm thick coronal reformats. 5 mm thick axial sections acquired from the pulmonary apices to the posterior costophrenic angles, with 7 mm thick coronal and sagittal MIP reformats. For radiation dose reduction, the following was used: automated exposure control, adjustment of mA and/or kV according to patient size. COMPARISON: [facility], CT, NECK/CHEST W CONTRAST(PNL), 09/08/2014, 14:59. [facility], CR, XR CHEST 1VW (PORTABLE), 08/03/2016, 10:22. [facility], CR, XR CHEST 1VW (PORTABLE), 07/25/2016, 19:05. [facility], CT, CT NECK CHEST W CON, 01/12/2016, 10:59. [facility], CT, CT NECK CHEST ABD PELVIS W CON, 04/26/2016, 12:03. FINDINGS: Image quality: Excellent. NECK: Lymph nodes: No enlarged nodes seen throughout the neck. Vessels: Visualized vasculature appears patent. Neck spaces: Extensive neck dissection including laryngectomy and tracheostomy is redemonstrated. Enhancing soft tissue fullness is redemonstrated along the right aspect of the oropharynx (series 8, image 23). Soft tissue fullness along the inferior margin of the right mandible is unchanged as well. Other findings to suggest tumor recurrence. Glands: The parotid and submandibular salivary glands are normal in size and enhancement. Thyroid gland is not visualized and may be surgically absent. Miscellaneous: Visualized inferior brain enhances normally. Orbits appear normal. Superficial soft tissues appear normal. Visualized sinuses and mastoids are clear. CHEST: Motion artifact somewhat limits evaluation of the chest. Lungs and pleura: Radiation scarring is redemonstrated at the medial right apex. There is moderate to severe centrilobular emphysema with an apical predominance. Submillimeter patchy nodular radiopacities are present within the lateral aspect of the right upper lobe and the superior segment of the right lower lobe. These are new when compared with the study dated 04/26/16 and have an appearance suspicious for aspiration or infection. The nodular airspace opacities within the medial basal segment of the right lower lobe are decreased in conspicuity suggesting resolving infection or aspiration. There is a new spiculated 2.0 x 2.3 cm mass within the lateral aspect of the left lower lobe suspicious for pulmonary metastasis. The spiculated mass within the anterior aspect of the left lower lobe is redemonstrated but somewhat difficult to visualize given motion artifact. This measures approximately 8 mm in length on the current study and measured 12 mm on the study dated 04/26/16. Mediastinum: Heart size is normal. No pericardial effusion. No mediastinal or hilar adenopathy by size criteria. Thoracic aorta and central pulmonary arteries are normal in size. Dense atheromatous calcifications are present throughout the thoracic aorta. Esophagus is normal in caliber. No hiatal hernia. Chest wall: No axillary or supraclavicular adenopathy by CT size criteria. Bones: No suspicious bony lesions. Abdomen: Visualized upper abdominal solid organs and bowel loops appear unchanged from prior studies. IMPRESSION: 1. Probable stable enhancing soft tissue within the right oropharynx which is slightly better visualized on the current study as described above. 2. No findings within the head and neck to suggest tumor recurrence. 3. New left lower lobe pulmonary mass suspicious for pulmonary metastasis as described above. Differential considerations include infection. 4. Slight decrease in the size of the anterior left lower lobe spiculated nodule when compared with the prior study. 5. Patchy pulmonary opacities within the right upper and lower lobes suspicious for aspiration or infection. Multifocal pulmonary metastasis could also be considered. 6. Extensive aortic atherosclerosis. Dictated by: Missy Mendiola M.D. on 08/04/2016 at 14:56 Approved by: Missy Mendiola M.D. on 08/04/2016 at 15:19 Brief History as per HPI performed by Dr Ramírez on 08/02/16 Patient is a 80-year-old male with history of tongue squamous cell carcinoma, recurrent aspiration pneumonia, COPD, atrial fibrillation on warfarin and hypothyroidism presenting with worsening SOB, increasing resp secretion. Of note pt was hospitalized with pneumonia in early June, another hospitalization with dx below in 07/25-07/30(3days ago) 1. Acute on chronic hypoxic respiratory failure, present on admission. Improved 2. Influenza A, present on admission. - Post treatment with Tamiflu. 3. Possible ongoing pneumonia vs colonization, present on admission. 4. Acute COPD exacerbation, present on admission. Improved. 5. Mildly elevated Troponin, without any reported chest pain. Present on admission. Likely acute demand ischemia from presenting acute hypoxic respiratory failure. 6. Possible acute thrush. present on admission. improving Since patient was discharged 3 days ago from the hospital, since then, amount of secretion was increased, rather thin, white but dried up in trach so made him hard to breath, required suction every 1 hour, pt could not cough up secretions at baseline. pt finished cefepime last dose yesterday, continued cipro via PEG. pt also tolerated PEG feeding at goal 87cc/hr, had loose stools on 07/30,07/31 but no BM for 2days. Pt denied fever, chills, abdominal pain, nausea, vomiting, has baseline frequent urination-didn't notice smelly, cloudy urine. In ED, VSS [id number], 82, tachypneic to 25, afebrile, 95% on RA, noticed MRSA+ on trach aspirate culture on 07/27, ED provider consulted , recommended IV linezolid. 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 PALLIATIVE CARE NOTE: Hx taken from records, Dr. Martinez and patient. His had to return to work. 80 yo patient followed by Dr. Martinez with [facility] of his tongue with known metastatic ds to his lungs who had surgical excision and has been on immunotx since 2014. He has known COPD with last PFT's noting moderate ds in 2010. He has hx of recurrent aspiration, tracheostomy with PEG tube for nutrition and hydration and takes no food or fluids by mouth. His last imaging of his chest 07/02/16 noted decrease in size of his pulm nodules but also a new nodule was noted. CXR yesterday and today- no mello infiltrate but today ? mass. He has had multiple hospitalizations including pneumonia in early Jun and then 07/25- for respiratory distress, influenza A and + MRSA. 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 He has been treated recently with cipro with no change in his sx at [address] Martinez has tried OP antibiotics- keflex, and doxy for purulent sputum initially seeming to help-- then not. Patient admits to ongoing weight loss despite ongoing tube feeding. He denies pain. Is weak but can ambulate around room without assistance. Hospital Course Patient is a 80-year-old male with history of tongue squamous cell carcinoma, recurrent aspiration pneumonia, COPD, atrial fibrillation on warfarin and hypothyroidism presenting with worsening SOB, increasing resp secretion. Of note pt was hospitalized with pneumonia in early June, another hospitalization with dx in 07/25-07/30(3days ago) with acute on chronic respiratory failure due to influenza A infection, pneumonia possibly pseudomonas, treated with cefepime, COPD exacerbation on steroid, acute, active #Acute on chronic respiratory failure, POA, no SIRS, pt just finished cefepime 1PTA, due to suspected HCAP, CXR-unchanged from prior - Initially treated with Linezolid and Ceftaroline , discontinued antibiotics as per family request -O2 as needed for comfort -On comfort care only for 3 days and on 08/08/16 at 22:40PM #History of 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 Present on admission -discontinued levothyroxine On comfort care only for 3 days and on 08/08/16 at 22:40PM History of RLS. -discontinued diazepam History of shingles -discontinued acyclovir Depression -discontinued mirtazapine 15mg HS diet:dcd PEG feeding DNR/DNI, emotional support to offered On comfort care only for 3 days and on 08/08/16 at 22:40PM cause of :acute on chronic hypoxic respiratory failure due to HCAP on a patient with metastatic tongue cancer with new lung metastasis Exam Test 08/02/16 12:15 08/02/16 12:33 08/02/16 14:58 08/03/16 05:24 Troponin T 0.040ug/L (0.0-0.011) Pro-B-Type Natriuretic Peptide 691.4pg/mL (0-486) Lactic Acid Level 1.0mmol/L (0.4-2.0) Urine Color Yellow (YELLOW) Urine Appearance Hazy (CLEAR,HAZY) Urine pH 6.5 (5.0-8.0) Urine Specific [place] 1.030 (1.003-1.035) Urine Protein 100mg/dL (NEG,TRACE) Urine Glucose (UA) Negativemg/dL (NEGATIVE) Urine Ketones Negativemg/dL (NEGATIVE) Urine Occult Blood Negative (NEGATIVE) Urine Nitrite Negative (NEGATIVE) Urine Bilirubin Negative (NEGATIVE) Urine Urobilinogen Normalmg/dL (NORMAL) Urine Leukocyte Esterase Negative (NEGATIVE) Urine RBC 0-2/hpf (0-2) Urine WBC 0-5/hpf (0-5) Urine Epithelial Cells Moderate/hpf (NONE-MOD) Urine Crystals None seen (NONE SEEN) Urine Bacteria None/hpf (NONE-FEW) Urine Hyaline Casts 11/10/lpf (NONE) Urine Granular Casts Occasional (NONE SEEN) Urine Waxy Casts None seen (NONE SEEN) Urine Red Blood Cell Casts None seen (NONE SEEN) Urine White Blood Cell Casts None seen (NONE SEEN) Urine Mucus Present (None Seen) Urine Trichomonas None seen (NONE SEEN) Urine Yeast None (NONE SEEN) Urinalysis Comment None Urine Culture Reflexed Not indicated Procalcitonin 0.08ng/mL (0.00-0.08) Test 08/06/16 05:45 White Blood Count 12.5th/mm3 (3.8-10.1) Red Blood Count 4.08mil/mm3 (4.40-5.80) Hemoglobin 13.0g/dL (13.8-17.2) Hematocrit 41.6% (41.0-50.0) Mean Corpuscular Volume 102.0fL (81-100) Mean Corpuscular Hemoglobin 31.9pg (27.0-35.0) Mean Corpuscular Hemoglobin Concent 31.3% (32.0-37.0) Red Cell Distribution Width 12.8% (12.3-15.4) Platelet Count 138bil/L (150-400) Neutrophils (%) (Auto) 81.7% (40-74) Lymphocytes (%) (Auto) 6.3% (14-46) Monocytes (%) (Auto) 8.9% (4-12) Eosinophils (%) (Auto) 1.1% (0-5) Basophils (%) (Auto) 0.2% (0-3) Prothrombin Time 27.9sec (8.1-12.5) Prothromb Time International Ratio 2.56ratio Sodium Level 131mEq/L (134-144) Potassium Level 5.7mEq/L (3.5-5.2) Chloride Level 88mEq/L (97-108) Carbon Dioxide Level 38mmol/L (18-29) Blood Urea Nitrogen 17mg/dL (8-27) Creatinine 0.67mg/dL (0.76-1.27) Estimat Glomerular Filtration Rate 122mL/min (>59) Glucose Level 197mg/dL (60-99) Calcium Level 8.1mg/dL (8.5-10.1) Phosphorus Level 3.4mg/dL (2.5-4.9) Magnesium Level 2.2mg/dL (1.6-2.6) Total Bilirubin 0.3mg/dL (0.0-1.2) Aspartate Amino Transf (AST/SGOT) 24U/L (0-50) Alanine Aminotransferase (ALT/SGPT) 22U/L (0-44) Alkaline Phosphatase 82U/L (25-160) Total Protein 6.1g/dL (6.4-8.4) Albumin 3.7g/dL (3.4-5.0) Time spent 35 minutes reviewing chart and comforting family on day of patient copies to: Chava Kilpatrick MD, Melaku MD Aug 09, 2016 21:23
== END 2016-08-08 23:40 | disposition expired | DRG 189 ==
LOC: SED 11:33 → OBSVTOIN 15:10 → OSC 15:10
PROVIDERS: ADMIT Internal Medicine; ATTEND Internal Medicine
DX: J96.21 Acute and chronic respiratory failure with hypoxia (principal); E43 Unspecified severe protein-calorie malnutrition; J18.9 Pneumonia, unspecified organism; R64 Cachexia; Z68.1 Body mass index [BMI] 19.9 or less, adult; J44.1 Chronic obstructive pulmonary disease with (acute) exacerbation; C78.02 Secondary malignant neoplasm of left lung; C78.01 Secondary malignant neoplasm of right lung; Z93.0 Tracheostomy status; Z93.1 Gastrostomy status; I48.0 Paroxysmal atrial fibrillation; Z79.01 Long term (current) use of anticoagulants; E03.9 Hypothyroidism, unspecified; F32.9 Major depressive disorder, single episode, unspecified; I10 Essential (primary) hypertension; Z87.891 Personal history of nicotine dependence; G25.81 Restless legs syndrome; E78.5 Hyperlipidemia, unspecified; Z51.5 Encounter for palliative care; Z85.810 Personal history of malignant neoplasm of tongue